=== PATIENT | female | born 1935 | race Caucasian/White ===

== ENCOUNTER 2024-05-14 12:23 | Outpatient (REF) | payer MEDICARE, SELFPAY ==
[2024-05-14 13:28] LABS: PCR FLU A Negative PCR FLU A (Negative); PCR FLU B Negative PCR FLU B (Negative); PCR RSV Negative PCR RSV (Negative); SARS PCR* Negative SARS-CoV-2 (Negative)
[2024-05-17 17:25] LABS: B. pertussis/parapertus Source Not Provided; Bordetella parapertussis PCR Not Detected; Bordetella pertussis by PCR Not Detected
== END 2024-05-14 12:24 | disposition home or self-care (01) ==
LOC: NPINS 12:23
PROVIDERS: PCP Family Medicine; Visit Provider Family Medicine
DX: R05.9 Cough, unspecified (principal)
CPT/HCPCS: 87631

== ENCOUNTER 2024-05-15 15:08 | Outpatient (CLI) | payer MEDICARE, OTHER, SELFPAY | END 2024-05-15 15:09 | disposition home or self-care (01) | LOC: AMB 05-17 07:30 | PROVIDERS: PCP Family Medicine; Visit Provider Emergency Medicine Emergency Medical Services | DX: R06.09 Other forms of dyspnea (principal) | CPT/HCPCS: A0425; A0427 ==

== ENCOUNTER 2024-05-15 15:34 | Inpatient (IN) | payer MEDICARE, OTHER, SELFPAY ==
[2024-05-15] VITALS (30 sets, daily range): BP systolic 93–141; BP diastolic 61–97; PULSE 96–139; RESP 32–42; TEMP 36.5–37.9; O2SAT 91–98; BMI 22.9
--- NOTE | 2024-05-15 15:46 | CRLHL7_ITS ---
For Patients: As a result of the Century Cures Act, medical imaging exams and procedure reports are released immediately into your electronic medical record. You may view this report before your referring provider. If you have questions, please contact your health care provider. Indication: Pneumonia, possible mass Technique: CT chest without IV contrast Comparison: None Findings: Motion degraded exam. No thyroid nodules. There are few mediastinal and likely bilateral hilar lymph nodes without appreciable pathologic enlargement, likely reactive. Cardiomegaly. No pericardial effusion. Multivessel coronary artery calcifications. Aortic valve calcifications. Bilateral airspace opacities with dense consolidative airspace opacities involving the right lower lobe and to a lesser extent the left lower lobe, favored to represent multifocal pneumonia. There is no pleural effusion or pneumothorax. The airways are clear. The visualized upper abdomen is without acute abnormality. No acute fracture or malalignment. There are some degenerative changes of the spine. Impression: 1. CT findings consistent with multifocal pneumonia. Recommend follow-up chest CT approximately 10-12 weeks after completion of any treatment to assess for resolution and exclude any underlying pulmonary nodules/masses. 2. There are few mediastinal and likely bilateral hilar lymph nodes without appreciable pathologic enlargement, likely reactive. Please note that all CT scans at this facility use dose modulation, iterative reconstruction, and/or weight-based dosing when appropriate to reduce radiation dose to as low as reasonably achievable. Dictated by Rashaun Crespo MD @ 05/15/2024 4:57:02 PM (Electronically Signed)
--- NOTE | 2024-05-15 16:04 | ED.GENADULT ---
HPI - General Adult General Chief complaint: Shortness of Breath/Dyspnea Stated complaint: possible sepsis Time Seen by Provider: 05/15/24 15:35 Source: RN notes reviewed Mode of arrival: EMS History of Present Illness HPI narrative: Patient is an 88-year-old woman brought in from [facility]. She has had trouble recently with pneumonia hospitalized [address] [place] [address] in mid April and then again at [place], discharged back to [facility] I believe on May 01. Both times, she received fluids, IV antibiotics and oxygen support. At this point, she had no longer been on oxygen. She was noted to be having some respiratory difficulty earlier today, O2 sats were 84% on room air. She had indicated that she would like to stay at the care facility of possible, but they did a chest x-ray which showed a density in the right mid and lower lung consistent with pneumonia. A portion of this was rounded and appeared masslike. She was noted to have a fever in the ambulance as well. It seems as if she is off her baseline a little bit mentally, it looking through the custodial notes she typically responds to questions at least with a single word answer. She is not really answering any questions for me here. Per paramedics she was 81% on room air on their arrival. Review of Systems Status of ROS: Reports: 10 or more systems reviewed and unremarkable except as noted in History and below [facility] Social History Smoking Status: Unknown if ever smoked Exam Narrative: Exam Narrative: Vital signs reviewed In general, an alert elderly woman, breathing is mildly labored, tachypneic. Head: Normocephalic, atraumatic. Eyes: Sclera clear. Pupils equal and reactive. ENT: Mucous membranes moist. Neck: Supple without adenopathy. Heart: Tachycardic, irregular. No obvious murmur. Lungs: Clear. No increased work of breathing, crackles or wheezes. Abdomen: Protuberant, soft. No rebound guarding or rigidity. She does seem to wince a little bit with palpation of her lower abdomen. Extremities: Well perfused, pulses intact. No significant edema. Neurologic: She is awake, she makes eye contact but really does not answer questions. Not following commands at this time. Skin: Warm, dry well perfused. Affect: Normal. Const: Vital Signs, click to edit/add: Vital Signs - 24 hr 05/15/24 15:54 05/15/24 15:55 05/15/24 16:00 Temperature 100.3 F H Pulse Rate [Pulse Oximeter] 138 H Respiratory Rate 42 H Blood Pressure [Ri ght Upper Arm] 130/97 H Pulse Oximetry 93 92 92 Oxygen Delivery Me thod OxyMask Nasal Cannula Oxygen Flow Rate 6 6 Documenting provider has reviewed patient's vital signs: yes Course Course ED Course: Concern at this time would be for sepsis, possible pulmonary source given hypoxia and chest x-ray findings, though I do not know what her x-ray looked like in April. It is not clear to me that she has had a CT scan and I think with her current findings it is reasonable to do a scan of her chest to rule out an abscess, empyema, or mass. This is ordered without IV contrast. In the meantime, we have given her 500 mL of normal saline. An EKG shows atrial fibrillation with a ventricular rate of 132. Looking through her records she does have a history of atrial fibrillation with rapid ventricular response back at [facility] during her hospitalization really last April. Resolved somewhat with her morning medications including metoprolol. She is not anticoagulated, it was discussed previously in July of 2023. She is tachycardic at this time, will give some medication to help with fever control and some fluids and see where we stand at that point. Blood pressures have been stable. Is oxygenating reasonably well on O2, 6 L by nasal cannula, will switch to maybe 4 L by OxyMask and see how she does. She is DNR DNI, selective treatment. Labs including blood culture, lactate, procalcitonin ordered. Labs thus [place] [address], lactate of 2.3. Hemoglobin is a little low at 11. Left shift with 90% neutrophils. Venous gas looks good with a pH of 7.37, pCO2 of 40. Metabolic panel is unremarkable. LFTs are normal, BNP is markedly elevated at 17,200 thousand two hundred, baseline unknown. UA is pending. Chest CT reviewed by me shows evidence of bilateral infiltrates, I do not see an abscess, I do not see pleural effusion or evidence of significant congestive heart failure. Final radiology read is notable for multifocal pneumonia, follow-up chest CT in 10-12 weeks recommended to exclude any underlying pulmonary nodules or masses. A few likely reactive nodes. Case discussed with Dr. Frank from the hospitalist service. Plan will be IV antibiotics and admission for respiratory support. I have not seen any family yet here, my understanding is that her son is on his way. POLST sent by [facility], code status confirmed. Vital Signs Vital signs: Initial Vital Signs Respiratory Effort Tachypnea 05/15/24 15:54 Respiratory Depth Deep 05/15/24 15:54 Pulse Oximetry 93 05/15/24 15:54 Oxygen Delivery Method OxyMask 05/15/24 15:54 Oxygen Flow Rate 6 05/15/24 15:54 Vital Signs Pulse Oximetry 93 05/15/24 15:54 Oxygen Delivery Method OxyMask 05/15/24 15:54 Oxygen Flow Rate 6 05/15/24 15:54 Temperature 100.3 F H 05/15/24 15:55 Pulse Rate 138 H 05/15/24 15:55 Respiratory Rate 42 H 05/15/24 15:55 Blood Pressure 130/97 H 05/15/24 15:55 Pulse Oximetry 92 05/15/24 16:00 Oxygen Delivery Method Nasal Cannula 05/15/24 15:55 Oxygen Flow Rate 6 05/15/24 15:55 Medications Administered Medications: Discontinued Medications Generic Name Dose Route Start Last Admin Trade Name Freq PRN Reason Stop Dose Admin Acetaminophen 1,000 mg 05/15/24 15:46 05/15/24 16:59 Acetaminophen 500 Mg Tablet PO 05/15/24 15:47 Not Given ONCE ONE Piperacillin Sod/Tazobactam 100 mls @ 100 mls/hr 05/15/24 15:46 05/15/24 16:54 Sod 3.375 gm/ Sodium Chloride IVPB 05/15/24 15:47 100 mls/hr ONCE ONE Administration Medical Decision Making Lab Data Labs: Lab Results 05/15/24 05/15/24 05/15/24 Range/Units 15:52 15:52 15:52 WBC 26.05 H* (4.50-11.00) K/uL RBC 3.64 L (4.00-5.20) m/uL Hgb 11.0 L (12.0-16.0) gm/dL Hct 34.9 (33.0-51.0) % MCV 96 (80-100) fL MCH 30 (26-34) pg MCHC 32 (32-36) gm/dL RDW Coeff of Noah 17.2 H (11.5-15.5) % Plt Count 240 (140-440) K/uL Neut % (Auto) 89.9 H (42.0-72.0) % Lymph % (Auto) 3.4 L (20-44) % Roberts % (Auto) 5.8 (0.0-11.0) % Eos % (Auto) 0.0 (0.0-7.0) % Baso % (Auto) 0.1 (0.0-3.0) % Neut # (Auto) 23.40 H (1.7-7.0) K/uL Lymph # (Auto) 0.90 (0.90-2.90) K/uL Roberts # (Auto) 1.50 H (0.00-0.90) K/UL Eos # (Auto) 0.00 (0.00-0.50) K/uL Baso # (Auto) 0.00 (0.00-0.30) K/uL Abs Immat Gran (auto) 0.20 (0.00-0.30) K/uL Imm/Tot Granulo (auto) 0.8 % VBG pH 7.371 (7.32-7.43) VBG pCO2 40 (40-50) mmHG VBG pO2 31.8 (25-47) mmHG VBG HCO3 23 (21-28) mmol/L Sodium 134 L (135-149) mmol/L Potassium 4.4 (3.6-5.1) mmol/L Chloride 103 (96-114) mmol/L Carbon Dioxide 23 (20-32) mmol/L Anion Gap 8 (7-15) mEq/L BUN 26 (7-30) mg/dL Creatinine 1.1 (0.5-1.5) mg/dL Estimated Creat Clear 28.50 Estimated GFR 49 ml/min Glucose 129 H (60-115) mg/dL Lactate 2.3 H (0.5-1.9) mmol/L Calcium 8.7 (8.4-10.6) mg/dL Total Bilirubin 0.8 Cancelled (0.1-1.5) mg/dL Direct Bilirubin 0.4 Cancelled (0.0-0.5) mg/dL AST 30 (12-35) U/L ALT (4-35) U/L Alkaline Phosphatase (40-150) U/L NT-Pro-B Natriuret Pep pg/mL Total Protein (6.0-8.3) g/dL Albumin (3.3-5.0) g/dL SARS-CoV-2 (PCR) (Negative) Influenza Type A (PCR) (Negative) Influenza Type B (PCR) (Negative) RSV (PCR) (Negative) POC Troponin I (0.01-0.04) ng/ml 05/15/24 05/15/24 05/15/24 Range/Units 15:52 15:52 15:52 WBC (4.50-11.00) K/uL RBC (4.00-5.20) m/uL Hgb (12.0-16.0) gm/dL Hct (33.0-51.0) % MCV (80-100) fL MCH (26-34) pg MCHC (32-36) gm/dL RDW Coeff of Noah (11.5-15.5) % Plt Count (140-440) K/uL Neut % (Auto) (42.0-72.0) % Lymph % (Auto) (20-44) % Roberts % (Auto) (0.0-11.0) % Eos % (Auto) (0.0-7.0) % Baso % (Auto) (0.0-3.0) % Neut # (Auto) (1.7-7.0) K/uL Lymph # (Auto) (0.90-2.90) K/uL Roberts # (Auto) (0.00-0.90) K/UL Eos # (Auto) (0.00-0.50) K/uL Baso # (Auto) (0.00-0.30) K/uL Abs Immat Gran (auto) (0.00-0.30) K/uL Imm/Tot Granulo (auto) % VBG pH (7.32-7.43) VBG pCO2 (40-50) mmHG VBG pO2 (25-47) mmHG VBG HCO3 (21-28) mmol/L Sodium (135-149) mmol/L Potassium (3.6-5.1) mmol/L Chloride (96-114) mmol/L Carbon Dioxide (20-32) mmol/L Anion Gap (7-15) mEq/L BUN (7-30) mg/dL Creatinine (0.5-1.5) mg/dL Estimated Creat Clear Estimated GFR ml/min Glucose (60-115) mg/dL Lactate (0.5-1.9) mmol/L Calcium (8.4-10.6) mg/dL Total Bilirubin (0.1-1.5) mg/dL Direct Bilirubin (0.0-0.5) mg/dL AST Cancelled (12-35) U/L ALT 16 Cancelled (4-35) U/L Alkaline Phosphatase 104 Cancelled (40-150) U/L NT-Pro-B Natriuret Pep 95973 pg/mL Total Protein (6.0-8.3) g/dL Albumin (3.3-5.0) g/dL SARS-CoV-2 (PCR) (Negative) Influenza Type A (PCR) (Negative) Influenza Type B (PCR) (Negative) RSV (PCR) (Negative) POC Troponin I (0.01-0.04) ng/ml 05/15/24 05/15/24 05/15/24 Range/Units 15:52 15:52 15:52 WBC (4.50-11.00) K/uL RBC (4.00-5.20) m/uL Hgb (12.0-16.0) gm/dL Hct (33.0-51.0) % MCV (80-100) fL MCH (26-34) pg MCHC (32-36) gm/dL RDW Coeff of Noah (11.5-15.5) % Plt Count (140-440) K/uL Neut % (Auto) (42.0-72.0) % Lymph % (Auto) (20-44) % Roberts % (Auto) (0.0-11.0) % Eos % (Auto) (0.0-7.0) % Baso % (Auto) (0.0-3.0) % Neut # (Auto) (1.7-7.0) K/uL Lymph # (Auto) (0.90-2.90) K/uL Roberts # (Auto) (0.00-0.90) K/UL Eos # (Auto) (0.00-0.50) K/uL Baso # (Auto) (0.00-0.30) K/uL Abs Immat Gran (auto) (0.00-0.30) K/uL Imm/Tot Granulo (auto) % VBG pH (7.32-7.43) VBG pCO2 (40-50) mmHG VBG pO2 (25-47) mmHG VBG HCO3 (21-28) mmol/L Sodium (135-149) mmol/L Potassium (3.6-5.1) mmol/L Chloride (96-114) mmol/L Carbon Dioxide (20-32) mmol/L Anion Gap (7-15) mEq/L BUN (7-30) mg/dL Creatinine (0.5-1.5) mg/dL Estimated Creat Clear Estimated GFR ml/min Glucose (60-115) mg/dL Lactate (0.5-1.9) mmol/L Calcium (8.4-10.6) mg/dL Total Bilirubin (0.1-1.5) mg/dL Direct Bilirubin (0.0-0.5) mg/dL AST (12-35) U/L ALT (4-35) U/L Alkaline Phosphatase (40-150) U/L NT-Pro-B Natriuret Pep Cancelled pg/mL Total Protein 6.1 Cancelled (6.0-8.3) g/dL Albumin 3.5 Cancelled (3.3-5.0) g/dL SARS-CoV-2 (PCR) Negative SARS-CoV-2 (Negative) Influenza Type A (PCR) Negative PCR FLU A (Negative) Influenza Type B (PCR) Negative PCR FLU B (Negative) RSV (PCR) Negative PCR RSV (Negative) POC Troponin I (0.01-0.04) ng/ml 05/15/24 Range/Units 15:55 WBC (4.50-11.00) K/uL RBC (4.00-5.20) m/uL Hgb (12.0-16.0) gm/dL Hct (33.0-51.0) % MCV (80-100) fL MCH (26-34) pg MCHC (32-36) gm/dL RDW Coeff of Noah (11.5-15.5) % Plt Count (140-440) K/uL Neut % (Auto) (42.0-72.0) % Lymph % (Auto) (20-44) % Roberts % (Auto) (0.0-11.0) % Eos % (Auto) (0.0-7.0) % Baso % (Auto) (0.0-3.0) % Neut # (Auto) (1.7-7.0) K/uL Lymph # (Auto) (0.90-2.90) K/uL Roberts # (Auto) (0.00-0.90) K/UL Eos # (Auto) (0.00-0.50) K/uL Baso # (Auto) (0.00-0.30) K/uL Abs Immat Gran (auto) (0.00-0.30) K/uL Imm/Tot Granulo (auto) % VBG pH (7.32-7.43) VBG pCO2 (40-50) mmHG VBG pO2 (25-47) mmHG VBG HCO3 (21-28) mmol/L Sodium (135-149) mmol/L Potassium (3.6-5.1) mmol/L Chloride (96-114) mmol/L Carbon Dioxide (20-32) mmol/L Anion Gap (7-15) mEq/L BUN (7-30) mg/dL Creatinine (0.5-1.5) mg/dL Estimated Creat Clear Estimated GFR ml/min Glucose (60-115) mg/dL Lactate (0.5-1.9) mmol/L Calcium (8.4-10.6) mg/dL Total Bilirubin (0.1-1.5) mg/dL Direct Bilirubin (0.0-0.5) mg/dL AST (12-35) U/L ALT (4-35) U/L Alkaline Phosphatase (40-150) U/L NT-Pro-B Natriuret Pep pg/mL Total Protein (6.0-8.3) g/dL Albumin (3.3-5.0) g/dL SARS-CoV-2 (PCR) (Negative) Influenza Type A (PCR) (Negative) Influenza Type B (PCR) (Negative) RSV (PCR) (Negative) POC Troponin I 0.02 (0.01-0.04) ng/ml Imaging Data CT scan - chest: Attestation: I have reviewed the pertinent imaging results. Radiologist's impression: Patient: Rox Ramirez MR#: [id number] : 1935 Acct:[id number] Loc: ED Service Date: 05/15/[address]: Ordering Physician: Alexandra Murray M.D. Date of Service: 05/15/24 Procedure(s): CT chest wo con Accession Number(s): [id number] cc: Alexandra Murray M.D.; Kyle Mckeon M.D.~ For Patients: As a result of the Cures Act, medical imaging exams and procedure reports are released immediately into your electronic medical record. You may view this report before your referring provider. If you have questions, please contact your health care provider. Indication: Pneumonia, possible mass Technique: CT chest without IV contrast Comparison: None Findings: Motion degraded exam. No thyroid nodules. There are few mediastinal and likely bilateral hilar lymph nodes without appreciable pathologic enlargement, likely reactive. Cardiomegaly. No pericardial effusion. Multivessel coronary artery calcifications. Aortic valve calcifications. Bilateral airspace opacities with dense consolidative airspace opacities involving the right lower lobe and to a lesser extent the left lower lobe, favored to represent multifocal pneumonia. There is no pleural effusion or pneumothorax. The airways are clear. The visualized upper abdomen is without acute abnormality. No acute fracture or malalignment. There are some degenerative changes of the spine. Impression: 1. CT findings consistent with multifocal pneumonia. Recommend follow-up chest CT approximately 10-12 weeks after completion of any treatment to assess for resolution and exclude any underlying pulmonary nodules/masses. 2. There are few mediastinal and likely bilateral hilar lymph nodes without appreciable pathologic enlargement, likely reactive. Please note that all CT scans at this facility use dose modulation, iterative reconstruction, and/or weight-based dosing when appropriate to reduce radiation dose to as low as reasonably achievable. Dictated by Rashaun Crespo MD @ 05/15/2024 4:57:02 PM Discharge Plan Discharge Clinical Impression: Pneumonia, Respiratory failure, Atrial fibrillation with rapid ventricular response Patient Disposition: Admitted As Observation
[2024-05-15 16:11] LABS: Troponin, Point-of-Care* 0.02 ng/ml (0.01-0.04)
[2024-05-15 16:12] LABS: HCO3 VBG 23 mmol/L (21-28); PCO2 VBG 40 mmHG (40-50); PO2 VBG 31.8 mmHG (25-47); pH VBG 7.371 (7.32-7.43)
[2024-05-15 16:13] LABS: Basophils Percent Auto 0.1 % (0.0-3.0); Hematocrit 34.9 % (33.0-51.0); Immature Granulocytes Pct Auto 0.8 %; Lactate Sepsis w/Reflex* 2.3 mmol/L (0.5-1.9); Lymphocytes Percent Auto 3.4 % (20-44); Mean Corpuscular HGB Conc 32 gm/dL (32-36); Mean Corpuscular Hemoglobin 30 pg (26-34); Mean Corpuscular Volume 96 fL (80-100); Monocytes Percent Auto 5.8 % (0.0-11.0); Neutrophils Percent Auto 89.9 % (42.0-72.0); Platelet Count* 240 K/uL (140-440); RDW Coefficient of Variation % 17.2 % (11.5-15.5); Red Blood Count 3.64 m/uL (4.00-5.20)
[2024-05-15 16:23] LABS: White Blood Count* 26.05 K/uL (4.50-11.00)
[2024-05-15 16:24] LABS: Slide Review Reflex Yes
[2024-05-15 16:38] LABS: Albumin* 3.5 g/dL (3.3-5.0)
[2024-05-15 16:39] LABS: Chloride* 103 mmol/L (96-114); Potassium* 4.4 mmol/L (3.6-5.1); Sodium* 134 mmol/L (135-149)
[2024-05-15 16:41] LABS: Creatinine* 1.1 mg/dL (0.5-1.5); Estimated Glomerular Filt Rate 49 ml/min
[2024-05-15 16:42] LABS: Alanine Aminotransferase* 16 U/L (4-35); Alkaline Phosphatase* 104 U/L (40-150); Anion Gap 8 mEq/L (7-15); Aspartate Amino Transferase* 30 U/L (12-35); Bilirubin Direct* 0.4 mg/dL (0.0-0.5); Bilirubin Total* 0.8 mg/dL (0.1-1.5); Blood Urea Nitrogen* 26 mg/dL (7-30); Calcium* 8.7 mg/dL (8.4-10.6); Carbon Dioxide* 23 mmol/L (20-32); Glucose* 129 mg/dL (60-115); Total Protein* 6.1 g/dL (6.0-8.3)
--- OUTSIDE RECORDS SUMMARY | 2024-05-15 16:50 | XMS_ITS ---
Author Organization [facility] Address [address] [place] [address] Care Team Providers Care Telecommunications Consultant Name Role Phone Bridgett Mi APRN, C.N.P., D.N.P. Primary Ca re Provider Unavailable Active Problems * This document contains information received from the source organization and may not represent a complete record from that organization. Problem Noted Date Diagnosed Date Hypokalemia 04/22/2024 Pneumonia Bacterial 04/18/2024 Assessment & Plan (04/18/2024 10:11 PM CONSTRUCTION PLANT OPERATOR): She has leukocytosis with a left shift. Chest x-ray revealed multiple consolidative and ground-glass opacities throughout the right lung. She is being treated with IV ceftriaxone and oral azithromycin. She has acute hypoxic respiratory failure. In spite of her multiple recurrent pneumonias and COPD, she is not oxygen dependent according to the medical record and she currently requiring 2 L per nasal cannula. Continue with respiratory therapy treatments and nebulizers. Steroids not started at this time. Hypothyroidism 04/18/2024 Assessment & Plan (04/18/2024 10:14 PM CONSTRUCTION PLANT OPERATOR): Continue thyroid replacement therapy. Hypertension Essential Primary 08/10/2023 Assessment & Plan (04/18/2024 10:17 PM CONSTRUCTION PLANT OPERATOR): Continue her hypertensive treatment with losartan, amlodipine, and her metoprolol. Following the IV fluid resuscitation her blood pressure improved. Will need to continue to monitor carefully. I am leaving her on her antihypertensives at this point. If she becomes hypotensive again, then will need to discontinue accordingly. Hyperlipidemia 08/10/2023 Influenza 08/03/2023 Atrial Fibrillation Unspecified 07/16/2023 Overview (07/16/2023): Patient not interested in anticoagulation. Managed on metoprolol 50mg daily, asymptomatic. Assessment & Plan (04/18/2024 10:13 PM CONSTRUCTION PLANT OPERATOR): She had AFib with rapid ventricular response upon presentation to the emergency department. This was somewhat resolved with her receiving her morning medications. Will continue her daily aspirin and metoprolol. Continue to monitor closely with telemetry and titrate medications accordingly. Nodules Pulmonary Multiple 02/06/2023 Chronic Cough 02/02/2023 Dementia 07/03/2022 Overview (07/16/2023): Diagnosed in 2018, on aricept. Lives in assisted living. Assessment & Plan (04/18/2024 10:15 PM CONSTRUCTION PLANT OPERATOR): Continue Aricept and Remeron at night for sleep. Anxiety Generalized Disorder 07/03/2022 Pain Neck 12/06/2021 Gallstone 09/07/2020 Obstructive Sleep Apnea Adult 10/09/2019 Chronic Obstructive Pulmonary Disease Without Ex acerbation 10/21/2018 Overview (08/30/2023): Diagnosed with DIPNECH by pulmonary in 01/2023. Managed on: Advair discuss Albuterol as needed Treat for flares like COPD exacerbation Obesity Body Mass Index 30-39.9 Adult 07/19/2017 Urgency Urinary 05/20/2017 Spinal Stenosis Lumbar Regio n Without Neurogenic Claudication 09/25/2015 Hyperlipidemia Mixed 09/24/2015 Assessment & Plan (04/18/2024 10:14 PM CONSTRUCTION PL[employer] OPERATOR): Continue simvastatin Transient Ischemic Attack Pe rsonal History Or Stroke Personal History 09/18/2013 Overview (05/20/2017): Stroke (CVA) NOS right hemisphere TIA- High-grade right internal carotid artery stenosis, status post endarterectomy Depression Major Recurrent Moderate 08/09/2013 Overview (07/16/2023): Zoloft and Wellbutrin since 2019. Assessment & Plan (04/18/2024 10:17 PM CONSTRUCTION PLANT OPERATOR): Continue sertraline and buPROPion. 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 Recent CBCs normal. 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 This could be the etiology of her possible recurrent aspiration pneumonitis. Speech therapy consulted. Loss Hearing Bilateral 07/19/2007 Overview (05/20/2017): Overview: bilateral hearing AIDS Cancer Breast Personal History Current Oncology Plans No current plan information found. Past Plans Radiation Treatments * No radiation treatments are documented for this patient in [facility]. Treatments may have been administered in another system. Lifetime Dose Tracking * Chemical Lifetime Dose Automatic Entry Manual Entr y Radiation 1.98 mGy 1.98 mGy 0 mGy Fluoro Time 1.7 minutes 1.7 minutes 0 minutes Resolved Problems Problem Noted Date Diagnosed Date Resolved Date Sepsis 04/18/2024 04/25/2024 Assessment & Plan (04/18/2024 10:07 PM CONSTRUCTION PLANT OPERATOR): For a pleasant 88-year-old female with history of atrial fibrillation, COPD, oxygen-dependent, recurrent pneumonia, possible aspiration, esophageal reflux disease, dementia, hypertension presented to the [facility] after being found seated on the floor in her room at the assisted living facility. Patient has been feeling ill for the last couple of weeks and has had a progressive cough. A during the evaluation in the emergency department she was found to be tachycardic and tachypneic. Her blood pressures were on the soft side. She had not had her morning medications. The tachycardia improved after she received her dose of metoprolol; however it has remained greater than 100-110. Her blood pressures on presentation to the hospital were around 110 systolic with a pulse in the same region. Her respiratory rate was in the 30s. She was treated with fluid resuscitation and initiated on IV antibiotics. She became hemodynamically more stable with the fluids. 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
--- OUTSIDE RECORDS SUMMARY | 2024-05-15 16:50 | XMS_ITS | Encounter Summary ---
Author Organization [facility] Address [address] [place] [address] Care Team Providers Care Major Account Manager Name Role Phone Bridgett Mi APRN, C.N.P., D.N.P. Primary Ca re Provider Unavailable Reason for Visit * Reason Comments Weakness - Generalized By ambulance from [facility] Encounter Details Date Type Department Care Team (Late st Contact Info) Description 04/28/2024 10:48 AM COURTROOM CLERK - 04/28/2024 2:56 PM COURTROOM CLERK Emergency [facility] [id number] [id number] Sneha Harper P.A.-C., P.A., M.S. [address] [place] [address] Weakness General (Primary Dx); Pneumonia Discharge Disposition: Acute Care Hospital Social History Tobacco Use Types Packs/Day Years Used Date Smoking Tobacco: Former Cigarettes 0.5 43 1 955 - 1998 Smokeless Tobacco: Never Alcohol Use Standard Drinks/Week Comments Not Currently 0 (1 standard drink = 0.6 oz pur e alcohol) [facility] Utilities Answer Date Recorded In the past 12 months has [employer] electric, gas, oil, or water company threatened to shut off services in your home? No 04/18/2024 Humiliation, Afraid, Rape, and Kick questionnair e Answer Date Recorded Within the last year, have y ou been afraid of your partner or ex-partner? No 04/18/2024 Within the last year, have y ou been humiliated or emotionally abused in other ways by your partner or ex-partner? No Within the last year, have y ou been kicked, hit, slapped, or otherwise physically hurt by your partner or ex-partner? No 04/18/2024 Within the last year, have y ou been raped or forced to have any kind of sexual activity by your partner or ex-partner? No 04/18/2024 Social Connection and Isolat ion Panel [NHANES] Answer Date Recorded In a typical week, how many times do you talk on the phone with family, friends, or neighbors? Twice a week 11/17/2021 How often do you get togethe r with friends or relatives? Once a week 11/17/2021 How often do you attend [facility] or church services? More than 4 times per year 11/17/2021 Do you belong to any clubs o r organizations such as judaism groups, unions, fraternal or athletic groups, or school groups? No 11/17/2021 Attends Club or Organization Meetings Not on ash e 11/17/2021 Are you , , di vorced, , never , or living with a partner? 11/17/2021 AUDIT-C Answer Date Recorded Q1: How often do you have a drink containing alc ohol? Monthly or less 11/17/2021 Q2: How many drinks containi ng alcohol do you have on a typical day when you are drinking? 1 or 2 11/17/2021 Q3: How often do you have si x or more drinks on one occasion? Never 11/17/2021 Overall Financial Resource Strain (CARDIA) Answe r Date Recorded How hard is it for you to pa y for the very basics like food, housing, medical care, and heating? Not hard at all 11/17/2021 PHQ-2 Answer Date Recorded PHQ-2 Score 2 10/16/2023 [facility] - Occupational Stress Questionnaire Answer Date Recorded Do you feel stress - tense, restless, nervous, or anxious, or unable to sleep at night because your mind is troubled all the time - these days? Only a little 11/17/2021 Exercise Vital Sign Answer Date Recorde d On average, how many days pe r week do you engage in moderate to strenuous exercise (like a brisk walk)? 5 days 10/16/2023 On average, how many minutes do you engage in exercise at this level? 30 min 10/16/2023 Hunger Vital Sign Answer Date Recorded Within the past 12 months, y ou worried that your food would run out before you got the money to buy more. Never true 04/18/20 24 Within the past 12 months, t he food you bought just didn't last and you didn't have money to get more. Never true 04/18/2024 PRAPARE - Transportation Answer Date Re corded In the past 12 months, has l ack of transportation kept you from medical appointments or from getting medications? Yes 10/2023 In the past 12 months, has l ack of transportation kept you from meetings, work, or from getting things needed for daily living? Yes 04/18/2024 Depression Answer Date Recor ded PHQ-9 Total Score (max 27) 4 10/15 Nutrition Answer Date Recorded On average, how many serving s of fruits and vegetables do you eat per day (serving size is equal to 1 cup or approximately the size of a tennis ball)? 3-5 10/16/2023 Dental Answer Date Recorded Dental: Regular Dentist Yes 11/18/19 Employment Answer Date Recorded Employment status Retired 10/16/2023 Housing Stability Answer Date Recorded What is your living situation today? I have a [facility] place to live 04/18/2024 Education Answer Date Recorded What is the highest level of school you have completed or the highest degree you have received? Bachelor's degree (e.g., BA, AB, BS) 11/17/2021 Comments No Sex and Gender Information Value Date Recorded Sex Assigned at Female 09/11/2018 1:57 PM CDT Legal Sex Female 8:29 AM COURTROOM CLERK Gender Identity Female 09/11/2018 1:57 PM CDT Sexual Orientation Straight 09/11/2018 1: 57 PM CDT documented as of this encounter Last Filed Vital Signs Vital Sign Reading Time Taken Comments Blood Pressure 116/83 04/28/2024 2:45 PM COURTROOM CLERK Pulse 85 04/28/2024 2:45 PM COURTROOM CLERK Temperature 36.6 C (97.9 F) 04/28/2024 10:57 AM COURTROOM CLERK Respiratory Rate 18 04/28/2024 10:57 AM COURTROOM CLERK Oxygen Saturation 93% 04/28/2024 2:45 PM COURTROOM CLERK Inhaled Oxygen Concentration - - Weight 72.6 kg (160 lb 0.9 oz) 04/28/2024 10:58 AM COURTROOM CLERK Height - - Body Mass Index 29.27 04/18/2024 2:46 PM COURTROOM CLERK documented in this encounter Medications at Time of Discharge acetaminophen (TYLENOL) 500 mg tablet Take 1,000 mg by mouth every 6 (six) hours as needed for pain, headaches or fever. albuterol 90 mcg/actuation inhaler Inhale 2 puffs every 6 (six) hours as needed for wheezing. 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 90 tablet 3 09/18/[address] tablet TAKE ONE TABLET BY MOUTH EVERY DAY FOR STROKE PREVENTION-TAKE WITH 6 - 8 OUNCES OF PLAIN WATER 100 tablet 1 05/16/2019 benzonatate (Tessalon Perles) 100 mg capsule Take 1 capsule (100 mg total) by mouth 3 (three) times a day as needed for cough. 20 capsule 04/25/2024 buPROPion XL (WELLBUTRIN XL) 150 mg 24 hr tabletIndications: Depression Major Recurrent Moderate (HCC) Take 3 tablets (450 mg total) by mouth daily. 270 tablet 3 09/18/2023 donepeziL (ARICEPT) 10 mg tabletIndications: Chronic Obstructive Pulmonary Disease Without Exacerbation (HCC) Take 1 tablet (10 mg total) by mouth at bedtime. 90 tablet 3 09/18/2023 fluticasone propion-salmeteroL (Advair Diskus) 100-50 mcg/actuation diskus inhaler Inhale 1 puff 2 (two) times a day. Rinse mouth with water after use to reduce aftertaste and incidence of candidiasis. Do not swallow. 60 each 11 01/15/2024 5 guaiFENesin (Mucinex) 600 mg 12 hr tablet Take 1 tablet (600 mg total) by mouth 2 (two) times a day. 60 tablet 04/25/2024 5 levothyroxine (SYNTHROID, LEVOTHROID) 50 mcg tablet Take 1 tablet (50 mcg total) by mouth daily. 90 tablet 3 04/23/2023 losartan (COZAAR) 50 mg tablet Take 1 tablet (50 mg total) by mouth daily. 90 tablet 3 09/18/2023 mirtazapine (REMERON) 7.5 mg tabletIndications: Depression Major Recurrent Moderate (HCC) Take 1 tablet (7.5 mg total) by mouth at bedtime. 90 tablet 3 09/18/2023 omeprazole (PriLOSEC) [address] capsuleIndications :Reflux Esophageal Take 1 capsule (20 mg total) by mouth 2 (two) times a day before breakfast and dinner. 180 capsule 11 09/18/2023 oxyBUTYnin (DITROPAN) 5 mg tabletIndications: Urgency Urinary take one tablet by mouth twice a day 180 tablet 3 08/23/2023 sertraline (ZOLOFT) 100 mg tabletIndications: Depression Major Recurrent Moderate (HCC) Take 2 tablets (200 mg total) by mouth daily. 180 tablet 3 09/18/2023 simvastatin (ZOCOR) 40 mg tabletIndications: Hyperlipidemia Mixed Take 1 tablet (40 mg total) by mouth at bedtime. 90 tablet 3 09/18/2023 levoFLOXacin (Levaquin) 750 mg tablet Take 1 tablet (750 mg total) by mouth every other day for 2 doses. 2 tablet 04/25/2024 4 documented as of this encounter ED Notes * Sneha Harper P.A.-Boris., P.A., M.S. - 04/28/2024 11:01 AM CST CHIEF COMPLAINT/REASON FOR VISIT Weakness - Generalized (By ambulance from [facility]) PHYSICAL EXAMINATION Nursing notes reviewed. Initial Vitals Temperature 04/28/24 1057 36.6 ??C Pulse Rate 04/28/24 1045 63 Heart Rate -- Resp Rate 04/28/24 1057 18 Blood Pressure 04/28/24 1045 100/66 SpO2 04/28/24 1057 95 % Pain Score 04/28/24 1058 0 - No pain Vitals: 04/28/24 1400 04/28/24 1415 04/28/24 1430 04/28/24 1445 BP: (!) 112/94 (!) 124/92 116/83 Pulse: 95 96 95 85 Resp: Temp: SpO2: 92% 91% 93% 93% Weight: General: Awake, alert. Nontoxic. No apparent distress. Head: Normocephalic, atraumatic. Eyes: Normal sclerae and conjunctivae, PERRLA, extraocular movements intact ENT: Oropharynx is clear. Tongue is midline and normal in appearance without lesions. No buccal lesions noted. No posterior pharyngeal erythema or exudate. No tonsillar enlargement. Nose is symmetric. Nares patent. Dry mucus membranes. EACs clear. TMs are normal in appearance with normal landmarks and cone of light. Hard of hearing. Neck: Supple, full range of motion, no masses, trachea midline, no lymphadenopathy, no meningeal signs, no Cspine tenderness. No obvious JVD Heart: Regular rate and rhythm. S1 and S2 normal. No murmurs, gallops, or rubs. Chest/Lungs: Normal respiratory effort. No labored breathing. No stridor, retractions, or respiratory distress. Diminished breath sounds bilaterally. Abd: Soft, symmetric, nontender, nondistended, normal bowel sounds. No masses or organomegaly. No rebound or guarding. Back: Normal to inspection. No deformity or external signs of trauma. Ext: Warm, well-perfused. No cyanosis, clubbing, or edema. No bruising, swelling or deformity. Motor function is normal with full strength bilaterally to upper and lower extremities. Normal range of motion without bony tenderness. Gait is smooth and steady. Skin: Warm, dry, normal color for ethnicity. No rashes or diaphoresis. Nailbeds pink with no cyanosis or clubbing. Neuro: Awake, alert, GCS 15, speech clear, cranial nerves II-XII grossly intact, normal bulk, tone and strength in all extremities, normal sensation x4 without focal deficits. Memory is normal and though process is intact. Vascular: Peripheral pulses symmetric, normal cap refill. Psych: Pleasant and appropriate. ED Course as of 04/29/24 0939 SunApr 28, 2024 1102 Met with patient to perform history and physical exam, outline emergency department work up and initial treatment, as well as explain expected time frame. 1144 EKG shows AFib, heart rate 89. No ST elevation noted. No significant change when compared to previous. 1159 CBC reveals leukocytosis (WBC 17.5, increased from 11.7 three days ago) and anemia (Hgb 10.6, baseline per EMR review). CMP reveals elevated Cr (1.15, previous 1.10). Lactate is normal. Mag and Phos are normal. VBG: pH 7.48, pCO2 35. 1207 CXR shows slightly improved multifocal airspace opacities throughout both lungs compatible with pneumonia. Recommend continued follow-up to radiographic resolution. Unchanged trace right pleuraleffusions. No pneumothorax. Heart size normal. Per EMR review, the patient was most recently treated with Levaquin, which will be ordered to be given in the ER IV. Blood cultures were ordered and labwas notified of need for draw before administration of antibiotics. 1211 Admit likely requested via EMR. 1215 Called Karmen Justice RN, to inquire about bed availability and there are no beds available. 1217 Per Luz Maria Castillo RN with [facility], via secure chat: [facility]- at this time we are recommending looking outside of [facility] for placement of pts. 1223 The patient was reassessed and updated on results and plan. They were informed that there areno beds available [facility] and [facility] I called the [facility] to initiate transfer. Modesta will look into [place] and call me back. Arti has an 8 hour bed delay.. 1243 Modesta with [facility] called back to obtain additional information. She will look into bed availability in [place] and [place] and call me back. 1245 The patient was reassessed and updated on results and plan. Lab is drawing blood cultures now. [address] Lea with [facility], who agreed to admit the patient. They advised to wait to transport until nurse to nurse report has been made. 1415 The patient was reassessed and updated on results and plan. Son and [id number] are at bedside and in agreement. 1430 JACINDA Sheehan, called EMS dispatch to arrange transport. Final Diagnoses: as of 04/29/24 0939 Weakness General Pneumonia MEDICAL DECISION MAKING: Rox Ramirez is a 88 y.o. female with the following comorbidities affecting her care: dementia, hypertension, hyperlipidemia, CKD, AFib (not anticoagulated per patient choice), TIA, recurrentpneumonias, COPD (not oxygen dependent), GERD, breast cancer, among others. She was brought by EMS from [facility] for evaluation of generalized weakness, persistent cough, and shortness of breath despite recent hospitalization and treatment for pneumonia. The patient's [id number] states that they had coordinate increased services at the [facility] at the time of patient's discharge from the hospital three days ago, however the assisted living is unable to provide the level of care the patient is requiring, prompting their return to the ER. The patient states she wants to be admitted to [facility]. She reports having a decreased appetite due to nausea. She has had no fevers, chest pain, abdominal pain, vomiting, dysuria, rash or skin changes, or other concerning symptoms. No known/suspected COVID-19, RSV, or influenza exposure. Per EMR review, the patient was recently admitted to [facility] 04/18- for sepsis due topneumonia. Upon ER arrival, she was found to be in Afib with RVR, heart rates 110-120, she was tachypneic and hypoxic requiring 4L/min nasal cannula and soft blood pressures. WBC was 13.5 with 11.5 neutrophils. Lactate was normal. CXR showed multiple consolidative and ground-glass opacities throughout right lung. Repeat CXR 04/19/24 showed no significant change. She was treated with VFs, Rocephin and Azithromycin. Metroprolol succinate was switched to tartrate on 04/20 and increased to 50 mg t.i.d. On 04/21, she was in RVR again but VR improved after diuretics and change in antibiotics on 04/21 and RVR resolved. During her hospitalization, her WBC trended up to 16.2 with 13.9 neutrophils on 04/21/24. Respiratory culture was ordered but was not performed. CT chest 04/21 showed no PE and presenceof multifocal opacities, enlarged mediastinal and right hilar lymph nodes, likely reactive, reflux of contrast into the IVC/intrahepatic veins and small bilateral pleural effusions. Rocephin and Azithromycin were discontinued and she was started on Zosyn on 04/21. Echo 04/22 showed normal EF 65%. She was treated with diuretics (one dose of Lasix on 04/24). Her respiratory status improved. Blood and urine cultures were negative. Legionella and strep pneumo urinary antigens were negative. Nasal PCR was negative for MRSA. She completed 4 days of Zosyn and was discharged on Levaquin every other day for a total of 4 days. TCU was offered, however the patient preferred discharge back to assisted living and increased services were coordinated by family, per [id number] at bedside. On ER arrival, the patient is well appearing, nontoxic with soft blood pressure (100/66) and otherwise normal vitals. Oxygen saturations were 93% on room air. She is afebrile and not tachycardic. Exam reveals diminished breath sounds bilaterally. Differential diagnoses: UTI, pneumonia, sepsis, bacteremia, viral infection, electrolyte imbalance,dehydration, anemia, ACS, AL, PE, hypoxia, COPD, CHF, ICH, stroke, neuropathy, hepatic/drug inducedencephalopathy, drug reaction, CA, depression, psychosomatic illness, renal insufficiency/failure, hepatic failure, leukemia, among others. ED course/interventions: Met with patient upon ER arrival. IV was started by RN. IVF bolus was ordered. EKG was ordered and showed Afib, heart rate 89. No ST elevation. No significant change comparedto previous. Labs were ordered, including CBC, CMP, Mag, Phos, Lactate, VBG and UA. Abnormal labs revealed leukocytosis (WBC 17.5 with 15.02 neutrophils), anemia (Hgb 10.6, baseline per EMR review), and creatinine 1.15 (previous 1.10). VBG: pH 7.48, pCO2 35, HCO3 26. Lactate is normal. CXR was ordered and showed slightly improved multifocal airspace opacities throughout both lungs compatible withpneumonia. Recommend continued follow-up to radiographic resolution. Unchanged trace right pleural e ffusions. No pneumothorax. Heart size normal. Blood cultures x 2 were added and the patient was given IV Levaquin. Considered steroids and nebs, however the patient has no tachypnea or respiratory distress, is not hypoxic, and there is no wheezing auscultated on exam. Considered chest CT, however repeat chest CT is not felt likely to change treatment, so was not felt warranted at this time. A UA was ordered, but sample was not obtained prior to transfer. Unfortunately, there were no beds within the [facility]. I contacted [facility] and the patient was ultimately accepted for admission to [facility] in [place]. She remained comfortable and hemodynamically stable throughout the remainder of her ED course and was transferred by [facility] crew. -- History was obtained from: the patient, EMS, [id number], and EMR review -- Nursing documentation and prior inpatient and outpatient records were reviewed in the electronicmedical record to facilitate decision making regarding patient care. -- I personally reviewed by visualization, independent interpretation, and discussed with the patient the results of labs, imaging studies, and EKG as noted above. -- Consultation: Dr. Lea ([facility]) -- Prescription management: No new prescriptions or changes to existing home medications. Social Drivers of Health Transportation Needs: No Transportation Needs (04/28/2024) Received from [facility] [employer] [facility] Transportation Needs Does lack of transportation keep you from medical appointments?: 1 Does lack of transportation keep you from work, meetings or getting things that you need?: 1 Recent Concern: Transportation Needs - Unmet Transportation Needs (04/18/2024) PRAPARE - Transportation Lack of Transportation (Medical): Yes Lack of Transportation (Non-Medical): Yes Housing Stability: Low Risk (04/28/2024) Received from [facility] [employer] [facility] Housing Stability What is your housing situation today?: 1 Food Insecurity: No Food Insecurity (04/28/2024) Received from [facility] [employer] [facility] Food Insecurity Do you worry your food will run out before you are able to buy more?: 1 Utilities: At Risk (04/28/2024) Received from [facility] [employer] [facility] Utilities Do you have trouble paying for utilities (for example, heat, electricity, water, phone)?: Yes Intimate Partner Violence: Not At Risk (04/18/2024) Humiliation, Afraid, Rape, and Kick questionnaire Fear of Current or Ex-Partner: No Emotionally Abused: No Physically Abused: No Sexually Abused: No Physical Activity: Sufficiently Active (10/16/2023) Exercise Vital Sign Days of Exercise per Week: 5 days Minutes of Exercise per Session: 30 min Dental: Low Risk (11/17/2021) Dental Dental: Regular Dentist: Yes Nutrition: Medium Risk (10/16/2023) Nutrition Nutrition: Servings of Fruits/Vegetables per Day: 3-5 Employment: Low Risk (10/16/2023) Employment Employment Status: Retired PROBLEMS ADDRESSED THIS VISIT: 1. Weakness General 2. Pneumonia Sneha Harper P.A.-C., P.Duke, M.S. 04/29/24 0940 TROOM CLERK documented in this encounter Plan of Treatment Upcoming Encounters Date Type Department Care Team (Latest Contact Info) Description 06/30/2024 2:45 PM COURTROOM CLERK Comprehensive Visit Department of Ophthalmology in [address] [phone] Matty Kumari Jr., M.D. [address] [address] Discharge Disposition: Home or Self Care documented as of this encounter Goals Goal Patient Goal Type Associated Problems Recent Progress Patient-Stated? Author Increase physical activity Exercise No Bharati Mena, R.N. Note: Patient plans to sign up for the wellness center so that she can increase her physical activity level. Patient/caregiver will direct end of life planning General No Bharati Mena, R.N. Note: Patient to bring in copy of advance directives to scan into chart. Patient/caregiver will be independent in managing appointments General No Bharati Mena, R.N. Note: Patient is to schedule appointment to follow up with Dr. Quintana. documented as of this encounter Procedures Procedure Name Priority Date/Time Associated Diagnosis Comments BACTERIA / AKILAH CULTURE, BLOOD STAT 04/28/2024 12:51 PM COURTROOM CLERK BACTERIA / AKILAH CULTURE, BLOOD STAT 04/28/2024 12:36 PM COURTROOM CLERK ECG Routine 04/28/2024 11:27 AM COURTROOM CLERK VBG (VENOUS BLOOD GAS), POCT, B STAT 04/28/2024 11:20 AM COURTROOM CLERK CBC WITH DIFFERENTIAL, B STAT 04/28/2024 11:20 AM COURTROOM CLERK PHOSPHORUS (INORGANIC), S STAT 04/28/2024 11:20 AM COURTROOM CLERK MAGNESIUM, S STAT 04/28/2024 11:20 AM COURTROOM CLERK LACTATE, B/P STAT 04/28/2024 11:20 AM COURTROOM CLERK COMPREHENSIVE METABOLIC PANEL, S/P STAT 04/28/2024 11:20 AM COURTROOM CLERK DX CHEST PORTABLE 1 VIEW RAD - Semiurgent (Fast; most ED patients; some inpatients) 04/28/2024 11:18 AM COURTROOM CLERK documented in this encounter Results * Bacteria / Akilah Culture, Blood #2 (04/28/2024 12:51 PM COURTROOM CLERK) Bacteria/More da Culture, Blood No growth after 5 day/s of incubation. 05/03/2024 1:02 PM COURTROOM CLERK CNFL Blood (Blood, Peripheral Draw) 04/28/2024 12:51 PM COURTROOM CLERK 04/28/2024 12:58 PM COURTROOM CLERK Comment:Specimen Source Site : Blood us Sneha Harper P.A.-C., P.A., M.S. LAB MICROBIOLOG Y - GENERAL ORDERABLES Final Result Performing Organization Address City/State/[facility] Co de Phone Number [address] [address], [address] [address] * Bacteria / Akilah Culture, Blood #1 (04/28/2024 12:36 PM COURTROOM CLERK) Bacteria/More da Culture, Blood No growth after 5 day/s of incubation. 05/03/2024 1:02 PM COURTROOM CLERK [facility] Blood (Blood, Peripheral Draw) 04/28/2024 12:36 PM COURTROOM CLERK 04/28/2024 12:58 PM COURTROOM CLERK Comment:Specimen Source Site : Blood Sneha Harper P.A.-C., P.A., M.S. LAB MICROBIOLOG Y - GENERAL ORDERABLES Final Result Performing Organization Address [facility] Co de Phone Number [address] [address], [address] [address] * ECG 12 Lead (04/28/2024 11:27 AM COURTROOM CLERK) Pathologist [facility] Ventricular Rate ECG/Min 89 BPM MUSE QRSD Interval 90 ms MUSE QT Interval 404 ms MUSE QTC Interval 491 ms MUSE R [place] 76 degrees MUSE T Wave [place] -40 degrees MUSE 04/28/2024 11:2 7 AM COURTROOM CLERK 04/28/2024 1:39 PM COURTROOM CLERK Impressions MUSE - 04/28/2024 1:39 PM COURTROOM CLERK Atrial fibrillation Nonspecific ST and T wave abnormality When compared with ECG of 18-Apr-2024 10:04, Vent. rate has decreased by 43 bpm Reviewed by LYUBOV Avendaño Narrative Procedure Note Tito Cifuentes M.D. - 04/28/2024 IMPRESSION: Atrial fibrillation Nonspecific ST and T wave abnormality When compared with ECG of 18-Apr-2024 10:04, Vent. rate has decreased by 43 bpm Reviewed by LYUBOV Avendaño Sneha Harper P.A.-C., P.A., M.S. ECG ORDERABLES Final Result MUSE NA * (ABNORMAL) Blood Gas, Venous, POCT, Blood (04/28/2024 11:20 AM COURTROOM CLERK) pH, Venous, POCT, B 7.48(H) 7.32 - 7.43 04/28/2024 11:29 AM COURTROOM CLERK CNFL pCO2, Venous, POCT, B 35(L) 41 - 51 mm Hg 04/28/2024 11:29 AM COURTROOM CLERK CNFL pO2, Venous, POCT, B 49 Not applicable mm Hg 04/28/2024 11:29 AM COURTROOM CLERK CNFL HCO3, Venous, POCT, B 26 Not applicable mmol/L 04/28/2024 11:29 AM COURTROOM CLERK CNFL Base Excess, Venous, POCT, B 2 Not applicable mmol/L 04/28/2024 11:29 AM COURTROOM CLERK CNFL O2 Saturation, Venous, POCT, B 87 Not applicable % 04/28/2024 11:29 AM COURTROOM CLERK CNFL Sample Type, Blood Gas, POCT FRANCISCO 04/28/2024 11:29 AM COURTROOM CLERK CNFL Blood (Blood, Venous) 04/28/2024 11:20 AM COURTROOM CLERK 04/28/2024 11:24 AM COURTROOM CLERK Sneha Harper P.A.-C., P.A., M.S. LAB POCT ORDERA BLES - DEVICE Final Result [facility] [address] [place] [id number], [facility] CNFL [facility] in [address] [address] * Phosphorus Inorganic (04/28/2024 11:20 AM COURTROOM CLERK) Phosphorus (Inorganic), P 2.6 2.5 - 4.5 mg/dL 04/28/2024 11:46 AM COURTROOM CLERK CNFL Blood (Blood, Venous) 04/28/2024 11:20 AM COURTROOM CLERK 04/28/2024 11:24 AM COURTROOM CLERK us Sneha ParisC., P.A., M.S. LAB BLOOD ADD-O N Final Result Performing Organization Address [facility]/[place] [address], [place] [address] * Magnesium (04/28/2024 11:20 AM COURTROOM CLERK) Magnesium, P 1.8 1.7 - 2.3 mg/dL 04/28/2024 11:46 AM COURTROOM CLERK FL Blood (Blood, Venous) 04/28/2024 11:20 AM COURTROOM CLERK 04/28/2024 11:24 AM COURTROOM CLERK Sneha ParisC., P.A., M.S. LAB BLOOD ADD-O N Final Result Performing Organization Address [facility] [place] [address], [place] [address] * Lactate (04/28/2024 11:20 AM COURTROOM CLERK) Lactate, P 1.9 0.5 - 2.2 mmol/L 04/28/2024 11:41 AM COURTROOM CLERK CNFL Blood (Blood, Venous) 04/28/2024 11:20 AM COURTROOM CLERK 04/28/2024 11:24 AM COURTROOM CLERK us Sneha Harper P.A.-C., P.A., M.S. LAB BLOOD NON A DD-ON Final Result Performing Organization Address City/[facility]/ZIP Co de Phone Number [facility] [address] [place] [id number], [facility] CN[facility] in [address] [address] * (ABNORMAL) Comprehensive Metabolic Panel (04/28/2024 11:20 AM COURTROOM CLERK) Potassium, P 4.3 3.6 - 5.2 mmol/L 04/28/2024 11:46 AM COURTROOM CLERK CNFL Sodium, P 136 135 - 145 mmol/L 04/28/2024 11:46 AM COURTROOM CLERK CNFL Chloride, P 102 98 - 107 mmol/L 04/28/2024 11:46 AM COURTROOM CLERK CNFL Bicarbonate, P 25 22 - 29 mmol/L 04/28/2024 11:46 AM COURTROOM CLERK CNFL Anion Gap, P 9 7 - 15 04/28/2024 11:46 AM COURTROOM CLERK CNFL BUN (Blood Urea Nitrogen), P 20 6 - 21 mg/dL 04/28/2024 11:46 AM COURTROOM CLERK CNFL Creatinine 1.15(H) 0.59 - 1.04 mg/dL 04/28/2024 11:46 AM COURTROOM CLERK CNFL Estimated GFR (eGFR) 46(L) >=60 mL/min/BS A 04/28/2024 11:46 AM COURTROOM CLERK CNFL Comment: Estimated GFR calculated using the 2020 CKD_EPI creatinine equation. Calcium, Total, P 8.9 8.8 - 10.2 mg/dL 04/28/2024 11:46 AM COURTROOM CLERK CNFL Glucose, P 108 70 - 140 mg/dL 04/28/2024 11:46 AM COURTROOM CLERK CNFL Protein, Total, P 5.9(L) 6.3 - 7.9 g/dL 04/28/2024 11:46 AM COURTROOM CLERK CNFL Albumin, P 3.1(L) 3.5 - 5.0 g/dL 04/28/2024 11:46 AM COURTROOM CLERK CNFL Aspartate Aminotransferase (AST), P 26 8 - 43 U/L 04/28/2024 11:46 AM COURTROOM CLERK CNFL Alkaline Phosphatase, P 111(H) 35 - 104 U/L 04/28/2024 11:46 AM COURTROOM CLERK CNFL Alanine Aminotransferase (ALT), P 19 7 - 45 U/L 04/28/2024 11:46 AM COURTROOM CLERK CNFL Bilirubin, Total, P 0.6 0.0 - 1.2 mg/dL 04/28/2024 11:46 AM COURTROOM CLERK CNFL Blood (Blood, Venous) 04/28/2024 11:20 AM COURTROOM CLERK 04/28/2024 11:24 AM COURTROOM CLERK us Sneha Harper P.A.-C., P.A., M.S. LAB BLOOD ADD-O N Final Result [facility] [address] [place] [id number], [facility] CN[facility] [place] [address] * (ABNORMAL) CBC with Differential, Blood (04/28/2024 11:20 AM COURTROOM CLERK) Hemoglobin 10.6(L) 11.6 - 15.0 g/dL 04/28/2024 11:31 AM COURTROOM CLERK CNFL Hematocrit 34.4(L) 35.5 - 44.9 % 04/28/2024 11:31 AM COURTROOM CLERK CNFL Erythrocytes 3.74(L) 3.92 - 5.13 x10(12)/L 04/28/2024 11:31 AM COURTROOM CLERK CNFL MCV 92.0 78.2 - 97.9 fL 04/28/2024 11:31 AM COURTROOM CLERK CNFL RBC Distrib Width 16.3(H) 12.2 - 16.1 % 04/28/2024 11:31 AM COURTROOM CLERK CNFL Platelet Count 407(H) 157 - 371 x10(9)/L 04/28/2024 11:31 AM COURTROOM CLERK CNFL Leukocytes 17.5(H) 3.4 - 9.6 x10(9)/L 04/28/2024 11:31 AM COURTROOM CLERK CNFL Neutrophils 15.02(H) 1.56 - 6.45 x10(9)/L 04/28/2024 11:31 AM COURTROOM CLERK CNFL Lymphocytes 1.40 0.95 - 3.07 x10(9)/L 04/28/2024 11:31 AM COURTROOM CLERK CNFL Monocytes 0.87(H) 0.26 - 0.81 x10(9)/L 04/28/2024 11:31 AM COURTROOM CLERK CNFL Eosinophils 0.17 0.03 - 0.48 x10(9)/L 04/28/2024 11:31 AM COURTROOM CLERK CNFL Basophils 0.04 0.01 - 0.08 x10(9)/L 04/28/2024 11:31 AM COURTROOM CLERK CNFL Blood (Blood, Venous) 04/28/2024 11:20 AM COURTROOM CLERK 04/28/2024 11:23 AM COURTROOM CLERK us Sneha Hraper P.A.-C., P.A., M.S. LAB BLOOD ADD-O N Final Result Performing Organization Address City/State/[facility] Co de Phone Number [facility] [address] [place] [address], [facility] [place] [address] * DX Chest Portable 1 View (04/28/2024 11:18 AM COURTROOM CLERK) Anatomical Region Laterality Modality Chest, Thoracic RST LOS, Tho racic ARZ LOS, Thoracic FLA LOS N/A Digital Radiography Impressions 04/28/2024 11:21 AM COURTROOM CLERK Comparison 04/19/2024. Slightly improved multifocal airspace opacities throughout both lungs compatible with pneumonia. Recommend continued follow-up to radiographic resolution. Unchanged trace right pleural effusions. No pneumothorax. Heart size normal. Narrative 04/28/2024 11:21 AM COURTROOM CLERK EXAM: DX CHEST PORTABLE 1 VIEW Procedure Note Patrick Neff M.D. - 04/28/2024 EXAM: DX CHEST PORTABLE 1 VIEW IMPRESSION: Comparison 04/19/2024. Slightly improved multifocal airspace opacities throughout both lungscompatible with pneumonia. Recommend continued follow-up to radiographicresolution. Unchanged trace right pleural effusions. No pneumothorax.Heart size normal. us Sneha Harper P.A.-C., P.A., M.S. IMG DIAGNOSTIC IMAGING PROCEDURES Final Result documented in this encounter Visit Diagnoses Diagnosis Weakness General- Primary Pneumonia documented in this encounter Administered Medications Inactive Administered Medications - up to 3 most recent administrations Medication Order MAR Action Action Date Dose Rate Site levoFLOXacin in D5W IVPB 750 mg (Levaquin) 750 mg, intravenous, at 100 mL/hr, Administer over 90 Minutes, Once, On Sun04/28/24 at 1215, For 1 dose, Drug Monitoring Program: Pharmacist to adjust medication dosing based on indication and drug clearance factors., Indications: Respiratory tract infection, community acquiredIndications:Respira tory tract infection, community acquired New Bag 04/28/2024 1:15 PM COURTROOM CLERK 750 mg 100 mL/hr NaCl 0.9 % bolus 1,000 mL 1,000 mL, intravenous, at 2,000 mL/hr, Administer over 30 Minutes, Once, On Sun04/28/24 at 1110, For 1 dose New Bag 04/28/2024 11:25 AM COURTROOM CLERK 1,000 mL 2000 mL/hr sodium chloride 0.9 % injection 10 mL 10 mL, intravenous, As needed, line care, Starting on Sun04/28/24 at 1108, Peripheral Intravenous Catheter and Rapid Infusion Catheter, prior to blood sampling, post blood transfusion or post blood sampling sodium chloride 0.9 % injection 3 mL 3 mL, intravenous, As needed, line care, Starting on Sun04/28/24 at 1108, Prior to and following infusion and between multiple consecutive infusions: sodium chloride 0.9 % injection sodium chloride 0.9 % injection 3 mL 3 mL, intravenous, Every 12 hours scheduled, First dose on Sun04/28/24 at 2100, Peripheral Intravenous Catheter and Rapid Infusion Catheter, when no infusion to maintain patency documented in this encounter Active and Recently Administered Medications Times are shown in COURTROOM CLERK. Scheduled Medication Order 04/26/2024 04/27/2024 04/28/2024 levoFLOXacin in D5W IVPB 750 mg (Levaquin) (COMPLETED) 750 mg, intravenous, at 100 mL/hr, Administer over 90 Minutes, Once, On Sun04/28/24 at 1215, For 1 dose, Drug Monitoring Program: Pharmacist to adjust medication dosing based on indication and drug clearance factors., Indications: Respiratory tract infection, community acquired 1315 (New Bag - Prov ider: Alexandra Gabriel, RDillan.)1445 (Stopped - Provider: Alexandra Gabriel R.N.) NaCl 0.9 % bolus 1,000 mL (COMPLETED) 1,000 mL, intravenous, at 2,000 mL/hr, Administer over 30 Minutes, Once, On Sun04/28/24 at 1110, For 1 dose 1125 (New Bag - Prov ider: Alexandra Gabriel R.N.)1155 (Stopped - Provider: Alexandra Gabriel R.N.) sodium chloride 0.9 % injection 3 mL 3 mL, intravenous, Every 12 hours scheduled, First dose on Sun04/28/24 at 2100, Peripheral Intravenous Catheter and Rapid Infusion Catheter, when no infusion to maintain patency PRN Medication Order 04/26/2024 04/27/2024 04/28/2024 sodium chloride 0.9 % injection 10 mL 10 mL, intravenous, As needed, line care, Starting on Sun04/28/24 at 1108, Peripheral Intravenous Catheter and Rapid Infusion Catheter, prior to blood sampling, post blood transfusion or post blood sampling sodium chloride 0.9 % injection 3 mL 3 mL, intravenous, As needed, line care, Starting on Sun04/28/24 at 1108, Prior to and following infusion and between multiple consecutive infusions: sodium chloride 0.9 % injection documented in this encounter Additional Health Concerns Assessment Noted Time PHQ-9 Depression Total Score: 4 10/16/19 24 4:28 PM CDT documented as of this encounter Care Teams Major Account Manager Relationship Specialty Start Date End Date Bridgett Mi APRN, C.N.P., D.N.P. PCP - General Family Medicine 07/16/23 documented as of this encounter
--- OUTSIDE RECORDS SUMMARY | 2024-05-15 16:50 | XMS_ITS | Referral Summary ---
Author Organization [facility] Address [address] [place] [address] Care Team Providers Care Lithographic Etcher Name Role Phone Bridgett Mi APRN C.N.P., D.N.P. Primary Ca re Provider Unavailable Source Comments Patient records contain information from all sites at [facility]. For routine questions regarding patient records, call [phone] during business hours, M-F 8:00 AM - 5:00 PM Central Time. Record requests for emergency care only can be directed to [phone] at any time.[facility] Encounters Date Type Department Care Team Description 05/13/2024 Orders Only Department of Orthopedic Surgery in [place], [place] [address] [place] [address] Margie Butts R.N. Pain Knee Left (Primary Dx) 04/28/2024 10:48 AM MOLD CLOSER - 04/28/2024 2:56 PM MOLD CLOSER Emergency [facility] [id number] [place] [phone] Sneha Harper P.A.-C., P.A., M.S. Weakness General (Primary Dx); Pneumonia Discharge Disposition: Acute Care Hospital 04/18/2024 2:37 PM MOLD CLOSER - 04/25/2024 12:03 PM MOLD CLOSER Hospital Encounter [facility], Third Floor [address] [place] [address] Marlene Marinelli M.D., M.S. Brandie Penny M.D. Yanet Paulino M.D. Sepsis ([facility]) [A41.9] (Primary Dx); Hypokalemia; Hypertension Essential Primary; Pneumonia Bacterial; Deconditioned; Chronic Obstructive Pulmonary Disease Without Exacerbation (HCC); Spinal Stenosis Lumbar Region Without Neurogenic Claudication Discharge Disposition: Transitional Care Unit 04/18/2024 Intake [facility] 04/18/2024 8:59 AM MOLD CLOSER - 04/18/2024 1:57 PM MOLD CLOSER Emergency [facility] [address] [place] [phone] Abraham Liriano PSamuel.-C., P.A. Pneumonia (Primary Dx); Weakness General Discharge Disposition: Acute Care Hospital 03/24/2024 4:00 PM MOLD CLOSER Diagnostic Department of Otorhinolaryngology in [address] [phone] Abraham Devries M.D. Slime Diaz Au.D. Loss Hearing Sensorineural Bilateral (Primary Dx) Discharge Disposition: Home or Self Care 02/14/2024 8:00 AM CDT - 02/14/2024 11:59 PM CDT Hospital Encounter Department of Radiology, [facility], in [place], [place] [address] [place] [phone] Kosta Sher M.D. Pulmonary Nodule Computed Tomography Indeterminate; Shortness Of Breath Discharge Disposition: Home or Self Care 02/14/2024 10:00 AM CDT Office Visit Division of Pulmonary Medicine in [place], [place] [address] [place] [phone] Kosta Sher M.D. Nodules Pulmonary Multiple (Primary Dx) from Last 3 Months Allergies Active Allergy Reactions Criticality Noted Date Comments Amoxicillin-Pot Clavulanate GI intolerance Medium 06/2018 Sulfamethoxazole-Trimethoprim GI intolerance Medium Medications * This document contains information received from the source organization and may not represent a complete record from that organization. 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 Do not crush or chew. 90 tablet 3 04/20/20 Active levothyroxine (SYNTHROID, LEVOTHROID) 50 mcg tablet Take 1 tablet (50 mcg total) by mouth daily. 90 tablet 3 04/23/20 Active Additional Information Patient taking differently:50 mcg oralDaily before morning meal, Informant: Self, Reported on 04/18/2024 acetaminophen (TYLENOL) 500 mg tablet Take 1,000 mg by mouth every 6 (six) hours as needed for pain, headaches or fever. Active albuterol 90 mcg/actuation inhaler Inhale 2 puffs every 6 (six) hours as needed for wheezing. 8 g 11 08/20/19 24 Active oxyBUTYnin (DITROPAN) 5 mg tabletIndicatio ns:Urgency Urinary take one tablet by mouth twice a day 180 tablet 3 08/23/19 24 Active losartan (COZAAR) 50 mg tablet Take 1 tablet (50 mg total) by mouth daily. 90 tablet 3 09/18/19 24 2024 Active simvastatin (ZOCOR) 40 mg tabletIndicatio ns:Hyperlipidem ia Mixed Take 1 tablet (40 mg total) by mouth at bedtime. 90 tablet 3 09/18/19 24 Active sertraline (ZOLOFT) 100 mg tabletIndicatio ns:Depression Major Recurrent Moderate (HCC) Take 2 tablets (200 mg total) by mouth daily. 180 tablet 3 09/18/19 24 Active omeprazole (PriLOSEC) [address] capsuleIndicati ons:Reflux Esophageal Take 1 capsule (20 mg total) by mouth 2 (two) times a day before breakfast and dinner. 180 capsule 11 09/18/19 24 Active mirtazapine (REMERON) 7.5 mg tabletIndicatio ns:Depression Major Recurrent Moderate (HCC) Take 1 tablet (7.5 mg total) by mouth at bedtime. 90 tablet 3 09/18/19 24 Active buPROPion XL (WELLBUTRIN XL) 150 mg 24 hr tabletIndicatio ns:Depression Major Recurrent Moderate (HCC) Take 3 tablets (450 mg total) by mouth daily. 270 tablet 3 09/18/19 24 Active donepeziL (ARICEPT) 10 mg tabletIndicatio ns:Chronic Obstructive Pulmonary Disease Without Exacerbation (HCC) Take 1 tablet (10 mg total) by mouth at bedtime. 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 90 tablet 3 09/18/19 24 Active fluticasone propion-salmete roL (Advair Diskus) 100-50 mcg/actuation diskus inhaler Inhale 1 puff 2 (two) times a day. Rinse mouth with water after use to reduce aftertaste and incidence of candidiasis. Do not swallow. 60 each 01/15/20 24 2024 Active benzonatate (Tessalon Perles) 100 mg capsule Take 1 capsule (100 mg total) by mouth 3 (three) times a day as needed for cough. 20 capsule 04/25/20 24 Active guaiFENesin (Mucinex) 600 mg 12 hr tablet Take 1 tablet (600 mg total) by mouth 2 (two) times a day. 60 tablet 04/25/20 24 2024 Active polyethylene glycol (MIRALAX) 17 gram powder packet Take 1 packet by mouth daily as needed for constipation. Dissolve each 17 g dose in 240 mLs (8 ounces) of beverage. 08/20/19 24 2023 Discontinued(T herapy completed) nystatin-triamc inolone (MYCOLOG II) 100,000 Unit/g-0.1 % cream Apply to affect area twice a day for 7-14 days then as needed for rash. 15 g 1 06/04/20 24 2023 Discontinued(T herapy completed) nystatin (NYSTOP) 100,000 unit/gram powder Apply 1 Application topically 3 (three) times a day. Apply to breast rash. 15 g 10/16/19 24 2023 Discontinued(T herapy completed) levoFLOXacin (Levaquin) 500 mg tablet Take 1 tablet (500 mg total) by mouth daily before morning meal for 4 days. 4 tablet 04/25/20 24 2023 Discontinued levoFLOXacin (Levaquin) 750 mg tablet Take 1 tablet (750 mg total) by mouth every other day for 2 doses. 2 tablet 04/25/20 24 2023 Active Problems Problem Noted Date Diagnosed Date Hypokalemia 04/22/2024 Pneumonia Bacterial 04/18/2024 Assessment & Plan (04/18/2024 10:11 PM MOLD CLOSER): She has leukocytosis with a left shift. [...] 04/18/2024 Assessment & Plan (04/18/2024 10:14 PM MOLD CLOSER): Continue thyroid replacement therapy. Hypertension Essential Primary 08/10/2023 Assessment & Plan (04/18/2024 10:17 PM MOLD CLOSER): Continue her hypertensive treatment with losartan, amlodipine, [...] asymptomatic. Assessment & Plan (04/18/2024 10:13 PM MOLD CLOSER): She had AFib with rapid ventricular response upon presentation to the emergency department. This was somewhat resolved with her receiving her morning medications. Will continue her daily aspirin and metoprolol. Continue to monitor closely with telemetry and titrate medications accordingly. Nodules Pulmonary Multiple 02/06/2023 Chronic Cough 02/02/2023 Dementia 07/03/2022 Overview (07/16/2023): Diagnosed in 2019, on aricept. Lives in assisted living. 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 Assessment & Plan (04/18/2024 10:17 PM MOLD CLOSER): Continue sertraline and buPROPion. Osteoporosis 08/09/2013 Overview [...] 10/30/2012 Assessment & Plan (04/18/2024 10:14 PM MOLD CLOSER): Continue omeprazole. This could be the etiology of her possible recurrent aspiration pneumonitis. Speech therapy consulted. Loss Hearing Bilateral 07/19/2007 Overview (05/20/2017): Overview: bilateral hearing AIDS Cancer Breast Personal History Resolved Problems Problem Noted Date Diagnosed Date Resolved Date Sepsis 04/18/2024 04/25/2024 Assessment & Plan (04/18/2024 10:07 PM MOLD CLOSER): For a pleasant 88-year-old female with history of atrial fibrillation, COPD, oxygen-dependent, recurrent pneumonia, possible aspiration, esophageal reflux disease, dementia, hypertension presented to the [facility] after being found seated on [...] 020 Pain Low Back Unspecified Dysphagia 05/05/2018 Immunizations Name Administration Dates Next Due Influenza Split 02/12/2014,02/10/2013,02/11/2011 Influenza TIV (IM) 02/20/2009,03/02/2008 Influenza high dose QV(65 ye ars or older) (PF) 02/20/2023,02/10/2020 Influenza, Quadrivalent, Adj uvanted, Preservative Free 02/22/2022,01/21/2021 Influenza, Unspecified 02/11/2018,2016,02/17/2015,2014,02/12/2014,02/11/2013,02/11/2013,1 ,02/28/2012 PCV13 03/14/2017 PPSV23 10/12/2002,10/12/2002,02/11/2002 Pneumococcal, Unspecified 05/14/2002 RSV: respiratory syncytial v irus (AREXVY) recombinant vaccine 03/08/2023 RZV (SHINGRIX) 03/08/2023 SARS-COV-2 (COVID-19) - PFIZ ER (Discontinued)(12 years or older) 07/26/2020,06/30/2020 SARS-COV-2 (COVID-19) - PFIZ ER TS(Discontinued)(12 years or older) 11/29/2021 Td Preservative Free (TENIVA C, DECAVAC) 01/07/2010 Tdap 01/07/2010, 0,01/07/2010,2009,05/14/2002 influenza trivalent high dos e (HD)(PF) 02/11/2019,02/02/2016 influenza trivalent vaccine (6 months and older)(PF) 02/12/2009 Social History Tobacco Use Types Packs/Day Years Used Date Smoking Tobacco: Former Cigarettes 0.5 43 1 495 - 1998 Smokeless Tobacco: Never Tobacco Cessation:Counseling Given: Not Answered Alcohol Use Standard Drinks/Week Comments Not Currently 0 (1 standard drink = 0.6 oz pur e alcohol) [facility] [employer] Answer Date Recorded In the past 12 months has e [place], gas, oil, or water [email or web address] threatened to shut off services in your [...] week 11/17/2021 How often do you attend chur or protestant services? More than 4 times per year 11/17/2021 Do you belong to any clubs o r organizations such as quaker groups, unions, fraternal or athletic groups, or [...] [facility] - Occupational Stress Questionnaire Answer Date Recorded [...] your living situation today? I have a [facility] place to live 04/18/2024 Education Answer Date Recorded What is the highest level of school you have completed or the highest degree you have received? Bachelor's degree (e.g., BA, AB, BS) 11/17/2021 Comments No Sex and Gender Information Value Date Recorded Sex Assigned at Female 09/11/2018 1:57 PM CDT Legal Sex Female 8:29 AM MOLD CLOSER Gender Identity Female 09/11/2018 1:57 PM CDT Sexual Orientation Straight 09/11/2018 1: 57 PM CDT Last Filed Vital Signs Vital Sign Reading Time Taken Comments Blood Pressure 116/83 04/28/2024 2:45 PM MOLD CLOSER Pulse 85 04/28/2024 2:45 PM MOLD CLOSER Temperature 36.6 C (97.9 F) 04/28/2024 10:57 AM MOLD CLOSER Respiratory Rate 18 04/28/2024 10:57 AM MOLD CLOSER Oxygen Saturation 93% 04/28/2024 2:45 PM MOLD CLOSER Inhaled Oxygen Concentration - - Weight 72.6 kg (160 lb 0.9 oz) 04/28/2024 10:58 AM MOLD CLOSER Height 157.5 cm (5' 2) 04/18/2024 2:46 PM MOLD CLOSER Body Mass Index 29.27 04/18/2024 2:46 PM MOLD CLOSER Plan of Treatment Upcoming Encounters Date Type Department Care Team (Latest Contact Info) Description 06/30/2024 2:45 PM MOLD CLOSER Comprehensive Visit Department of Ophthalmology in [address] [phone] Matty Kumari Jr., M.D. [address] [place] [phone] Discharge Disposition: Home or Self Care Goals Goal Patient Goal Type Associated Problems [...] appointment to follow up with Dr. Quintana. Medical Devices Implanted Type Area Under Cutter Device Identifier Shelf Expiration Date Model / Serial / Lot Hardware E.G. Pins/Screws/See s Hardware e.g. pins/screws /rods Back Patch Hemagard 8mm X 75mm Knit - Marcial [id number] Implanted:Qty: 1 on 07/25/2013 Mesh or Patch Other/Legacy - See Implant Description [employer] Description:Device Manufactu rer - [employer]. Body Location - Other. Vascular. Device Status Text - [id number]. Procedures Procedure Name Priority Date/Time Associated Diagnosis Comments BACTERIA / AKILAH CULTURE, BLOOD STAT 04/28/2024 12:51 PM MOLD CLOSER BACTERIA / AKILAH CULTURE, BLOOD STAT 04/28/2024 12:36 PM MOLD CLOSER ECG Routine 04/28/2024 11:27 AM MOLD CLOSER VBG (VENOUS BLOOD GAS), POCT, B STAT 04/28/2024 11:20 AM MOLD CLOSER PHOSPHORUS (INORGANIC), S STAT 04/28/2024 11:20 AM MOLD CLOSER MAGNESIUM, S STAT 04/28/2024 11:20 AM MOLD CLOSER LACTATE, B/P STAT 04/28/2024 11:20 AM MOLD CLOSER COMPREHENSIVE METABOLIC PANEL, S/P STAT 04/28/2024 11:20 AM MOLD CLOSER CBC WITH DIFFERENTIAL, B STAT 04/28/2024 11:20 AM MOLD CLOSER DX CHEST PORTABLE 1 VIEW RAD - Semiurgent (Fast; most ED patients; some inpatients) 04/28/2024 11:18 AM MOLD CLOSER MANUAL DIFFERENTIAL, B Routine 04/25/2024 5:28 AM MOLD CLOSER MORPHOLOGY EVALUATION Routine 04/25/2024 5:28 AM MOLD CLOSER CBC WITH DIFFERENTIAL, B Routine 04/25/2024 5:28 AM MOLD CLOSER BASIC METABOLIC PANEL, S/P Routine 04/25/2024 5:28 AM MOLD CLOSER ADULT OXYGEN THERAPY Routine 04/24/2024 8:01 AM MOLD CLOSER MORPHOLOGY EVALUATION Routine 04/24/2024 5:24 AM MOLD CLOSER BASIC METABOLIC PANEL, S/P Routine 04/24/2024 5:24 AM MOLD CLOSER CBC WITH DIFFERENTIAL, B Routine 04/24/2024 5:24 AM MOLD CLOSER ADULT OXYGEN THERAPY Routine 04/23/2024 8:01 PM MOLD CLOSER PEP THERAPY Routine 04/23/2024 3:00 PM MOLD CLOSER RESPIRATORY ASSESS AND TREAT Routine 04/23/2024 2:00 PM MOLD CLOSER PEP THERAPY Routine 04/23/2024 11:00 AM MOLD CLOSER POTASSIUM, S/P Timed 04/23/2024 10:38 AM MOLD CLOSER ADULT OXYGEN THERAPY Routine 04/23/2024 8:01 AM MOLD CLOSER PEP THERAPY Routine 04/23/2024 7:01 AM MOLD CLOSER MORPHOLOGY EVALUATION Routine 04/23/2024 5:07 AM MOLD CLOSER MANUAL DIFFERENTIAL, B Routine 04/23/2024 5:07 AM MOLD CLOSER BASIC METABOLIC PANEL, S/P Timed 04/23/2024 5:07 AM MOLD CLOSER CBC WITH DIFFERENTIAL, B Routine 04/23/2024 5:07 AM MOLD CLOSER ADULT OXYGEN THERAPY Routine 04/22/2024 8:01 PM MOLD CLOSER PEP THERAPY Routine 04/22/2024 7:00 PM MOLD CLOSER PEP THERAPY Routine 04/22/2024 3:00 PM MOLD CLOSER RESPIRATORY ASSESS AND TREAT Routine 04/22/2024 2:00 PM MOLD CLOSER (TTE) 2D ECHO DOPPLER COLOR Routine 04/22/2024 12:16 PM MOLD CLOSER PEP THERAPY Routine 04/22/2024 11:50 AM MOLD CLOSER PEP THERAPY Routine 04/22/2024 11:50 AM MOLD CLOSER PEP THERAPY Routine 04/22/2024 11:50 AM MOLD CLOSER ADULT OXYGEN THERAPY Routine 04/22/2024 8:01 AM MOLD CLOSER MORPHOLOGY EVALUATION Routine 04/22/2024 5:23 AM MOLD CLOSER MAGNESIUM, S Routine 04/22/2024 5:23 AM MOLD CLOSER BASIC METABOLIC PANEL, S/P Routine 04/22/2024 5:23 AM MOLD CLOSER CBC WITH DIFFERENTIAL, B Routine 04/22/2024 5:23 AM MOLD CLOSER ADULT OXYGEN THERAPY Routine 04/21/2024 8:[address] CHEST ANGIOGRAM AND PULMONARY ARTERIES WITH IV CONTRAST RAD - Routine (most inpatients and all outpatients) 04/21/2024 3:15 PM MOLD CLOSER RESPIRATORY ASSESS AND TREAT Routine 04/21/2024 2:00 PM MOLD CLOSER ADULT OXYGEN THERAPY Routine 04/21/2024 8:01 AM MOLD CLOSER NT-PRO B-TYPE NATRIURETIC PEPTIDE (BNP), S Routine 04/21/2024 5:26 AM MOLD CLOSER BASIC METABOLIC PANEL, S/P Routine 04/21/2024 5:26 AM MOLD CLOSER CBC WITH DIFFERENTIAL, B Routine 04/21/2024 5:26 AM MOLD CLOSER ADULT OXYGEN THERAPY Routine 04/20/2024 8:00 PM MOLD CLOSER RESPIRATORY ASSESS AND TREAT Routine 04/20/2024 2:00 PM MOLD CLOSER ADULT OXYGEN THERAPY Routine 04/20/2024 8:00 AM MOLD CLOSER BASIC METABOLIC PANEL, S/P Routine 04/20/2024 5:56 AM MOLD CLOSER CBC WITH DIFFERENTIAL, B Routine 04/20/2024 5:56 AM MOLD CLOSER ADULT OXYGEN THERAPY Routine 04/19/2024 8:00 PM MOLD CLOSER LEGIONELLA AG, U Routine 04/19/2024 5:12 PM MOLD CLOSER STREPTOCOCCUS PNEUMONIAE AG, U Routine 04/19/2024 5:12 PM MOLD CLOSER RESPIRATORY ASSESS AND TREAT Routine 04/19/2024 2:00 PM MOLD CLOSER DX CHEST PORTABLE 1 VIEW RAD - Semiurgent (Fast; most ED patients; some inpatients) 04/19/2024 12:57 PM MOLD CLOSER VENOUS BLOOD GAS W/COOX, B STAT 04/19/2024 12:53 PM MOLD CLOSER MRSA/STAPHYLOCOCCUS AUREUS, NASAL, BY PCR Routine 04/19/2024 12:32 PM MOLD CLOSER LACTATE FOR SEPSIS WITH REFLEX STAT 04/19/2024 10:05 AM MOLD CLOSER ADULT OXYGEN THERAPY Routine 04/19/2024 8:01 AM MOLD CLOSER CBC WITH DIFFERENTIAL, B Routine 04/19/2024 6:01 AM MOLD CLOSER BASIC METABOLIC PANEL, S/P Routine 04/19/2024 6:01 AM MOLD CLOSER ADULT OXYGEN THERAPY Routine 04/18/2024 8:01 PM MOLD CLOSER RESPIRATORY ASSESS AND TREAT Routine 04/18/2024 4:03 PM MOLD CLOSER ADULT OXYGEN THERAPY Routine 04/18/2024 4:03 PM MOLD CLOSER ADULT OXYGEN THERAPY Routine 04/18/2024 4:03 PM MOLD CLOSER ADULT OXYGEN THERAPY Routine 04/18/2024 4:03 PM MOLD CLOSER BACTERIA / AKILAH CULTURE, BLOOD STAT 04/18/2024 10:31 AM MOLD CLOSER BACTERIA / AKILAH CULTURE, BLOOD STAT 04/18/2024 10:[address] HEAD WITHOUT IV CONTRAST RAD - Semiurgent (Fast; most ED patients; some inpatients) 04/18/2024 10:04 AM MOLD CLOSER ECG STAT 04/18/2024 10:04 AM MOLD CLOSER HC URINALYSIS AUTO W MICRO STAT 04/18/2024 9:56 AM MOLD CLOSER URINALYSIS WITH MICROSCOPIC IF INDICATED, U STAT 04/18/2024 9:56 AM MOLD CLOSER BACTERIAL CULTURE, AEROBIC + SUSC, URINE STAT 04/18/2024 9:56 AM MOLD CLOSER INFLUENZA A, B, RSV, PCR, POCT STAT 04/18/2024 9:47 AM MOLD CLOSER VBG WITH LACTATE, POCT, B STAT 04/18/2024 9:47 AM MOLD CLOSER SARS CORONAVIRUS 2, PCR RAPID, V STAT 04/18/2024 9:47 AM MOLD CLOSER DX CHEST PORTABLE 1 VIEW RAD - Semiurgent (Fast; most ED patients; some inpatients) 04/18/2024 9:41 AM MOLD CLOSER C-REACTIVE PROTEIN (CRP), S/P STAT 04/18/2024 9:36 AM MOLD CLOSER LACTATE FOR SEPSIS WITH REFLEX STAT 04/18/2024 9:36 AM MOLD CLOSER PROTHROMBIN TIME (PT), P STAT 04/18/2024 9:36 AM MOLD CLOSER COMPREHENSIVE METABOLIC PANEL, S/P STAT 04/18/2024 9:36 AM MOLD CLOSER CBC WITH DIFFERENTIAL, B STAT 04/18/2024 9:[address] CHEST WITHOUT IV CONTRAST RAD - Routine (most inpatients and all outpatients) 02/14/2024 8:23 AM CDT Pulmonary Nodule Computed Tomography Indeterminate Shortness Of Breath from Last 3 Months Results * Bacteria / Akilah Culture, Blood #2 (04/28/2024 12:51 PM MOLD CLOSER) Only the most recent of4 resultswithin the time period is included. Bacteria/More da Culture, Blood No growth after 5 day/s of incubation. 05/03/2024 1:02 PM MOLD CLOSER CNFL Blood (Blood, Peripheral Draw) 04/28/2024 12:51 PM MOLD CLOSER 04/28/2024 12:58 PM MOLD CLOSER Comment:Specimen Source Site : Blood us Sneha Harper P.A.-C., P.A., M.S. LAB MICROBIOLOG Y - GENERAL ORDERABLES Final Result Performing Organization Address City/State/[facility] Co de Phone Number [facility] [address] [place] [address], [facility] CNFL [facility] [place] [place] [address] * ECG 12 Lead (04/28/2024 11:27 AM MOLD CLOSER) Only the most recent of2 resultswithin the time period is included. Ventricular Rate ECG/Min 89 BPM MUSE QRSD Interval 90 ms MUSE QT Interval 404 ms MUSE QTC Interval 491 ms MUSE R [place] 76 degrees MUSE T Wave [place] -40 degrees MUSE 04/28/2024 11:2 7 AM MOLD CLOSER 04/28/2024 1:39 PM MOLD CLOSER Impressions MUSE - 04/28/2024 1:39 PM MOLD CLOSER Atrial fibrillation Nonspecific ST and T wave abnormality When compared with ECG of 18-Apr-2024 10:04, Vent. rate has decreased by 43 bpm Reviewed by LYUBOV Avendaño Narrative Procedure Note Tito Cifuentes M.D. - 04/28/2024 IMPRESSION: Atrial fibrillation Nonspecific ST and T wave abnormality When compared with ECG of 18-Apr-2024 10:04, Vent. rate has decreased by 43 bpm Reviewed by LYUBOV Avendaño us Sneha Harper P.A.-C., P.A., M.S. ECG ORDERABLES Final Result Performing Organization Address [facility]/ZIP Co de Phone Number MUSE NA * (ABNORMAL) Blood Gas, Venous, POCT, Blood (04/28/2024 11:20 AM MOLD CLOSER) [facility] pH, Venous, POCT, B 7.48(H) 7.32 - 7.43 04/28/2024 11:29 AM MOLD CLOSER CNFL pCO2, Venous, POCT, B 35(L) 41 - 51 mm Hg 04/28/2024 11:29 AM MOLD CLOSER CNFL pO2, Venous, POCT, B 49 Not applicable mm Hg 04/28/2024 11:29 AM MOLD CLOSER CNFL HCO3, Venous, POCT, B 26 Not applicable mmol/L 04/28/2024 11:29 AM MOLD CLOSER CNFL Base Excess, Venous, POCT, B 2 Not applicable mmol/L 04/28/2024 11:29 AM MOLD CLOSER CNFL O2 Saturation, Venous, POCT, B 87 Not applicable % 04/28/2024 11:29 AM MOLD CLOSER CNFL Sample Type, Blood Gas, POCT FRANCISCO 04/28/2024 11:29 AM MOLD CLOSER CNFL Blood (Blood, Venous) 04/28/2024 11:20 AM MOLD CLOSER 04/28/2024 11:24 AM MOLD CLOSER us Sneha Harper P.A.-C., P.A., M.S. LAB POCT ORDERA BLES - DEVICE Final Result Performing Organization Address City/[facility]/ZIP Co de Phone Number [facility] [address] [place] [id number], [facility] CNFL [facility] in [address] [address] * (ABNORMAL) CBC with Differential, Blood (04/28/2024 11:20 AM MOLD CLOSER) Only the most recent of9 resultswithin the time period is included. Hemoglobin 10.6(L) 11.6 - 15.0 g/dL 04/28/2024 11:31 AM MOLD CLOSER CNFL Hematocrit 34.4(L) 35.5 - 44.9 % 04/28/2024 11:31 AM MOLD CLOSER CNFL Erythrocytes 3.74(L) 3.92 - 5.13 x10(12)/L 04/28/2024 11:31 AM MOLD CLOSER CNFL MCV 92.0 78.2 - 97.9 fL 04/28/2024 11:31 AM MOLD CLOSER CNFL RBC Distrib Width 16.3(H) 12.2 - 16.1 % 04/28/2024 11:31 AM MOLD CLOSER CNFL Platelet Count 407(H) 157 - 371 x10(9)/L 04/28/2024 11:31 AM MOLD CLOSER CNFL Leukocytes 17.5(H) 3.4 - 9.6 x10(9)/L 04/28/2024 11:31 AM MOLD CLOSER CNFL Neutrophils 15.02(H) 1.56 - 6.45 x10(9)/L 04/28/2024 11:31 AM MOLD CLOSER CNFL Lymphocytes 1.40 0.95 - 3.07 x10(9)/L 04/28/2024 11:31 AM MOLD CLOSER CNFL Monocytes 0.87(H) 0.26 - 0.81 x10(9)/L 04/28/2024 11:31 AM MOLD CLOSER CNFL Eosinophils 0.17 0.03 - 0.48 x10(9)/L 04/28/2024 11:31 AM MOLD CLOSER CNFL Basophils 0.04 0.01 - 0.08 x10(9)/L 04/28/2024 11:31 AM MOLD CLOSER CNFL Blood (Blood, Venous) 04/28/2024 11:20 AM MOLD CLOSER 04/28/2024 11:23 AM MOLD CLOSER us Sneha Harper P.A.-C., P.A., M.S. LAB BLOOD ADD-O N Final Result [facility] [address] [place] [address], [address] [address] * Phosphorus Inorganic (04/28/2024 11:20 AM MOLD CLOSER) Phosphorus (Inorganic), P 2.6 2.5 - 4.5 mg/dL 04/28/2024 11:46 AM MOLD CLOSER CNFL Blood (Blood, Venous) 04/28/2024 11:20 AM MOLD CLOSER 04/28/2024 11:24 AM MOLD CLOSER Sneha Harper P.A.-C., P.A., M.S. LAB BLOOD ADD-O N Final Result [address] [address], [address] [address] * Magnesium (04/28/2024 11:20 AM MOLD CLOSER) Only the most recent of2 resultswithin the time period is included. Magnesium, P 1.8 1.7 - 2.3 mg/dL 04/28/2024 11:46 AM MOLD CLOSER [facility] Blood (Blood, Venous) 04/28/2024 11:20 AM MOLD CLOSER 04/28/2024 11:24 AM MOLD CLOSER Sneha Harper P.A.-C., P.A., M.S. LAB BLOOD ADD-O N Final Result [address] [address], [address] [address] * Lactate (04/28/2024 11:20 AM MOLD CLOSER) Lactate, P 1.9 0.5 - 2.2 mmol/L 04/28/2024 11:41 AM MOLD CLOSER CNFL Blood (Blood, Venous) 04/28/2024 11:20 AM MOLD CLOSER 04/28/2024 11:24 AM MOLD CLOSER us Sneha Harper P.A.-C., P.A., M.S. LAB BLOOD NON A DD-ON Final Result [facility] [address] [place] [address], [facility] CNFL [facility] [place] [place] [address] * (ABNORMAL) Comprehensive Metabolic Panel (04/28/2024 11:20 AM MOLD CLOSER) Only the most recent of2 resultswithin the time period is included. Potassium, P 4.3 3.6 - 5.2 mmol/L 04/28/2024 11:46 AM MOLD CLOSER CNFL Sodium, P 136 135 - 145 mmol/L 04/28/2024 11:46 AM MOLD CLOSER CNFL Chloride, P 102 98 - 107 mmol/L 04/28/2024 11:46 AM MOLD CLOSER CNFL Bicarbonate, P 25 22 - 29 mmol/L 04/28/2024 11:46 AM MOLD CLOSER CNFL Anion Gap, P 9 7 - 15 04/28/2024 11:46 AM MOLD CLOSER CNFL BUN (Blood Urea Nitrogen), P 20 6 - 21 mg/dL 04/28/2024 11:46 AM MOLD CLOSER CNFL Creatinine 1.15(H) 0.59 - 1.04 mg/dL 04/28/2024 11:46 AM MOLD CLOSER CNFL Estimated GFR (eGFR) 46(L) >=60 mL/min/BS A 04/28/2024 11:46 AM MOLD CLOSER CNFL Comment: Estimated GFR calculated using the 2020 CKD_EPI creatinine equation. Calcium, Total, P 8.9 8.8 - 10.2 mg/dL 04/28/2024 11:46 AM MOLD CLOSER CNFL Glucose, P 108 70 - 140 mg/dL 04/28/2024 11:46 AM MOLD CLOSER CNFL Protein, Total, P 5.9(L) 6.3 - 7.9 g/dL 04/28/2024 11:46 AM MOLD CLOSER CNFL Albumin, P 3.1(L) 3.5 - 5.0 g/dL 04/28/2024 11:46 AM MOLD CLOSER CNFL Aspartate Aminotransferase (AST), P 26 8 - 43 U/L 04/28/2024 11:46 AM MOLD CLOSER CNFL Alkaline Phosphatase, P 111(H) 35 - 104 U/L 04/28/2024 11:46 AM MOLD CLOSER CNFL Alanine Aminotransferase (ALT), P 19 7 - 45 U/L 04/28/2024 11:46 AM MOLD CLOSER CNFL Bilirubin, Total, P 0.6 0.0 - 1.2 mg/dL 04/28/2024 11:46 AM MOLD CLOSER CNFL Blood (Blood, Venous) 04/28/2024 11:20 AM MOLD CLOSER 04/28/2024 11:24 AM MOLD CLOSER us Sneha Harper P.A.-C., P.A., M.S. LAB BLOOD ADD-O N Final Result Performing Organization Address City/State/[facility] Co de Phone Number [facility] [address] [place] [address], [facility] CNFL [facility] [place] [address] * DX Chest Portable 1 View (04/28/2024 11:18 AM MOLD CLOSER) Only the most recent of3 resultswithin the time period is included. Anatomical Region Laterality Modality Chest, Thoracic RST LOS, Tho racic ARZ LOS, Thoracic FLA LOS N/A Digital Radiography Impressions 04/28/2024 11:21 AM MOLD CLOSER Comparison 04/19/2024. Slightly improved multifocal airspace opacities throughout both lungs compatible with pneumonia. Recommend continued follow-up to radiographic resolution. Unchanged trace right pleural effusions. No pneumothorax. Heart size normal. Narrative 04/28/2024 11:21 AM MOLD CLOSER EXAM: DX CHEST PORTABLE 1 VIEW Procedure Note Patrick Neff M.D. - 04/28/2024 EXAM: DX CHEST PORTABLE 1 VIEW IMPRESSION: Comparison 04/19/2024. Slightly improved multifocal airspace opacities throughout both lungscompatible with pneumonia. Recommend continued follow-up to radiographicresolution. Unchanged trace right pleural effusions. No pneumothorax.Heart size normal. us Sneha Harper P.A.-C., PVishal, M.S. IMG DIAGNOSTIC IMAGING PROCEDURES Final Result * (ABNORMAL) Morphology Evaluation (04/25/2024 5:28 AM MOLD CLOSER) Only the most recent of4 resultswithin the time period is included. RBC Morphology See Specific Findings 04/25/2024 6:35 AM MOLD CLOSER RDWG PLT Morphology Normal 04/25/2024 6:35 AM MOLD CLOSER RDWG PLT Estimate Adequate Adequate 04/25/2024 6:35 AM MOLD CLOSER RDWG Anisocytosis Slight(A) 04/25/2024 6:35 AM MOLD CLOSER RDWG Elliptocytes Slight(A) Not Seen 04/25/2024 6:35 AM MOLD CLOSER RDWG Blood 04/25/2024 5:28 AM MOLD CLOSER 04/25/2024 5:50 AM MOLD CLOSER us Yanet Morse M.D. LAB BLOOD ADD-ON Fin al Result [facility] [address] [place] [address], [facility] RDWG [facility] [place] [address] [place] [id number] * (ABNORMAL) Manual Differential, Blood (04/25/2024 5:28 AM MOLD CLOSER) Only the most recent of2 resultswithin the time period is included. Segmented Neutrophils 79(H) 50 - 75 % 04/25/2024 6:35 AM MOLD CLOSER RDWG Lymphocytes % 10(L) 18 - 42 % 04/25/2024 6:35 AM MOLD CLOSER [facility]DW[facility] Monocytes 4 2 - 11 % 04/25/2024 6:35 AM MOLD CLOSER RDWG Eosinophils 3 1 - 3 % 04/25/2024 6:35 AM MOLD CLOSER RDWG Metamyelocytes 2(H) <1 % 04/25/2024 6:35 AM MOLD CLOSER [facility]DW[facility] Myelocytes 2(H) <0.5 % 04/25/2024 6:35 AM MOLD CLOSER [facility]DW[facility] Nucleated RBC 2 /100 WBC 04/25/2024 6:35 AM MOLD CLOSER [facility]DW[facility] Manual Absolute Neutrophil Count 9.24(H) 1.56 - 6.45 x10(9)/L 04/25/2024 6:35 AM MOLD CLOSER RDWG Comment: ----ADDITIONAL INFORMATION---- The manual absolute neutrophil count is derived from a manual differential count and therefore is not exactly comparable to the automated absolute neutrophil count. Blood 04/25/2024 5:28 AM MOLD CLOSER 04/25/2024 5:50 AM MOLD CLOSER us Yanet Morse M.D. LAB BLOOD ADD-ON Fin al Result [facility] [address] [place] [address], [facility] RDWG [facility] [place] [address] [place] [address] * (ABNORMAL) Basic Metabolic Panel (04/25/2024 5:28 AM MOLD CLOSER) Only the most recent of7 resultswithin the time period is included. Potassium, P 3.2(L) 3.6 - 5.2 mmol/L 04/25/2024 6:22 AM MOLD CLOSER RDWG Sodium, P 140 135 - 145 mmol/L 04/25/2024 6:22 AM MOLD CLOSER RDWG Chloride, P 99 98 - 107 mmol/L 04/25/2024 6:22 AM MOLD CLOSER RDWG Bicarbonate, P 31(H) 22 - 29 mmol/L 04/25/2024 6:22 AM MOLD CLOSER RDW[facility] Anion Gap, P 10 7 - 15 04/25/2024 6:22 AM MOLD CLOSER [facility] BUN (Blood Urea Nitrogen), P 26(H) 6 - 21 mg/dL 04/25/2024 6:22 AM MOLD CLOSER [facility]DWG Creatinine 1.10(H) 0.59 - 1.04 mg/dL 04/25/2024 6:22 AM MOLD CLOSER RDWG Estimated GFR (eGFR) 49(L) >=60 mL/min/BSA 04/25/2024 6:22 AM MOLD CLOSER RDWG Comment: Estimated GFR calculated using the 2020 CKD_EPI creatinine equation. Calcium, Total, P 9.2 8.8 - 10.2 mg/dL 04/25/2024 6:22 AM MOLD CLOSER RDWG Glucose, P 98 70 - 140 mg/dL 04/25/2024 6:22 AM MOLD CLOSER RDW[facility] Blood (Blood, Venous) 04/25/2024 5:28 AM MOLD CLOSER 04/25/2024 5:50 AM MOLD CLOSER Yanet Morse M.D. LAB BLOOD ADD-ON Fin al Result Performing Organization Address City/[facility]/ZIP Co de Phone Number [facility] [address] [employer] [place] [address], [facility] [place] [address] [place] [address], [place] [address] * (ABNORMAL) Potassium (04/23/2024 10:38 AM MOLD CLOSER) Potassium, P 3.3(L) 3.6 - 5.2 mmol/L 04/23/2024 10:57 AM MOLD CLOSER RDWG Blood (Blood, Venous) 04/23/2024 10:38 AM MOLD CLOSER 04/23/2024 10:42 AM MOLD CLOSER Yanet Morse M.D. LAB BLOOD ADD-ON Fin al Result [facility] [address] [facility] [facility] [place] [address], [facility] [place] [address] [place] [address], [place] [address] * (TTE) 2D ECHO DOPPLER COLOR (04/22/2024 12:16 PM MOLD CLOSER) Ejection Fraction 65 MC CV EIMS Mid-Ascending Aorta 33 MC CV EIMS LV Mass Index 68 MC CV EIMS LV End-Diastolic Diameter 37 MC CV EIMS LV End-Systolic Diameter 23 MC CV EIMS MV E Velocity 1.1 MC CV EIMS MV e' Velocity Medial 0.04 MC CV EIMS MV e' Velocity Lateral 0.07 MC CV EIMS MV E/e' Medial 27.5 MC CV EIMS MV E/e' Lateral 15.7 MC CV EIMS Left ventricular stroke volume index 23 MC CV EIMS Cardiac Output 4.42 MC CV EIMS Cardiac Index 2.51 MC CV EIMS LV Interventricular Septal Wall Thickness 11 MC CV EIMS LV Posterior Wall Thickness 10 MC CV EIMS LV Relative Wall Thickness 54 MC CV EIMS RV 4-Chamber Basal Diameter 33 MC CV EIMS RV 4-Chamber Mid Diameter 29 MC CV EIMS RV 4-Chamber Length 59 MC CV EIMS Tricuspid Annular S 0.09 MC CV EIMS TR Vmax 3.78 MC CV EIMS RA Pressure 5 MC CV EIMS RV Systolic Pressure 62 MC CV EIMS AV mean gradient 3 MC CV EIMS Aortic valve area 2.31 MC CV EIMS Aortic Valve Dimensionless Index 0.67 MC CV EIMS TV Regurgitant Volume 40 MC CV EIMS Aortic Valve Systolic Peak Velocity 1.1 MC CV EIMS Anatomical Region Laterality Modality Echocardiography 04/22/2024 9:55 AM MOLD CLOSER Impressions 04/22/2024 1:30 PM MOLD CLOSER Transthoracic outreach echo interpretation. LEFT VENTRICLE:Normal left ventricular chamber size. Concentric remodeling (increased wall thickness to cavity ratio). Anomalous left ventricular chord. Calculated 2- D linear left ventricular ejection fraction 65%. Elevated left ventricular filling pressure. No regional wall motion abnormalities. RIGHT VENTRICLE:Normal right ventricular chamber size. Mildly reduced right ventricular systolic function. Estimated right ventricular systolic pressure 62 mmHg (systolic blood pressure 130 mmHg). Faint tricuspid regurgitant signal may underestimate right ventricular systolic pressure. ATRIA:Enlarged left atrial size by visual estimate (volumetric assessment performed but not reported based upon welding machine operator helper gas judgment). Global averaged left atrial biplane longitudinal peak systolic strain is abnormal at 11.0% (normal is greater than 35%). Enlarged right atrial size by visual estimate. CARDIAC VALVES:Trileaflet aortic valve. Mildly thickened aortic valve. No aortic valve regurgitation. Mildly thickened mitral valve. Mildly calcified mitral annulus. Mild-moderate mitral valve regurgitation. Pulmonary valve not well visualized. Trivial pulmonary valve regurgitation. Normal tricuspid valve leaflets where visualized Moderate tricuspid valve regurgitation. Tricuspid regurgitant volume (PISA) 40 ml. Tricuspid regurgitation ERO (PISA) 0.37 cm2. OTHER ECHO FINDINGS:Normal inferior vena cava size with normal inspiratory collapse (>50%). Normal mid ascending aorta diameter of 33 mm. Abdominal aorta incompletely visualized. Normal abdominal aorta Doppler flow pattern. Imaging inadequate for detection of atrial level shunt by color flow imaging. No intracardiac mass or thrombus, but the left atrial appendage cannot be visualized adequately with transthoracic echo to exclude thrombus in this location. No pericardial effusion. For the complete report, see the Order-Level Documents. Narrative 04/22/2024 1:30 PM MOLD CLOSER For the complete report, see the Order-Level Documents. Hemodynamics Heart Rate: 105 BPM Blood Pressure: 130 / 67 mmHg ECG: Atrial fibrillation, Tachycardia Final Impressions 1. Transthoracic outreach echo interpretation. 2. Normal left ventricular chamber size, no regional wall motion abnormalities, calculated 2-D linear ejection fraction 65%. 3. Elevated left ventricular filling pressure at rest 4. Normal right ventricular chamber size, mildly reduced systolic function, estimated right ventricular systolic pressure 62 mmHg (systolic blood pressure 130 mmHg). 5. Moderate tricuspid valve regurgitation (with beat to beat variability in the setting of atrial fibrillation.), ERO (PISA) 0.37 cm2, regurgitant volume (PISA) 40 ml. 6. Mild-moderate mitral valve regurgitation. 7. No pericardial effusion. 8. In the absence of a change in clinical status, consensus guidelines recommend a repeat transthoracic echocardiogram in 1-2 years to reevaluate the tricuspid regurgitation. 9. Compared to the report of 10/14/2018 the following changes have occurred: Most notably, the rhythm has changed, the degree of mitral and tricuspid regurgitation has increased, and the estimated right ventricular systolic pressure is higher today despite a lower systemic arterial blood pressure (and similar estimated central venous pressure). Side by side comparison of images performed. 10. See SERIAL STUDIES for comparison of measurements and hemodynamics. Procedure Note Justin Myers M.D. - 04/22/2024 For the complete report, see the Order-Level Documents. Hemodynamics Heart Rate: 105 BPM Blood Pressure: 130 / 67 mmHg ECG: Atrial fibrillation, Tachycardia Final Impressions 1. Transthoracic outreach echo interpretation. 2. Normal left ventricular chamber size, no regional wall motionabnormalities, calculated 2-D linear ejection fraction 65%. 3. Elevated left ventricular filling pressure at rest 4. Normal right ventricular chamber size, mildly reduced systolicfunction, estimated right ventricular systolic pressure 62 mmHg (systolicblood pressure 130 mmHg). 5. Moderate tricuspid valve regurgitation (with beat to beat variabilityin the setting of atrial fibrillation.), ERO (PISA) 0.37 cm2, regurgitantvolume (PISA) 40 ml. 6. Mild-moderate mitral valve regurgitation. 7. No pericardial effusion. 8. In the absence of a change in clinical status, consensus guidelinesrecommend a repeat transthoracic echocardiogram in 1-2 years to reevaluatethe tricuspid regurgitation. 9. Compared to the report of 10/14/2018 the following changes haveoccurred: Most notably, the rhythm has changed, the degree of mitral andtricuspid regurgitation has increased, and the estimated right ventricularsystolic pressure is higher today despite a lower systemic arterial bloodpressure (and similar estimated central venous pressure). Side by sidecomparison of images performed. 10. See SERIAL STUDIES for comparison of measurements and hemodynamics. Findings Transthoracic outreach echo interpretation. LEFT VENTRICLE:Normal left ventricular chamber size. Concentric remodeling(increased wall thickness to cavity ratio). Anomalous left ventricularchord. Calculated 2-D linear left ventricular ejection fraction 65%.Elevated left ventricular filling pressure. No regional wall motionabnormalities. RIGHT VENTRICLE:Normal right ventricular chamber size. Mildly reducedright ventricular systolic function. Estimated right ventricular systolicpressure 62 mmHg (systolic blood pressure 130 mmHg). Faint tricuspidregurgitant signal may underestimate right ventricular systolicpressure. ATRIA:Enlarged left atrial size by visual estimate (volumetric assessmentperformed but not reported based upon welding machine operator helper gas judgment). Globalaveraged left atrial biplane longitudinal peak systolic strain is abnormalat 11.0% (normal is greater than 35%). Enlarged right atrial size byvisual estimate. CARDIAC VALVES:Trileaflet aortic valve. Mildly thickened aortic valve. Noaortic valve regurgitation. Mildly thickened mitral valve. Mildlycalcified mitral annulus. Mild-moderate mitral valve regurgitation.Pulmonary valve not well visualized. Trivial pulmonary valveregurgitation. Normal tricuspid valve leaflets where visualized Moderatetricuspid valve regurgitation. Tricuspid regurgitant volume (PISA) 40 ml.Tricuspid regurgitation ERO (PISA) 0.37 cm2. OTHER ECHO FINDINGS:Normal inferior vena cava size with normal inspiratorycollapse (>50%). Normal mid ascending aorta diameter of 33 mm. Abdominalaorta incompletely visualized. Normal abdominal aorta Doppler flowpattern. Imaging inadequate for detection of atrial level shunt by colorflow imaging. No intracardiac mass or thrombus, but the left atrialappendage cannot be visualized adequately with transthoracic echo toexclude thrombus in this location. No pericardial effusion. For the complete report, see the Order-Level Documents. Yanet Morse M.D. CV ECHO PROCEDURES F inal Result * CT Chest Angiogram and Pulmonary Arteries with IV Contrast (04/21/2024 3:15 PM MOLD CLOSER) Anatomical Region Laterality Modality Chest, Cardiovascular RST LO S, Thoracic ARZ LOS, Thoracic FLA LOS N/A Computed Tomography 04/21/2024 3:13 PM MOLD CLOSER Impressions 04/21/2024 3:35 PM MOLD CLOSER 1. No acute or chronic pulmonary embolism. 2. Multifocal pneumonia. 3. Enlarged mediastinal and right hilar lymph nodes which are likely reactive. 4. Constellation of findings suggestive of mild heart failure including biatrial enlargement, reflux of contrast into the IVC/intrahepatic veins, and small bilateral pleural effusions. Narrative 04/21/2024 3:35 PM MOLD CLOSER EXAM: CT CHEST ANGIOGRAM AND PULMONARY ARTERIES WITH IV CONTRAST Including 3D image postprocessing with or without AI assistance. COMPARISON: CT chest 02/14/2024 FINDINGS: Negative for acute pulmonary embolism. Normal caliber aorta and main pulmonary artery. Marked biatrial enlargement. Reflux of contrast into the IVC and intrahepatic veins suggestive of right heart dysfunction and/or volume overload. Coronary artery calcifications. New multifocal consolidative and groundglass opacities throughout both lungs suggestive of pneumonia. Small right greater than left pleural effusions with associated atelectasis. Multiple enlarged mediastinal and right hilar lymph nodes are likely reactive. For example, a 13 mm upper right paratracheal lymph node (series 7, image 45). Mild degenerative changes of the spine. The visualized upper abdomen is unremarkable. Procedure Note Micky Das M.D. - 04/21/2024 EXAM: CT CHEST ANGIOGRAM AND PULMONARY ARTERIES WITH IV CONTRAST Including 3D image postprocessing with or without AI assistance. COMPARISON: CT chest 02/14/2024 FINDINGS: Negative for acute pulmonary embolism. Normal caliber aorta and mainpulmonary artery. Marked biatrial enlargement. Reflux of contrast into theIVC and intrahepatic veins suggestive of right heart dysfunction and/orvolume overload. Coronary artery calcifications. New multifocal consolidative and groundglass opacities throughout bothlungs suggestive of pneumonia. Small right greater than left pleuraleffusions with associated atelectasis. Multiple enlarged mediastinal and right hilar lymph nodes are likelyreactive. For example, a 13 mm upper right paratracheal lymph node (series7, image 45). Mild degenerative changes of the spine. The visualized upper abdomen isunremarkable. IMPRESSION: 1. No acute or chronic pulmonary embolism. 2. Multifocal pneumonia. 3. Enlarged mediastinal and right hilar lymph nodes which are likelyreactive. 4. Constellation of findings suggestive of mild heart failure includingbiatrial enlargement, reflux of contrast into the IVC/intrahepatic veins,and small bilateral pleural effusions. us Yanet Morse M.D. IMG CT PROCEDURES Fi nal Result * (ABNORMAL) NT-Pro B-Type Natriuretic Peptide (BNP) (04/21/2024 5:26 AM MOLD CLOSER) NT-Pro BNP 5444(H) <=540 pg/mL 04/21/2024 4:19 PM MOLD CLOSER [facility]DW[facility] Comment: NT-proBNP values less than 300 pg/mL have a 99% negative predictive value for excluding acute congestive heart failure. A cutoff of 1200 pg/mL for patients with an eGFR<60 yields a diagnostic sensitivity and specificity of 89% and 72% for acute congestive heart failure. A diagnostic NT-proBNP cutoff of 1800 pg/mL has been suggested in adults over 75 years of age in the absence of renal failure. Blood (Blood, Venous) 04/21/2024 5:26 AM MOLD CLOSER 04/21/2024 3:47 PM MOLD CLOSER us Yanet Morse M.D. LAB BLOOD ADD-ON Fin al Result [facility] [address] [place] [address], [facility] RDW[facility] [place] [address] [place] [address] * Streptococcus pneumoniae Antigen, Urine (04/19/2024 5:12 PM MOLD CLOSER) Streptococcus pneumoniae Ag, U Negative Negative 04/22/2024 1:50 PM MOLD CLOSER SDS Comment: Negative for pneumococcal pneumonia, suggesting no current or recent infection. Infection due to S. pneumoniae cannot be ruled out since the antigen present in the sample may be below detection limit of the test. ----ADDITIONAL INFORMATION---- This assay was performed using the FDA-cleared BinaxNOW Streptococcus pneumoniae Antigen test, a rapid immunochromatographic assay. Urine (Urine, Midstream) 04/19/2024 5:12 PM MOLD CLOSER 04/22/2024 6:13 AM MOLD CLOSER Suzy Tavera M.D. LAB MICROBIOLOGY - G ENERAL ORDERABLES Final Result [facility] [address] [place] [address] [facility] [address] [place] [address] [place] [address] * Legionella Antigen, Urine (04/19/2024 5:12 PM MOLD CLOSER) Legionella Ag, U Negative Negative 04/22/20 3:06 PM MOLD CLOSER [facility] Comment: Negative for L. pneumophila serogroup 1 antigen, suggesting no recent or current infection. Infection due to Legionella cannot be ruled out since other serogroups and species may cause disease, antigen may not be present in urine in early infection, and the level of antigen present in the urine may be below the detection limit of the test. ----ADDITIONAL INFORMATION---- This assay was performed using the FDA-cleared BinaxNOW Legionella Urinary Antigen Test, a rapid immunochromatographic assay. Urine (Urine, Midstream) 04/19/2024 5:12 PM MOLD CLOSER 04/22/2024 6:13 AM MOLD CLOSER us Suzy Tavera M.D. LAB MICROBIOLOGY - G ENERAL ORDERABLES Final Result Performing Organization Address City/State/[facility] Co de Phone Number [facility] [address] [place] [address] [facility] [address] [place] [address] [place] [address] * (ABNORMAL) Blood Gas with Coox, Venous (04/19/2024 12:53 PM MOLD CLOSER) Sample Site, Venous Venipunct 04/19/2024 1:00 PM MOLD CLOSER RDWG pO2, Venous 32 Not applicable mm Hg 04/19/2024 1:00 PM MOLD CLOSER RDWG pCO2, Venous 41 41 - 51 mm Hg 1:00 PM MOLD CLOSER RDWG pH, Venous 7.42 7.32 - 7.43 pH 04/19/2024 1:00 PM MOLD CLOSER RDW[facility] Base Excess, Venous 2 Not applicable mmol/L 04/19/2024 1:00 PM MOLD CLOSER RDWG HCO3, Venous 27 Not applicable mmol/L 04/19/2024 1:00 PM MOLD CLOSER RDWG Hemoglobin, Venous 10.8(L) 11.6 - 15.0 g/dL 04/19/2024 1:00 PM MOLD CLOSER RDWG O2Hb, Venous 61.7 Not applicable % 04/19/2024 1:00 PM MOLD CLOSER RDWG COHb, Venous 1.7 <3.0 % 04/19/2024 1:00 PM MOLD CLOSER RDW[facility] MetHb, Venous 0.0 <1.5 % 04/19/2024 1:00 PM MOLD CLOSER [facility] CtO2, Venous 9.4 Not Applicable vol % 04/19/2024 1:00 PM MOLD CLOSER RDWG Blood (Blood, Venous) 04/19/2024 12:53 PM MOLD CLOSER 04/19/2024 12:57 PM MOLD CLOSER us Suzy Tavera M.D. LAB BLOOD NON ADD-ON Final Result [facility] [address] [place] [address], [facility] RDWG [facility] [place] [address] * (ABNORMAL) Staph aureus / MRSA, Nasal, PCR (04/19/2024 12:32 PM MOLD CLOSER) Staphylococcus aureus, PCR Positive(A) Negative 04/19/2024 10:03 PM MOLD CLOSER ECLR MRSA, PCR Negative Negative 04/19/2024 10:03 PM MOLD CLOSER ECLR Comment: Methicillin (oxacillin)-susceptible Staphylococcus aureus complex detected. Swab (Nares) 04/19/2024 12:3 2 PM MOLD CLOSER 04/19/2024 8:31 PM MOLD CLOSER us Suzy Tavera M.D. LAB MICROBIOLOGY - G ENERAL ORDERABLES Final Result Performing Organization Address City/[facility]/ZIP Co de Phone Number [facility] [address] [place] [address], [facility] [place] [address] * Lactate for Sepsis with Reflex (04/19/2024 10:05 AM MOLD CLOSER) Only the most recent of2 resultswithin the time period is included. Lactate, P 1.7 0.5 - 2.2 mmol/L 04/19/2024 10:37 AM MOLD CLOSER RDWG Blood (Blood, Venous) 04/19/2024 10:05 AM MOLD CLOSER 04/19/2024 10:15 AM MOLD CLOSER us Suzy Tavera M.D. LAB BLOOD NON ADD-ON Final Result Performing Organization Address City/[facility]/ZIP Co de Phone Number [facility] [address] [place] [address], [facility] R[facility] [place] [address] [address] * CT Head without IV Contrast (04/18/2024 10:04 AM MOLD CLOSER) Anatomical Region Laterality Modality Head, Neuroradiology RST LOS , Neuroradiology ARZ LOS, Neuroradiology FLA LOS N/A Computed Tomography 04/18/2024 10:0 1 AM MOLD CLOSER Impressions 04/18/2024 10:12 AM MOLD CLOSER 1. No acute intracranial findings. No significant interval change from 10/17/2018. Narrative 04/18/2024 10:12 AM MOLD CLOSER EXAM: CT HEAD WITHOUT IV CONTRAST COMPARISON: 10/17/[address] 06/30/2021 brain MR. FINDINGS: No acute intracranial hemorrhage or extra-axial fluid collection. No mass effect, midline shift, or herniation. There is moderate diffuse parenchymal volume loss with ex vacuo dilation of the ventricles. There is probable sequelae of chronic small vessel ischemia. Intracranial atherosclerosis. No suspicious calvarial abnormality. Bilateral lens replacement. 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 The mastoid air cells and visualized paranasal sinuses are essentially clear. Procedure Note Sukhdeep Freeman M.D. - 04/18/2024 EXAM: CT HEAD WITHOUT IV CONTRAST COMPARISON: 10/17/[address] 06/30/2021 brain MR. FINDINGS: No acute intracranial hemorrhage or extra-axial fluid collection. No masseffect, midline shift, or herniation. There is moderate diffuseparenchymal volume loss with ex vacuo dilation of the ventricles. There isprobable sequelae of chronic small vessel ischemia. Intracranial atherosclerosis. No suspicious calvarial abnormality. Bilateral lens replacement. 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 The mastoidair cells and visualized paranasal sinuses are essentially clear. IMPRESSION: 1. No acute intracranial findings. No significant interval change from10/17/2018. Abraham Liriano P.A.-C., P.A. IMG CT PROCEDURES Final Result * (ABNORMAL) Urinalysis with Microscopic if Indicated (04/18/2024 9:56 AM MOLD CLOSER) Source Urine, Urine, Straight Catheter 04/18/2024 9:56 AM MOLD CLOSER CNFL Clarity Clear Clear 04/18/2024 9:58 AM MOLD CLOSER CNFL Color Yellow 04/18/2024 9:58 AM MOLD CLOSER CNFL Comment: ----REFERENCE VALUE---- Colorless Yellow [place] Blood Moderate(A) Negative 04/18/2024 9:58 AM MOLD CLOSER CNFL Nitrite Negative Negative 04/18/2024 9:58 AM MOLD CLOSER CNFL Leukocyte Esterase Negative Negative 04/18/2024 9:58 AM MOLD CLOSER CNFL Protein >=300(A) mg/dL 04/18/2024 9:58 AM MOLD CLOSER CNFL Comment: ----REFERENCE VALUE---- Negative Trace Glucose Negative Negative mg/dL 04/18/2024 9:58 AM MOLD CLOSER CNFL Ketones, QI(U) 40(A) Negative mg/dL 04/18/2024 9:58 AM MOLD CLOSER CNFL Bilirubin Small(A) Negative 04/18/2024 9:58 AM MOLD CLOSER CNFL pH 5.5 5.0 - 8.0 04/18/2024 9:58 AM MOLD CLOSER CNFL Specific [place] >=1.030 1.001 - 1.035 04/18/2024 9:58 AM MOLD CLOSER CNFL Urobilinogen 0.2 0.2 - 1.0 mg/dL 04/18/2024 9:58 AM MOLD CLOSER CNFL Urine (Urine, Straight Catheter) 04/18/2024 9:56 AM MOLD CLOSER 04/18/2024 9:56 AM MOLD CLOSER us Abraham Liriano P.A.-C., P.A. LAB URINE ORDERABL ES Final Result [facility] [address] [place] [id number], [facility] CNFL [facility] in [address] [address] * (ABNORMAL) Microscopic Manual (04/18/2024 9:56 AM MOLD CLOSER) White Blood Cells Occ-3 /hpf 04/18/2024 10:11 AM MOLD CLOSER CNFL Comment: ----REFERENCE VALUE---- Males: 0-3 Females: 0-10 Unknown: 0-10 Red Blood Cells Occ-2 0 - 2 /hpf 04/18/2024 10:11 AM MOLD CLOSER CNFL Granular Casts Occasional (A) None Seen /lpf 04/18/2024 10:11 AM MOLD CLOSER CNFL Crystals Amorphous( A) None Seen /lpf 04/18/2024 10:11 AM MOLD CLOSER CNFL Urine 04/18/2024 9:56 AM MOLD CLOSER 04/18/2024 9:56 AM MOLD CLOSER us Abraham Liriano P.A.-C., P.A. LAB URINE ORDERABL ES Final Result Performing Organization Address [facility] Co de Phone Number [facility] [address] [place] [address], [facility] CNFL [facility] [place] [place] [address] * Bacterial Culture, Aerobic + Susceptibility, Urine (04/18/2024 9:56 AM MOLD CLOSER) Urine Culture No growth after 1 day of incubation. 04/19/2024 10:39 AM MOLD CLOSER ECLR Urine (Urine, Straight Catheter) 04/18/2024 9:56 AM MOLD CLOSER 04/18/2024 2:43 PM MOLD CLOSER Comment:Specimen Source Site : Urine us Abraham Liriano P.A.-C., P.A. LAB MICROBIOLOGY - GENERAL ORDERABLES Final Result [facility] [address] [place] [address], [facility] ECLR [facility] in [address] [address] * (ABNORMAL) Venous Blood Gas with Lactate, POCT, B (04/18/2024 9:47 AM MOLD CLOSER) pH, Venous, POCT, B 7.42 7.32 - 7.43 04/18/2024 9:47 AM MOLD CLOSER CNFL pCO2, Venous, POCT, B 38(L) 41 - 51 mm Hg 04/18/2024 9:47 AM MOLD CLOSER CNFL pO2, Venous, POCT, B 32 Not applicable mm Hg 04/18/2024 9:47 AM MOLD CLOSER CNFL HCO3, Venous, POCT, B 24 Not applicable mmol/L 04/18/2024 9:47 AM MOLD CLOSER CNFL Base Excess, Venous, POCT, B 0 Not applicable mmol/L 04/18/2024 9:47 AM MOLD CLOSER CNFL O2 Saturation, Venous, POCT, B 63 Not applicable % 04/18/2024 9:47 AM MOLD CLOSER CNFL Sample Type, Blood Gas, POCT FRANCISCO 04/18/2024 9:47 AM MOLD CLOSER CNFL Lactate, POCT 1.62 0.50 - 2.20 mmol/L 04/18/2024 9:47 AM MOLD CLOSER CNFL Blood (Blood, Venous) 04/18/2024 9:47 AM MOLD CLOSER 04/18/2024 9:47 AM MOLD CLOSER Abraham Liriano P.A.-C., P.A. LAB POCT ORDERABLE S - DEVICE Final Result [facility] [address] [place] [address], [facility] [place] [address] * SARS Coronavirus 2, PCR Rapid Symptomatic (04/18/2024 9:47 AM MOLD CLOSER) SARS CoV-2, PCR, Rapid, V Undetected Undetected 04/18/2024 9:53 AM MOLD CLOSER CNFL SARS Coronavirus 2, Source, Rapid Swab, Nasopharynx 04/18/2024 9:47 AM MOLD CLOSER CNFL Swab (Nasopharynx) 04/18/2024 9:47 AM MOLD CLOSER 04/18/2024 9:47 AM MOLD CLOSER Abraham Liriano P.A.-C., P.A. LAB MICROBIOLOGY - GENERAL [place] [address], [place] [address] * Influenza A/B and RSV, PCR, Point of Care (04/18/2024 9:47 AM MOLD CLOSER) Influenza A, POCT Negative Negative 04/18/2024 9:52 AM MOLD CLOSER CNFL Influenza B, POCT Negative Negative 04/18/2024 9:52 AM MOLD CLOSER CNFL Resp Syncytial Virus, POCT Negative Negative 04/18/2024 9:52 AM MOLD CLOSER CNFL Swab (Nasopharynx) 04/18/2024 9:47 AM MOLD CLOSER 04/18/2024 9:47 AM MOLD CLOSER Abraham Liriano P.A.-C., P.A. LAB POCT ORDERABLE S - DEVICE Final Result Performing Organization Address [facility] de Phone Number [address] [address], [facility] [place] [address] * (ABNORMAL) Prothrombin Time (PT) (04/18/2024 9:36 AM MOLD CLOSER) Prothrombin Time, P 14.7(H) 9.4 - 12.5 sec 04/18/2024 9:50 AM MOLD CLOSER CNFL INR 1.3 0.9 - 1.1 04/18/2024 9:50 AM MOLD CLOSER FL Comment: ----ADDITIONAL INFORMATION---- Standard intensity warfarin therapeutic range: 2.0 to 3.0 High intensity warfarin therapeutic range: 2.5 to 3.5 Blood (Blood, Venous) 04/18/2024 9:36 AM MOLD CLOSER 04/18/2024 9:39 AM MOLD CLOSER Abraham Liriano P.A.-C., P.A. LAB BLOOD ADD-ON F inal Result Performing Organization Address [facility] Co de Phone Number [address] [address], [address] [address] * (ABNORMAL) CRP (C-Reactive Protein) (04/18/2024 9:36 AM MOLD CLOSER) C-Reactive Protein (CRP), P 388.5(H) <5.0 mg/L 04/18/2024 10:34 AM MOLD CLOSER FL Blood (Blood, Venous) 04/18/2024 9:36 AM MOLD CLOSER 04/18/2024 9:39 AM MOLD CLOSER us Abraham Liriano P.A.-C., P.A. LAB BLOOD ADD-ON F inal Result [address] [address], [address] [address] * CT Chest without IV Contrast (02/14/2024 8:23 AM CDT) Anatomical Region Laterality Modality Chest, Thoracic RST LOS, Tho racic ARZ LOS, Thoracic FLA LOS N/A Computed Tomography, Compute d Tomography Impressions 02/14/2024 9:58 AM CDT 1. Essential resolution of upper lung predominant diffuse micronodularity and groundglass opacities seen on 01/25/2023, which were likely infectious/inflammatory in etiology. 2. Additional innumerable discrete tiny solid and subsolid pulmonary nodules measuring less than 5 mm are likely unchanged. In the setting of expiratory air trapping, findings could be due to DIPNECH. 3. No change in scattered borderline enlarged mediastinal nodes, nonspecific. 4. Remainder unchanged. Narrative 02/14/2024 9:58 AM CDT EXAM: CT CHEST WITHOUT IV CONTRAST COMPARISON: Chest CT 01/25/2023 FINDINGS: There are innumerable discrete tiny solid and subsolid pulmonary nodules measuring less than 5 mm that are most marked peripherally and in the lower lungs, many of which are in a tree-in-bud pattern. These are likely not significantly changed, but there has been essential resolution of the previously seen additional upper lung predominant diffuse micronodularity and upper lung predominant groundglass opacities. Mosaic attenuation of the lungs with air trapping on expiratory imaging, suggesting obstructive small airways changes. No significant change in scattered borderline enlarged mediastinal nodes, for example 9 mm short axis right tracheoesophageal node (3/97), 8 mm short axis right paratracheal node (3/187), 8 mm short axis left mediastinal node (3/213). No effusions. Stable borderline cardiomegaly with biatrial predominance. Vascular calcifications including coronary calcifications. Stable patulous thoracic esophagus which may indicate motility disorder. Scattered skeletal degenerative change. Negative adrenal glands. Procedure Note Megan Dela Cruz M.D. - 02/14/2024 EXAM: CT CHEST WITHOUT IV CONTRAST COMPARISON: Chest CT 01/25/2023 FINDINGS: There are innumerable discrete tiny solid and subsolid pulmonary nodulesmeasuring less than 5 mm that are most marked peripherally and in thelower lungs, many of which are in a tree-in-bud pattern. These are likelynot significantly changed, but there has been essential resolution of the previously seen additional upperlung predominant diffuse micronodularity and upper lung predominantgroundglass opacities. Mosaic attenuation of the lungs with air trappingon expiratory imaging, suggesting obstructive small airways changes. No significant change in scattered borderline enlarged mediastinal nodes,for example 9 mm short axis right tracheoesophageal node (3/97), 8 mmshort axis right paratracheal node (3/187), 8 mm short axis leftmediastinal node (3/213). No effusions. Stable borderline cardiomegaly with biatrial predominance. Vascularcalcifications including coronary calcifications. Stable patulous thoracic esophagus which may indicate motility disorder. Scattered skeletal degenerative change. Negative adrenal glands. IMPRESSION: 1. Essential resolution of upper lung predominant diffuse micronodularityand groundglass opacities seen on 01/25/2023, which were likelyinfectious/inflammatory in etiology. 2. Additional innumerable discrete tiny solid and subsolid pulmonarynodules measuring less than 5 mm are likely unchanged. In the setting ofexpiratory air trapping, findings could be due to DIPNECH. 3. No change in scattered borderline enlarged mediastinal nodes,nonspecific. 4. Remainder unchanged. Kosta Sher M.D. IMG CT PROCEDURES Final Result from Last 3 Months Insurance [employer] MEDICARE Advance Directives For more information, please contact: [phone] Documents on File Type Date Recorded Patient Follow Up Rep Expl anation Advance Directives 08/06/2022 4:06 PM POLS T/MOLST Advance Directives 02/19/2020 1:59 PM POA for health care * DNR/DNI (Latest Code Status on File) Date Activated Date Inactivated Comments 04/18/2024 4:03 PM 04/25/2024 2:03 PM Question Answer Comments DNR/DNI (Do Not Resuscitate/ Do Not Intubate): Not discussed- patient's documented wishes verified * DNR/DNI Date Activated Date Inactivated Comments 08/10/2023 11:38 AM 08/21/2023 4:46 PM * DNR/DNI Date Activated Date Inactivated Comments 08/08/2023 10:50 PM 08/10/2023 10:52 AM * DNR/DNI Date Activated Date Inactivated Comments 08/04/2023 8:31 AM 08/06/2023 1:54 PM * DNR/DNI Date Activated Date Inactivated Comments 08/03/2023 11:35 PM 08/04/2023 8:31 AM Healthcare Agents on File Name Relationship Healthcare Agent Relationshi p Communication Dmitri James Counts Include [facility] Health Care Agent [id number] (Mobile) Elvin James Counts Include [facility] Health Care Agent Care 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 PCP - General Family Medicine 07/16/23
--- OUTSIDE RECORDS SUMMARY | 2024-05-15 16:50 | XMS_ITS | Clinical Summary ---
Author Organization [employer] [facility] Address [place], [place] [address] Care Team Providers Care Statistical Machine Mechanic Name Role Phone [facility] Primary Care Provider Unavailable Allergies No known active allergies Medications omeprazole (PRILOSEC) 20 mg Delayed-Release capsule Take 20 mg by mouth two times daily before meals. 08/16/19 16 Active simvastatin (ZOCOR) 40 mg tablet Take 40 mg by mouth at bedtime. 08/03/19 16 Active aspirin 325 mg tabletIndication s:Cold agglutinin disease (HC) Take 1 tablet by mouth once daily with a meal. Resume on post op day #5. 0 09/27/19 16 Active albuterol HFA 90 mcg/actuation inhalerIndicatio ns:SOB (shortness of breath) Inhale 2 Puffs by mouth every 6 hours if needed for Wheezing. 0 10/31/19 19 Active losartan (COZAAR) 50 mg tabletIndication s:Benign essential HTN Take 1 tablet by mouth once daily. 30 tablet 11/02/19 19 Active acetaminophen (TYLENOL EXTRA STRGTH) 500 mg tablet Take 1,000 mg by mouth every 6 hours if needed. Active amLODIPine (NORVASC) 10 mg tablet Take 10 mg by mouth at bedtime. 09/18/19 24 Active benzonatate (TESSALON) 100 mg capsule Take 100 mg by mouth 3 times daily if needed. 04/25/20 24 Active buPROPion (WELLBUTRIN XL) 150 mg Extended-Release tablet Take 450 mg by mouth once daily. 05/26/19 23 Active donepeziL (ARICEPT) 10 mg tablet Take 10 mg by mouth at bedtime. 06/15/19 Active fluticasone propion-salmeter oL (ADVAIR) 100-50 mcg/dose diskus inhaler Inhale 1 puff 2 (two) times a day. Rinse mouth with water after use to reduce aftertaste and incidence of candidiasis. Do not swallow. 01/15/20 24 025 Active guaiFENesin (MUCINEX) 600 mg Extended-Release tablet Take 600 mg by mouth two times daily. 04/25/20 24 025 Active levothyroxine (SYNTHROID) 50 mcg tablet Take 50 mcg by mouth before breakfast. 04/23/20 Active metoprolol succinate (TOPROL XL) 50 mg sustained-releas e tablet Take 1 tablet (50 mg total) by mouth daily. Do not crush or chew. 06/12/19 Active mirtazapine (REMERON) 7.5 mg tablet Take 7.5 mg by mouth at bedtime. 09/18/19 24 Active oxybutynin (DITROPAN) 5 mg tablet Take 1 Tablet by mouth two times daily. 08/23/19 24 Active sertraline (ZOLOFT) 100 mg tablet Take 200 mg by mouth once daily. 06/12/19 23 Active buPROPion 75 mg tabletIndication s:Depression, unspecified depression type Take 1 tablet by mouth 2 times daily. 0 10/31/19 19 024 Discontinu ed(Reorder (E-cancel not sent)) benzocaine-menth ol (CEPACOL SORE THROAT, ESTEBAN-MEN,) 15-2.6 mg lozengIndication s:Acute pharyngitis, unspecified etiology Place 1 Lozenge on the tongue every 3 hours if needed for Sore Throat. 0 10/31/19 19 024 Discontinu ed(*Patien t states no longer taking) gabapentin (NEURONTIN) 300 mg capsuleIndicatio ns:Pain Take 1 capsule by mouth 2 times daily. 0 10/31/19 19 024 Discontinu ed(*Patien t states no longer taking) furosemide (LASIX) 40 mg tabletIndication s:Congestive heart failure, unspecified HF chronicity, unspecified heart failure type (HC) Take 1 tablet by mouth every morning. 0 10/31/19 19 024 Discontinu ed(*Patien t states no longer taking) lidocaine 5% (LIDODERM) 5 % patchIndications :Pain Apply 1 Patch on dry, clean, hairless skin 2 times daily. 20 Patch 10/31/19 19 024 Discontinu ed(*Patien t states no longer taking) loperamide (IMODIUM) 2 mg capsuleIndicatio ns:Constipation, unspecified constipation type Take 1 capsule by mouth 4 times daily if needed for Diarrhea. Take 4mg by mouth with 1st loose stool, then 2mg with each subsequent loose stool. Max 16 mg in 24 hrs 0 10/31/19 19 024 Discontinu ed(*Patien t states no longer taking) metoprolol tartrate (LOPRESSOR) 50 mg tabletIndication s:Benign essential HTN Take 1 tablet by mouth 2 times daily. 10/31/19 024 Discontinu ed(*Patien t states no longer taking) Multivits,Ca,Min mrbsp-Srmw-FK 9 mg iron-400 mcg tabletIndication s:Vitamin deficiency Take 1 tablet by mouth once daily. 0 10/31/19 19 024 Discontinu ed(*Patien t states no longer taking) acetaminophen (TYLENOL) 325 mg tabletIndication s:Pain Take 2 tablets by mouth every 4 hours if needed. Max acetaminophen dose: 4000mg in 24 hrs. 0 10/31/19 19 024 Discontinu ed(Reorder (E-cancel not sent)) umeclidinium-john anterol (ANORO ELLIPTA) 62.5-25 mcg/actuation inhalerIndicatio ns:COPD without exacerbation (HC) Inhale 1 Puff by mouth once daily. 0 10/31/19 19 024 Discontinu ed(*Patien t states no longer taking) saliva stimulant comb. no.3 (BIOTENE MOISTURIZING MOUTH) spryIndications: Acute pharyngitis, unspecified etiology 1 application prn 0 10/31/19 19 024 Discontinu ed(*Patien t states no longer taking) polyethylene glycoL (MIRALAX) 17 gram/dose powderIndication s:Constipation, unspecified constipation type Take 17 g by mouth once daily if needed for Constipation. 0 10/31/19 19 024 Discontinu ed(*Patien t states no longer taking) traZODone (DESYREL) 50 mg tabletIndication s:Insomnia, unspecified type Take 0.5 tablets by mouth at bedtime. 0 10/31/19 19 024 Discontinu ed(*Patien t states no longer taking) levoFLOXacin (LEVAQUIN) 750 mg tablet Take 1 tablet (750 mg total) by mouth every other day for 2 doses. 04/25/20 24 024 Discontinu ed(*IP Discontinu ed) levoFLOXacin (LEVAQUIN) 750 mg tabletIndication s:lower respiratory infection Take 1 Tablet (750 mg) by mouth every 48 hours for 2 doses. 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 abscess that required surgery Encounters Date Type Department Care Team Description 04/28/2024 3:48 PM INFERTILITY MEDICAL ASSISTANT - 05/01/2024 3:19 PM INFERTILITY MEDICAL ASSISTANT Hospital Encounter [id number] [place] [address] Tash Lea MD Multifocal pneumonia (Primary Dx) Discharge Disposition: [facility] 04/28/2024 Travel from Last 3 Months Immunizations Name Administration Dates Next Due Influenza, IIV3 (Age >=3 years) 02/20/2009,03/02 Pneumococcal Poly,23-Valent (Pneumovax) 02/12/20 02 Td (Age >=7 Years) 01/07/2010 Family History Medical History Relation Name Comments Cancer Brother 3 throat cancer Cancer-prostate Brother 4 doing well Heart Disease Father first SD in 40 's Osteoporosis Mother severe Hypertension Sister 2 Relation Name Status Comments Brother 1 throat cancer Brother 2 Alive Brother 3 Brother 4 Father (Age 77) Mother (Age 84) Sister 1 Alive Sister 2 Social History Tobacco Use Types Packs/Day Years Used Date Smoking Tobacco: Former Smokeless Tobacco: Never Alcohol Use Standard Drinks/Week Comments Yes 0 (1 standard drink = 0.6 oz pur e alcohol) [facility] Utilities Answer Date Recorded Do you have trouble paying f or utilities (for example, heat, electricity, water, phone)? Yes 04/28/2024 Social Connections Answer Date Recorded Do you often feel lonely or isolated from those around you? 0 04/28/2024 Financial Resource Strain Answer Date R ecorded Difficulty of Paying Living Expenses 3 04/28/2024 Difficulty of Paying Living Expenses Not on file 04/28/2024 Food Insecurity Answer Date Recorded Do you worry your food will run out before you are able to buy more? 1 04/28/2024 Transportation Needs Answer Date Record ed Does lack of transportation keep you from medica l appointments? 1 04/28/2024 Does lack of transportation keep you from work, meetings or getting things that you need? 1 04/28/2024 Housing Stability Answer Date Recorded What is your housing situation today? 1 04/28/2024 Interpersonal Safety Answer Date Record ed Are you being hit, kicked, p ushed or yelled at (see row info)? No 04/28/2024 Interpersonal Safety Abuse 12 - 18 Not on file 04/28/2024 Interpersonal Safety Ambulatory Vulnerability No t on file 04/28/2024 Comments No Sex and Gender Information Value Date Recorded Sex Assigned at Not on file Legal Sex Female 5:50 AM INFERTILITY MEDICAL ASSISTANT Gender Identity Not on file Sexual Orientation Not on file Obstetrics History Para Term AB IAB SAB Ectopic Multiple Livin g Live Births 4 2 2 1 1 2 Date Outcome GA Total Labor Labor/2nd/3rd Weight Sex Type Anes PTL Ann A1 A5 Name Clin Ectopic SAB Para Para Last Filed Vital Signs Vital Sign Reading Time Taken Comments Blood Pressure 124/70 05/01/2024 9:08 AM INFERTILITY MEDICAL ASSISTANT Pulse 97 05/01/2024 9:08 AM INFERTILITY MEDICAL ASSISTANT Temperature 36.8 C (98.2 F) 05/01/2024 7:00 AM INFERTILITY MEDICAL ASSISTANT Respiratory Rate 18 05/01/2024 7:00 AM INFERTILITY MEDICAL ASSISTANT Oxygen Saturation 90% 05/01/2024 7:00 AM INFERTILITY MEDICAL ASSISTANT Inhaled Oxygen Concentration - - Weight 71.9 kg (158 lb 7 oz) 05/01/2024 4:13 AM INFERTILITY MEDICAL ASSISTANT Height 157.5 cm (5' 2) 04/28/2024 10:28 PM INFERTILITY MEDICAL ASSISTANT Body Mass Index 28.98 04/28/2024 10:28 PM INFERTILITY MEDICAL ASSISTANT Plan of Treatment Health Maintenance Due Date Last Done Comments Tdap 12/16/1946 Depression screening for age 12+ 1948 BMI (ht and wt on same day) for age 18+ 1954 Zoster (shingles) series for age 50+ (1 of 2) 12/16/1955 Medicare Wellness for age 65+ 2001 Pneumococcal series for age 50+ (2 of 2 - PCV) 02/11/2003 02/11/2002 RSV vaccine for adults or (1 - 1-dose 75+ series) 12/16/2011 Tetanus booster 01/08/2020 01/07/2010 Influenza for age 65+ 01/13/2024 02/20/2009, 008 COVID-19 vaccine series ( season) 2024 01/31/2024, 02/20/2023, 02/24/2021, Additional history exists DEXA/DXA scan for age 65+ Completed 04/13/2009 Medical Devices Implanted Type Area Director Supply Chain Device Identifier Shelf Expiration Date Model / Serial / Lot Screw Lmbr Post 7x40mm Matrix Degen Va Modular Titnm - [id number] Implanted:Qty: 2 on 09/24/2015 by Konrad Marques at [facility] Bilateral: Lumbar Vertebrae Depuy [employer] 74 0# / / Screw Lmbr Post 7x45mm Matrix Degen Va Modular Titnm - [id number] Implanted:Qty: 2 on 09/24/2015 by Konrad Marques at [facility] Bilateral: Lumbar Vertebrae Depuy [employer] 5# / / Set Screw Lmbr Matrix Degen W/O Saddle - [id number] Implanted:Qty: 4 on 09/24/2015 by Konrad Marques at [facility] Bilateral: Lumbar Vertebrae J And J Depuy Spine 2.09 9# / / Screw Head Lmbr Matrix Degen Va Modular Titnm - [id number] Implanted:Qty: 4 on 09/24/2015 by Konrad Marques at [facility] Bilateral: Lumbar Vertebrae Depuy [employer] .00 1# / / Bone Matrix Sm Infuse Bmp - [id number] Implanted:Qty: 1 on 09/24/2015 by Konrad Marques at [facility] Bilateral: Lumbar Vertebrae [employer] Spine/Ortho 08/11/2017 [id number]# / / [id number] L Bone Matrix 10cc Mastergraft Mix Dbm - [id number] Implanted:Qty: 1 on 09/24/2015 by Konrad Marques at [facility] Lumbar Vertebrae Med[employer]onic Spine/Ortho 11/11/2017 [id number]# / / [id number] Description:VERIFIED PER DR WEBER PRIOR TO OPENING TO THE STERILE FIELD. See Lmbr 35mmx5.5 Matrix Degen Cvd - [id number] Implanted:Qty: 2 on 09/24/2015 by Konrad Marques at [facility] Lumbar Vertebrae Depuy [employer] 636.03 5# / / Procedures Procedure Name Priority Date/Time Associated Diagnosis Comments WHITE BLOOD COUNT Early AM 05/01/2024 5:3 4 AM INFERTILITY MEDICAL ASSISTANT CLOSTRIDIOIDES DIFFICILE TOXIN PCR Today 04/30/2024 7:54 PM INFERTILITY MEDICAL ASSISTANT COVID-19 MOLECULAR Today 04/30/2024 4: 43 PM INFERTILITY MEDICAL ASSISTANT WHITE BLOOD COUNT Early AM 04/30/2024 5:3 5 AM INFERTILITY MEDICAL ASSISTANT STOOL PATHOGEN MULTIPLEX PCR PANEL Today 04/29/2024 11:33 AM INFERTILITY MEDICAL ASSISTANT BASIC METABOLIC PANEL Early AM 04/29/2024 5:37 AM INFERTILITY MEDICAL ASSISTANT CBC W PLT NO DIFF Early AM 04/29/2024 5:3 7 AM INFERTILITY MEDICAL ASSISTANT WHITE BLOOD COUNT Timed 04/28/2024 5:1 7 PM INFERTILITY MEDICAL ASSISTANT PROCALCITONIN Preop 04/28/2024 5:17 PM INFERTILITY MEDICAL ASSISTANT from Last 3 Months Results * (ABNORMAL) WHITE BLOOD COUNT (05/01/2024 5:34 AM INFERTILITY MEDICAL ASSISTANT) Only the most recent of3 resultswithin the time period is included. WHITE BLOOD COUNT 11.3(H) 4.5 - 11.0 thou/cu mm 05/01/2024 6:23 AM INFERTILITY MEDICAL ASSISTANT [facility] NRBC 0.0 % 05/01/2024 6:23 AM INFERTILITY MEDICAL ASSISTANT [facility] ABS NRBC 0.0 thou /cu mm 05/01/2024 6:23 AM INFERTILITY MEDICAL ASSISTANT [facility] Blood BLOOD SPECIMEN / Unknown Butterfly / Unknown 05/01/2024 5:34 AM INFERTILITY MEDICAL ASSISTANT 05/01/2024 6:14 AM INFERTILITY MEDICAL ASSISTANT us Goodness Светлана Lea MD HEMATOLOGY Fin al Result [facility] [address] [place] [address], [place] [phone] * CLOSTRIDIOIDES DIFFICILE TOXIN PCR (04/30/2024 7:54 PM INFERTILITY MEDICAL ASSISTANT) Pathologist [facility] CLOSTRIDIUM DIFFICILE PCR Negative 05/01/2024 5:27 PM INFERTILITY MEDICAL ASSISTANT [facility] PRESUMPTIVE NAP1 STRAIN Negative 05/01/2024 5:27 PM INFERTILITY MEDICAL ASSISTANT [facility] Stool STOOL SPECIMEN / Unknown Non-Blood / Unknown 04/30/2024 7:54 PM INFERTILITY MEDICAL ASSISTANT 04/30/2024 7:54 PM INFERTILITY MEDICAL ASSISTANT [facility] LABORATORY - 05/01/2024 5:27 PM INFERTILITY MEDICAL ASSISTANT The NAP1 (027 or BI) strain is a hypervirulent strain. Detection may be useful for epidemiological purposes. Tash Lea MD MICROBIOLOGY Fin al Result [facility] [address] [place] [address], * COVID-19 MOLECULAR (04/30/2024 4:43 PM INFERTILITY MEDICAL ASSISTANT) [facility] COVID 19 [facility] MOLECULAR Not detected Not detected 04/30/2024 5:14 PM INFERTILITY MEDICAL ASSISTANT [facility] TESTING LABORATORY [facility] 04/30/2024 5:14 PM INFERTILITY MEDICAL ASSISTANT [facility] Comment:Specimen submitted t o [facility] for testing. Other SPECIMEN FROM NASOPHARYNGEAL STRUCTURE / Unknown Non-Blood / Unknown 04/30/2024 4:43 PM INFERTILITY MEDICAL ASSISTANT 04/30/2024 4:52 PM INFERTILITY MEDICAL ASSISTANT Tash Lea MD MICROBIOLOGY Fin al Result [facility] [address] [place] [address], * STOOL PATHOGEN MULTIPLEX PCR PANEL (04/29/2024 11:33 AM INFERTILITY MEDICAL ASSISTANT) [facility] Campylobacter NOT Detected NOT Detected 04/30/2024 10:52 AM [facility] Salmonella NOT Detected NOT Detected 04/30/2024 10:52 AM INFERTILITY MEDICAL ASSISTANT [facility] Shigella NOT Detected NOT Detected 04/30/2024 10:52 AM INFERTILITY MEDICAL ASSISTANT [facility] Vibrio NOT Detected NOT Detected 04/30/2024 10:52 AM INFERTILITY MEDICAL ASSISTANT [facility] Yersinia Enterocolitica NOT Detected NOT Detected 04/30/2024 10:52 AM [facility] Shiga Toxin 1 NOT Detected NOT Detected 04/30/2024 10:52 AM INFERTILITY MEDICAL ASSISTANT [facility] Shiga Toxin 2 NOT Detected NOT Detected 04/30/2024 10:52 AM INFERTILITY MEDICAL ASSISTANT [facility] Norovirus NOT Detected NOT Detected 04/30/2024 10:52 AM [facility] Rotavirus NOT Detected NOT Detected 04/30/2024 10:52 AM [facility] Stool STOOL SPECIMEN / Unknown Non-Blood / Unknown 04/29/2024 11:33 AM INFERTILITY MEDICAL ASSISTANT 04/29/2024 11:34 AM INFERTILITY MEDICAL ASSISTANT [facility] LABORATORY - 04/30/2024 10:52 AM INFERTILITY MEDICAL ASSISTANT This test is a Culture Independent Diagnostic Test (CIDT) therefore isolates are not available for susceptibility testing. Antibiotic treatment is often contraindicated and may be detrimental in cases of enteric infections, thus routine susceptibility testing is not recommended. us Goodness Светлана Lea MD MICROBIOLOGY Fin al Result [facility] [address] [place] [address], * (ABNORMAL) CBC W PLT NO DIFF (04/29/2024 5:37 AM INFERTILITY MEDICAL ASSISTANT) WHITE BLOOD COUNT 13.6(H) 4.5 - 11.0 thou/cu mm 04/29/2024 7:13 AM INFERTILITY MEDICAL ASSISTANT [facility] RED BLOOD COUNT 3.29(L) 4.00 - 5.20 mil/cu mm 04/29/2024 7:13 AM INFERTILITY MEDICAL ASSISTANT [facility] HEMOGLOBIN 10.1(L) 12.0 - 16.0 g/dL 04/29/2024 7:13 AM INFERTILITY MEDICAL ASSISTANT [facility] HEMATOCRIT 31.1(L) 33.0 - 51.0 % 04/29/2024 7:13 AM INFERTILITY MEDICAL ASSISTANT [facility] MCV 95 80 - 100 fL 04/29/2024 7:13 AM INFERTILITY MEDICAL ASSISTANT [facility] MCH 30.7 26.0 - 34.0 pg 04/29/2024 7:13 AM INFERTILITY MEDICAL ASSISTANT [facility] MCHC 32.5 32.0 - 36.0 g/dL 04/29/2024 7:13 AM INFERTILITY MEDICAL ASSISTANT [facility] RDW 16.4(H) 11.5 - 15.5 % 04/29/2024 7:13 AM INFERTILITY MEDICAL ASSISTANT [facility] PLATELET COUNT 374 140 - 440 thou/cu mm 04/29/2024 7:13 AM INFERTILITY MEDICAL ASSISTANT [facility] MPV 10.1 6.5 - 11.0 fL 04/29/2024 7:13 AM INFERTILITY MEDICAL ASSISTANT [facility] NRBC 0.0 % 04/29/2024 7:13 AM INFERTILITY MEDICAL ASSISTANT [facility] ABS NRBC 0.0 thou /cu mm 04/29/2024 7:13 AM INFERTILITY MEDICAL ASSISTANT [facility] Blood BLOOD SPECIMEN / Unknown Butterfly / Unknown 04/29/2024 5:37 AM INFERTILITY MEDICAL ASSISTANT 04/29/2024 5:58 AM INFERTILITY MEDICAL ASSISTANT us Goodness Светлана Lea MD HEMATOLOGY Fin al Result [facility] [address] [place] [address], * (ABNORMAL) BASIC METABOLIC PANEL (04/29/2024 5:37 AM INFERTILITY MEDICAL ASSISTANT) SODIUM 138 136 - 145 mmol/L 04/29/2024 6:23 AM [facility] POTASSIUM 4.0 3.5 - 5.1 mmol/L 04/29/2024 6:23 AM INFERTILITY MEDICAL ASSISTANT [facility] CHLORIDE 107 98 - 107 mmol/L 04/29/2024 6:23 AM INFERTILITY MEDICAL ASSISTANT [facility] CO2,TOTAL 23 22 - 29 mmol/L 04/29/2024 6:23 AM INFERTILITY MEDICAL ASSISTANT [facility] ANION GAP 8 5 - 18 04/29/2024 6:23 AM INFERTILITY MEDICAL ASSISTANT [facility] GLUCOSE 106(H) 70 - 99 mg/dL 04/29/2024 6:23 AM [facility] CALCIUM 9.0 8.8 - 10.4 mg/dL 04/29/2024 6:23 AM [facility] Comment: Reference ranges for this test were updated on 03/18/2024 to reflect our healthy population more accurately. Reference range changes are not retroactively applied to results, but previous results using the same methodology can be interpreted in the context of the new reference range. BUN 13 8 - 23 mg/dL 04/29/2024 6:23 AM [facility] CREATININE 0.90 0.50 - 0.90 mg/dL 04/29/2024 6:23 AM [facility] BUN/CREAT RATIO 14 10 - 20 6:23 AM [facility] eGFR 62(L) >90 mL/min/1.7 3m2 04/29/2024 6:23 AM [facility] Comment:As of 2021, eG FR is calculated by the CKD-EPI creatinine equation without race adjustment. eGFR can be influenced by muscle mass, exercise, and diet. The reported eGFR is an estimation only and is only applicable if the renal function is stable. Blood BLOOD SPECIMEN / Unknown Butterfly / Unknown 04/29/2024 5:37 AM INFERTILITY MEDICAL ASSISTANT 04/29/2024 5:57 AM INFERTILITY MEDICAL ASSISTANT us Goodness Светлана Lea MD CHEMISTRY Fin al Result [facility] [address] [id number], * PROCALCITONIN (04/28/2024 5:17 PM INFERTILITY MEDICAL ASSISTANT) PROCALCITONIN 0.08 ng/ml 04/28/2024 6:08 PM INFERTILITY MEDICAL ASSISTANT [facility] Blood BLOOD SPECIMEN / Unknown Butterfly / Unknown 04/28/2024 5:17 PM INFERTILITY MEDICAL ASSISTANT 04/28/2024 5:35 PM INFERTILITY MEDICAL ASSISTANT Narrative [facility] - 04/28/2024 6:08 PM INFERTILITY MEDICAL ASSISTANT Procalcitonin for initial assessment of Lower Respiratory Tract Infection: Results Interpretation <0.10 ng/mL Antibiotic therapy strongly discoraged. Indicates absent of bacterial infection. * 0.10 - 0.25 ng/mL Antibiotic therapy discouraged. Bacterial infection unlikely. * 0.26 - 0.50 ng/mL Antibiotic therapy encouraged. Bacterial infection possible. >0.50 ng/mL Antibiotic therapy strongly encouraged. Suggestive of presence of bacterial infection. *Antibiotic therapy should be considered regardless of PCT result if the patient is clinically unstable, is at high risk for adverse outcome, has strong evidence of bacterial pathogen, or the clinical context indicates antibiotic therapy is warranted. If antibiotics are withheld, reassess if symptoms persist/worsen and/or repeat PCT measurement within 6-24 hours. In order to assess treatment success and to support a decision to discontinue antibiotic therapy, follow up samples should be tested once every 1-2 days, based upon physician discretion taking into account patient's evolution and progress. Procalcitonin for initial assessment of severe sepsis risk: Results Interpretation <0.5 ng/ml A PCT level below 0.5 ng/ml on the first day of ICU admission is associated with a low risk for progression to severe sepsis and/or septic shock. > 2.0 ng/mL A PCT level above 2.0 ng/mL on the first day of ICU admission is associated with a high risk for progression to severe sepsis and/or septic shock. Note: Concentrations < 0.5 ng/mL do not exclude an infection, on account of localized infections (without systemic signs) which can be associated with such low concentrations, or a systemic infection in its initial stages(< 6 hours). Furthermore, increased procalcitonin can occur without infection. PCT concentrations between 0.5 and 2.0 ng/mL should be interpreted taking into account the patient's history. It is recommended to retest PCT within 6-24 hours if any concentrations < 2 ng/mL are obtained. us Goodness Светлана Lea MD SEND OUTS Fin al Result Performing Organization Address City/State/[facility] Co de Phone Number [facility] [address] [place] [address], [place] [phone] from Last 3 Months Insurance [employer] MR PB ONLY Med[employer] HB MEDICARE PART A HB ONLY MEDICARE PART A HB ONLY MEDICARE PART B HB ONLY MEDICA PRIME SOLUTION HB Advance Directives Documents on File Type Date Recorded Patient X Ray Inspector Expl anation Healthcare Directive 09/24/2015 7:59 AM * DNR (Latest Code Status on File) Date Activated Date Inactivated Comments 04/28/2024 5:16 PM 05/01/2024 5:24 PM Question Answer Comments Code Status Discussion: Reviewed Preferences * Full Code Date Activated Date Inactivated Comments 04/28/2024 4:07 PM 04/28/2024 5:16 PM Question Answer Comments Code Status Discussion: Unable to Assess Preferences, Provider to review later * Full Code Date Activated Date Inactivated Comments 09/24/2015 11:50 AM 09/27/2015 4:54 PM * Full Code Date Activated Date Inactivated Comments 09/24/2015 12:17 AM 09/24/2015 11:50 AM Care Teams Statistical Machine Mechanic Relationship Specialty Start Date End Date [facility] PCP - General Obstetrics and Gynecology 09/22/15
--- OUTSIDE RECORDS SUMMARY | 2024-05-15 16:50 | XMS_ITS ---
Author Organization [facility] Address [address] [place] [address] Care Team Providers Care Air Conditioner Installer Helper Name Role Phone Unavailable Unavailable Unavailable Surgery Details Not on file Complications Check Surgery Details section. Procedure Estimated Blood Loss Check Surgery Details section. Procedure Findings Check Surgery Details section. Procedure Specimens Taken Check Surgery Details section.
--- OUTSIDE RECORDS SUMMARY | 2024-05-15 16:50 | XMS_ITS | Encounter Summary ---
Author Organization [facility] Address [address] [place] [id number] Care Team Providers Care Allergy Specialist Name Role Phone Bridgett Mi APRN, C.N.P., D.N.P. Primary Ca re Provider Unavailable Reason for Referral * Outpatient (Routine) - Authorized Specialty Diagnoses / Procedures Referred By Tosha t Referred To Contact Orthopedic Surgery Isabel Farris M.D. [address] [place] [phone] Phone: tel: fax: Isabel Farris M.D. [address] [place] [phone] Phone: tel: fax: Referral ID Status Reason Start Date Expiration Date V isits Requested Visits Authorized [id number] Authorized 05/13/2024 11/12/2025 1 1 ROLLER * MRI/CAT/PET Scan (Routine) - Authorized Specialty Diagnoses / Procedures Referred By Contac t Referred To Contact Radiology Diagnoses Pain Knee Left Procedures MR Knee Left without IV Contrast Isabel Farris M.D. [address] [place] [phone] Phone: tel: fax: [facility] Referral ID Status Reason Start Date Expiration Date V isits Requested Visits Authorized [id number] Authorized 05/13/2024 05/13/2025 1 1 ROLLER Encounter Details Date Type Department Care Team (Late st Contact Info) Description 05/13/2024 Orders Only Department of Orthopedic Surgery in [place], [place] [address] [place] [phone] Margie Butts R.N. [address] [place] [phone] Pain Knee Left (Primary Dx) Social History Tobacco Use Types Packs/Day Years Used Date Smoking Tobacco: Former Cigarettes 0.5 43 1 955 - 1997 Smokeless Tobacco: Never Alcohol Use Standard Drinks/Week Comments Not Currently 0 (1 standard drink = 0.6 oz pur e alcohol) [facility] Utilities Answer Date Recorded In the past 12 months has [employer], gas, oil, or water [employer] threatened to shut off services in your [...] week 11/17/2021 How often do you attend [facility] or synagogue services? More than 4 times per year 11/17/2021 Do you belong to any clubs o r organizations such as moravian groups, unions, fraternal or athletic groups, or [...] Answer Date Recorded PHQ-2 Score 2 10/16/2023 [facility] - Occupational Stress [...] your living situation today? I have a [facility] place to live 04/18/2024 Education Answer Date Recorded What is the highest level of school you have completed or the highest degree you have received? Bachelor's degree (e.g., BA, AB, BS) 11/17/2021 Comments No Sex and Gender Information Value Date Recorded Sex Assigned at Female 09/11/2018 1:57 PM CDT Legal Sex Female 8:29 AM WET ROLLER Gender Identity Female 09/11/2018 1:57 PM CDT Sexual Orientation Straight 09/11/2018 1: 57 PM CDT documented as of this encounter Plan of Treatment Upcoming Encounters Date Type Department Care Team (Latest Contact Info) Description 06/30/2024 2:45 PM WET ROLLER Comprehensive Visit Department of Ophthalmology in [address] [phone] Matty Kumari Jr., M.D. [address] [phone] Discharge Disposition: Home or Self Care Scheduled Orders Name Type Priority Associated Diagnoses Order Schedule MR Knee Left without IV Contrast Imaging RAD - Routine (most inpatients and all outpatients) Pain Knee Left 1 Occurrences starting 05/13/2024 until 08/11/2025 Scheduled Referrals Name Type Priority Associated Diagnoses Order Schedule Orthopedic Surgery office visit (clinic) Outpatient Referral Routine 1 Occurrence s starting 05/13/2024 until 08/11/2025 documented as of this encounter Goals Goal Patient Goal Type Associated Problems Recent Progress Patient-Stated? Author Increase physical activity Exercise No Bharati Mena, RIleneN. Note: Patient plans to sign up for [...] Dr. Quintana. documented as of this encounter Visit Diagnoses Diagnosis Pain Knee Left- Primary documented in this encounter Additional Health Concerns Assessment Noted Time PHQ-9 Depression Total Score: 4 10/16/19 24 4:28 PM CDT documented as of this encounter Care Teams Allergy Specialist Relationship Specialty Start Date End Date Bridgett Mi APRN, C.N.P., D.N.P. PCP - General Family Medicine 07/16/23 documented as of this encounter
--- OUTSIDE RECORDS SUMMARY | 2024-05-15 16:50 | XMS_ITS | Clinical Summary ---
Author Organization [facility] Address [address] [place] [address] Care Team Providers Care Water Taxi Driver Name Role Phone Bridgett Mi APRN, C.N.P., D.N.P. Primary Ca re Provider Unavailable Source Comments Patient records contain information from all sites at [facility]. For routine questions regarding patient records, call [phone] during business hours, M-F 8:00 AM - 5:00 PM Central Time. Record requests for emergency care only can be directed to [phone] at any time.[facility] Allergies Active Allergy Reactions Criticality Noted Date [...] OF PLAIN WATER 100 tablet 1 05/16/19 20 Active Additional Information Patient taking differently: 325 [...] hours as needed for wheezing. 8 g 08/20/19 24 Active oxyBUTYnin (DITROPAN) 5 mg tabletIndicatio ns:Urgency Urinary take one tablet by mouth twice a day 180 tablet 08/23/19 24 Active losartan (COZAAR) 50 mg tablet Take 1 tablet (50 mg total) by mouth daily. 90 tablet 09/18/19 24 2024 Active simvastatin (ZOCOR) 40 mg tabletIndicatio ns:Hyperlipidem ia Mixed Take 1 tablet (40 mg total) by mouth at bedtime. 90 tablet 09/18/19 24 Active sertraline (ZOLOFT) 100 mg tabletIndicatio ns:Depression Major Recurrent Moderate (HCC) Take 2 tablets (200 mg total) by mouth daily. 180 tablet 09/18/19 24 Active omeprazole (PriLOSEC) [address] capsuleIndicati ons:Reflux Esophageal Take 1 capsule (20 mg total) by mouth 2 (two) times a day before breakfast and dinner. 180 capsule 09/18/19 24 Active mirtazapine (REMERON) 7.5 mg tabletIndicatio ns:Depression Major Recurrent Moderate (HCC) Take 1 tablet (7.5 mg total) by mouth at bedtime. 90 tablet 09/18/19 24 Active buPROPion XL (WELLBUTRIN XL) 150 mg 24 hr tabletIndicatio ns:Depression Major Recurrent Moderate (HCC) Take 3 tablets (450 mg total) by mouth daily. 270 tablet 09/18/19 24 Active donepeziL (ARICEPT) 10 mg [...] candidiasis. Do not swallow. 60 each 11 01/15/20 24 2024 Active benzonatate (Tessalon Perles) [...] as needed for rash. 15 g 1 10/16/19 24 2023 Discontinued(T herapy completed) nystatin (NYSTOP) [...] 04/18/2024 Assessment & Plan (04/18/2024 10:11 PM SHOE LACER): She has leukocytosis with a left shift. [...] 04/18/2024 Assessment & Plan (04/18/2024 10:14 PM SHOE LACER): Continue thyroid replacement therapy. Hypertension Essential Primary 08/10/2023 Assessment & Plan (04/18/2024 10:17 PM SHOE LACER): Continue her hypertensive treatment with losartan, amlodipine, [...] asymptomatic. Assessment & Plan (04/18/2024 10:13 PM SHOE LACER): She had AFib with rapid ventricular response [...] living. 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 Assessment & Plan (04/18/2024 10:17 PM SHOE LACER): Continue sertraline and buPROPion. Osteoporosis 08/09/2013 Overview [...] 10/30/2012 Assessment & Plan (04/18/2024 10:14 PM SHOE LACER): Continue omeprazole. This could be the etiology of her possible recurrent aspiration pneumonitis. Speech therapy consulted. Loss Hearing Bilateral 07/19/2007 Overview (05/20/2017): Overview: bilateral hearing AIDS Cancer Breast Personal History Resolved Problems Problem Noted Date Diagnosed Date Resolved Date Sepsis 04/18/2024 04/25/2024 Assessment & Plan (04/18/2024 10:07 PM SHOE LACER): For a pleasant 88-year-old female with history of atrial fibrillation, COPD, oxygen-dependent, recurrent pneumonia, possible aspiration, esophageal reflux disease, dementia, hypertension presented to the [facility] after being found seated on [...] 020 Pain Low Back Unspecified Dysphagia 05/05/2018 Encounters Date Type Department Care Team Description 05/13/2024 Orders Only Department of Orthopedic Surgery in [place], [place] [address] [place] [address] Margie Butts R.N. Pain Knee Left (Primary Dx) 04/28/2024 10:48 AM SHOE LACER - 04/28/2024 2:56 PM SHOE LACER Emergency [facility] [address] [place] [phone] Sneha Harper P.A.-C., P.A., M.S. Weakness General (Primary Dx); Pneumonia Discharge Disposition: [facility] 04/18/2024 2:37 PM SHOE LACER - 04/25/2024 12:03 PM SHOE LACER Hospital Encounter [facility], [facility], Third Floor [address] [place] [phone] Marlene Marinelli M.D., M.S. Brandie Penny M.D. Abramovith Feijo, Paula, M.D. Sepsis (FORMERLY [facility]) [A41.9] (Primary Dx); Hypokalemia; Hypertension Essential Primary; Pneumonia Bacterial; Deconditioned; Chronic Obstructive Pulmonary Disease Without Exacerbation (HCC); Spinal Stenosis Lumbar Region Without Neurogenic Claudication Discharge Disposition: Transitional Care Unit 04/18/2024 8:59 AM SHOE LACER - 04/18/2024 1:57 PM SHOE LACER Emergency [facility] [address] [place] [phone] Abraham Liriano P.A.-C., P.A. Pneumonia (Primary Dx); Weakness General Discharge Disposition: Acute [facility] 04/18/2024 Intake [facility] 03/24/2024 4:00 PM SHOE LACER Diagnostic Department of Otorhinolaryngology in [place], [place] [address] [place] [phone] Abraham Devries M.D. Gibbs, Airika, Au.D. Loss Hearing Sensorineural Bilateral (Primary Dx) Discharge Disposition: Home or Self Care 02/14/2024 10:00 AM CDT Office Visit Division of Pulmonary Medicine in [place], [place] [address] [place] [phone] Kosta Sher M.D. Nodules Pulmonary Multiple (Primary Dx) 02/14/2024 8:00 AM CDT - 02/14/2024 11:59 PM CDT Hospital Encounter Department of Radiology, [facility], in [place], [place] [address] [place] [phone] Kosta Sher M.D. Pulmonary Nodule Computed Tomography Indeterminate; Shortness Of Breath Discharge Disposition: Home or Self Care from Last 3 Months Immunizations Name Administration Dates Next Due Influenza [...] trivalent vaccine (6 months and older)(PF) 02/12/2009 Family History Medical History Relation Name Comments Alcohol abuse Brother 1 Gregor Lung cancer Brother 1 Bandy Smoker Brother 1 Gregor Pancreatic cancer Brother 2 Angel Alcohol abuse Brother 3 Hypertension Brother 3 Pancreatic cancer Brother 3 Heart attack Father Heart disease Father Heart disease Mother Stroke Mother Dementia Sister Relation Name Status Comments Brother 1 Gregor (Age 60) Brother 2 Angel (Age 82) Brother 3 Father (Age 77) Mother (Age 82) Sister Alive Social History Tobacco Use Types Packs/Day Years Used Date Smoking Tobacco: Former Cigarettes 0.5 43 1 955 - 1998 Smokeless Tobacco: Never Tobacco Cessation:Counseling Given: Not Answered Alcohol Use Standard Drinks/Week Comments Not Currently 0 (1 standard drink = 0.6 oz pur e alcohol) [facility] Utilities Answer Date Recorded In the past 12 months has e [employer], gas, oil, or water [employer] threatened to shut off services in your [...] How often do you attend chur or baptism services? More than 4 times per year 11/17/2021 Do you belong to any clubs o r organizations such as mosque groups, unions, fraternal or athletic groups, or [...] Answer Date Recorded PHQ-2 Score 2 10/16/2023 [facility] Occupational Stress Questionnaire Answer [...] your living situation today? I have a [facility] place to live 04/18/2024 Education Answer Date Recorded What is the highest level of school you have completed or the highest degree you have received? Bachelor's degree (e.g., BA, AB, BS) 11/17/2021 Comments No Sex and Gender Information Value Date Recorded Sex Assigned at Female 09/11/2018 1:57 PM CDT Legal Sex Female 8:29 AM SHOE LACER Gender Identity Female 09/11/2018 1:57 PM CDT Sexual Orientation Straight 09/11/2018 1: 57 PM CDT Last Filed Vital Signs Vital Sign Reading Time Taken Comments Blood Pressure 116/83 04/28/2024 2:45 PM SHOE LACER Pulse 85 04/28/2024 2:45 PM SHOE LACER Temperature 36.6 C (97.9 F) 04/28/2024 10:57 AM SHOE LACER Respiratory Rate 18 04/28/2024 10:57 AM SHOE LACER Oxygen Saturation 93% 04/28/2024 2:45 PM SHOE LACER Inhaled Oxygen Concentration - - Weight 72.6 kg (160 lb 0.9 oz) 04/28/2024 10:58 AM SHOE LACER Height 157.5 cm (5' 2) 04/18/2024 2:46 PM SHOE LACER Body Mass Index 29.27 04/18/2024 2:46 PM SHOE LACER Plan of Treatment Upcoming Encounters Date Type Department Care Team (Latest Contact Info) Description 06/30/2024 2:45 PM SHOE LACER Comprehensive Visit Department of Ophthalmology in [place], [place] [address] [place] [phone] Matty Kumari Jr., M.D. [address] [place] [phone] Discharge Disposition: Home or Self Care Health Maintenance Due Date Last Done Comments DTaP,Tdap,and Td Vaccines (7 - Td or Tdap) 01/08/2020 01/07/2010, 01/07/2010, 01/07/2010, Additional history exists Zoster Vaccines (2 of 2) 05/03/2023 03/08/2023 Fall Risk Screen (Annual) 05/14/2024 Creatinine Level (Kidney Function Test) 04/29/2025 04/29/2024, 04/28/2024, 04/25/2024, Additional history exists Potassium Level 04/29/2025 04/29/2024, 04/13, 04/25/2024, Additional history exists Sodium Level 04/29/2025 04/29/2024, 04/13, 04/25/2024, Additional history exists Pneumococcal vaccine (50+ years) Completed 03/14/2017, 03/14/2007, 10/12/2002, Additional history exists RSV vaccine - (32-36 weeks) or 60+ years Completed 03/08/2023 Visit: Medicare Annual Wellness Discontinued 10/16/2023, 08/22/2022 COVID-19 Vaccine Completed 01/31/2024, 02/2023, 11/29/2021, Additional history exists Influenza Vaccine Completed 01/31/2024, , 02/22/2022, Additional history exists IPV Vaccines Aged Out No longer eligi ble based on patient's age to complete this topic Goals Goal Patient Goal Type Associated Problems Recent Progress Patient-Stated? Author Increase physical activity Exercise No Bharati Mena, RIleneN. Note: Patient plans to sign up for the wellness center so that she can increase her physical activity level. Patient/caregiver will direct end of life planning General No Chong Menaa R, R.N. Note: Patient to bring in copy of advance directives to scan into chart. Patient/caregiver will be independent in managing appointments General No RajeshBharati, R.N. Note: Patient is to schedule appointment to follow up with Dr. Quintana. Medical Devices Implanted Type Area Fruit Or Nut Farm Worker Device Identifier Shelf Expiration Date Model / Serial / Lot Hardware E.G. Pins/Screws/See s Hardware e.g. pins/screws /rods Back Patch Hemagard 8mm X 75mm Knit - Marcial [id number] Implanted:Qty: 1 on 07/25/2013 Mesh or Patch Other/Legacy - See Implant Description Atrium Description:Device Manufactu rer - [employer]. Body Location - Other. Vascular. Device Status Text - [id number]. Procedures Procedure Name Priority Date/Time Associated Diagnosis Comments BACTERIA / AKILAH CULTURE, BLOOD STAT 04/28/2024 12:51 PM SHOE LACER BACTERIA / AKILAH CULTURE, BLOOD STAT 04/28/2024 12:36 PM SHOE LACER ECG Routine 04/28/2024 11:27 AM SHOE LACER VBG (VENOUS BLOOD GAS), POCT, B STAT 04/28/2024 11:20 AM SHOE LACER PHOSPHORUS (INORGANIC), S STAT 04/28/2024 11:20 AM SHOE LACER MAGNESIUM, S STAT 04/28/2024 11:20 AM SHOE LACER LACTATE, B/P STAT 04/28/2024 11:20 AM SHOE LACER COMPREHENSIVE METABOLIC PANEL, S/P STAT 04/28/2024 11:20 AM SHOE LACER CBC WITH DIFFERENTIAL, B STAT 04/28/2024 11:20 AM SHOE LACER DX CHEST PORTABLE 1 VIEW RAD - Semiurgent (Fast; most ED patients; some inpatients) 04/28/2024 11:18 AM SHOE LACER MANUAL DIFFERENTIAL, B Routine 04/25/2024 5:28 AM SHOE LACER MORPHOLOGY EVALUATION Routine 04/25/2024 5:28 AM SHOE LACER CBC WITH DIFFERENTIAL, B Routine 04/25/2024 5:28 AM SHOE LACER BASIC METABOLIC PANEL, S/P Routine 04/25/2024 5:28 AM SHOE LACER ADULT OXYGEN THERAPY Routine 04/24/2024 8:01 AM SHOE LACER MORPHOLOGY EVALUATION Routine 04/24/2024 5:24 AM SHOE LACER BASIC METABOLIC PANEL, S/P Routine 04/24/2024 5:24 AM SHOE LACER CBC WITH DIFFERENTIAL, B Routine 04/24/2024 5:24 AM SHOE LACER ADULT OXYGEN THERAPY Routine 04/23/2024 8:01 PM SHOE LACER PEP THERAPY Routine 04/23/2024 3:00 PM SHOE LACER RESPIRATORY ASSESS AND TREAT Routine 04/23/2024 2:00 PM SHOE LACER PEP THERAPY Routine 04/23/2024 11:00 AM SHOE LACER POTASSIUM, S/P Timed 04/23/2024 10:38 AM SHOE LACER ADULT OXYGEN THERAPY Routine 04/23/2024 8:01 AM SHOE LACER PEP THERAPY Routine 04/23/2024 7:01 AM SHOE LACER MORPHOLOGY EVALUATION Routine 04/23/2024 5:07 AM SHOE LACER MANUAL DIFFERENTIAL, B Routine 04/23/2024 5:07 AM SHOE LACER BASIC METABOLIC PANEL, S/P Timed 04/23/2024 5:07 AM SHOE LACER CBC WITH DIFFERENTIAL, B Routine 04/23/2024 5:07 AM SHOE LACER ADULT OXYGEN THERAPY Routine 04/22/2024 8:01 PM SHOE LACER PEP THERAPY Routine 04/22/2024 7:00 PM SHOE LACER PEP THERAPY Routine 04/22/2024 3:00 PM SHOE LACER RESPIRATORY ASSESS AND TREAT Routine 04/22/2024 2:00 PM SHOE LACER (TTE) 2D ECHO DOPPLER COLOR Routine 04/22/2024 12:16 PM SHOE LACER PEP THERAPY Routine 04/22/2024 11:50 AM SHOE LACER PEP THERAPY Routine 04/22/2024 11:50 AM SHOE LACER PEP THERAPY Routine 04/22/2024 11:50 AM SHOE LACER ADULT OXYGEN THERAPY Routine 04/22/2024 8:01 AM SHOE LACER MORPHOLOGY EVALUATION Routine 04/22/2024 5:23 AM SHOE LACER MAGNESIUM, S Routine 04/22/2024 5:23 AM SHOE LACER BASIC METABOLIC PANEL, S/P Routine 04/22/2024 5:23 AM SHOE LACER CBC WITH DIFFERENTIAL, B Routine 04/22/2024 5:23 AM SHOE LACER ADULT OXYGEN THERAPY Routine 04/21/2024 8:[address] CHEST ANGIOGRAM AND PULMONARY ARTERIES WITH IV CONTRAST RAD - Routine (most inpatients and all outpatients) 04/21/2024 3:15 PM SHOE LACER RESPIRATORY ASSESS AND TREAT Routine 04/21/2024 2:00 PM SHOE LACER ADULT OXYGEN THERAPY Routine 04/21/2024 8:01 AM SHOE LACER NT-PRO B-TYPE NATRIURETIC PEPTIDE (BNP), S Routine 04/21/2024 5:26 AM SHOE LACER BASIC METABOLIC PANEL, S/P Routine 04/21/2024 5:26 AM SHOE LACER CBC WITH DIFFERENTIAL, B Routine 04/21/2024 5:26 AM SHOE LACER ADULT OXYGEN THERAPY Routine 04/20/2024 8:00 PM SHOE LACER RESPIRATORY ASSESS AND TREAT Routine 04/20/2024 2:00 PM SHOE LACER ADULT OXYGEN THERAPY Routine 04/20/2024 8:00 AM SHOE LACER BASIC METABOLIC PANEL, S/P Routine 04/20/2024 5:56 AM SHOE LACER CBC WITH DIFFERENTIAL, B Routine 04/20/2024 5:56 AM SHOE LACER ADULT OXYGEN THERAPY Routine 04/19/2024 8:00 PM SHOE LACER LEGIONELLA AG, U Routine 04/19/2024 5:12 PM SHOE LACER STREPTOCOCCUS PNEUMONIAE AG, U Routine 04/19/2024 5:12 PM SHOE LACER RESPIRATORY ASSESS AND TREAT Routine 04/19/2024 2:00 PM SHOE LACER DX CHEST PORTABLE 1 VIEW RAD - Semiurgent (Fast; most ED patients; some inpatients) 04/19/2024 12:57 PM SHOE LACER VENOUS BLOOD GAS W/COOX, B STAT 04/19/2024 12:53 PM SHOE LACER MRSA/STAPHYLOCOCCUS AUREUS, NASAL, BY PCR Routine 04/19/2024 12:32 PM SHOE LACER LACTATE FOR SEPSIS WITH REFLEX STAT 04/19/2024 10:05 AM SHOE LACER ADULT OXYGEN THERAPY Routine 04/19/2024 8:01 AM SHOE LACER CBC WITH DIFFERENTIAL, B Routine 04/19/2024 6:01 AM SHOE LACER BASIC METABOLIC PANEL, S/P Routine 04/19/2024 6:01 AM SHOE LACER ADULT OXYGEN THERAPY Routine 04/18/2024 8:01 PM SHOE LACER RESPIRATORY ASSESS AND TREAT Routine 04/18/2024 4:03 PM SHOE LACER ADULT OXYGEN THERAPY Routine 04/18/2024 4:03 PM SHOE LACER ADULT OXYGEN THERAPY Routine 04/18/2024 4:03 PM SHOE LACER ADULT OXYGEN THERAPY Routine 04/18/2024 4:03 PM SHOE LACER BACTERIA / AKILAH CULTURE, BLOOD STAT 04/18/2024 10:31 AM SHOE LACER BACTERIA / AKILAH CULTURE, BLOOD STAT 04/18/2024 10:[address] HEAD WITHOUT IV CONTRAST RAD - Semiurgent (Fast; most ED patients; some inpatients) 04/18/2024 10:04 AM SHOE LACER ECG STAT 04/18/2024 10:04 AM SHOE LACER HC URINALYSIS AUTO W MICRO STAT 04/18/2024 9:56 AM SHOE LACER URINALYSIS WITH MICROSCOPIC IF INDICATED, U STAT 04/18/2024 9:56 AM SHOE LACER BACTERIAL CULTURE, AEROBIC + SUSC, URINE STAT 04/18/2024 9:56 AM SHOE LACER INFLUENZA A, B, RSV, PCR, POCT STAT 04/18/2024 9:47 AM SHOE LACER VBG WITH LACTATE, POCT, B STAT 04/18/2024 9:47 AM SHOE LACER SARS CORONAVIRUS 2, PCR RAPID, V STAT 04/18/2024 9:47 AM SHOE LACER DX CHEST PORTABLE 1 VIEW RAD - Semiurgent (Fast; most ED patients; some inpatients) 04/18/2024 9:41 AM SHOE LACER C-REACTIVE PROTEIN (CRP), S/P STAT 04/18/2024 9:36 AM SHOE LACER LACTATE FOR SEPSIS WITH REFLEX STAT 04/18/2024 9:36 AM SHOE LACER PROTHROMBIN TIME (PT), P STAT 04/18/2024 9:36 AM SHOE LACER COMPREHENSIVE METABOLIC PANEL, S/P STAT 04/18/2024 9:36 AM SHOE LACER CBC WITH DIFFERENTIAL, B STAT 04/18/2024 9:[address] CHEST WITHOUT IV CONTRAST RAD - Routine (most inpatients and all outpatients) 02/14/2024 8:23 AM CDT Pulmonary Nodule Computed Tomography Indeterminate Shortness Of Breath from Last 3 Months Results * Bacteria / Akilah Culture, Blood #2 (04/28/2024 12:51 PM SHOE LACER) Only the most recent of4 resultswithin the time period is included. Bacteria/More da Culture, Blood No growth after 5 day/s of incubation. 05/03/2024 1:02 PM SHOE LACER CNFL Blood (Blood, Peripheral Draw) 04/28/2024 12:51 PM SHOE LACER 04/28/2024 12:58 PM SHOE LACER Comment:Specimen Source Site : Blood Sneha Harper P.A.-C., P.A., M.S. LAB MICROBIOLOG Y - GENERAL ORDERABLES Final Result [facility] [address] [place] [address], [facility] [place] [address] * ECG 12 Lead (04/28/2024 11:27 AM SHOE LACER) Only the most recent of2 resultswithin the time period is included. Ventricular Rate ECG/Min 89 BPM MUSE QRSD Interval 90 ms MUSE QT Interval 404 ms MUSE QTC Interval 491 ms MUSE R [place] 76 degrees MUSE T Wave [place] -40 degrees MUSE 04/28/2024 11:2 7 AM SHOE LACER 04/28/2024 1:39 PM SHOE LACER Impressions MUSE - 04/28/2024 1:39 PM SHOE LACER Atrial fibrillation Nonspecific ST and T wave [...] ECG ORDERABLES Final Result Performing Organization Address [facility]/ZIP Co de Phone Number MUSE NA * (ABNORMAL) Blood Gas, Venous, POCT, Blood (04/28/2024 11:20 AM SHOE LACER) pH, Venous, POCT, B 7.48(H) 7.32 - 7.43 04/28/2024 11:29 AM SHOE LACER CNFL pCO2, Venous, POCT, B 35(L) 41 - 51 mm Hg 04/28/2024 11:29 AM SHOE LACER CNFL pO2, Venous, POCT, B 49 Not applicable mm Hg 04/28/2024 11:29 AM SHOE LACER CNFL HCO3, Venous, POCT, B 26 Not applicable mmol/L 04/28/2024 11:29 AM SHOE LACER CNFL Base Excess, Venous, POCT, B 2 Not applicable mmol/L 04/28/2024 11:29 AM SHOE LACER CNFL O2 Saturation, Venous, POCT, B 87 Not applicable % 04/28/2024 11:29 AM SHOE LACER CNFL Sample Type, Blood Gas, POCT FRANCISCO 04/28/2024 11:29 AM SHOE LACER CNFL Blood (Blood, Venous) 04/28/2024 11:20 AM SHOE LACER 04/28/2024 11:24 AM SHOE LACER us Sneha Harper P.A.-C. P.Jo-Ann., M.S. LAB POCT ORDERA BLES - DEVICE Final Result Performing Organization Address [facility] de Phone Number [facility] [address] [place] [phone], [facility] CNFL [facility] [place] in [address] [address] * (ABNORMAL) CBC with Differential, Blood (04/28/2024 11:20 AM SHOE LACER) Only the most recent of9 resultswithin the time period is included. Hemoglobin 10.6(L) 11.6 - 15.0 g/dL 04/28/2024 11:31 AM SHOE LACER CNFL Hematocrit 34.4(L) 35.5 - 44.9 % 04/28/2024 11:31 AM SHOE LACER CNFL Erythrocytes 3.74(L) 3.92 - 5.13 x10(12)/L 04/28/2024 11:31 AM SHOE LACER CNFL MCV 92.0 78.2 - 97.9 fL 04/28/2024 11:31 AM SHOE LACER CNFL RBC Distrib Width 16.3(H) 12.2 - 16.1 % 04/28/2024 11:31 AM SHOE LACER CNFL Platelet Count 407(H) 157 - 371 x10(9)/L 04/28/2024 11:31 AM SHOE LACER CNFL Leukocytes 17.5(H) 3.4 - 9.6 x10(9)/L 04/28/2024 11:31 AM SHOE LACER CNFL Neutrophils 15.02(H) 1.56 - 6.45 x10(9)/L 04/28/2024 11:31 AM SHOE LACER CNFL Lymphocytes 1.40 0.95 - 3.07 x10(9)/L 04/28/2024 11:31 AM SHOE LACER CNFL Monocytes 0.87(H) 0.26 - 0.81 x10(9)/L 04/28/2024 11:31 AM SHOE LACER CNFL Eosinophils 0.17 0.03 - 0.48 x10(9)/L 04/28/2024 11:31 AM SHOE LACER CNFL Basophils 0.04 0.01 - 0.08 x10(9)/L 04/28/2024 11:31 AM SHOE LACER CNFL Blood (Blood, Venous) 04/28/2024 11:20 AM SHOE LACER 04/28/2024 11:23 AM SHOE LACER us Sneha Harper P.A.-C., P.A., M.S. LAB BLOOD ADD-O N Final Result [facility] [address] [place] [phone], [facility] in [address] [address] * Phosphorus Inorganic (04/28/2024 11:20 AM SHOE LACER) Phosphorus (Inorganic), P 2.6 2.5 - 4.5 mg/dL 04/28/2024 11:46 AM SHOE LACER CNFL Blood (Blood, Venous) 04/28/2024 11:20 AM SHOE LACER 04/28/2024 11:24 AM SHOE LACER Sneha Harper P.A.-C., P.A., M.S. LAB BLOOD ADD-O N Final Result Performing Organization Address [facility] [place] [address], [place] [address] * Magnesium (04/28/2024 11:20 AM SHOE LACER) Only the most recent of2 resultswithin the time period is included. Magnesium, P 1.8 1.7 - 2.3 mg/dL 04/28/2024 11:46 AM SHOE LACER CNMO Blood (Blood, Venous) 04/28/2024 11:20 AM SHOE LACER 04/28/2024 11:24 AM SHOE LACER Sneha Harper P.A.-C., P.A., M.S. LAB BLOOD ADD-O N Final Result Performing Organization Address City/[facility] [place] [address], [place] [address] * Lactate (04/28/2024 11:20 AM SHOE LACER) Lactate, P 1.9 0.5 - 2.2 mmol/L 04/28/2024 11:41 AM SHOE LACER CNFL Blood (Blood, Venous) 04/28/2024 11:20 AM SHOE LACER 04/28/2024 11:24 AM SHOE LACER Sneha Harper P.A.-C., P.A., M.S. LAB BLOOD NON A DD-ON Final Result [facility] [address] [place] [phone], [facility] CNFL [facility] in [address] [place] [address] * (ABNORMAL) Comprehensive Metabolic Panel (04/28/2024 11:20 AM SHOE LACER) Only the most recent of2 resultswithin the time period is included. Pathologist [facility] Potassium, P 4.3 3.6 - 5.2 mmol/L 04/28/2024 11:46 AM SHOE LACER CNFL Sodium, P 136 135 - 145 mmol/L 04/28/2024 11:46 AM SHOE LACER CNFL Chloride, P 102 98 - 107 mmol/L 04/28/2024 11:46 AM SHOE LACER CNFL Bicarbonate, P 25 22 - 29 mmol/L 04/28/2024 11:46 AM SHOE LACER CNFL Anion Gap, P 9 7 - 15 04/28/2024 11:46 AM SHOE LACER CNFL BUN (Blood Urea Nitrogen), P 20 6 - 21 mg/dL 04/28/2024 11:46 AM SHOE LACER CNFL Creatinine 1.15(H) 0.59 - 1.04 mg/dL 04/28/2024 11:46 AM SHOE LACER CNFL Estimated GFR (eGFR) 46(L) >=60 mL/min/BS A 04/28/2024 11:46 AM SHOE LACER CNFL Comment: Estimated GFR calculated using the 2020 CKD_EPI creatinine equation. Calcium, Total, P 8.9 8.8 - 10.2 mg/dL 04/28/2024 11:46 AM SHOE LACER CNFL Glucose, P 108 70 - 140 mg/dL 04/28/2024 11:46 AM SHOE LACER CNFL Protein, Total, P 5.9(L) 6.3 - 7.9 g/dL 04/28/2024 11:46 AM SHOE LACER CNFL Albumin, P 3.1(L) 3.5 - 5.0 g/dL 04/28/2024 11:46 AM SHOE LACER CNFL Aspartate Aminotransferase (AST), P 26 8 - 43 U/L 04/28/2024 11:46 AM SHOE LACER CNFL Alkaline Phosphatase, P 111(H) 35 - 104 U/L 04/28/2024 11:46 AM SHOE LACER CNFL Alanine Aminotransferase (ALT), P 19 7 - 45 U/L 04/28/2024 11:46 AM [facility] CNFL Bilirubin, Total, P 0.6 0.0 - 1.2 mg/dL 04/28/2024 11:46 AM [facility] CNFL Blood (Blood, Venous) 04/28/2024 11:20 AM [facility] 04/28/2024 11:24 AM [facility] us Sneha Harper P.A.-C., P.A., M.S. LAB BLOOD ADD-O N Final Result Performing Organization Address City/State/[facility] Co de Phone Number [facility] [address] [place] [address], [facility] CNFL [facility] [place] [address] * DX Chest Portable 1 View (04/28/2024 11:18 AM SHOE LACER) Only the most recent of3 resultswithin the time period is included. Anatomical Region Laterality Modality Chest, Thoracic RST LOS, Tho racic ARZ LOS, Thoracic FLA LOS N/A Digital Radiography Impressions 04/28/2024 11:21 AM SHOE LACER Comparison 04/19/2024. Slightly improved multifocal airspace opacities throughout both lungs compatible with pneumonia. Recommend continued follow-up to radiographic resolution. Unchanged trace right pleural effusions. No pneumothorax. Heart size normal. Narrative 04/28/2024 11:21 AM SHOE LACER EXAM: DX CHEST PORTABLE 1 VIEW Procedure [...] * (ABNORMAL) Morphology Evaluation (04/25/2024 5:28 AM SHOE LACER) Only the most recent of4 resultswithin the time period is included. RBC Morphology See Specific Findings 04/25/2024 6:35 AM SHOE LACER RDWG PLT Morphology Normal 04/25/2024 6:35 AM SHOE LACER RDW[facility] PLT Estimate Adequate Adequate 04/25/2024 6:35 AM SHOE LACER RDWG Anisocytosis Slight(A) 04/25/2024 6:35 AM SHOE LACER RDWG Elliptocytes Slight(A) Not Seen 04/25/2024 6:35 AM SHOE LACER RDW[facility] Blood 04/25/2024 5:28 AM SHOE LACER 04/25/2024 5:50 AM SHOE LACER Yanet Morse M.D. LAB BLOOD ADD-ON Fin al Result [facility] [address] [place] [address], [facility] RDWG [facility] [place] [address] [place] [address] * (ABNORMAL) Manual Differential, Blood (04/25/2024 5:28 AM SHOE LACER) Only the most recent of2 resultswithin the time period is included. Segmented Neutrophils 79(H) 50 - 75 % 04/25/2024 6:35 AM SHOE LACER RDWG Lymphocytes % 10(L) 18 - 42 % 04/25/2024 6:35 AM SHOE LACER RDW[facility] Monocytes 4 2 - 11 % 04/25/2024 6:35 AM SHOE LACER RDWG Eosinophils 3 1 - 3 % 04/25/2024 6:35 AM SHOE LACER RDWG Metamyelocytes 2(H) <1 % 04/25/2024 6:35 AM SHOE LACER RDW[facility] Myelocytes 2(H) <0.5 % 04/25/2024 6:35 AM SHOE LACER RDWG Nucleated RBC 2 /100 WBC 04/25/2024 6:35 AM SHOE LACER RDW[facility] Manual Absolute Neutrophil Count 9.24(H) 1.56 - 6.45 x10(9)/L 04/25/2024 6:35 AM SHOE LACER RDWG Comment: ----ADDITIONAL INFORMATION---- The manual absolute neutrophil count is derived from a manual differential count and therefore is not exactly comparable to the automated absolute neutrophil count. Blood 04/25/2024 5:28 AM SHOE LACER 04/25/2024 5:50 AM SHOE LACER us Yanet Morse M.D. LAB BLOOD ADD-ON Fin al Result [facility] [address] [place] [address], [facility] RDWG [facility] [place] [address] [place] [address] * (ABNORMAL) Basic Metabolic Panel (04/25/2024 5:28 AM SHOE LACER) Only the most recent of7 resultswithin the time period is included. Potassium, P 3.2(L) 3.6 - 5.2 mmol/L 04/25/2024 6:22 AM SHOE LACER RDWG Sodium, P 140 135 - 145 mmol/L 04/25/2024 6:22 AM SHOE LACER RDWG Chloride, P 99 98 - 107 mmol/L 04/25/2024 6:22 AM SHOE LACER RDWG Bicarbonate, P 31(H) 22 - 29 mmol/L 04/25/2024 6:22 AM SHOE LACER RDW[facility] Anion Gap, P 10 7 - 15 04/25/2024 6:22 AM SHOE LACER RDW[facility] BUN (Blood Urea Nitrogen), P 26(H) 6 - 21 mg/dL 04/25/2024 6:22 AM SHOE LACER RDWG Creatinine 1.10(H) 0.59 - 1.04 mg/dL 04/25/2024 6:22 AM SHOE LACER RDWG Estimated GFR (eGFR) 49(L) >=60 mL/min/BSA 04/25/2024 6:22 AM SHOE LACER RDWG Comment: Estimated GFR calculated using the 2020 CKD_EPI creatinine equation. Calcium, Total, P 9.2 8.8 - 10.2 mg/dL 04/25/2024 6:22 AM SHOE LACER RDWG Glucose, P 98 70 - 140 mg/dL 04/25/2024 6:22 AM SHOE LACER RDWG Blood (Blood, Venous) 04/25/2024 5:28 AM SHOE LACER 04/25/2024 5:50 AM SHOE LACER Yanet Morse M.D. LAB BLOOD ADD-ON Fin al Result [facility] [address] [place] [address], [facility] RDWG [facility] [place] [address] [place] [address] * (ABNORMAL) Potassium (04/23/2024 10:38 AM SHOE LACER) Potassium, P 3.3(L) 3.6 - 5.2 mmol/L 04/23/2024 10:57 AM SHOE LACER RDW[facility] Blood (Blood, Venous) 04/23/2024 10:38 AM SHOE LACER 04/23/2024 10:42 AM SHOE LACER Yanet Morse M.D. LAB BLOOD ADD-ON Fin al Result Performing Organization Address City/[facility] Co de Phone Number [facility] [address] [facility] [place] [address], [facility] RDWG [facility] [place] [address] [place] [address], [place] [address] * (TTE) 2D ECHO DOPPLER COLOR (04/22/2024 12:16 PM SHOE LACER) Ejection Fraction 65 MC CV EIMS Mid-Ascending [...] Region Laterality Modality Echocardiography 04/22/2024 9:55 AM SHOE LACER Impressions 04/22/2024 1:30 PM SHOE LACER Transthoracic outreach echo interpretation. LEFT VENTRICLE:Normal left [...] assessment performed but not reported based upon full time staff interpreter judgment). Global averaged left atrial biplane longitudinal [...] the Order-Level Documents. Narrative 04/22/2024 1:30 PM SHOE LACER For the complete report, see the Order-Level [...] (volumetric assessmentperformed but not reported based upon full time staff interpreter judgment). Globalaveraged left atrial biplane longitudinal peak [...] the complete report, see the Order-Level Documents. us Yanet Morse M.D. CV ECHO PROCEDURES F inal Result * CT Chest Angiogram and Pulmonary Arteries with IV Contrast (04/21/2024 3:15 PM SHOE LACER) Anatomical Region Laterality Modality Chest, Cardiovascular RST LO S, Thoracic ARZ LOS, Thoracic FLA LOS N/A Computed Tomography 04/21/2024 3:13 PM SHOE LACER Impressions 04/21/2024 3:35 PM SHOE LACER 1. No acute or chronic pulmonary embolism. 2. Multifocal pneumonia. 3. Enlarged mediastinal and right hilar lymph nodes which are likely reactive. 4. Constellation of findings suggestive of mild heart failure including biatrial enlargement, reflux of contrast into the IVC/intrahepatic veins, and small bilateral pleural effusions. Narrative 04/21/2024 3:35 PM SHOE LACER EXAM: CT CHEST ANGIOGRAM AND PULMONARY ARTERIES [...] the IVC/intrahepatic veins,and small bilateral pleural effusions. Yanet Morse M.D. IMG CT PROCEDURES Fi nal Result * (ABNORMAL) NT-Pro B-Type Natriuretic Peptide (BNP) (04/21/2024 5:26 AM SHOE LACER) NT-Pro BNP 5444(H) <=540 pg/mL 04/21/2024 4:19 PM SHOE LACER RDWG Comment: NT-proBNP values less than 300 [...] failure. Blood (Blood, Venous) 04/21/2024 5:26 AM SHOE LACER 04/21/2024 3:47 PM SHOE LACER Yanet Morse M.D. LAB BLOOD ADD-ON Fin al Result [facility] [address] [place] [address], [facility] RDWG [facility] [place] [address] [place] [address] * Streptococcus pneumoniae Antigen, Urine (04/19/2024 5:12 PM SHOE LACER) Streptococcus pneumoniae Ag, U Negative Negative 04/22/2024 1:50 PM SHOE LACER [facility] Comment: Negative for pneumococcal pneumonia, suggesting no current or recent infection. Infection due to S. pneumoniae cannot be ruled out since the antigen present in the sample may be below detection limit of the test. ----ADDITIONAL INFORMATION---- This assay was performed using the FDA-cleared BinaxNOW Streptococcus pneumoniae Antigen test, a rapid immunochromatographic assay. Urine (Urine, Midstream) 04/19/2024 5:12 PM SHOE LACER 04/22/2024 6:13 AM SHOE LACER Suzy Tavera M.D. LAB MICROBIOLOGY - G ENERAL ORDERABLES Final Result Performing Organization Address City/[facility] de Phone Number [facility] [address] [place] [address] [facility] [address] [place] [address] [place] [address] * Legionella Antigen, Urine (04/19/2024 5:12 PM SHOE LACER) Legionella Ag, U Negative Negative 04/22/20 3:06 PM SHOE LACER [facility] Comment: Negative for L. pneumophila serogroup 1 [...] assay. Urine (Urine, Midstream) 04/19/2024 5:12 PM SHOE LACER 04/22/2024 6:13 AM SHOE LACER Suzy Tavera M.D. LAB MICROBIOLOGY - G ENERAL ORDERABLES Final Result Performing Organization Address [facility] de Phone Number [facility] [address] [place] [address] [facility] [address] [place] [address] [place] [address] * (ABNORMAL) Blood Gas with Coox, Venous (04/19/2024 12:53 PM SHOE LACER) Sample Site, Venous Venipunct 04/19/2024 1:00 PM SHOE LACER RDWG pO2, Venous 32 Not applicable mm Hg 04/19/2024 1:00 PM SHOE LACER RDW[facility] pCO2, Venous 41 41 - 51 mm Hg 1:00 PM SHOE LACER RDWG pH, Venous 7.42 7.32 - 7.43 pH 04/19/2024 1:00 PM SHOE LACER RDWG Base Excess, Venous 2 Not applicable mmol/L 04/19/2024 1:00 PM SHOE LACER RDWG HCO3, Venous 27 Not applicable mmol/L 04/19/2024 1:00 PM SHOE LACER RDWG Hemoglobin, Venous 10.8(L) 11.6 - 15.0 g/dL 04/19/2024 1:00 PM SHOE LACER RDWG O2Hb, Venous 61.7 Not applicable % 04/19/2024 1:00 PM SHOE LACER RDWG COHb, Venous 1.7 <3.0 % 04/19/2024 1:00 PM SHOE LACER RDWG MetHb, Venous 0.0 <1.5 % 04/19/2024 1:00 PM SHOE LACER RDWG CtO2, Venous 9.4 Not Applicable vol % 04/19/2024 1:00 PM SHOE LACER RDWG Blood (Blood, Venous) 04/19/2024 12:53 PM SHOE LACER 04/19/2024 12:57 PM SHOE LACER us Suzy Tavera M.D. LAB BLOOD NON ADD-ON Final Result [facility] [address] [place] [address], [facility] RDWG [facility] [place] [address] [address] [address] * (ABNORMAL) Staph aureus / MRSA, Nasal, PCR (04/19/2024 12:32 PM SHOE LACER) Staphylococcus aureus, PCR Positive(A) Negative 04/19/2024 10:03 PM SHOE LACER ECLR MRSA, PCR Negative Negative 04/19/2024 10:03 PM SHOE LACER ECLR Comment: Methicillin (oxacillin)-susceptible Staphylococcus aureus complex detected. Swab (Nares) 04/19/2024 12:3 2 PM SHOE LACER 04/19/2024 8:31 PM SHOE LACER us Suzy Tavera M.D. LAB MICROBIOLOGY - G ENERAL ORDERABLES Final Result [facility] [address] [place] [address], [facility] ECLR [facility] [address] * Lactate for Sepsis with Reflex (04/19/2024 10:05 AM SHOE LACER) Only the most recent of2 resultswithin the time period is included. Lactate, P 1.7 0.5 - 2.2 mmol/L 04/19/2024 10:37 AM SHOE LACER RDWG Blood (Blood, Venous) 04/19/2024 10:05 AM SHOE LACER 04/19/2024 10:15 AM SHOE LACER us Suzy Tavera M.D. LAB BLOOD NON ADD-ON Final Result [facility] [address] [place] [address], [place] RDWG [facility] [place] [address] [place] [address] * CT Head without IV Contrast (04/18/2024 10:04 AM SHOE LACER) Anatomical Region Laterality Modality Head, Neuroradiology RST LOS , Neuroradiology ARZ LOS, Neuroradiology FLA LOS N/A Computed Tomography 04/18/2024 10:0 1 AM SHOE LACER Impressions 04/18/2024 10:12 AM SHOE LACER 1. No acute intracranial findings. No significant interval change from 10/17/2018. Narrative 04/18/2024 10:12 AM SHOE LACER EXAM: CT HEAD WITHOUT IV CONTRAST COMPARISON: [...] with Microscopic if Indicated (04/18/2024 9:56 AM SHOE LACER) Source Urine, Urine, Straight Catheter 04/18/2024 9:56 AM SHOE LACER CNFL Clarity Clear Clear 04/18/2024 9:58 AM SHOE LACER CNFL Color Yellow 04/18/2024 9:58 AM SHOE LACER CNFL Comment: ----REFERENCE VALUE---- Colorless Yellow [place] Blood Moderate(A) Negative 04/18/2024 9:58 AM SHOE LACER CNFL Nitrite Negative Negative 04/18/2024 9:58 AM SHOE LACER CNFL Leukocyte Esterase Negative Negative 04/18/2024 9:58 AM SHOE LACER CNFL Protein >=300(A) mg/dL 04/18/2024 9:58 AM SHOE LACER CNFL Comment: ----REFERENCE VALUE---- Negative Trace Glucose Negative Negative mg/dL 04/18/2024 9:58 AM SHOE LACER CNFL Ketones, QI(U) 40(A) Negative mg/dL 04/18/2024 9:58 AM SHOE LACER CNFL Bilirubin Small(A) Negative 04/18/2024 9:58 AM SHOE LACER CNFL pH 5.5 5.0 - 8.0 04/18/2024 9:58 AM SHOE LACER CNFL Specific Sarles >=1.030 1.001 - 1.035 04/18/2024 9:58 AM SHOE LACER CNFL Urobilinogen 0.2 0.2 - 1.0 mg/dL 04/18/2024 9:58 AM SHOE LACER CNFL Urine (Urine, Straight Catheter) 04/18/2024 9:56 AM SHOE LACER 04/18/2024 9:56 AM SHOE LACER us Abraham Liriano P.A.-C., P.A. LAB URINE ORDERABL ES Final Result Performing Organization Address [facility]/State/ZIP Co de Phone Number [facility] [address] [place] [address], [facility] CNFL [facility] [address] * (ABNORMAL) Microscopic Manual (04/18/2024 9:56 AM SHOE LACER) White Blood Cells Occ-3 /hpf 04/18/2024 10:11 AM SHOE LACER CNFL Comment: ----REFERENCE VALUE---- Males: 0-3 Females: 0-10 Unknown: 0-10 Red Blood Cells Occ-2 0 - 2 /hpf 04/18/2024 10:11 AM SHOE LACER CNFL Granular Casts Occasional (A) None Seen /lpf 04/18/2024 10:11 AM SHOE LACER CNFL Crystals Amorphous( A) None Seen /lpf 04/18/2024 10:11 AM SHOE LACER CNFL Urine 04/18/2024 9:56 AM SHOE LACER 04/18/2024 9:56 AM SHOE LACER us Abraham Liriano P.A.-C., P.A. LAB URINE ORDERABL ES Final Result Performing Organization Address [facility] Co de Phone Number [facility] [address] [place] [address], [facility] CNFL [facility] [address] * Bacterial Culture, Aerobic + Susceptibility, Urine (04/18/2024 9:56 AM SHOE LACER) Urine Culture No growth after 1 day of incubation. 04/19/2024 10:39 AM SHOE LACER ECLR Urine (Urine, Straight Catheter) 04/18/2024 9:56 AM SHOE LACER 04/18/2024 2:43 PM SHOE LACER Comment:Specimen Source Site : Urine us Abraham Liriano P.A.-C., P.A. LAB MICROBIOLOGY - GENERAL ORDERABLES Final Result Performing Organization Address [facility] Co de Phone Number [facility] [address] [place] [address], [facility] ECLR [facility] [address] * (ABNORMAL) Venous Blood Gas with Lactate, POCT, B (04/18/2024 9:47 AM SHOE LACER) pH, Venous, POCT, B 7.42 7.32 - 7.43 04/18/2024 9:47 AM SHOE LACER CNFL pCO2, Venous, POCT, B 38(L) 41 - 51 mm Hg 04/18/2024 9:47 AM SHOE LACER CNFL pO2, Venous, POCT, B 32 Not applicable mm Hg 04/18/2024 9:47 AM SHOE LACER CNFL HCO3, Venous, POCT, B 24 Not applicable mmol/L 04/18/2024 9:47 AM SHOE LACER CNFL Base Excess, Venous, POCT, B 0 Not applicable mmol/L 04/18/2024 9:47 AM SHOE LACER CNFL O2 Saturation, Venous, POCT, B 63 Not applicable % 04/18/2024 9:47 AM SHOE LACER CNFL Sample Type, Blood Gas, POCT FRANCISCO 04/18/2024 9:47 AM SHOE LACER CNFL Lactate, POCT 1.62 0.50 - 2.20 mmol/L 04/18/2024 9:47 AM SHOE LACER CNFL Blood (Blood, Venous) 04/18/2024 9:47 AM SHOE LACER 04/18/2024 9:47 AM SHOE LACER us Abraham Liriano P.A.-C., P.A. LAB POCT ORDERABLE S - DEVICE Final Result Performing Organization Address [facility] [place] [address], [place] [address] * SARS Coronavirus 2, PCR Rapid Symptomatic (04/18/2024 9:47 AM SHOE LACER) SARS CoV-2, PCR, Rapid, V Undetected Undetected 04/18/2024 9:53 AM SHOE LACER CNFL SARS Coronavirus 2, Source, Rapid Swab, Nasopharynx 04/18/2024 9:47 AM SHOE LACER CNFL Swab (Nasopharynx) 04/18/2024 9:47 AM SHOE LACER 04/18/2024 9:47 AM SHOE LACER Abraham Liriano P.A.-C., P.A. LAB MICROBIOLOGY - GENERAL ORDERABLES Final Result Performing Organization Address City/[facility] Hospital/[place] [address], [place] [address] * Influenza A/B and RSV, PCR, Point of Care (04/18/2024 9:47 AM SHOE LACER) Influenza A, POCT Negative Negative 04/18/2024 9:52 AM SHOE LACER CNFL Influenza B, POCT Negative Negative 04/18/2024 9:52 AM SHOE LACER CNFL Resp Syncytial Virus, POCT Negative Negative 04/18/2024 9:52 AM SHOE LACER [facility] Swab (Nasopharynx) 04/18/2024 9:47 AM SHOE LACER 04/18/2024 9:47 AM SHOE LACER Abraham Liriano P.A.-C., P.A. LAB POCT ORDERABLE S - DEVICE Final Result Performing Organization Address [facility] Co de Phone Number [address] [address], [address] [address] * (ABNORMAL) Prothrombin Time (PT) (04/18/2024 9:36 AM SHOE LACER) Prothrombin Time, P 14.7(H) 9.4 - 12.5 sec 04/18/2024 9:50 AM SHOE LACER FL INR 1.3 0.9 - 1.1 04/18/2024 9:50 AM SHOE LACER [facility] Comment: ----ADDITIONAL INFORMATION---- Standard intensity warfarin therapeutic range: 2.0 to 3.0 High intensity warfarin therapeutic range: 2.5 to 3.5 Blood (Blood, Venous) 04/18/2024 9:36 AM SHOE LACER 04/18/2024 9:39 AM SHOE LACER Abraham Liriano P.A.-C., P.A. LAB BLOOD ADD-ON F inal Result Performing Organization Address City/[facility] Hospital/ZIP Co de Phone Number [address] [address], [facility] in [address] [address] * (ABNORMAL) CRP (C-Reactive Protein) (04/18/2024 9:36 AM SHOE LACER) C-Reactive Protein (CRP), P 388.5(H) <5.0 mg/L 04/18/2024 10:34 AM SHOE LACER CNFL Blood (Blood, Venous) 04/18/2024 9:36 AM SHOE LACER 04/18/2024 9:39 AM SHOE LACER us Abraham Liriano P.A.-C., P.A. LAB BLOOD ADD-ON F inal Result [facility] [address] [place] [address], [facility] CNFL [facility] in [address] [address] * CT Chest without IV Contrast (02/14/2024 [...] nodes,nonspecific. 4. Remainder unchanged. Kosta Sher M.D. [facility] CT PROCEDURES Final Result from Last 3 Months Insurance MEDICA MEDICARE Advance Directives For more information, please contact: [phone] Documents on File Type Date Recorded Patient Collection Team Lead Expl anation Advance Directives 08/06/2022 4:06 PM [...] Relationship Healthcare Agent Relationshi p Communication Dmitri Jmaes Gambino Health Care Agent Elvin Gambino Health Care Agent Care Teams Water Taxi Driver Relationship Specialty Start Date End Date Bridgett Mi APRN, C.N.P., D.N.P. PCP - General Family Medicine 07/16/23
--- OUTSIDE RECORDS SUMMARY | 2024-05-15 16:51 | XMS_ITS | Encounter Summary ---
Author Organization [facility] Address [address] [place] [address] Care Team Providers Care Marketing Teacher Name Role Phone Bridgett Mi APRN, C.N.P., D.N.P. Primary Ca re Provider Unavailable Reason for Visit * Reason Comments Weakness - Generalized 88 year old femal e admits with concerns of weakness Encounter Details Date Type Department Care Team (Late st Contact Info) Description 04/18/2024 8:59 AM ORAL AND MAXILLOFACIAL SURGERY RESIDENT - 04/18/2024 1:57 PM ORAL AND MAXILLOFACIAL SURGERY RESIDENT Emergency [facility] [address] [place] [phone] Abraham Liriano, P.A.-C., P.A. [address] [place] [phone] Pneumonia (Primary Dx); Weakness General Discharge Disposition: Acute Care Hospital Social History Tobacco Use Types Packs/Day Years Used Date Smoking Tobacco: Former Cigarettes 0.5 43 1 955 - 1998 Smokeless Tobacco: Never Alcohol Use Standard Drinks/Week Comments Not Currently 0 (1 standard drink = 0.6 oz pur e alcohol) [facility] Utilities Answer Date Recorded In the past 12 months has e electric, gas, oil, or water company threatened [...] week 11/17/2021 How often do you attend [facility] or orthodox services? More than 4 times per year 11/17/2021 Do you belong to any clubs o r organizations such as worship groups, unions, fraternal or athletic groups, or [...] Answer Date Recorded PHQ-2 Score 2 10/16/2023 [facility] [place] of Occupat ional Health - Occupational Stress [...] your living situation today? I have a [facility] place to live 04/18/2024 Education Answer Date Recorded What is the highest level of school you have completed or the highest degree you have received? Bachelor's degree (e.g., BA, AB, BS) 11/17/2021 Comments No Sex and Gender Information Value Date Recorded Sex Assigned at Female 09/11/2018 1:57 PM CDT Legal Sex Female 8:29 AM ORAL AND MAXILLOFACIAL SURGERY RESIDENT Gender Identity Female 09/11/2018 1:57 PM CDT Sexual Orientation Straight 09/11/2018 1: 57 PM CDT documented as of this encounter Last Filed Vital Signs Vital Sign Reading Time Taken Comments Blood Pressure 128/67 04/18/2024 1:43 PM ORAL AND MAXILLOFACIAL SURGERY RESIDENT Pulse 113 04/18/2024 1:43 PM ORAL AND MAXILLOFACIAL SURGERY RESIDENT Temperature 36.7 C (98.1 F) 04/18/2024 9:00 AM ORAL AND MAXILLOFACIAL SURGERY RESIDENT Respiratory Rate 31 04/18/2024 1:43 PM ORAL AND MAXILLOFACIAL SURGERY RESIDENT Oxygen Saturation 93% 04/18/2024 1:43 PM ORAL AND MAXILLOFACIAL SURGERY RESIDENT Inhaled Oxygen Concentration - - Weight - - Height - - Body Mass Index - - documented in this encounter Medications at Time [...] by mouth daily. 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 Do not crush or chew. 90 tablet 3 04/20/2023 mirtazapine (REMERON) 7.5 mg tabletIndications: Depression Major [...] for 2 doses. 2 tablet 04/25/2024 4 levoFLOXacin (Levaquin) 500 mg tablet Take 1 tablet (500 mg total) by mouth daily before morning meal for 4 days. 4 tablet 04/25/2024 4 documented as of this encounter ED Notes * Isabel Fagan, R.N. - 04/18/2024 1:56 PM CST Hearing aids x 2 in patients ears. Cellphone and mcat instructor and hearing aid case sent with patient Isabel Fagan R.N. 04/18/24 [id number] AND MAXILLOFACIAL SURGERY RESIDENT * Abraham Liriano P.A.-C., P.A. - 04/18/2024 9:28 AM CST SUBJECTIVE CHIEF COMPLAINT/REASON FOR VISIT Weakness - Generalized (88 year old female admits with concerns of weakness ) HISTORY OF PRESENT ILLNESS Rox Ramirez is an 88-year-old female that presents with weakness. She has a history of CKD, COPD, atrial fibrillation and dementia. She lives at a memory care unit. She states that she has been feeling sick recently. She has had a cough and feeling short of breath. She has been increasingly weak. Today the staff found her sitting on the floor. It is unclear if she fell. She is oxygen dependent. EMS was called and they noted that she was incontinent of urine. She has a history of recurrent pneumonia. No other complaints noted. 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 HENT: Negative for congestion and sore throat. Respiratory: Positive for cough and shortness of breath. Cardiovascular: Negative for chest pain. Gastrointestinal: Negative for abdominal pain, diarrhea and vomiting. Genitourinary: Positive for bladder incontinence. Musculoskeletal: Negative for back pain and neck pain. Skin: Negative for rash. Neurological: Positive for weakness. Negative for headaches. Psychiatric/Behavioral: Positive for confusion. OBJECTIVE Initial Vitals Temperature 04/18/24 0900 36.7 ??C Pulse Rate 04/18/24 0900 (!) 129 Heart Rate 04/18/24 1006 (!) 118 Resp Rate 04/18/24 1006 (!) 30 Blood Pressure 04/18/24 0900 147/69 SpO2 04/18/24 0900 (!) 88 % Pain Score 04/18/24 0900 0 - No pain PHYSICAL EXAMINATION Constitutional: Nursing note and vitals reviewed. She appears lethargic. She is active. No distress. Nasal cannula in place. HENT: Head: Normocephalic. Head is without raccoon's eyes and without Miller's sign. No tenderness. Mouth/Throat: Mucous membranes are dry. Eyes: Conjunctivae and lids are normal. Pupils are equal, round, and reactive to light. Neck: Phonation normal. Cardiovascular: An irregularly irregular rhythm present. Tachycardia present. Pulmonary/Chest: Tachypnea noted. She is in respiratory distress. She has rhonchi. Mild respiratory distress at rest. Abdominal: Soft. Normal appearance. exhibits no distension. There is no abdominal tenderness. Thereis no rigidity, no rebound and no guarding. Musculoskeletal: Cervical back: No pain with movement, spinous process tenderness or muscular tenderness. Neurological: GCS eye subscore is 4. GCS verbal subscore is 4. GCS motor subscore is 6. Normal speech. Skin: Skin is warm, dry and normal color. No rash noted. Psychiatric: She has a normal mood and affect. Relaxed. ASSESSMENT/PLAN Assessment and Plan Rox Ramirez is an 88-year-old female that presents with weakness. She has a history of dementia and COPD. She lives at a memory care unit and they found her sitting on the floor this morning. She states that she has been feeling sick recently. She has had a cough. She was incontinent of urine. EMS transported her to the hospital. She is requiring oxygen. On my exam she is tachycardic it appears to have some mild respiratory distress. She seems congested. There is some concern for possible pneumonia as she has had this problem in the past. Apparently there was some concern about aspiration pneumonia in the past. Sepsis order set was initiated as she is tachycardic and weak and I do suspect pneumonia and/or urinary tract infection. Lactated Ringer's fluids were initiated. Blood cultures were ordered. Ceftriaxone and azithromycin ordered for suspected pneumonia and possible sepsis. She has a leukocytosis and CRP elevation. Chest XR showed evidence for pneumonia. Lactate was not elevated. There was some difficulty getting an IV so fluids were delayed. Blood cultures were also difficult to obtain. UA did not show signs of an infection. Head CT was negative. She has not had hermedications today. She continues to have a fast heart rate in the 110's and 120's. She was given her oral metoprolol. We do not have any beds immediately available in [place]. Her heart rate didnormalize after the metoprolol. I discussed the case with Dr. Marinelli, hospitalist at [place], and she accepted the patient for admission. She was transported by BLS in stable condition.. DIFFERENTIAL DIAGNOSES Pneumonia, urinary tract infection, sepsis, viral illness, dehydration, electrolyte abnormality, head injury, stroke, other injury, cardiac arrhythmia, ACS, pulmonary embolism, CHF. PROBLEMS ADDRESSED THIS VISIT Pneumonia, AF with RVR . I reviewed the following external records: primary care records. ED Course as of 04/18/24 1353 SunApr 18, 2024 0949 DX Chest Portable 1 View IMPRESSION: Comparison 08/14/23. Multiple consolidative and groundglass opacities throughout right lung are likely infectious pneumonia. Suggest six-week followup chest radiographs to assure resolution. Heart sizenormal. 0952 INR: 1.3 0957 Lactate: 1.5 0957 Hemoglobin: 12.6 0957 Leukocytes(!): 13.5 1004 Urinalysis with Microscopic if Indicated(!): Source Urine, Urine, Straight Catheter Clarity Clear Color, U Yellow Blood Moderate(!) Nitrite, U Negative Leukocyte Esterase Negative Protein Urine Random >=300(!) Glucose Negative Ketones, QL(U) 40(!) Bilirubin Small(!) pH 5.5 Specific Marshall >=1.030 Urobilinogen 0.2 No obvious signs of UTI 1004 ECG 12 Lead Heri - AF with rvr with no ST segment or T wave changes. Normal QTC. 1012 Microscopic Manual(!): White Blood Cells Occ-3 Red Blood Cells Occ-2 Granular Casts Occasional(!) Crystals Amorphous(!) 1014 SARS CoV-2, PCR, Rapid, V: Undetected 1014 Influenza A, POCT: Negative 1014 Resp Syncytial Virus, POCT: Negative 1014 Comprehensive Metabolic Panel(!): Potassium, P 4.2 Sodium, P 134(!) Chloride, P 98 Bicarbonate, P 22 Anion Gap, P 14 BUN (Blood Urea Nitrogen), P 23(!) Creatinine 0.99 Estimated GFR (eGFR) 55(!) Calcium, Total, P 9.3 Glucose, P 128 Protein, Total, P 7.5 Albumin, P 3.7 Aspartate Aminotransferase (AST), P 19 Alkaline Phosphatase, P 108(!) Alanine Aminotransferase (ALT), P 10 Bilirubin, Total, P 1.[address] Head without IV Contrast IMPRESSION: 1. No acute intracranial findings. No significant interval change from 10/17/2018. 1037 C-Reactive Protein (CRP), P(!): 388.5 elevated Final Diagnoses: as of 04/18/24 1353 Pneumonia Weakness General The following tests were considered but ultimately not performed: None. Escalation of care, including admission/observation, considered: Transferred to [facility] for admission for pneumonia. My ECG interpretation is documented in ED Course. I discussed the management of the patient with: Hospitalist. Abraham Liriano P.A.-C., P.A. 04/18/24 1353 AND MAXILLOFACIAL SURGERY RESIDENT documented in this encounter Plan of Treatment Upcoming Encounters Date Type Department Care Team (Latest Contact Info) Description 06/30/2024 2:45 PM ORAL AND MAXILLOFACIAL SURGERY RESIDENT Comprehensive Visit Department of Ophthalmology in [address] [phone] Matty Kumari Jr., M.D. [address] [phone] Discharge Disposition: Home or Self [...] Comments BACTERIA / AKILAH CULTURE, BLOOD STAT 04/18/2024 10:31 AM ORAL AND MAXILLOFACIAL SURGERY RESIDENT BACTERIA / AKILAH CULTURE, BLOOD STAT 04/18/2024 10:19 AM ORAL AND MAXILLOFACIAL SURGERY RESIDENT CT HEAD WITHOUT IV CONTRAST RAD - Semiurgent (Fast; most ED patients; some inpatients) 04/18/2024 10:04 AM ORAL AND MAXILLOFACIAL SURGERY RESIDENT ECG STAT 04/18/2024 10:04 AM ORAL AND MAXILLOFACIAL SURGERY RESIDENT URINALYSIS WITH MICROSCOPIC IF INDICATED, U STAT 04/18/2024 9:56 AM ORAL AND MAXILLOFACIAL SURGERY RESIDENT HC URINALYSIS AUTO W MICRO STAT 04/18/2024 9:56 AM ORAL AND MAXILLOFACIAL SURGERY RESIDENT BACTERIAL CULTURE, AEROBIC + SUSC, URINE STAT 04/18/2024 9:56 AM ORAL AND MAXILLOFACIAL SURGERY RESIDENT VBG WITH LACTATE, POCT, B STAT 04/18/2024 9:47 AM ORAL AND MAXILLOFACIAL SURGERY RESIDENT SARS CORONAVIRUS 2, PCR RAPID, V STAT 04/18/2024 9:47 AM ORAL AND MAXILLOFACIAL SURGERY RESIDENT INFLUENZA A, B, RSV, PCR, POCT STAT 04/18/2024 9:47 AM ORAL AND MAXILLOFACIAL SURGERY RESIDENT DX CHEST PORTABLE 1 VIEW RAD - Semiurgent (Fast; most ED patients; some inpatients) 04/18/2024 9:41 AM ORAL AND MAXILLOFACIAL SURGERY RESIDENT LACTATE FOR SEPSIS WITH REFLEX STAT 04/18/2024 9:36 AM ORAL AND MAXILLOFACIAL SURGERY RESIDENT PROTHROMBIN TIME (PT), P STAT 04/18/2024 9:36 AM ORAL AND MAXILLOFACIAL SURGERY RESIDENT CBC WITH DIFFERENTIAL, B STAT 04/18/2024 9:36 AM ORAL AND MAXILLOFACIAL SURGERY RESIDENT C-REACTIVE PROTEIN (CRP), S/P STAT 04/18/2024 9:36 AM ORAL AND MAXILLOFACIAL SURGERY RESIDENT COMPREHENSIVE METABOLIC PANEL, S/P STAT 04/18/2024 9:36 AM ORAL AND MAXILLOFACIAL SURGERY RESIDENT documented in this encounter Results * Bacteria / Akilah Culture, Blood #2 (04/18/2024 10:31 AM ORAL AND MAXILLOFACIAL SURGERY RESIDENT) Bacteria/More da Culture, Blood No growth after 5 day/s of incubation. 04/23/2024 1:08 PM ORAL AND MAXILLOFACIAL SURGERY RESIDENT RDWG Blood (Blood, Peripheral Draw) 04/18/2024 10:31 AM ORAL AND MAXILLOFACIAL SURGERY RESIDENT 04/18/2024 10:36 AM ORAL AND MAXILLOFACIAL SURGERY RESIDENT Comment:Specimen Source Site : Blood Abraham Liriano P.A.-C., P.A. LAB MICROBIOLOGY - GENERAL ORDERABLES Final Result [facility] [address] [facility] [place] [address], [facility] [place] [address] [place] [address], [place] [phone] * Bacteria / Akilah Culture, Blood #1 (04/18/2024 10:19 AM ORAL AND MAXILLOFACIAL SURGERY RESIDENT) Bacteria/More da Culture, Blood No growth after 5 day/s of incubation. 04/23/2024 1:08 PM ORAL AND MAXILLOFACIAL SURGERY RESIDENT RDWG Blood (Blood, Peripheral Draw) 04/18/2024 10:19 AM ORAL AND MAXILLOFACIAL SURGERY RESIDENT 04/18/2024 10:36 AM ORAL AND MAXILLOFACIAL SURGERY RESIDENT Comment:Specimen Source Site : Blood Abraham Liriano P.A.-C., P.A. LAB MICROBIOLOGY - GENERAL ORDERABLES Final Result [facility] [address] [facility] [place] [address], [facility] in [place] [address] [place] [address], [place] [phone] * CT Head without IV Contrast (04/18/2024 10:04 AM ORAL AND MAXILLOFACIAL SURGERY RESIDENT) Anatomical Region Laterality Modality Head, Neuroradiology RST LOS , Neuroradiology ARZ LOS, Neuroradiology FLA LOS N/A Computed Tomography 04/18/2024 10:0 1 AM ORAL AND MAXILLOFACIAL SURGERY RESIDENT Impressions 04/18/2024 10:12 AM ORAL AND MAXILLOFACIAL SURGERY RESIDENT 1. No acute intracranial findings. No significant interval change from 10/17/2018. Narrative 04/18/2024 10:12 AM ORAL AND MAXILLOFACIAL SURGERY RESIDENT EXAM: CT HEAD WITHOUT IV CONTRAST COMPARISON: [...] P.A. IMG CT PROCEDURES Final Result * ECG 12 Lead (04/18/2024 10:04 AM ORAL AND MAXILLOFACIAL SURGERY RESIDENT) Ventricular Rate ECG/Min 132 BPM MUSE QRSD Interval 88 ms MUSE QT Interval 282 ms MUSE QTC Interval 417 ms MUSE R Norman 92 degrees MUSE T Wave Norman -73 degrees MUSE 04/18/2024 10:0 4 AM ORAL AND MAXILLOFACIAL SURGERY RESIDENT 04/18/2024 11:14 AM ORAL AND MAXILLOFACIAL SURGERY RESIDENT Impressions MUSE - 04/18/2024 11:14 AM ORAL AND MAXILLOFACIAL SURGERY RESIDENT Atrial fibrillation with rapid ventricular response Rightward axis ST and T wave abnormality, consider inferior ischemia When compared with ECG of 03-Aug-2023 19:44, Vent. rate has increased by 52 bpm T wave inversion now evident in Inferior leads Reviewed by LYUBOV Avendaño Narrative Procedure Note Valente Dawkins M.D., Ph.D. - 04/18/2024 IMPRESSION: Atrial fibrillation with rapid ventricular response Rightward axis ST and T wave abnormality, consider inferior ischemia When compared with ECG of 03-Aug-2023 19:44, Vent. rate has increased by 52 bpm T wave inversion now evident in Inferior leads Reviewed by LYUBOV Avendaño us Abraham Liriano P.A.-C., P.A. ECG ORDERABLES Fi nal Result Performing Organization Address City/[facility] Co de Phone Number MUSE NA * (ABNORMAL) Microscopic Manual (04/18/2024 9:56 AM ORAL AND MAXILLOFACIAL SURGERY RESIDENT) White Blood Cells Occ-3 /hpf 04/18/2024 10:11 AM ORAL AND MAXILLOFACIAL SURGERY RESIDENT CNFL Comment: ----REFERENCE VALUE---- Males: 0-3 Females: 0-10 Unknown: 0-10 Red Blood Cells Occ-2 0 - 2 /hpf 04/18/2024 10:11 AM ORAL AND MAXILLOFACIAL SURGERY RESIDENT CNFL Granular Casts Occasional (A) None Seen /lpf 04/18/2024 10:11 AM ORAL AND MAXILLOFACIAL SURGERY RESIDENT CNFL Crystals Amorphous( A) None Seen /lpf 04/18/2024 10:11 AM ORAL AND MAXILLOFACIAL SURGERY RESIDENT CNFL Urine 04/18/2024 9:56 AM ORAL AND MAXILLOFACIAL SURGERY RESIDENT 04/18/2024 9:56 AM ORAL AND MAXILLOFACIAL SURGERY RESIDENT us Abraham Liriano P.A.-C., P.A. LAB URINE ORDERABL ES Final Result Performing Organization Address City/[facility] Co de Phone Number [facility] [address] [place] [phone], [facility] CNFL [facility] [place] [address] * Bacterial Culture, Aerobic + Susceptibility, Urine (04/18/2024 9:56 AM ORAL AND MAXILLOFACIAL SURGERY RESIDENT) Urine Culture No growth after 1 day of incubation. 04/19/2024 10:39 AM ORAL AND MAXILLOFACIAL SURGERY RESIDENT ECLR Urine (Urine, Straight Catheter) 04/18/2024 9:56 AM ORAL AND MAXILLOFACIAL SURGERY RESIDENT 04/18/2024 2:43 PM ORAL AND MAXILLOFACIAL SURGERY RESIDENT Comment:Specimen Source Site : Urine us Abraham Liriano P.A.-C., P.A. LAB MICROBIOLOGY - GENERAL ORDERABLES Final Result Performing Organization Address City/State/[facility] Co de Phone Number [facility] [address] [place] [address], [facility] ECLR [facility] [place] [address] * (ABNORMAL) Urinalysis with Microscopic if Indicated (04/18/2024 9:56 AM ORAL AND MAXILLOFACIAL SURGERY RESIDENT) Source Urine, Urine, Straight Catheter 04/18/2024 9:56 AM ORAL AND MAXILLOFACIAL SURGERY RESIDENT CNFL Clarity Clear Clear 04/18/2024 9:58 AM ORAL AND MAXILLOFACIAL SURGERY RESIDENT CNFL Color Yellow 04/18/2024 9:58 AM ORAL AND MAXILLOFACIAL SURGERY RESIDENT CNFL Comment: ----REFERENCE VALUE---- Colorless Yellow Lakesha Blood Moderate(A) Negative 04/18/2024 9:58 AM ORAL AND MAXILLOFACIAL SURGERY RESIDENT CNFL Nitrite Negative Negative 04/18/2024 9:58 AM ORAL AND MAXILLOFACIAL SURGERY RESIDENT CNFL Leukocyte Esterase Negative Negative 04/18/2024 9:58 AM ORAL AND MAXILLOFACIAL SURGERY RESIDENT CNFL Protein >=300(A) mg/dL 04/18/2024 9:58 AM ORAL AND MAXILLOFACIAL SURGERY RESIDENT CNFL Comment: ----REFERENCE VALUE---- Negative Trace Glucose Negative Negative mg/dL 04/18/2024 9:58 AM ORAL AND MAXILLOFACIAL SURGERY RESIDENT CNFL Ketones, QI(U) 40(A) Negative mg/dL 04/18/2024 9:58 AM ORAL AND MAXILLOFACIAL SURGERY RESIDENT CNFL Bilirubin Small(A) Negative 04/18/2024 9:58 AM ORAL AND MAXILLOFACIAL SURGERY RESIDENT CNFL pH 5.5 5.0 - 8.0 04/18/2024 9:58 AM ORAL AND MAXILLOFACIAL SURGERY RESIDENT CNFL Specific Marshall >=1.030 1.001 - 1.035 04/18/2024 9:58 AM ORAL AND MAXILLOFACIAL SURGERY RESIDENT CNFL Urobilinogen 0.2 0.2 - 1.0 mg/dL 04/18/2024 9:58 AM ORAL AND MAXILLOFACIAL SURGERY RESIDENT CNFL Urine (Urine, Straight Catheter) 04/18/2024 9:56 AM ORAL AND MAXILLOFACIAL SURGERY RESIDENT 04/18/2024 9:56 AM ORAL AND MAXILLOFACIAL SURGERY RESIDENT Abraham Liriano P.A.-C., P.A. LAB URINE ORDERABL ES Final Result Performing Organization Address [facility] [place] [address], [place] [address] * Influenza A/B and RSV, PCR, Point of Care (04/18/2024 9:47 AM ORAL AND MAXILLOFACIAL SURGERY RESIDENT) Influenza A, POCT Negative Negative 04/18/2024 9:52 AM ORAL AND MAXILLOFACIAL SURGERY RESIDENT CNFL Influenza B, POCT Negative Negative 04/18/2024 9:52 AM ORAL AND MAXILLOFACIAL SURGERY RESIDENT CNFL Resp Syncytial Virus, POCT Negative Negative 04/18/2024 9:52 AM ORAL AND MAXILLOFACIAL SURGERY RESIDENT CNFL Swab (Nasopharynx) 04/18/2024 9:47 AM ORAL AND MAXILLOFACIAL SURGERY RESIDENT 04/18/2024 9:47 AM ORAL AND MAXILLOFACIAL SURGERY RESIDENT Abraham Liriano P.A.-C., P.A. LAB POCT ORDERABLE S - DEVICE [place] [address], [place] [address] * SARS Coronavirus 2, PCR Rapid Symptomatic (04/18/2024 9:47 AM ORAL AND MAXILLOFACIAL SURGERY RESIDENT) SARS CoV-2, PCR, Rapid, V Undetected Undetected 04/18/2024 9:53 AM ORAL AND MAXILLOFACIAL SURGERY RESIDENT CNFL SARS Coronavirus 2, Source, Rapid Swab, Nasopharynx 04/18/2024 9:47 AM ORAL AND MAXILLOFACIAL SURGERY RESIDENT CNFL Swab (Nasopharynx) 04/18/2024 9:47 AM ORAL AND MAXILLOFACIAL SURGERY RESIDENT 04/18/2024 9:47 AM ORAL AND MAXILLOFACIAL SURGERY RESIDENT Abraham Liriano P.A.-C., P.A. LAB MICROBIOLOGY - GENERAL ORDERABLES Final Result [facility] [address] [place] [id number], [facility] CNFL [facility] [address] * (ABNORMAL) Venous Blood Gas with Lactate, POCT, B (04/18/2024 9:47 AM ORAL AND MAXILLOFACIAL SURGERY RESIDENT) pH, Venous, POCT, B 7.42 7.32 - 7.43 04/18/2024 9:47 AM ORAL AND MAXILLOFACIAL SURGERY RESIDENT CNFL pCO2, Venous, POCT, B 38(L) 41 - 51 mm Hg 04/18/2024 9:47 AM ORAL AND MAXILLOFACIAL SURGERY RESIDENT CNFL pO2, Venous, POCT, B 32 Not applicable mm Hg 04/18/2024 9:47 AM ORAL AND MAXILLOFACIAL SURGERY RESIDENT CNFL HCO3, Venous, POCT, B 24 Not applicable mmol/L 04/18/2024 9:47 AM ORAL AND MAXILLOFACIAL SURGERY RESIDENT CNFL Base Excess, Venous, POCT, B 0 Not applicable mmol/L 04/18/2024 9:47 AM ORAL AND MAXILLOFACIAL SURGERY RESIDENT CNFL O2 Saturation, Venous, POCT, B 63 Not applicable % 04/18/2024 9:47 AM ORAL AND MAXILLOFACIAL SURGERY RESIDENT CNFL Sample Type, Blood Gas, POCT FRANCISCO 04/18/2024 9:47 AM ORAL AND MAXILLOFACIAL SURGERY RESIDENT CNFL Lactate, POCT 1.62 0.50 - 2.20 mmol/L 04/18/2024 9:47 AM ORAL AND MAXILLOFACIAL SURGERY RESIDENT CNFL Blood (Blood, Venous) 04/18/2024 9:47 AM ORAL AND MAXILLOFACIAL SURGERY RESIDENT 04/18/2024 9:47 AM ORAL AND MAXILLOFACIAL SURGERY RESIDENT Abraham Liriano P.A.-C., P.A. LAB POCT ORDERABLE S - DEVICE Final Result Performing Organization Address City/[facility]/ZIP Co de Phone Number [facility] [address] [place] [id number], [facility] CNFL [facility] in [address] [address] * DX Chest Portable 1 View (04/18/2024 9:41 AM ORAL AND MAXILLOFACIAL SURGERY RESIDENT) Anatomical Region Laterality Modality Chest, Thoracic RST LOS, Tho racic ARZ LOS, Thoracic FLA LOS N/A Digital Radiography Impressions 04/18/2024 9:45 AM ORAL AND MAXILLOFACIAL SURGERY RESIDENT Comparison 08/14/23. Multiple consolidative and groundglass opacities throughout right lung are likely infectious pneumonia. Suggest six-week followup chest radiographs to assure resolution. Heart size normal. Narrative 04/18/2024 9:45 AM ORAL AND MAXILLOFACIAL SURGERY RESIDENT EXAM: DX CHEST PORTABLE 1 VIEW Procedure Note Joel Rosales M.D. - 04/18/2024 EXAM: DX CHEST PORTABLE 1 VIEW IMPRESSION: Comparison 08/14/23. Multiple consolidative and groundglass opacitiesthroughout right lung are likely infectious pneumonia. Suggest six-weekfollowup chest radiographs to assure resolution. Heart size normal. Abraham Liriano P.A.-C., P.A. IMG DIAGNOSTIC DOM GING PROCEDURES Final Result * (ABNORMAL) CRP (C-Reactive Protein) (04/18/2024 9:36 AM ORAL AND MAXILLOFACIAL SURGERY RESIDENT) C-Reactive Protein (CRP), P 388.5(H) <5.0 mg/L 04/18/2024 10:34 AM ORAL AND MAXILLOFACIAL SURGERY RESIDENT CNFL Blood (Blood, Venous) 04/18/2024 9:36 AM ORAL AND MAXILLOFACIAL SURGERY RESIDENT 04/18/2024 9:39 AM ORAL AND MAXILLOFACIAL SURGERY RESIDENT Abraham Liriano P.A.-C., P.A. LAB BLOOD ADD-ON F inal Result [address] [address], [address] [address] * Lactate for Sepsis with Reflex (04/18/2024 9:36 AM ORAL AND MAXILLOFACIAL SURGERY RESIDENT) Lactate, P 1.5 0.5 - 2.2 mmol/L 04/18/2024 9:56 AM ORAL AND MAXILLOFACIAL SURGERY RESIDENT FL Blood (Blood, Venous) 04/18/2024 9:36 AM ORAL AND MAXILLOFACIAL SURGERY RESIDENT 04/18/2024 9:39 AM ORAL AND MAXILLOFACIAL SURGERY RESIDENT Abraham Liriano P.A.-C., P.A. LAB BLOOD NON ADD- ON Final Result Performing Organization Address City/[facility]/ZIP Co de Phone Number [address] [address], [address] [address] * (ABNORMAL) Prothrombin Time (PT) (04/18/2024 9:36 AM [facility]AL AND MAXILLOFACIAL SURGERY RESIDENT) Prothrombin Time, P 14.7(H) 9.4 - 12.5 sec 04/18/2024 9:50 AM ORAL AND MAXILLOFACIAL SURGERY RESIDENT [facility] INR 1.3 0.9 - 1.1 04/18/2024 9:50 AM ORAL AND MAXILLOFACIAL SURGERY RESIDENT [facility] Comment: ----ADDITIONAL INFORMATION---- Standard intensity warfarin therapeutic range: 2.0 to 3.0 High intensity warfarin therapeutic range: 2.5 to 3.5 Blood (Blood, Venous) 04/18/2024 9:36 AM [facility]AL AND MAXILLOFACIAL SURGERY RESIDENT 04/18/2024 9:39 AM ORAL AND MAXILLOFACIAL SURGERY RESIDENT Abraham Liriano P.A.-C., P.A. LAB BLOOD ADD-ON F inal Result [address] [address], [place] [address] * (ABNORMAL) Comprehensive Metabolic Panel (04/18/2024 9:36 AM ORAL AND MAXILLOFACIAL SURGERY RESIDENT) Potassium, P 4.2 3.6 - 5.2 mmol/L 04/18/2024 10:12 AM ORAL AND MAXILLOFACIAL SURGERY RESIDENT [facility] Sodium, P 134(L) 135 - 145 mmol/L 04/18/2024 10:12 AM ORAL AND MAXILLOFACIAL SURGERY RESIDENT [facility] Chloride, P 98 98 - 107 mmol/L 04/18/2024 10:12 AM ORAL AND MAXILLOFACIAL SURGERY RESIDENT [facility] Bicarbonate, P 22 22 - 29 mmol/L 04/18/2024 10:12 AM ORAL AND MAXILLOFACIAL SURGERY RESIDENT [facility] Anion Gap, P 14 7 - 15 04/18/2024 10:12 AM ORAL AND MAXILLOFACIAL SURGERY RESIDENT [facility] BUN (Blood Urea Nitrogen), P 23(H) 6 - 21 mg/dL 04/18/2024 10:12 AM ORAL AND MAXILLOFACIAL SURGERY RESIDENT [facility] Creatinine 0.99 0.59 - 1.04 mg/dL 04/18/2024 10:12 AM ORAL AND MAXILLOFACIAL SURGERY RESIDENT [facility] Estimated GFR (eGFR) 55(L) >=60 mL/min/BS A 04/18/2024 10:12 AM ORAL AND MAXILLOFACIAL SURGERY RESIDENT [facility] Comment: Estimated GFR calculated using the 2020 CKD_EPI creatinine equation. Calcium, Total, P 9.3 8.8 - 10.2 mg/dL 04/18/2024 10:12 AM ORAL AND MAXILLOFACIAL SURGERY RESIDENT [facility] Glucose, P 128 70 - 140 mg/dL 04/18/2024 10:12 AM ORAL AND MAXILLOFACIAL SURGERY RESIDENT [facility] Protein, Total, P 7.5 6.3 - 7.9 g/dL 04/18/2024 10:12 AM ORAL AND MAXILLOFACIAL SURGERY RESIDENT [facility] Albumin, P 3.7 3.5 - 5.0 g/dL 04/18/2024 10:12 AM [facility]AL AND MAXILLOFACIAL SURGERY RESIDENT [facility] Aspartate Aminotransferase (AST), P 19 8 - 43 U/L 04/18/2024 10:12 AM ORAL AND MAXILLOFACIAL SURGERY RESIDENT [facility] Alkaline Phosphatase, P 108(H) 35 - 104 U/L 04/18/2024 10:12 AM ORAL AND MAXILLOFACIAL SURGERY RESIDENT [facility] Alanine Aminotransferase (ALT), P 10 7 - 45 U/L 04/18/2024 10:12 AM ORAL AND MAXILLOFACIAL SURGERY RESIDENT [facility] Bilirubin, Total, P 1.2 0.0 - 1.2 mg/dL 04/18/2024 10:12 AM ORAL AND MAXILLOFACIAL SURGERY RESIDENT [facility] Blood (Blood, Venous) 04/18/2024 9:36 AM ORAL AND MAXILLOFACIAL SURGERY RESIDENT 04/18/2024 9:39 AM ORAL AND MAXILLOFACIAL SURGERY RESIDENT Abraham Liriano P.A.-C., P.A. LAB BLOOD ADD-ON F inal Result [facility] [address] [place] [id number], [facility] CNFL [facility] in [address] [address] * (ABNORMAL) CBC with Differential, Blood (04/18/2024 9:36 AM ORAL AND MAXILLOFACIAL SURGERY RESIDENT) Pathologist [facility] Hemoglobin 12.6 11.6 - 15.0 g/dL 04/18/2024 9:57 AM ORAL AND MAXILLOFACIAL SURGERY RESIDENT [facility] Hematocrit 35.7 35.5 - 44.9 % 04/18/2024 9:57 AM ORAL AND MAXILLOFACIAL SURGERY RESIDENT [facility] Erythrocytes 3.83(L) 3.92 - 5.13 x10(12)/L 04/18/2024 9:57 AM ORAL AND MAXILLOFACIAL SURGERY RESIDENT [facility] MCV 93.2 78.2 - 97.9 fL 04/18/2024 9:57 AM ORAL AND MAXILLOFACIAL SURGERY RESIDENT [facility] RBC Distrib Width 17.6(H) 12.2 - 16.1 % 04/18/2024 9:57 AM ORAL AND MAXILLOFACIAL SURGERY RESIDENT [facility] Platelet Count 190 157 - 371 x10(9)/L 04/18/2024 9:57 AM ORAL AND MAXILLOFACIAL SURGERY RESIDENT [facility] Leukocytes 13.5(H) 3.4 - 9.6 x10(9)/L 04/18/2024 9:57 AM ORAL AND MAXILLOFACIAL SURGERY RESIDENT [facility] Neutrophils 11.51(H) 1.56 - 6.45 x10(9)/L 04/18/2024 9:57 AM ORAL AND MAXILLOFACIAL SURGERY RESIDENT [facility] Lymphocytes 1.01 0.95 - 3.07 x10(9)/L 04/18/2024 9:57 AM ORAL AND MAXILLOFACIAL SURGERY RESIDENT [facility] Monocytes 0.99(H) 0.26 - 0.81 x10(9)/L 04/18/2024 9:57 AM ORAL AND MAXILLOFACIAL SURGERY RESIDENT [facility] Eosinophils <0.04 0.03 - 0.48 x10(9)/L 04/18/2024 9:57 AM ORAL AND MAXILLOFACIAL SURGERY RESIDENT [facility] Basophils <0.04 0.01 - 0.08 x10(9)/L 04/18/2024 9:57 AM ORAL AND MAXILLOFACIAL SURGERY RESIDENT [facility] Blood (Blood, Venous) 04/18/2024 9:36 AM ORAL AND MAXILLOFACIAL SURGERY RESIDENT 04/18/2024 9:39 AM ORAL AND MAXILLOFACIAL SURGERY RESIDENT Abraham Liriano P.A.-C., P.A. LAB BLOOD ADD-ON F inal Result [facility] [address] [place] [id number], [facility] CNFL [facility] in [address] [address] documented in this encounter Visit Diagnoses Diagnosis Pneumonia- Primary Weakness General documented in this encounter Administered Medications Inactive Administered Medications - up to 3 most recent administrations Medication Order MAR Action Action Date Dose Rate Site acetaminophen tablet 1,000 mg (TylenoL) 1,000 mg, oral, Once, On Sun04/18/24 at 1243, For 1 dose Given 04/18/2024 1:00 PM ORAL AND MAXILLOFACIAL SURGERY RESIDENT 1,000 mg azithromycin 500 mg in NaCl 0.9% IVPB (Zithromax) 500 mg, intravenous, at 250 mL/hr, Administer over 60 Minutes, Once, On Sun04/18/24 at 0936, For 1 dose, Use adapter to dilute and transfer medication into diluent bag, Drug Monitoring Program: Pharmacist to adjust medication dosing based on indication and drug clearance factors., Indications: Respiratory tract infection, community acquiredIndications:Respirato ry tract infection, community acquired New Bag 04/18/2024 10:20 AM ORAL AND MAXILLOFACIAL SURGERY RESIDENT 500 mg 250 mL/hr cefTRIAXone injection 2 g (Rocephin) 2 g, intravenous, Once, On Sun04/18/24 at 0936, For 1 dose, If needed, reconstitute vial per package insert instructions. See IVAG for administration guidelines., Drug Monitoring Program: Pharmacist to adjust medication dosing based on indication and drug clearance factors., Indications: Respiratory tract infection, community acquiredIndications:Respirato ry tract infection, community acquired Given 04/18/2024 10:19 AM ORAL AND MAXILLOFACIAL SURGERY RESIDENT 2 g Lactated Ringer's bolus 1,000 mL 1,000 mL, intravenous, at 3,000 mL/hr, Administer over 20 Minutes, Once, On Sun04/18/24 at 0928, For 1 dose New Bag 04/18/2024 10:18 AM ORAL AND MAXILLOFACIAL SURGERY RESIDENT 1,000 mL 3000 mL/hr Lactated Ringer's bolus 1,000 mL 1,000 mL, intravenous, at 3,000 mL/hr, Administer over 20 Minutes, Once, On Sun04/18/24 at 0933, For 1 dose New Bag 04/18/2024 11:04 AM ORAL AND MAXILLOFACIAL SURGERY RESIDENT 1,000 mL 3000 mL/hr metoprolol tartrate tablet 50 mg (Lopressor) 50 mg, oral, Once, On Sun04/18/24 at 1018, For 1 dose Given 04/18/2024 11:02 AM ORAL AND MAXILLOFACIAL SURGERY RESIDENT 50 mg sodium chloride 0.9 % injection 10 mL 10 mL, intravenous, As needed, line care, Starting on Sun04/18/24 at 0923, Peripheral Intravenous Catheter and Rapid Infusion Catheter, prior to blood sampling, post blood transfusion or post blood sampling sodium chloride 0.9 % injection 3 mL 3 mL, intravenous, As needed, line care, Starting on Sun04/18/24 at 0923, Prior to and following infusion and between multiple consecutive infusions: sodium chloride 0.9 % injection sodium chloride 0.9 % injection 3 mL 3 mL, intravenous, Every 12 hours scheduled, First dose on Sun04/18/24 at 2100, Peripheral Intravenous Catheter and Rapid Infusion Catheter, when no infusion to maintain patency documented in this encounter Active and Recently Administered Medications Times are shown in [facility]AL AND [facility]ILLOFACIAL SURGERY RESIDENT. Scheduled Medication Order 04/16/2024 04/17/2024 04/18/2024 acetaminophen tablet 1,000 mg (TylenoL) (COMPLETED) 1,000 mg, oral, Once, On Sun04/18/24 at 1243, For 1 dose 1300 (Given - Provid er: Isabel Fagan R.N.) azithromycin 500 mg in NaCl 0.9% IVPB (Zithromax) (COMPLETED) 500 mg, intravenous, at 250 mL/hr, Administer over 60 Minutes, Once, On Sun04/18/24 at 0936, For 1 dose, Use adapter to dilute and transfer medication into diluent bag, Drug Monitoring Program: Pharmacist to adjust medication dosing based on indication and drug clearance factors., Indications: Respiratory tract infection, community acquired 1020 (New Bag - Prov ider: Isabel J Rylan, R.N.)1140 (Stopped - Provider: Isabel Fagan R.N.) cefTRIAXone injection 2 g (Rocephin) (COMPLETED) 2 g, intravenous, Once, On Sun04/18/24 at 0936, For 1 dose, If needed, reconstitute vial per package insert instructions. See IVAG for administration guidelines., Drug Monitoring Program: Pharmacist to adjust medication dosing based on indication and drug clearance factors., Indications: Respiratory tract infection, community acquired 1019 (Given - Provid er: Isabel Fagan R.N.) Lactated Ringer's bolus 1,000 mL (COMPLETED)(Linked Group 1) 1,000 mL, intravenous, at 3,000 mL/hr, Administer over 20 Minutes, Once, On Sun04/18/24 at 0928, For 1 dose 1018 (New Bag - Prov ider: Isabel Fagan R.N.)1038 (Stopped - Provider: Isabel Fagan R.N.) Lactated Ringer's bolus 1,000 mL (COMPLETED)(Linked Group 1) 1,000 mL, intravenous, at 3,000 mL/hr, Administer over 20 Minutes, Once, On Sun04/18/24 at 0933, For 1 dose 1104 (New Bag - Prov ider: Iasbel Fagan R.N.)1259 (Stopped - Provider: Isabel Fagan R.N.) metoprolol tartrate tablet 50 mg (Lopressor) (COMPLETED) 50 mg, oral, Once, On Sun04/18/24 at 1018, For 1 dose 1102 (Given - Provid er: Isabel Fagan R.N.) sodium chloride 0.9 % injection 3 mL 3 mL, intravenous, Every 12 hours scheduled, First dose on Sun04/18/24 at 2100, Peripheral Intravenous Catheter and Rapid Infusion Catheter, when no infusion to maintain patency PRN Medication Order 04/16/2024 04/17/2024 04/18/2024 sodium chloride 0.9 % injection 10 mL 10 mL, intravenous, As needed, line care, Starting on Sun04/18/24 at 0923, Peripheral Intravenous Catheter and Rapid Infusion Catheter, prior to blood sampling, post blood transfusion or post blood sampling sodium chloride 0.9 % injection 3 mL 3 mL, intravenous, As needed, line care, Starting on Sun04/18/24 at 0923, Prior to and following infusion and between multiple consecutive infusions: sodium chloride 0.9 % injection Linked Groups Order Group 1: Lactated Ringer's bolus 1,000 mL (COMPLETED)Jump to med 1,000 mL, intravenous, at 3,000 mL/hr, Administer over 20 Minutes, Once, On Sun04/18/24 at 0928, For 1 dose Followed by Lactated Ringer's bolus 1,000 mL (COMPLETED)Jump to med 1,000 mL, intravenous, at 3,000 mL/hr, Administer over 20 Minutes, Once, On Sun04/18/24 at 0933, For 1 dose Followed by Lactated Ringer's bolus 500 mL (CANCELED) 500 mL, intravenous, at 1,500 mL/hr, Administer over 20 Minutes, Once, On Sun04/18/24 at 0933, For 1 dose documented in this encounter Additional Health Concerns Infection Onset Date Last Indicated Resolved Time COVID19 Pending 04/18/2024 04/18/2024 04/18/2024 1 0:13 AM ORAL AND MAXILLOFACIAL SURGERY RESIDENT Assessment Noted Time PHQ-9 Depression Total Score: 4 10/16/19 24 4:28 PM CDT documented as of this encounter Care Teams Marketing Teacher Relationship Specialty Start Date End Date Bridgett Mi APRN, C.N.P., D.N.P. PCP - General Family Medicine 07/16/23 documented as of this encounter
--- OUTSIDE RECORDS SUMMARY | 2024-05-15 16:51 | XMS_ITS | Encounter Summary ---
Author Organization [facility] Address [address] [place] [address] Care Team Providers Care Dynamometer Tuner Name Role Phone Bridgett Mi APRN, C.N.P., D.N.P. Primary Ca re Provider Unavailable Reason for Referral * Outpatient (Routine) - Authorized Specialty Diagnoses / Procedures Referred By Contac t Referred To Contact Diagnoses Hypertension Essential Primary Pneumonia Bacterial Deconditioned Chronic Obstructive Pulmonary Disease Without Exacerbation (HCC) Spinal Stenosis Lumbar Region Without Neurogenic Claudication Yanet Paulino M.D. [address] [place] [address] Phone: tel: fax: Referral ID Status Reason Start Date Expiration Date Visits Requested Visits Authorized [id number] Authorized Patient Preference 10/25/2025 1 1 HER WARP * Speech Pathology (Routine) - Authorized Specialty Diagnoses / Procedures Referred By Contac t Referred To Contact Diagnoses Pneumonia Bacterial Procedures TEXTILE SCREEN MAKER Speech language evaluate and treat Yanet Paulino M.D. [address] [place] [address] Phone: tel: fax: [facility] Region Referral ID Status Reason Start Date Expiration Date V isits Requested Visits Authorized [id number] Authorized 04/25/2024 04/25/2025 99 99 HER WARP * Outpatient (Routine) - Authorized Specialty Diagnoses / Procedures Referred By Contac t Referred To Contact Yanet Paulino M.D. [address] [place] [phone] Phone: tel: fax: [facility] Referral ID Status Reason Start Date Expiration Date V isits Requested Visits Authorized [id number] Authorized 04/25/2024 10/25/2025 1 1 Scheduling Instructions We will be contacting you with more information on this referral. An appointment will be scheduled for you. More information is listed below. HER WARP Encounter Details Date Type Department Care Team (Latest Contact Info) Description 04/18/2024 2:37 PM BRUSHER WARP - 04/25/2024 12:03 PM BRUSHER WARP Hospital Encounter [facility], Third Floor [address] [place] [id number] Marlene Marinelli M.D., M.S. [address] [place] [address] Brandie Penny M.D. [address] [place] [address] Yanet Paulino M.D. [address] [place] [phone] Sepsis (HCC) [A41.9] (Primary Dx); Hypokalemia; Hypertension Essential Primary; Pneumonia Bacterial; Deconditioned; Chronic Obstructive Pulmonary Disease Without Exacerbation (HCC); Spinal Stenosis Lumbar Region Without Neurogenic Claudication Discharge Disposition: Transitional Care Unit Social History Tobacco Use Types Packs/Day Years Used Date Smoking Tobacco: Former Cigarettes 0.5 43 1 955 - 1997 Smokeless Tobacco: Never Alcohol Use Standard Drinks/Week Comments Not Currently 0 (1 standard drink = 0.6 oz pur e alcohol) [facility] Utilities Answer Date Recorded In the past 12 months has e [facility], gas, oil, or water company threatened to [...] week 11/17/2021 How often do you attend [facility] or shinto services? More than 4 times per year 11/17/2021 Do you belong to any clubs o r organizations such as restorationist groups, unions, fraternal or athletic groups, or [...] Answer Date Recorded PHQ-2 Score 2 10/16/2023 [facility] - Occupational Stress Questionnaire Answer Date [...] your living situation today? I [facility] a [facility] to live 04/18/2024 Education Answer Date Recorded What is the highest level of school you have completed or the highest degree you have received? Bachelor's degree (e.g., BA, AB, BS) 11/17/2021 Comments No Sex and Gender Information Value Date Recorded Sex Assigned at Female 09/11/2018 1:57 PM CDT Legal Sex Female 8:29 AM BRUSHER WARP Gender Identity Female 09/11/2018 1:57 PM CDT Sexual Orientation Straight 09/11/2018 1: 57 PM CDT documented as of this encounter Last Filed Vital Signs Vital Sign Reading Time Taken Comments Blood Pressure 116/75 04/25/2024 10:41 AM BRUSHER WARP Pulse 92 04/25/2024 10:41 AM BRUSHER WARP Temperature 36.5 C (97.7 F) 04/25/2024 10:41 AM BRUSHER WARP Respiratory Rate 18 04/25/2024 10:41 AM BRUSHER WARP Oxygen Saturation 89% 04/25/2024 10:41 AM BRUSHER WARP Inhaled Oxygen Concentration - - Weight 72.6 kg (160 lb 0.9 oz) 04/25/2024 5:48 A M BRUSHER WARP Height 157.5 cm (5' 2) 04/18/2024 2:46 PM BRUSHER WARP Body Mass Index 29.27 04/18/2024 2:46 PM BRUSHER WARP documented in this encounter Discharge Summaries * Yanet Paulino M.D. - 04/25/2024 12:03 PM CST DISCHARGE SUMMARY BRIEF OVERVIEW Discharge Provider: Yanet Paulino M.D. 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 Chronic Kidney Disease Or Unspecified Chronic Kidney Disease (HCC) Gastroesophageal Reflux Disease NOS Hyperlipidemia Mixed Osteoporosis Loss Hearing Bilateral Chronic Obstructive Pulmonary Disease Without Exacerbation (HCC) Obstructive Sleep Apnea Adult Dementia (HCC) Anxiety Generalized Disorder Hypertension Essential Primary Hypothyroidism Hypokalemia DISCHARGE DISPOSITION Care Home Facility [3] ACTIVE ISSUES REQUIRING FOLLOW UP Patient will complete levofloxacin course, last dose April 28 She will need physical therapy and occupational therapy for strengthening and endurance She was referred to speech therapy in the outpatient setting, needs evaluation for aspiration. Patient was offered transferred to swing bed but she preferred to go back to assisted living with increased services. OUTPATIENT FOLLOW UP Scheduled Appointments 04/28/2024 10:30 AM Beulah Morales, AUDELIA-TEXTILE SCREEN MAKER Physical Medicine and Rehabilitation 05/02/2024 10:10 AM LAB 01 [facility] Laboratory Medicine 05/02/2024 10:20 AM LAB 01 [facility] Laboratory Medicine 05/20/2024 8:30 AM ABILIO ESCOBAR) Family Medicine For appointment details refer to your Patient Appointment Guide. TEST RESULTS PENDING AT DISCHARGE Pending Labs Order Current Status Manual Differential, Blood In process DETAILS OF HOSPITAL STAY REASON FOR ADMISSION Pneumonia Bacterial 88-year-old female memory care unit resident with a history of dementia, hypertension, hyperlipidemia, CKD, atrial fibrillation not on anticoagulation, history of TIA, recurrent pneumonias, COPD on oxygen 2 L NC, GERD, history of breast cancer presented to the ED with cough, shortness of breath, weakness. She was found on the floor by staff on 04/18 and brought to the emergency department. She wasdiagnosed with sepsis, CAP and atrial fibrillation with RVR [facility] Sepsis Bacterial community-acquired pneumonia Patient was found on the floor in her room at the assisted living facility. She had been feeling ill for the last couple of weeks with cough, shortness of breath and weakness. In the ED she was tachycardic with VR 110-120 and tachypneic. Her blood pressures were soft initially but later hypertensive. WBC 13.5 with 11.5 neutrophils, lactate 1.5 Chest x-ray on 04/18 revealed multiple consolidative and ground-glass opacities throughout the right lung. Repeat chest x-ray on 04/19 did not show significant change She was treated with fluid resuscitation, 1 L of saline and initiated on IV antibiotics (cefTRIAXone and azithromycin) and became hemodynamically more stable. She has been afebrile since admission, but still tachypneic with increased work of breathing. Her WBC however trended up consistently, 16.2 with neutrophils 13.9 on 04/21 Respiratory culture ordered on CT angiogram of chest on 04/21 negative for PE, presence of multifocal opacities, enlarged mediastinal and right hilar lymph nodes which are likely reactive, reflux of contrast into the IVC/intrahepatic veins and small bilateral pleural effusions. Ceftriaxone and azithromycin discontinued and started Zosyn on 04/21. Respiratory status improved. WBC: -on 04/22 12.2. with neutrophils 9.88 -on 04/23 11.8 with neutrophils 8.38 -on 04/24 12.9 with neutrophils 10.3.(It could be due to hemoconcentration) -on 04/25 11.7 with neutrophils 9.24 Blood and urine cultures from admission negative Legionella and Streptococcus pneumoniae urinary antigens negative Nasal PCR negative for MRSA She did not provide a respiratory culture sample She completed 4 days of Zosyn and at discharge will be on levofloxacin 750 mg every other day for atotal of 4 days. Acute resp failure with hypoxia, resolved She has acute hypoxic respiratory failure with tachypnea and oxygen requirement then went up to 4 liters/minute on 04/21. In spite of her multiple recurrent pneumonias and COPD, she is not oxygen dependent according to the medical record and was requiring 2 L per nasal cannula in the ED but after admission her oxygen requirement trended up in spite of nebulizers and antibiotics, on 04/21 she was on 4 liters/minute andhad increased work of breathing, crackles to bases but no wheezing. Respiratory status improved after antibiotic escalated to Zosyn and also diuretic started on 04/21. Oxygen requirement on 04/22 down to 2 liters/minute and to 1L//min on 04/23. On room air at discharge During admission respiratory therapy follow the patient with nebulizer treatments, Mucinex, aerobika, encouraged pulmonary hygiene, respiratory therapy following along. She is not wheezy, still has crackles bilaterally but scattered now . Possible heart failure with preserved ejection fraction with a acute exacerbation Echocardiogram from October 2018 showed ejection fraction 64%, no regional wall motion abnormalities, grade 2/4 left ventricular diastolic dysfunction consistent with moderately elevated left ventricular filling pressure, no significant valvular heart disease, normal IVC with normal inspiratory collapse. NT proBNP on 04/21 was elevated at 5444 (1488 in December 2022) Report on CT angiogram on 04/21 shows signs of fluid overload, started furosemide 40 mg IV bid Strict intake and output Daily weight Echocardiogram on 04/22 showed normal left ventricular chamber size, concentric remodeling, left ventricular ejection fraction 65%, elevated left ventricular filling pressure, no regional wall motionabnormalities; estimated right ventricular systolic pressure 62 mmHg, mild-moderate mitral valve regurgitation, normal IVC size with normal inspiratory collapse. One dose of furosemide 40 mg IV on 04/24 and then discontinued Daily BMP Electrolyte replacement orders Atrial Fibrillation Unspecified with RVR Patient has a history of atrial fibrillation, not on full anticoagulation per her own choice according to chart review, rate control at home with metoprolol extended release 50 mg daily She had AFib with rapid ventricular response upon presentation to the emergency department. This was somewhat resolved with her receiving her morning medications. Her daily aspirin and metoprolol were continued. Metoprolol succinate was switched to metoprolol tartrate and on 04/20 it was increased to 50 mg t.i.d. On 04/21 she was in RVR again but VR improved after diuretics and change in antibiotics on 04/21; RVRresolved Continue to monitor closely with telemetry and titrate medications accordingly. Monitor potassium and magnesium, keep potassium 4.0 or higher and magnesium 2.0 or higher within normal range Electrolyte replacement protocol instituted Hypokalemia: Potassium 3.3 in am on 04/22, replaced per protocol Rechecked magnesium as well on 04/22 was 2.1 Chronic medical problems: Gastroesophageal Reflux Disease Patient on omeprazole at home, switched to pantoprazole after admission GERD could be the etiology of her possible recurrent aspiration pneumonitis. Speech therapy consulted, will not have speech therapy available until April 22. Hypothyroidism Continue thyroid replacement therapy. Hyperlipidemia Mixed Continue simvastatin Dementia Continue Aricept and Remeron at night for sleep. Hypertension Essential Primary Continue her hypertensive treatment with losartan, amlodipine, and her metoprolol. Following the IVfluid resuscitation her blood pressure improved. Continue to monitor carefully. 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 If she becomes hypotensive again, then will need to discontinue accordingly. BP has been stable, continue monitor per unit protocol Chronic kidney disease: For the last year patient's creatinine has been around 1.2. This admission it has been within normal range. We will continue to monitor closely, avoid nephrotoxins. Creatinine daily in a.m. Creatinine: at admission 0.99, on 04/22 is 0.91, on 04/23 is 0.96, on 1.09 with bicarb 31. Discontinue diuretics, last dose 04/24 Vitals and nursing note reviewed. Constitutional General: She is not in acute distress. HENT Head: Normocephalic and atraumatic. Right Ear: External ear normal. Left Ear: External ear normal. Nose: Nose normal. Mouth/Throat: Mouth: Mucous membranes are moist. Eyes General: No scleral icterus. Extraocular Movements: Extraocular movements intact. Pupils: Pupils are equal, round, and reactive to light. Cardiovascular Rate and Rhythm: Normal rate. Rhythm irregular. Pulses: Normal pulses. Heart sounds: Normal heart sounds. Comments: Atrial fibrillation per monitoring Pulmonary Effort: Pulmonary effort is normal. Breath sounds: Rales (Bases) present. Abdominal General: Abdomen is flat. Bowel sounds are normal. Palpations: Abdomen is soft. Musculoskeletal Cervical back: Normal range of motion. Right lower leg: No edema. Left lower leg: No edema. Skin General: Skin is warm and dry. Capillary Refill: Capillary refill takes less than 2 seconds. Neurological General: No focal deficit present. Mental Status: She is alert and oriented to person, place, and time. Psychiatric Mood and Affect: Mood normal. Behavior: Behavior normal. Thought Content: Thought content normal. Judgment: Judgment normal. Wt Readings from Last 3 Encounters: 04/25/24 72.6 kg 01/15/24 76 kg 10/16/23 77.8 kg Patient being discharge today to home with increased services in stable condition Diet: cardiac Activity: as tolerated Vitals: 04/24/24 2234 04/25/24 0548 04/25/24 0829 04/25/24 1041 BP: 102/67 140/82 113/77 116/75 BP Location: Left arm Left arm;Upper Right arm;Upper Left arm;Upper Patient Position: Semi-recumbent Semi-recumbent Sitting Lying Pulse: 104 90 98 92 Resp: Temp: 36.1 ??C 36 ??C 36.5 ??C 36.5 ??C TempSrc: Temporal Temporal Temporal Temporal SpO2: 98% 94% 94% (!) 89% Weight: 72.6 kg Height: CONSULTS ORDERED DURING THIS ADMISSION IP CONSULT TO CARE MANAGEMENT IP CONSULT TO CARE MANAGEMENT IP ECONSULT TO INFECTIOUS DISEASE GENERAL DISCHARGE MEDICATIONS Discharge Medications TAKE these medications acetaminophen 500 mg tablet Commonly known as: TylenoL Take 1,000 mg by mouth every 6 (six) hours as needed for pain, headaches or fever. albuterol 90 mcg/actuation inhaler Inhale 2 puffs every 6 (six) hours as needed for wheezing. amLODIPine 10 mg tablet Commonly known as: Norvasc Take 1 tablet (10 mg total) by mouth at bedtime. aspirin [address] tablet TAKE ONE TABLET BY MOUTH EVERY DAY FOR STROKE PREVENTION-TAKE WITH 6 - 8 OUNCES OF PLAIN WATER benzonatate 100 mg capsule Commonly known as: Tessalon Perles Take 1 capsule (100 mg total) by mouth 3 (three) times a day as needed for cough. buPROPion XL 150 mg 24 hr tablet Commonly known as: Wellbutrin XL Take 3 tablets (450 mg total) by mouth daily. donepeziL 10 mg tablet Commonly known as: Aricept Take 1 tablet (10 mg total) by mouth at bedtime. fluticasone propion-salmeteroL 100-50 mcg/actuation diskus inhaler Commonly known as: Advair Diskus Inhale 1 puff 2 (two) times a day. Rinse mouth with water after use to reduce aftertaste and incidence of candidiasis. Do not swallow. guaiFENesin 600 mg 12 hr tablet Commonly known as: Mucinex Take 1 tablet (600 mg total) by mouth 2 (two) times a day. levoFLOXacin 750 mg tablet Commonly known as: Levaquin Take 1 tablet (750 mg total) by mouth every other day for 2 doses. levothyroxine 50 mcg tablet Take 1 tablet (50 mcg total) by mouth daily. losartan 50 mg tablet Commonly known as: Cozaar Take 1 tablet (50 mg total) by mouth daily. metoprolol succinate 50 mg 24 hr tablet Commonly known as: Toprol XL Take 1 tablet (50 mg total) by mouth daily. Do not crush or chew. mirtazapine 7.5 mg tablet Commonly known as: Remeron Take 1 tablet (7.5 mg total) by mouth at bedtime. omeprazole [address] capsule Commonly known as: PriLOSEC Take 1 capsule (20 mg total) by mouth 2 (two) times a day before breakfast and dinner. oxyBUTYnin 5 mg tablet Commonly known as: Ditropan take one tablet by mouth twice a day sertraline 100 mg tablet Commonly known as: Zoloft Take 2 tablets (200 mg total) by mouth daily. simvastatin 40 mg tablet Commonly known as: Zocor Take 1 tablet (40 mg total) by mouth at bedtime. Medications Discontinued During This Encounter Medication Reason nystatin (NYSTOP) 100,000 unit/gram powder Therapy completed nystatin-triamcinolone (MYCOLOG II) 100,000 Unit/g-0.1 % cream Therapy completed polyethylene glycol (MIRALAX) 17 gram powder packet Therapy completed albuterol nebulizer solution 2.5 mg albuterol nebulizer solution 2.5 mg albuterol nebulizer solution 2.5 mg metoprolol succinate 24 hr tablet 50 mg (Toprol XL) cefTRIAXone injection 2 g (Rocephin) furosemide injection 40 mg (Lasix) furosemide injection 40 mg (Lasix) furosemide injection 40 mg (Lasix) levoFLOXacin (Levaquin) 500 mg tablet bisacodyL suppository 10 mg (Dulcolax) Patient Discharge bisacodyL DR tablet 10 mg (Dulcolax) Patient Discharge polyethylene glycol powder packet 17 g (Miralax) Patient Discharge sennosides-docusate sodium 8.6-50 mg per tablet 2 tablet (Senokot-S) Patient Discharge guaiFENesin 12 hr tablet 600 mg (Mucinex) Patient Discharge piperacillin-tazobactam 3.375 g in NaCl 0.9% IVPB (Zosyn) Patient Discharge benzonatate capsule 100 mg (Tessalon Perles) Patient Discharge metoprolol tartrate tablet 50 mg (Lopressor) Patient Discharge ipratropium-albuteroL 0.5-2.5 mg/3 mL nebulizer solution 3 mL (DuoNeb) Patient Discharge atorvastatin tablet 20 mg (Lipitor) Patient Discharge sertraline tablet 200 mg (Zoloft) Patient Discharge oxyBUTYnin tablet 5 mg (Ditropan) Patient Discharge pantoprazole DR tablet 40 mg (Protonix) Patient Discharge mirtazapine tablet 7.5 mg (Remeron) Patient Discharge losartan tablet 50 mg (Cozaar) Patient Discharge levothyroxine tablet 50 mcg Patient Discharge fluticasone furoate-vilanteroL 100-25 mcg/actuation inhaler 1 puff (Breo Ellipta) Patient Discharge donepeziL tablet 10 mg (Aricept) Patient Discharge buPROPion XL 24 hr tablet 450 mg (Wellbutrin XL) Patient Discharge aspirin DR tablet 325 mg Patient Discharge amLODIPine tablet 10 mg (Norvasc) Patient Discharge acetaminophen tablet 1,000 mg (TylenoL) Patient Discharge heparin (porcine) injection 5,000 Units Patient Discharge PROCEDURES DONE DURING THIS ADMISSION none RADIOLOGY REPORTS Echo Transthoracic (TTE) Result Date: 04/22/2024 Impression: Transthoracic outreach echo interpretation. LEFT VENTRICLE:Normal left ventricular chamber size. Concentric remodeling (increased wall thickness to cavity ratio). Anomalous left ventricular chord. Calculated 2-D linear left ventricular ejection fraction 65%. Elevated [...] assessment performed but not reported based upon payroll professional judgment). Global averaged left atrial biplane longitudinal [...] (PISA) 40 ml. Tricuspid regurgitation ERO (PISA) 0.37cm2. OTHER ECHO FINDINGS:Normal inferior vena cava size with normal inspiratory collapse (>50%).Normal mid ascending aorta diameter of 33 mm. Abdominal aorta incompletely visualized. Normal abdominal aorta Doppler flow pattern. Imaging inadequate for detection of atrial level shunt by color flow imaging. No intracardiac mass or thrombus, but the left atrial appendage cannot be visualized adequately with transthoracic echo to exclude thrombus in this location. No pericardial effusion. For the complete report, see the Order-Level Documents. CT Chest Angiogram and Pulmonary Arteries with IV Contrast Result Date: 04/21/2024 Impression: 1. No acute or chronic pulmonary embolism. 2. Multifocal pneumonia. 3. Enlarged mediastinal and right hilar lymph nodes which are likely reactive. 4. Constellation of findings suggestive of mild heart failure including biatrial enlargement, reflux of contrast into the IVC/intrahepatic veins, and small bilateral pleural effusions. DX Chest Portable 1 View Result Date: 04/19/2024 Impression: Multifocal consolidative and groundglass opacities, remains concerning for infection. Six-week follow-up recommended to resolution. CT Head without IV Contrast Result Date: 04/18/2024 Impression: 1. No acute intracranial findings. No significant interval change from 10/17/2018. DX Chest Portable 1 View Result Date: 04/18/2024 Impression: Comparison 08/14/23. Multiple consolidative and groundglass opacities throughout right lung are likely infectious pneumonia. Suggest six-week followup chest radiographs to assure resolution. Heart size normal. Recent Results (from the past 72 hours) CBC with Differential, Blood Collection Time: 04/23/24 5:07 AM Result Value Ref Range Hemoglobin 10.2 (L) 11.6 - 15.0 g/dL Hematocrit 29.5 (L) 35.5 - 44.9 % Erythrocytes 3.15 (L) 3.92 - 5.13 x10(12)/L MCV 93.7 78.2 - 97.9 fL RBC Distrib Width 17.3 (H) 12.2 - 16.1 % Platelet Count 289 157 - 371 x10(9)/L Leukocytes 11.8 (H) 3.4 - 9.6 x10(9)/L Neutrophils See manual differential 1.56 - 6.45 x10(9)/L Basic Metabolic Panel Collection Time: 04/23/24 5:07 AM Result Value Ref Range Potassium, P 3.2 (L) 3.6 - 5.2 mmol/L Sodium, P 141 135 - 145 mmol/L Chloride, P 100 98 - 107 mmol/L Bicarbonate, P 29 22 - 29 mmol/L Anion Gap, P 12 7 - 15 BUN (Blood Urea Nitrogen), P 24 (H) 6 - 21 mg/dL Creatinine 0.96 0.59 - 1.04 mg/dL Estimated GFR (eGFR) 57 (L) >=60 mL/min/BSA Calcium, Total, P 8.9 8.8 - 10.2 mg/dL Glucose, P 102 70 - 140 mg/dL Manual Differential, Blood Collection Time: 04/23/24 5:07 AM Result Value Ref Range Segmented Neutrophils 71 50 - 75 % Lymphocytes % 20 18 - 42 % Monocytes 5 2 - 11 % Eosinophils 4 (H) 1 - 3 % Nucleated RBC 1 /100 WBC Manual Absolute Neutrophil Count 8.38 (H) 1.56 - 6.45 x10(9)/L Morphology Evaluation Collection Time: 04/23/24 5:07 AM Result Value Ref Range RBC Morphology See Specific Findings PLT Morphology Normal PLT Estimate Adequate Adequate Anisocytosis Slight (A) Reactive/Atypical Lymphocytes Present (A) Not Seen Elliptocytes Slight (A) Not Seen Potassium Collection Time: 04/23/24 10:38 AM Result Value Ref Range Potassium, P 3.3 (L) 3.6 - 5.2 mmol/L CBC with Differential, Blood Collection Time: 04/24/24 5:24 AM Result Value Ref Range Hemoglobin 10.6 (L) 11.6 - 15.0 g/dL Hematocrit 33.4 (L) 35.5 - 44.9 % Erythrocytes 3.67 (L) 3.92 - 5.13 x10(12)/L MCV 91.0 78.2 - 97.9 fL RBC Distrib Width 16.0 12.2 - 16.1 % Platelet Count 345 157 - 371 x10(9)/L Leukocytes 12.9 (H) 3.4 - 9.6 x10(9)/L Neutrophils 10.36 (H) 1.56 - 6.45 x10(9)/L Lymphocytes 1.39 0.95 - 3.07 x10(9)/L Monocytes 0.74 0.26 - 0.81 x10(9)/L Eosinophils 0.35 0.03 - 0.48 x10(9)/L Basophils 0.03 0.01 - 0.08 x10(9)/L Basic Metabolic Panel Collection Time: 04/24/24 5:24 AM Result Value Ref Range Potassium, P 3.0 (L) 3.6 - 5.2 mmol/L Sodium, P 141 135 - 145 mmol/L Chloride, P 97 (L) 98 - 107 mmol/L Bicarbonate, P 31 (H) 22 - 29 mmol/L Anion Gap, P 13 7 - 15 BUN (Blood Urea Nitrogen), P 24 (H) 6 - 21 mg/dL Creatinine 1.09 (H) 0.59 - 1.04 mg/dL Estimated GFR (eGFR) 49 (L) >=60 mL/min/BSA Calcium, Total, P 9.1 8.8 - 10.2 mg/dL Glucose, P 105 70 - 140 mg/dL Morphology Evaluation Collection Time: 04/24/24 5:24 AM Result Value Ref Range RBC Morphology See Specific Findings PLT Morphology Normal PLT Estimate Adequate Adequate Anisocytosis Slight (A) Elliptocytes Slight (A) Not Seen Basic Metabolic Panel Collection Time: 04/25/24 5:28 AM Result Value Ref Range Potassium, P 3.2 (L) 3.6 - 5.2 mmol/L Sodium, P 140 135 - 145 mmol/L Chloride, P 99 98 - 107 mmol/L Bicarbonate, P 31 (H) 22 - 29 mmol/L Anion Gap, P 10 7 - 15 BUN (Blood Urea Nitrogen), P 26 (H) 6 - 21 mg/dL Creatinine 1.10 (H) 0.59 - 1.04 mg/dL Estimated GFR (eGFR) 49 (L) >=60 mL/min/BSA Calcium, Total, P 9.2 8.8 - 10.2 mg/dL Glucose, P 98 70 - 140 mg/dL CBC with Differential, Blood Collection Time: 04/25/24 5:28 AM Result Value Ref Range Hemoglobin 10.5 (L) 11.6 - 15.0 g/dL Hematocrit 28.4 (L) 35.5 - 44.9 % Erythrocytes 2.94 (L) 3.92 - 5.13 x10(12)/L MCV 96.6 78.2 - 97.9 fL RBC Distrib Width 19.7 (H) 12.2 - 16.1 % Platelet Count 352 157 - 371 x10(9)/L Leukocytes 11.7 (H) 3.4 - 9.6 x10(9)/L Neutrophils See manual differential 1.56 - 6.45 x10(9)/L Morphology Evaluation Collection Time: 04/25/24 5:28 AM Result Value Ref Range RBC Morphology See Specific Findings PLT Morphology Normal PLT Estimate Adequate Adequate Anisocytosis Slight (A) Elliptocytes Slight (A) Not Seen Manual Differential, Blood Collection Time: 04/25/24 5:28 AM Result Value Ref Range Segmented Neutrophils 79 (H) 50 - 75 % Lymphocytes % 10 (L) 18 - 42 % Monocytes 4 2 - 11 % Eosinophils 3 1 - 3 % Metamyelocytes 2 (H) <1 % Myelocytes 2 (H) <0.5 % Nucleated RBC 2 /100 WBC Manual Absolute Neutrophil Count 9.24 (H) 1.56 - 6.45 x10(9)/L Microbiology Results (last 30 days) Procedure Component Value - Date/Time Streptococcus pneumoniae Antigen, Urine [[id number]] Collected: 04/19/24 1712 Lab Status: Final result Specimen: Urine, Midstream Updated: 04/22/24 1350 Streptococcus pneumoniae Ag, U Negative Comment: Negative for pneumococcal pneumonia, suggesting no current or recent infection. Infection due to S. pneumoniae cannot be ruled out since the antigen present in the sample may be below detection limit of the test. ----ADDITIONAL INFORMATION---- This assay was performed using the FDA-cleared [employer] Streptococcus pneumoniae Antigen test, a rapid immunochromatographic assay. Legionella Antigen, Urine [[id number]] Collected: 04/19/24 1712 Lab Status: Final result Specimen: Urine, Midstream Updated: 04/22/24 1508 Legionella Ag, U Negative Comment: Negative for L. pneumophila serogroup 1 [...] Urinary Antigen Test, a rapid immunochromatographic assay. Staph aureus / MRSA, Nasal, PCR [[id number]] (Abnormal) Collected: 04/19/24 1232 Lab Status: Final result Specimen: Swab from Nares Updated: 04/19/24 2203 Staphylococcus aureus, PCR Positive MRSA, PCR Negative Comment: Methicillin (oxacillin)-susceptible Staphylococcus aureus complex detected. Bacteria / [place] Culture, Blood #2 [[id number]] Collected: 04/18/24 1031 Lab Status: Final result Specimen: Blood, Peripheral Draw Updated: 04/23/24 1308 Bacteria/[place] Culture, Blood No growth after 5 day/s of incubation. Bacteria / [place] Culture, Blood #1 [[id number]] Collected: 04/18/24 1019 Lab Status: Final result Specimen: Blood, Peripheral Draw Updated: 04/23/24 1308 Bacteria/[place] Culture, Blood No growth after 5 day/s of incubation. Bacterial Culture, Aerobic + Susceptibility, Urine [[id number]] Collected: 04/18/24 0956 Lab Status: Final result Specimen: Urine, Straight Catheter Updated: 04/19/24 1039 Urine Culture No growth after 1 day of incubation. SARS Coronavirus 2, PCR Rapid Symptomatic [[id number]] Collected: 04/18/24 0947 Lab Status: Final result Specimen: Swab from Nasopharynx Updated: 04/18/24 1013 SARS CoV-2, PCR, Rapid, V Undetected SARS Coronavirus 2, Source, Rapid Swab, Nasopharynx CONDITION AT DISCHARGE improved Discharge instructions were provided to the patient and caregiver(s). On day of discharge I saw and examined the patient and we discussed the follow up plan. The patientexpressed understanding and agreement of it. On the date of discharge I spent more than 30 minutes on a face to face encounter with the patient and answered all the questions to her satisfaction. HER WARP documented in this encounter Medications at Time [...] day before breakfast and dinner. 180 capsule 09/18/2023 oxyBUTYnin (DITROPAN) 5 mg tabletIndications: Urgency [...] 04/25/2024 4 documented as of this encounter Progress Notes * Ijeoma Wu O.T. - 04/25/2024 10:35 AM CST Occupational Therapy Dismissal Snapshot Patient seen in 4 visits in the setting of pneumonia and sepsis; weakness resulting in impaired functional mobility and ADLs. Inpatient goals: partially met Please see last progress note for status. Patient to dismiss to return to [facility] with increased services and assist, planned PT at [facility] - [facility] offered TCU bed but declined. At this time patient is functioning below baseline, in regards toactivity tolerance, functional mobility / transfers, and self care completion - OT is recommending short term rehab to address above deficits, or 04/12 assist, but patient is choosing to return to [facility] HER WARP * Susan Adan L.S.W. - 04/25/2024 9:00 AM CST Social Work Services (SWS) participated in Bedside Team Rounds along with Dr. Morse and Nilo. Provider, Dr. Morse discussed medical plan of care for the day. Including anticipated discharge today. Plan was to discharge to [facility], although they do not have any beds available today. Therefore, SWS and nursing were communicating with Milena at [facility]. SWS facilitated a Nurse to nurse and [facility] can accommodate Rox with increased services in her apartment there. Rox's plan is to return home with much increased services and their internal Physical Therapy and continued family support, at this time. Rox states th at she has had Assisted Living services in the past and she is fully aware of that private pay charges required. Family was called by Rox and will transport by 11:15 am, or as soon as paperwork is completed. ([facility] required that Rox be physically there before noon today.) No additional DME or services needed at this time. [facility] now has a bed available. SWS discussed this option with Rox, includingthe fact that her Medicare would cover the swing bed. Rox refused the [facility] Swing Bed for today. SWS contact information was provided and they were encouraged to reach out if any questions arise. HER WARP * Amber Barr, P.T. - 04/24/2024 3:37 PM CST Patient was resting at both times of PT approach. She was much more tired today, but has lessening oxygen requirement, per nurses and notes. Will resume POC 04/25/24 in no discharge as expected to TCF: Physical Therapy Dismissal Snapshot Patient was seen 4 visit(s) for debility in setting of pneumonia and sepsis. Inpatient goals: not met Please see last progress note for status. Patient to dismiss to transitional care facility to address remaining impairments of range of motion, strength, and pain, and mobility deficits of transfers and gait. Patient goal is to return to [facility]. HER WARP * Yanet Paulino M.D. - 04/24/2024 2:00 PM CST Images from the original note were not included. DATE OF ADMISSION: 04/18/2024 LOS: 6 days SUBJECTIVE The patient was seen and examined during morning rounds today with her nurse Interval History: No acute events reported overnight Feels weak, good response to laxatives, multiple bowel movements Dyspnea and cough improved, tachypnea resolved, now requiring 1 L of oxygen Remains afebrile, with stable vital signs, good oral intake She is working well with [employer] Medications Scheduled Medication Ordered Dose/Rate, Route, Frequency Last Action amLODIPine tablet 10 mg (Norvasc) 10 mg, oral, Daily at bedtime Given, 10 mg at 04/[address] tablet 325 mg 325 mg, oral, Daily Given, 325 mg at 04/24 1017 atorvastatin tablet 20 mg (Lipitor) 20 mg, oral, Daily at bedtime Given, 20 mg at 04/23 2127 buPROPion XL 24 hr tablet 450 mg (Wellbutrin XL) 450 mg, oral, Daily Given, 450 mg at 04/24 1017 donepeziL tablet 10 mg (Aricept) 10 mg, oral, Daily at bedtime Given, 10 mg at 04/23 2127 fluticasone furoate-vilanteroL 100-25 mcg/actuation inhaler 1 puff (Breo Ellipta) 1 puff, inhl, Daily Given, 1 puff at 04/24 0730 furosemide injection 40 mg (Lasix) 40 mg, IV, Daily Given, 40 mg at 04/24 1018 guaiFENesin 12 hr tablet 600 mg (Mucinex) 600 mg, oral, BID Given, 600 mg at 04/24 1017 heparin (porcine) injection 5,000 Units 5,000 Units, SC, Q8H SANAM Given, 5,000 Units at 04/24 1330 ipratropium-albuteroL 0.5-2.5 mg/3 mL nebulizer solution 3 mL (DuoNeb) 3 mL, nebu, 4x daily Given, 3 mL at 04/24 1145 levothyroxine tablet 50 mcg 50 mcg, oral, Daily before morning meal Given, 50 mcg at 04/24 0535 [Held by provider] losartan tablet 50 mg (Cozaar) On hold since today at 0911 for 2 doses; held by Yanet Paulino M.D.Hold Comments: Low blood pressure On hold since today at 0911 for 2 doses Hold comment: Low blood pressure 50 mg, oral, Daily Given, 50 mg at 04/23 1114 metoprolol tartrate tablet 50 mg (Lopressor) 50 mg, oral, Q8H Given, 50 mg at 04/24 1357 mirtazapine tablet 7.5 mg (Remeron) 7.5 mg, oral, Daily at bedtime Given, 7.5 mg at 04/23 2127 oxyBUTYnin tablet 5 mg (Ditropan) 5 mg, oral, BID Given, 5 mg at 04/[address] tablet 40 mg (Protonix) 40 mg, oral, Daily before morning meal Given, 40 mg at 04/24 0536 piperacillin-tazobactam 3.375 g in NaCl 0.9% IVPB (Zosyn) 3.375 g, IV, Q6H New Bag, 3.375 g at 04/24 1330 sennosides-docusate sodium 8.6-50 mg per tablet 2 tablet (Senokot-S) 2 tablet, oral, BID Given, 2 tablet at 04/23 2127 sertraline tablet 200 mg (Zoloft) 200 mg, oral, Daily Given, 200 mg at 04/24 1017 PRN Medication Ordered Dose/Rate, Route, Frequency Last Action acetaminophen tablet 1,000 mg (TylenoL) 1,000 mg, oral, Q6H PRN Given, 1,000 mg at 04/24 0534 benzonatate capsule 100 mg (Tessalon Perles) 100 mg, oral, TID PRN Given, 100 mg at 04/[address] tablet 10 mg (Dulcolax) 10 mg, oral, BID PRN Ordered bisacodyL suppository 10 mg (Dulcolax) 10 mg, rectal, Daily PRN Ordered polyethylene glycol powder packet 17 g (Miralax) 17 g, oral, Daily PRN Ordered potassium chloride ER tablet 20 mEq (Klor-Con M) 20 mEq, oral, Once PRN Ordered OBJECTIVE VITAL SIGNS Temperature: [36 ??C-36.5 ??C] 36.3 ??C Heart Rate: [94-110] 94 Resp Rate: [22-24] 24 Blood Pressure: (100-132)/(59-92) 131/90 SpO2: [91 %-99 %] 95 % Flow Rate (L/min): [1 L/min] 1 L/min Weight: [73.9 kg] 73.9 kg BMI (Calculated): [29.8 kg/m??] 29.8 kg/m?? Pulse Rate: [89-112] 101 Intake/Output Last 24 Hours: Intake/Output Summary (Last 24 hours) at 04/24/2024 1401 Last data filed at 04/24/2024 1330 Gross per 24 hour Intake 1180 ml Output 1775 ml Net -595 ml Admission weight Weight: 76.2 kg Current weight Weight: 73.9 kg PHYSICAL EXAM Vitals and nursing note reviewed. Constitutional Appearance: She is obese. Comments: On oxygen per nasal cannula 1 liters/minute HENT Head: Normocephalic and atraumatic. Right Ear: External ear normal. Left Ear: External ear normal. Nose: Nose normal. Mouth/Throat: Mouth: Mucous membranes are moist. Eyes General: No scleral icterus. Extraocular Movements: Extraocular movements intact. Pupils: Pupils are equal, round, and reactive to light. Cardiovascular Rate and Rhythm: Normal rate and regular rhythm. Pulses: Normal pulses. Heart sounds: Normal heart sounds. Pulmonary Breath sounds: No wheezing, rhonchi or rales. Comments: Increased work of breathing Abdominal General: Abdomen is flat. Bowel sounds are normal. Palpations: Abdomen is soft. Tenderness: There is no abdominal tenderness. There is no guarding. Musculoskeletal Cervical back: Normal range of motion. Right lower leg: No edema. Left lower leg: No edema. Skin General: Skin is warm and dry. Capillary Refill: Capillary refill takes less than 2 seconds. Neurological General: No focal deficit present. Mental Status: She is alert and oriented to person, place, and time. Comments: forgetfull Psychiatric Mood and Affect: Mood normal. Behavior: Behavior normal. DIAGNOSTICS Echo Transthoracic (TTE) Result Date: 04/22/2024 Impression: Transthoracic outreach echo interpretation. LEFT VENTRICLE:Normal left ventricular chamber size. Concentric remodeling (increased wall thickness to cavity ratio). Anomalous left ventricular chord. Calculated 2-D linear left ventricular ejection fraction 65%. Elevated [...] assessment performed but not reported based upon payroll professional judgment). Global averaged left atrial biplane longitudinal [...] (PISA) 40 ml. Tricuspid regurgitation ERO (PISA) 0.37cm2. OTHER ECHO FINDINGS:Normal inferior vena cava size with normal inspiratory collapse (>50%).Normal mid ascending aorta diameter of 33 mm. Abdominal aorta incompletely visualized. Normal abdominal aorta Doppler flow pattern. Imaging inadequate for detection of atrial level shunt by color flow imaging. No intracardiac mass or thrombus, but the left atrial appendage cannot be visualized adequately with transthoracic echo to exclude thrombus in this location. No pericardial effusion. For the complete report, see the Order-Level Documents. CT Chest Angiogram and Pulmonary Arteries with IV Contrast Result Date: 04/21/2024 Impression: 1. No acute or chronic pulmonary embolism. 2. Multifocal pneumonia. 3. Enlarged mediastinal and right hilar lymph nodes which are likely reactive. 4. Constellation of findings suggestive of mild heart failure including biatrial enlargement, reflux of contrast into the IVC/intrahepatic veins, and small bilateral pleural effusions. DX Chest Portable 1 View Result Date: 04/19/2024 Impression: Multifocal consolidative and ground glass opacities, remains concerning for infection. Six-week follow-up recommended to resolution. CT Head without IV Contrast Result Date: 04/18/2024 Impression: 1. No acute intracranial findings. No significant interval change from 10/17/2018. DX Chest Portable 1 View Result Date: 04/18/2024 Impression: Comparison 08/14/23. Multiple consolidative and ground glass opacities throughout right lung are likely infectious pneumonia. Suggest six-week followup chest radiographs to assure resolution. Heart size normal. Lab results last 24 hours: Recent Results (from the past 24 hours) CBC with Differential, Blood Collection Time: 04/24/24 5:24 AM Result Value Hemoglobin 10.6 (L) Hematocrit 33.4 (L) Erythrocytes 3.67 (L) MCV 91.0 RBC Distrib Width 16.0 Platelet Count 345 Leukocytes 12.9 (H) Neutrophils 10.36 (H) Lymphocytes 1.39 Monocytes 0.74 Eosinophils 0.35 Basophils 0.03 Basic Metabolic Panel Collection Time: 04/24/24 5:24 AM Result Value Potassium, P 3.0 (L) Sodium, P 141 Chloride, P 97 (L) Bicarbonate, P 31 (H) Anion Gap, P 13 BUN (Blood Urea Nitrogen), P 24 (H) Creatinine 1.09 (H) Estimated GFR (eGFR) 49 (L) Calcium, Total, P 9.1 Glucose, P 105 Morphology Evaluation Collection Time: 04/24/24 5:24 AM Result Value RBC Morphology See Specific Findings PLT Morphology Normal PLT Estimate Adequate Anisocytosis Slight (A) Elliptocytes Slight (A) ASSESSMENT / PLAN #1 Sepsis (HCC) #2 Pneumonia Bacterial #3 Atrial Fibrillation Unspecified (HCC) #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 Chronic KidneyDisease Or Unspecified Chronic Kidney Disease (HCC) #7 Gastroesophageal Reflux Disease NOS #8 Hyperlipidemia Mixed #9 Osteoporosis #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 She was found on the floor by staff on 04/18 and brought to the emergency department. She wasdiagnosed with sepsis, CAP and atrial fibrillation with RVR [facility] Acute medical problems: Sepsis Bacterial community-acquired pneumonia Patient was found on the floor in her room at the assisted living facility. She had been feeling ill for the last couple of weeks with cough, shortness of breath and weakness. In the ED she was tachycardic with VR 110-120 and tachypneic. Her blood pressures were soft initially but later hypertensive. WBC 13.5 with 11.5 neutrophils, lactate 1.5 Chest x-ray on 04/18 revealed multiple consolidative and ground-glass opacities throughout the right lung. Repeat chest x-ray on 04/19 did not show significant change She was treated with fluid resuscitation, 1 L of saline and initiated on IV antibiotics (cefTRIAXone and azithromycin) and became hemodynamically more stable. She has been afebrile since admission, but still tachypneic with increased work of breathing. Her WBC however trended up consistently, 16.2 with neutrophils 13.9 on 04/21 Respiratory culture ordered on CT angiogram of chest on 04/21 negative for PE, presence of multifocal opacities, enlarged mediastinal and right hilar lymph nodes which are likely reactive, reflux of contrast into the IVC/intrahepatic veins and small bilateral pleural effusions. Ceftriaxone and azithromycin discontinued and started Zosyn on 04/21. Respiratory status improved. WBC: -on 04/22 12.2. with neutrophils 9.88 -on 04/23 11.8 with neutrophils 8.38 -on 04/24 12.9 with neutrophils 10.3.(It could be due to hemoconcentration) Blood and urine cultures from admission negative Legionella and Streptococcus pneumoniae urinary antigens negative Nasal PCR negative for MRSA She did not provide a respiratory culture sample Plan to complete 48 hours of Zosyn and then change to cefepime or levoFLOXacin. Will consult ID to assist with de escalation. I anticipate she will need Complete 7 days of antibiotics Acute resp failure with hypoxia, resolving She has acute hypoxic respiratory failure with tachypnea and oxygen requirement then went up to 4 liters/minute on 04/21. In spite of her multiple recurrent pneumonias and COPD, she is not oxygen dependent according to the medical record and was requiring 2 L per nasal cannula in the ED but after admission her oxygen requirement trended up in spite of nebulizers and antibiotics, on 04/21 she was on 4 liters/minute andhad increased work of breathing, crackles to bases but no wheezing. Respiratory status improved after antibiotic escalated to Zosyn and also diuretic started on 04/21. Oxygen requirement on 04/22 down to 2 liters/minute and to 1L//min on 04/23. Continue with respiratory therapy treatments and scheduled nebulizers. Added Mucinex. Working with [employer] encourage pulmonary hygiene, respiratory therapy following along. It was noticed her oxygensaturation improves when she coughs, suspect mucous plugging She is not wheezy, still has crackles bilaterally but scattered now . Possible heart failure with preserved ejection fraction with a acute exacerbation Echocardiogram from October 2018 showed ejection fraction 64%, no regional wall motion abnormalities, grade 2/4 left ventricular diastolic dysfunction consistent with moderately elevated left ventricular filling pressure, no significant valvular heart disease, normal IVC with normal inspiratory collapse. NT proBNP on 04/21 was elevated at 5444 (1488 in December 2022) Report on CT angiogram on 04/21 shows signs of fluid overload, started furosemide 40 mg IV bid Strict intake and output Daily weight Echocardiogram on 04/22 showed normal left ventricular chamber size, concentric remodeling, left ventricular ejection fraction 65%, elevated left ventricular filling pressure, no regional wall motionabnormalities; estimated right ventricular systolic pressure 62 mmHg, mild-moderate mitral valve regurgitation, normal IVC size with normal inspiratory collapse. One dose of furosemide 40 mg IV on 04/24 and then discontinued Daily BMP Electrolyte replacement orders Atrial Fibrillation Unspecified with RVR Patient has a history of atrial fibrillation, not on full anticoagulation per her own choice according to chart review, rate control at home with metoprolol extended release 50 mg daily She had AFib with rapid ventricular response upon presentation to the emergency department. This was somewhat resolved with her receiving her morning medications. Her daily aspirin and metoprolol were continued. Metoprolol succinate was switched to metoprolol tartrate and on 04/20 it was increased to 50 mg t.i.d. On 04/21 she was in RVR again but VR improved after diuretics and change in antibiotics on 04/21; RVRresolved Continue to monitor closely with telemetry and titrate medications accordingly. Monitor potassium and magnesium, keep potassium 4.0 or higher and magnesium 2.0 or higher within normal range Electrolyte replacement protocol instituted Hypokalemia: Potassium 3.3 in am on 04/22, replaced per protocol Rechecked magnesium as well on 04/22 Chronic medical problems: Gastroesophageal Reflux Disease Patient on omeprazole at home, switched to pantoprazole after admission GERD could be the etiology of her possible recurrent aspiration pneumonitis. Speech therapy consulted, will not have speech therapy available until April 22. Hypothyroidism Continue thyroid replacement therapy. Hyperlipidemia Mixed Continue simvastatin Dementia Continue Aricept and Remeron at night for sleep. Hypertension Essential Primary Continue her hypertensive treatment with losartan, amlodipine, and her metoprolol. Following the IVfluid resuscitation her blood pressure improved. Continue to monitor carefully. 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 If she becomes hypotensive again, then will need to discontinue accordingly. BP has been stable, continue monitor per unit protocol Chronic kidney disease: For the last year patient's creatinine has been around 1.2. This admission it has been within normal range. We will continue to monitor closely, avoid nephrotoxins. Creatinine daily in a.m. Creatinine: at admission 0.99, on 04/22 is 0.91, on 04/23 is 0.96, on 1.09 with bicarb 31. Discontinue diuretics, last dose 04/24 She will be ready for discharge to swing bed on 04/25 HOSPITAL CARE ISSUES: Code status: DNR/DNI IV fluids: IV and Feeding Tubes Active Currently Name Placement date Placement time Site Days Peripheral IV 04/21/24 18 G Right Antecubital 04/21/24 1416 Antecubital 3 Diet:Current Diet Adult Diet Regular starting at 04/18 1604 VTE PPX: AntiCoag AntiPlatelet Meds IP/OP Heparins Refills Start End heparin (porcine) injection 5,000 Units -- 04/18/2024 -- 5,000 Units, subcutaneous, Every 8 hours scheduled Review: GI/VTE prophylaxis and Old records reviewed 20 minutes. Discharge Information: Expected Discharge Date: 04/25/2024. Projected disposition: transitional care unit . HER WARP * Ijeoma Wu O.T. - 04/24/2024 12:44 PM CST Occupational Therapy Inpatient Treatment SUBJECTIVE Patient's Name: Rox Ramirez Referring/Attending Provider: Yanet Paulino M.D. Medical Diagnosis: Pneumonia Bacterial [J15.9] Reason for Referral: OT eval and treat found on floor at facility Onset Date: 04/18/24 Payor: MEDICARE / Plan: MEDICARE A AND B / Product Type: Medicare / Prior Mobility/Functional Transfers Level of [place]: Modified independent Gait Devices/Wheelchair Used: Four wheeled walker Prior Function/Occupational Profile Lives With: Alone Receives Help From: Family, Facility staff ADL Assistance: Independent ADL Assistance Comments: States that although she has a shower chair, she stands to shower; no issue dressing - able to don compression stockings on her own IADL/Homemaking Assistance: Modified independent IADL/Homemaking Assistance Comments: meal plan at the [facility] - typically will go do dining room but recently having meals delivered to her apartment; mod I with laundry; assist with cleaning and medications from staff Occupational Role: Retired Home Living Type of Home: Assisted living facility ((independent living)) Home Layout: One level Home Access: Level entry Bathroom Shower/Tub: Walk-in shower Walk-in shower location: Main floor Bathroom Toilet: Comfort height Home Equipment Bathroom Equipment: Grab bars in shower, Shower chair with back Patient Comments: Patient is agreeable to OT, resting in bed but willing to get up to use toilet and then sit in chair. States that she feels better than yesterday but during attempted gait expressesnausea and significant fatigue, needing to sit and nap. Is on RA and denies SOB Additional Staff Present During Session: Deepa MONACO to assist with gait Activity Orders (From admission, onward) Start Ordered 04/18/24 1559 Aspiration precautions Continuous 04/18/24 1603 04/18/24 1559 Fall precautions Continuous 04/18/24 1603 04/18/24 1558 Activity/Position: Up Ad Delilah, Up to Chair; Other (comment); Ambulate as much as possible considering previous activity level and physical functioning. Resume activity level following recovery from procedure and/or tests unless otherwise directed.... Until discontinued Question Answer Comment Activity Level: Up Ad Delilah Activity Level: Up to Chair Ambulation Goals: Other (comment) Ambulation goals comment: Ambulate as much as possible considering previous activity level and physical functioning. Resume activity level following recovery from procedure and/or tests unless otherwise directed. Up to chair goals: With meals Restrictions/Precautions: None Brace/Device: None 04/18/24 1603 Precautions Other Precautions: falls, cognition, supplemental O2 Fall Risk (65 and older) Fall in the last 12 months: Yes Did you have an injury with the fall?: No Are you fearful of falling?: Yes Fall Risk Comments: Fall risk OBJECTIVE No pain behavior observed Activity Tolerance Activity Tolerance Comments: on 1LPM when sleeping at OT approach, SpO2 >79%. Removed during activity, which has been standard today per discussion with RN; SpO2 ranges 89-95% with activity while on RA Bed Mobility - Supine to Sit # of Assistants: 1 Level of Assistance: Supervision/Set-up Device: Head of bed elevated, Bed rail Cuing: Verbal, Tactile Comments: patient is able to advance LE's over EOB; able to use bed rail without cueing to assist in transitioning to upright position. Able to scoot hips toward EOB mod I. Does take additional time to complete task Sit to Stand Transfers # of Assistants: 1 (2nd present) Transfer Surface: Bed Transfer Equipment: Gait belt, Front wheeled walker Level of Assistance: Contact guard assistance, Minimal assistance Assessment/Delivery: Therapist assisted, Assessed, Instructed, Facilitated Comments: Patient continues to require repeat verbal and tactile cues for safer hand placement; minassist x1 to stand to FWW today. Stand to Sit Transfers # of Assistants: 1 Transfer Surface: Chair Transfer Equipment: Gait belt, Front wheeled walker Level of Assistance: Contact guard assistance, Supervision/set-up Assessment/Delivery: Assessed, Instructed, Therapist assisted, Facilitated, Educated Comments: Chair brought to patient due to fatigue and nausea; requires vcs to square self to chair before sitting and to reach back to armrests Other Transfers # of Assistants: 1 (2nd present) Transfer Approach: Ambulating Transfer Equipment: Front wheeled walker, Gait belt Level of Assistance: Contact guard assistance Assessment/Delivery: Assessed, Instructed, Educated, Therapist assisted, Facilitated Comments: 0.5-1m ambulation with FWW and CGA x1, 2nd person present for caution as goal was longer distance walk to toilet for toileting task - patient unable to ambulate longer distance due to fatigue [facility] Team Communication: Patient's nurse was contacted and patient's status was discussed, Discussed patient's care with PT Upon arrival in room patient was found semi-moss's position in bed, needs including call mcdonald/light in reach, alarm on. Following treatment patient was left long sitting in recliner chair, needs including call mcdonald/light in reach, alarm on. Assessment Discharge Considerations: Barriers to Discharge Home: Current functional status, Fall risk, Safety concerns Barriers to Discharge Comments: Weakness, limited activity tolerance Discharge Therapy Needs - OT: Ongoing skilled occupational therapy Level of Care Needed - OT: Assistance with toileting, Assistance with toilet/shower transfers, Assistance with showering/bathing, Assistance with dressing, Assistance with transportation, Physical assistance needed, Cognitive assistance needed, Assistance with housekeeping, Assistance with meal prep aration, Assistance with medication set up/administration, Assistance with entry level financial analyst, Assistance with shopping Today's Clinical Impression: Patient was admitted 04/18/2024 with a diagnosis of: Pneumonia Bacterial [J15.9]. Currently, patient presents with limitations including need for supplemental O2 when sleeping (now on RA during waking hours and with activity), nausea, impaired activity tolerance, decreased UE/LE strength bilaterally. Functional deficits: Decreased functional mobility and transfers - assist x1 and FWW for short distance (1m) functional mobility; decreased independence and safety in ADLs and IADLs - assist needed Recommend 04/12 assist vs SNF/TCU for ongoing skilled OT / PT services to address safety and activity tolerance needed for self cares and transfers Education was provided regarding evaluative findings, diagnosis, prognosis, potential risks and benefits of rehabilitation interventions. The treatment plan and discharge recommendations may be modified based upon pt response to treatment. Functional Goals and Timeframes: OT Goal: Rox Ramirez will participate in skilled OT evaluation for safe discharge disposition to least restrictive environment. OT Goal Date: 04/25/24 Goal Status: ongoing OT Goal: Rox Ramirez will participate in cognitive screen to determine cognitive baseline and assist in appropriate and safe discharge planning. OT Goal Date: 04/25/24 Goal Status: ongoing - will complete PRN OT Goal: Rox Ramirez will complete lower body dressing at a min assist level, using FWW asneeded OT Goal Date: 04/25/24 Goal Status: ongoing OT Goal: Rox Ramirez will demonstrate ability to safely complete toilet hygiene at a min assist level with FWW for standing balance OT Goal Date: 04/25/24 Goal Status: ongoing OT Goal: Rox Ramirez will demonstrate ability to complete commode transfer with FWW and min assist x1 OT Goal Date: 04/25/24 Goal Status: ongoing Plan Therapy attestation: Patient agrees with the plan of care and goals. OT Amount: 1 visit per day OT Frequency: 5 times per week OT Inpatient Duration : Until goals are met or hospital discharge Inpatient OT Received On Date: 04/24/24 Requires Inpatient OT Follow-Up: Yes OT - Next Inpatient Appointment: 04/25/24 Plan for next session: toileting (at toilet vs commode); lower body dressing (pants/brief); functional mobility Plan: Continue with current plan Treatment Interventions: Therapeutic functional activity, Therapeutic exercise, Self-care/home management Time Spent with Patient Therapeutic Interventions Therapeutic Activity (min): 25 min Time Tracking Total Timed Units (min): 25 min Total Treatment Time (min): 25 min HER WARP * Richard Martines, C.R.T., L.R.T. - 04/23/2024 6:14 PM CST Patient is a 88 y.o. female Height: 157.5 cm admitted on 04/18/2024 Principal Problem: Sepsis (HCC) RT Alert Info: svn Alert Information: RT Alert Info: svn Summary: Pt assessed and neb given. RT continue to assist and monitor as needed. Summary: Patient instructed in use of aerobika and demonstrated with good effort and technique. Patient encouraged to use on own in between coached sessions. NPC at this time. Recent ABG: No results for input(s): PO2 ART, PCO2 ART, PH ART, HCO3 ART, BASE EXC ART in the last 24hours. Richard Martines C.R.T., L.R.T. 04/23/24 6:14 PM HER WARP * Yanet Paulino M.D. - 04/23/2024 4:02 PM CST Images from the original note were not included. DATE OF ADMISSION: 04/18/2024 LOS: 5 days SUBJECTIVE The patient was seen and examined during morning rounds today Interval History: No acute events reported overnight She feels better overall today, weaning off oxygen but still has wheezes and rhonchi RT following along for proper pulmonary toileting Afebrile, WBC tending down Medications Scheduled Medication Ordered Dose/Rate, Route, Frequency Last Action amLODIPine tablet 10 mg (Norvasc) 10 mg, oral, Daily at bedtime Given, 10 mg at 04/[address] tablet 325 mg 325 mg, oral, Daily Given, 325 mg at 04/23 1113 atorvastatin tablet 20 mg (Lipitor) 20 mg, oral, Daily at bedtime Given, 20 mg at 04/22 2103 buPROPion XL 24 hr tablet 450 mg (Wellbutrin XL) 450 mg, oral, Daily Given, 450 mg at 04/23 1113 donepeziL tablet 10 mg (Aricept) 10 mg, oral, Daily at bedtime Given, 10 mg at 04/22 2103 fluticasone furoate-vilanteroL 100-25 mcg/actuation inhaler 1 puff (Breo Ellipta) 1 puff, inhl, Daily Given, 1 puff at 04/23 0716 furosemide injection 40 mg (Lasix) 40 mg, IV, BID Given, 40 mg at 04/23 111 guaiFENesin 12 hr tablet 600 mg (Mucinex) 600 mg, oral, BID Given, 600 mg at 04/23 1114 heparin (porcine) injection 5,000 Units 5,000 Units, SC, Q8H SANAM Given, 5,000 Units at 04/23 143 ipratropium-albuteroL 0.5-2.5 mg/3 mL nebulizer solution 3 mL (DuoNeb) 3 mL, nebu, 4x daily Given, 3 mL at 04/23 144 levothyroxine tablet 50 mcg 50 mcg, oral, Daily before morning meal Given, 50 mcg at 04/23 05 losartan tablet 50 mg (Cozaar) 50 mg, oral, Daily Given, 50 mg at 04/23 111 metoprolol tartrate tablet 50 mg (Lopressor) 50 mg, oral, Q8H Given, 50 mg at 04/23 143 mirtazapine tablet 7.5 mg (Remeron) 7.5 mg, oral, Daily at bedtime Given, 7.5 mg at 04/22 2103 oxyBUTYnin tablet 5 mg (Ditropan) 5 mg, oral, BID Given, 5 mg at 04/[address] tablet 40 mg (Protonix) 40 mg, oral, Daily before morning meal Given, 40 mg at 04/23 05 piperacillin-tazobactam 3.375 g in NaCl 0.9% IVPB (Zosyn) 3.375 g, IV, Q6H New Bag, 3.375 g at 04/23 143 sennosides-docusate sodium 8.6-50 mg per tablet 2 tablet (Senokot-S) 2 tablet, oral, BID Given, 2 tablet at 04/23 111 sertraline tablet 200 mg (Zoloft) 200 mg, oral, Daily Given, 200 mg at 04/23 1114 PRN Medication Ordered Dose/Rate, Route, Frequency Last Action acetaminophen tablet 1,000 mg (TylenoL) 1,000 mg, oral, Q6H PRN Given, 1,000 mg at 04/23 1421 benzonatate capsule 100 mg (Tessalon Perles) 100 mg, oral, TID PRN Given, 100 mg at 04/[address] tablet 10 mg (Dulcolax) 10 mg, oral, BID PRN Ordered bisacodyL suppository 10 mg (Dulcolax) 10 mg, rectal, Daily PRN Ordered polyethylene glycol powder packet 17 g (Miralax) 17 g, oral, Daily PRN Ordered OBJECTIVE VITAL SIGNS Temperature: [36 ??C-36.2 ??C] 36 ??C Heart Rate: [87-112] 98 Resp Rate: [18-30] 24 Blood Pressure: (104-132)/(62-97) 132/82 SpO2: [87 %-98 %] 95 % Flow Rate (L/min): [1 L/min-2 L/min] 1 L/min Weight: [74.3 kg] 74.3 kg BMI (Calculated): [30 kg/m??] 30 kg/m?? Pulse Rate: [84-115] 112 Intake/Output Last 24 Hours: Intake/Output Summary (Last 24 hours) at 04/23/2024 1602 Last data filed at 04/23/2024 1435 Gross per 24 hour Intake 1510 ml Output 1475 ml Net 35 ml Admission weight Weight: 76.2 kg Current weight Weight: 74.3 kg PHYSICAL EXAM Vitals and nursing note reviewed. Constitutional Appearance: She is obese. Comments: On oxygen per nasal cannula 2 liters/minute HENT Head: Normocephalic and atraumatic. Right Ear: External ear normal. Left Ear: External ear normal. Nose: Nose normal. Mouth/Throat: Mouth: Mucous membranes are moist. Eyes General: No scleral icterus. Extraocular Movements: Extraocular movements intact. Pupils: Pupils are equal, round, and reactive to light. Cardiovascular Rate and Rhythm: Normal rate and regular rhythm. Pulses: Normal pulses. Heart sounds: Normal heart sounds. Pulmonary Breath sounds: No wheezing, rhonchi or rales. Comments: Increased work of breathing Abdominal General: Abdomen is flat. Bowel sounds are normal. Palpations: Abdomen is soft. Tenderness: There is no abdominal tenderness. There is no guarding. Musculoskeletal Cervical back: Normal range of motion. Right lower leg: No edema. Left lower leg: No edema. Skin General: Skin is warm and dry. Capillary Refill: Capillary refill takes less than 2 seconds. Neurological General: No focal deficit present. Mental Status: She is alert and oriented to person, place, and time. Comments: forgetfull Psychiatric Mood and Affect: Mood normal. Behavior: Behavior normal. DIAGNOSTICS Echo Transthoracic (TTE) Result Date: 04/22/2024 Impression: Transthoracic outreach echo interpretation. LEFT VENTRICLE:Normal left ventricular chamber size. Concentric remodeling (increased wall thickness to cavity ratio). Anomalous left ventricular chord. Calculated 2-D linear left ventricular ejection fraction 65%. Elevated [...] assessment performed but not reported based upon payroll professional judgment). Global averaged left atrial biplane longitudinal [...] (PISA) 40 ml. Tricuspid regurgitation ERO (PISA) 0.37cm2. OTHER ECHO FINDINGS:Normal inferior vena cava size with normal inspiratory collapse (>50%).Normal mid ascending aorta diameter of 33 mm. Abdominal aorta incompletely visualized. Normal abdominal aorta Doppler flow pattern. Imaging inadequate for detection of atrial level shunt by color flow imaging. No intracardiac mass or thrombus, but the left atrial appendage cannot be visualized adequately with transthoracic echo to exclude thrombus in this location. No pericardial effusion. For the complete report, see the Order-Level Documents. CT Chest Angiogram and Pulmonary Arteries with IV Contrast Result Date: 04/21/2024 Impression: 1. No acute or chronic pulmonary embolism. 2. Multifocal pneumonia. 3. Enlarged mediastinal and right hilar lymph nodes which are likely reactive. 4. Constellation of findings suggestive of mild heart failure including biatrial enlargement, reflux of contrast into the IVC/intrahepatic veins, and small bilateral pleural effusions. DX Chest Portable 1 View Result Date: 04/19/2024 Impression: Multifocal consolidative and ground glass opacities, remains concerning for infection. Six-week follow-up recommended to resolution. CT Head without IV Contrast Result Date: 04/18/2024 Impression: 1. No acute intracranial findings. No significant interval change from 10/17/2018. DX Chest Portable 1 View Result Date: 04/18/2024 Impression: Comparison 08/14/23. Multiple consolidative and ground glass opacities throughout right lung are likely infectious pneumonia. Suggest six-week followup chest radiographs to assure resolution. Heart size normal. Lab results last 24 hours: Recent Results (from the past 24 hours) CBC with Differential, Blood Collection Time: 04/23/24 5:07 AM Result Value Hemoglobin 10.2 (L) Hematocrit 29.5 (L) Erythrocytes 3.15 (L) MCV 93.7 RBC Distrib Width 17.3 (H) Platelet Count 289 Leukocytes 11.8 (H) Neutrophils See manual differential Basic Metabolic Panel Collection Time: 04/23/24 5:07 AM Result Value Potassium, P 3.2 (L) Sodium, P 141 Chloride, P 100 Bicarbonate, P 29 Anion Gap, P 12 BUN (Blood Urea Nitrogen), P 24 (H) Creatinine 0.96 Estimated GFR (eGFR) 57 (L) Calcium, Total, P 8.9 Glucose, P 102 Manual Differential, Blood Collection Time: 04/23/24 5:07 AM Result Value Segmented Neutrophils 71 Lymphocytes % 20 Monocytes 5 Eosinophils 4 (H) Nucleated RBC 1 Manual Absolute Neutrophil Count 8.38 (H) Morphology Evaluation Collection Time: 04/23/24 5:07 AM Result Value RBC Morphology See Specific Findings PLT Morphology Normal PLT Estimate Adequate Anisocytosis Slight (A) Reactive/Atypical Lymphocytes Present (A) Elliptocytes Slight (A) Potassium Collection Time: 04/23/24 10:38 AM Result Value Potassium, P 3.3 (L) ASSESSMENT / PLAN #1 Sepsis (HCC) #2 Pneumonia Bacterial #3 Atrial Fibrillation Unspecified (HCC) #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 Chronic KidneyDisease Or Unspecified Chronic Kidney Disease (HCC) #7 Gastroesophageal Reflux Disease NOS #8 Hyperlipidemia Mixed #9 Osteoporosis #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 She was found on the floor by staff on 04/18 and brought to the emergency department. She wasdiagnosed with sepsis, CAP and atrial fibrillation with RVR [facility] Acute medical problems: Sepsis Bacterial community-acquired pneumonia Patient was found on the floor in her room at the assisted living facility. She had been feeling ill for the last couple of weeks with cough, shortness of breath and weakness. In the ED she was tachycardic with VR 110-120 and tachypneic. Her blood pressures were soft initially but later hypertensive. WBC 13.5 with 11.5 neutrophils, lactate 1.5 Chest x-ray on 04/18 revealed multiple consolidative and ground-glass opacities throughout the right lung. Repeat chest x-ray on 04/19 did not show significant change She was treated with fluid resuscitation, 1 L of saline and initiated on IV antibiotics (cefTRIAXone and azithromycin) and became hemodynamically more stable. She has been afebrile since admission, but still tachypneic with increased work of breathing. Her WBC however trended up consistently, 16.2 with neutrophils 13.9 on 04/21 Today, 04/21, respiratory culture ordered CT angiogram of chest on 04/21 negative for PE, presence of multifocal opacities, enlarged mediastinal and right hilar lymph nodes which are likely reactive, reflux of contrast into the IVC/intrahepatic veins and small bilateral pleural effusions. Ceftriaxone and azithromycin discontinued and started Zosyn on 04/21. Respiratory status improved. WBC: -on 04/22 12.2. with neutrophils 9.88 -on 04/23 11.8 with neutrophils 8.38 Blood and urine cultures from admission negative Legionella and Streptococcus pneumoniae urinary antigens negative Nasal PCR negative for MRSA Plan to complete 48 hours of Zosyn and then change to cefepime. Complete 7 days of antibiotics Acute resp failure with hypoxia She has acute hypoxic respiratory failure with tachypnea and oxygen requirement then went up to 4 liters/minute on 04/21. In spite of her multiple recurrent pneumonias and COPD, she is not oxygen dependent according to the medical record and was requiring 2 L per nasal cannula in the ED but after admission her oxygen requirement trended up in spite of nebulizers and antibiotics, on 04/21 she was on 4 liters/minute andhad increased work of breathing, crackles to bases but no wheezing. Respiratory status improved after antibiotic escalated to Zosyn and also diuretic started on 04/21. Oxygen requirement on 04/22 down to 2 liters/minute and to 1L//min on 04/23. Continue with respiratory therapy treatments and scheduled nebulizers. Added Mucinex and aerobic, encourage pulmonary hygiene, respiratory therapy following along. It was noticed her oxygen saturation improves when she coughs, suspect mucous plugging She is not wheezy, we may need to start on steroid. Possible heart failure with preserved ejection fraction with a acute exacerbation Echocardiogram from October 2018 showed ejection fraction 64%, no regional wall motion abnormalities, grade 2/4 left ventricular diastolic dysfunction consistent with moderately elevated left ventricular filling pressure, no significant valvular heart disease, normal IVC with normal inspiratory collapse. NT proBNP on 04/21 was elevated at 5444 (1488 in December 2022) and echocardiogram. Report on CT angiogram on 04/21 shows signs of fluid overload, started furosemide 40 mg IV bid Strict intake and output Daily weight Echocardiogram on 04/22 showed normal left ventricular chamber size, concentric remodeling, left ventricular ejection fraction 65%, elevated left ventricular filling pressure, no regional wall motionabnormalities; estimated right ventricular systolic pressure 62 mmHg, mild-moderate mitral valve regurgitation, normal IVC size with normal inspiratory collapse. Continue furosemide 40 mg IV bid, reassess in am Daily BMP Electrolyte replacement orders Atrial Fibrillation Unspecified with RVR Patient has a history of atrial fibrillation, not on full anticoagulation per her own choice according to chart review, rate control at home with metoprolol extended release 50 mg daily She had AFib with rapid ventricular response upon presentation to the emergency department. This was somewhat resolved with her receiving her morning medications. Her daily aspirin and metoprolol were continued. Metoprolol succinate was switched to metoprolol tartrate and on 04/20 it was increased to 50 mg t.i.d. On 04/21 she was in RVR again but VR improved after diuretics and change in antibiotics on 04/21 Continue to monitor closely with telemetry and titrate medications accordingly. Monitor potassium and magnesium, keep potassium 4.0 or higher and magnesium 2.0 or higher within normal range Electrolyte replacement protocol instituted Hypokalemia: Potassium 3.3 in am on 04/22, replaced per protocol Rechecked magnesium as well on 04/22 Chronic medical problems: Gastroesophageal Reflux Disease Patient on omeprazole at home, switched to pantoprazole after admission GERD could be the etiology of her possible recurrent aspiration pneumonitis. Speech therapy consulted, will not have speech therapy available until April 22. Hypothyroidism Continue thyroid replacement therapy. Hyperlipidemia Mixed Continue simvastatin Dementia Continue Aricept and Remeron at night for sleep. Hypertension Essential Primary Continue her hypertensive treatment with losartan, amlodipine, and her metoprolol. Following the IVfluid resuscitation her blood pressure improved. Continue to monitor carefully. 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 If she becomes hypotensive again, then will need to discontinue accordingly. BP has been stable, continue monitor per unit protocol Chronic kidney disease: For the last year patient's creatinine has been around 1.2. This admission it has been within normal range. We will continue to monitor closely, avoid nephrotoxins. Creatinine daily in a.m. Creatinine: at admission 0.99, on 04/22 is 0.91, on 04/23 is 0.96 HOSPITAL CARE ISSUES: Code status: DNR/DNI IV fluids: IV and Feeding Tubes Active Currently Name Placement date Placement time Site Days Peripheral IV 04/21/24 18 G Right Antecubital 04/21/24 1416 Antecubital 2 Diet:Current Diet Adult Diet Regular starting at 04/18 1604 VTE PPX: AntiCoag AntiPlatelet Meds IP/OP Heparins Refills Start End heparin (porcine) injection 5,000 Units -- 04/18/2024 -- 5,000 Units, subcutaneous, Every 8 hours scheduled Review: GI/VTE prophylaxis and Old records reviewed 20 minutes. Discharge Information: Expected Discharge Date: 04/25/2024. Projected disposition: Home - self care. HER WARP * Alexandra Zhong Pharm.D., R.Ph. - 04/23/2024 2:27 PM CST Pharmacist Progress Note Reason for admission: Pneumonia Bacterial [J15.9] OBJECTIVE VTE prophylaxis: Current Anti-Coagulation and Anti-Platelet Medications Medication Dose Route Last Rate Last Admin heparin (porcine) 5,000 Units subcutaneous 5,000 Units at 04/23/24 0554 Stress ulcer prophylaxis: PPI Lab Results Component Value Date WBC 11.8 (H) 04/23/2024 HGB 10.2 (L) 04/23/2024 HCT 29.5 (L) 04/23/2024 MCV 93.7 04/23/2024 PLT 289 04/23/2024 Lab Results Component Value Date NA 141 04/23/2024 KSERUM 5.2 (H) 06/20/2022 KPLASMA 3.3 (L) 04/23/2024 CL 100 04/23/2024 BICARB 29 04/23/2024 CREATININE 0.96 04/23/2024 CREATPOC 1.1 (H) 02/16/2020 EGFRNONBLKAA 48 (L) 12/21/2021 POCEGFRNONAA 47 (L) 02/16/2020 BUN 24 (H) 04/23/2024 ANIONGAP 12 04/23/2024 GLUCOSE 102 04/23/2024 GLUCOSEPOC 117 07/03/2022 CALCIUM 8.9 04/23/2024 Latest Reference Range & Units 04/20/24 05:56 04/21/24 05:26 04/22/24 05:23 04/23/24 05:07 Leukocytes 3.4 - 9.6 x10(9)/L 15.1 (H) 16.2 (H) 12.2 (H) 11.8 (H) (H): Data is abnormally high Antibiotics Dose/Rate Route Frequency Stop piperacillin-tazobactam 3.375 g in NaCl 0.9% IVPB (Zosyn) 3.375 g 100 mL/hr over 30 Minutes intravenous Every 6 hours Estimated Creatinine Clearance: 48.4 mL/min (by C-G formula based on SCr of 0.96 mg/dL). Intake/Output Summary (Last 24 hours) at 04/23/2024 1432 Last data filed at 04/23/2024 1010 Gross per 24 hour Intake 1510 ml Output 1075 ml Net 435 ml ASSESSMENT / PLAN # 1 Pneumonia Bacterial # 2 Acute Respiratory Failure Antibiotic: Zosyn (dosing appropriate for nosocomial indication and clinical monitoring) WBC continues to improve; continue to monitor daily (11.8 today, 16.2 on 04/21) Furosemide 40 mg IV BID - fluid overload per CT; goal of 1 L negative fluid balance Continuous oxygen 1 L/min via NS with SpO2 @ 95% Continue Advair as Aleksandr German QID # 3 Home Medications Patient is not on full anticoagulation for atrial fibrillation at home; prophylactic heparin while in hospital Home omeprazole changed to pantoprazole per hospital interchange policy Home medications ordered for hospital use: Tylenol, amLODIPine, aspirin (325 mg), buPROPion, donepezil, Synthroid, losartan, mirtazapine, oxyBUTYnin, sertraline, Lipitor Metoprolol increased to 50 mg Q8H for HR control, continue to monitor Changes to medications anticipated at discharge: TBD, possible antibiotics Alexandra Zhong, Pharm.D., R.Ph. The information and recommendations contained in this note are based on information available at the time of documentation. HER WARP * Amber Barr, P.T. - 04/23/2024 12:24 PM CST Physical Therapy Inpatient Treatment SUBJECTIVE Patient's Name: Rox Ramirez Referring/Attending Provider: Yanet Paulino M.D. Medical Diagnosis: Pneumonia Bacterial [J15.9] Reason for Referral: PT eval and treat Onset Date: 04/18/24 Payor: MEDICARE / Plan: MEDICARE A AND B / Product Type: Medicare / Patient Comments: Per nurse and HIM note and patient, likely ready to discharge by 04/25 or sooner,aiming for TCF to prepare her to return to her indep living [facility] with therapy services available for final transition to home. Patient is feeling better but would like a nap. Nurse encourages attempt to toilet and then to bed. Patient expresses fatigue as most limiting factorduring session. Nurse will be giving lasix and plans for use of PureWick to save patient energy, and may use commode rest of day as distance walked this session was very fatiguing and increased [place]. Additional Staff Present During Session: Lucie Moon RN Activity Orders (From admission, onward) Start Ordered 04/18/24 1559 Aspiration precautions Continuous 04/18/24 1603 04/18/24 1559 Fall precautions Continuous 04/18/24 1603 04/18/24 1558 Activity/Position: Up Ad Delilah, Up to Chair; Other (comment); Ambulate as much as possible considering previous activity level and physical functioning. Resume activity level following recovery from procedure and/or tests unless otherwise directed.... Until discontinued Question Answer Comment Activity Level: Up Ad Delilah Activity Level: Up to Chair Ambulation Goals: Other (comment) Ambulation goals comment: Ambulate as much as possible considering previous activity level and physical functioning. Resume activity level following recovery from procedure and/or tests unless otherwise directed. Up to chair goals: With meals Restrictions/Precautions: None Brace/Device: None 04/18/24 1603 Precautions Other Precautions: Fall risk Fall Risk (65 and older) Fall in the last 12 months: Yes Did you have an injury with the fall?: No Are you fearful of falling?: Yes Fall Risk Comments: Fall risk OBJECTIVE No pain behavior observed Bed Mobility - Sit to Supine # of Assistants: 2 Level of Assistance: Moderate assistance Comments: Needed assist to scoot back onto higher bed (at its lowest setting) and then lift LEs into bed for safety; also impaired due to STOCKTON and flat positioning Bed Mobility - Scooting # of Assistants: 2 Level of Assistance: Moderate assistance Comments: Patient able to follow commands, but was very fatigued after session and did not have stamina to scoot up in bed Sit to Stand Transfers Transfer Surface: Chair, Toilet/Commode Transfer Equipment: Gait belt, Front wheeled walker Level of Assistance: Contact guard assistance Assessment/Delivery: Therapist assisted, Assessed, Instructed, Facilitated Comments: Continues to needs VCs and visual cues for safer hand placement; too fatigued to be able to manage brief up/down. Fatigued by walk to toilet, required seated rest prior to pants down. Stand to Sit Transfers # of Assistants: 1 Transfer Surface: Toilet/Commode, Bed Transfer Equipment: Gait belt, Front wheeled walker Level of Assistance: Contact guard assistance, Supervision/set-up Assessment/Delivery: Assessed, Instructed, Therapist assisted, Facilitated, Educated Comments: Requires VCs to square to toilet and to bed, requires cues for safer use of grab bar Gait Assessment/Training Distance (m): 6 m (+ 5) Surface: Even Device: Gait belt, Front-wheeled walker # of Assistants: 1 Level of Assistance: Contact guard assistance Quality/Pattern: Shuffling Assessment of Gait: Continuous gait with kyphotic posture, extra effort to control FWW, small stepswith turns Cueing Provided: Verbal, Tactile Training/Intervention: Managed multiple lines. Cues for deep breathing. Turned O2 up from 0.5 LPM to 1.5 LPM. Response: O2 sats 88-89% at rest on 0.5 LPM; dips to 82% even with nurse increasing O2 to 2.0LPM. Recovers with seated rest and deep breathing in 2 min. Supine Exercises Supine Exercise: Ankle pumps, Heel slides Sets/Repetitions: x 10 Supine Exercise Comments: Patient asks if she should do exercises throughout the day. Encouraged toperform AM & PM. Seated Exercises Seated Exercise - Side Addressed: Bilateral Sets/Repetitions: x 30 seconds Seated Exercise Comments: Pillow punches for trunk and upper body stability and activity tolerance Team Communication: Patient's nurse was contacted and patient's status was discussed, craft worker/care management was contacted and patient's status was discussed, Primary service was contacted andpatient's status was discussed, Discussed patient's care with OT Upon arrival in room patient was found long sitting in recliner chair, needs including call mcdonald/light in reach, alarm on. Following treatment patient was left semi-moss's position in bed, needs including call mcdonald/light in reach, nurse present . 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 Currently, patient presents with limitations including improving, but still requiring 24/7 assist for difficulty with bed mobility, transfers, gait, and stair negotiation. Education was provided regarding evaluative findings, diagnosis, prognosis, potential risks and benefits of rehabilitation interventions. The treatment plan and discharge recommendations may be modified based upon pt response to treatment. Functional Goals and Timeframes: PT Goal #1: Patient will be able to ambulate 30 m with modified independence PT Goal #1 to be achieved by: 05/09/24 PT Goal #1 Status: Slowly progressing PT Goal #2: Patient will be able to perform all transfers with modified independence PT Goal #2 to be achieved by: 05/02/24 PT Goal #2 Status: Slowly progressing PT Goal #3: Patient will be able to perform bed mobility with modified independence PT Goal #3 to be achieved by: 05/02/24 PT Goal #3 Status: Slowly progressing Plan Therapy Attestation: Physical Therapy Attestation Statement: Patient agrees with the plan of care and goals. Plan: Continue with current plan Inpatient PT Received On Date: 04/23/24 Requires Inpatient Follow-Up: Yes PT - Next Inpatient Appointment: 04/24/24 Plan for next session: Check recall of seated HEP. Consider sit to stand repeats or advancing gait distance. Time Spent with Patient Therapeutic Interventions Gait Training (min): 10 min Therapeutic Activity (min): 10 min Therapeutic Exercise (min): 3 min Time Tracking Total Timed Units (min): 23 min Total Treatment Time (min): 23 min HER WARP * Susan Adan L.SArina. - 04/23/2024 10:50 AM CST Social Work Services (SWS) participated in Multidisciplinary Bedside Team Rounds along with Dr. Morse and RN-Lucie Parada. Provider, Dr. Morse discussed medical plan of care for the day. The change in antibiotic has very much improved her condition. Plan is to a short term swing bed at [facility]. Lito discussed who would Rox trust to make medical decisions when/if she can't make decisions. Rox stated that she trusts both her sons, Elvin & Dmitri. They are listed as her emergency contacts also. Anticipated discharge date is likely on April 25. Rox is now on oxygen and will likely need it for transport. HER WARP * Ijeoma Wu O.T. - 04/23/2024 9:18 AM CST Occupational Therapy Inpatient Treatment SUBJECTIVE Patient's Name: Rox Ramirez Referring/Attending Provider: Yanet Paulino M.D. Medical Diagnosis: Pneumonia Bacterial [J15.9] Reason for Referral: OT eval and treat found on floor at facility Onset Date: 04/18/24 Payor: MEDICARE / Plan: MEDICARE A AND B / Product Type: Medicare / Prior Mobility/Functional Transfers Level of [place]: Modified independent Gait Devices/Wheelchair Used: Four wheeled walker Prior Function/Occupational Profile Lives With: Alone Receives Help From: Family, Facility staff ADL Assistance: Independent ADL Assistance Comments: States that although she has a shower chair, she stands to shower; no issue dressing - able to don compression stockings on her own IADL/Homemaking Assistance: Modified independent IADL/Homemaking Assistance Comments: meal plan at the [facility] - typically will go do dining room but recently having meals delivered to her apartment; mod I with laundry; assist with cleaning and medications from staff Occupational Role: Retired Home Living Type of Home: Assisted living facility ((independent living)) Home Layout: One level Home Access: Level entry Bathroom Shower/Tub: Walk-in shower Walk-in shower location: Main floor Bathroom Toilet: Comfort height Home Equipment Bathroom Equipment: Grab bars in shower, Shower chair with back Patient Comments: patient resting in bed at [facility], states that she cant find her call light and would like to order breakfast. Agreeable to working with OT, getting up to chair and tolerate moreactivity. She shares that although it is early, it is a better day today than yesterday; states that yesterday morning / afternoon was not good and she was very weak. Agrees to importance of promoting activity and not using purewick during the daytime Activity Orders (From admission, onward) Start Ordered 04/18/24 1559 Aspiration precautions Continuous 04/18/24 1603 04/18/24 1559 Fall precautions Continuous 04/18/24 1603 04/18/24 1558 Activity/Position: Up Ad Delilah, Up to Chair; Other (comment); Ambulate as much as possible considering previous activity level and physical functioning. Resume activity level following recovery from procedure and/or tests unless otherwise directed.... Until discontinued Question Answer Comment Activity Level: Up Ad Delilah Activity Level: Up to Chair Ambulation Goals: Other (comment) Ambulation goals comment: Ambulate as much as possible considering previous activity level and physical functioning. Resume activity level following recovery from procedure and/or tests unless otherwise directed. Up to chair goals: With meals Restrictions/Precautions: None Brace/Device: None 04/18/24 1603 Precautions Other Precautions: falls, cognition, supplemental O2 Fall Risk (65 and older) Fall in the last 12 months: Yes Did you have an injury with the fall?: No Are you fearful of falling?: Yes Fall Risk Comments: Fall risk OBJECTIVE No pain behavior observed Cognition Cognitive assessment method: Therapist observations Arousal/Alertness: Appropriate responses to stimuli Attention: Addressed, no concerns noted Initiation: No difficulty with initiation Following Commands: Follows all commands/directions without difficulty Safety/Judgment: Addressed, no concerns noted Cognition Comments: continue to assess as needed, improved cognition today - more alert, also better with hearing aids in place Activity Tolerance Activity Tolerance Comments: on 1LPM, SpO2 ranges 80-93% with activity and rest - although observeda poor pleth reading, did increase O2 to 1.5LPM; discuss with RN to monitor and may benefit from new sensor being applied LE Dressing LE Dressing Location: Chair LE Dressing Delivery: Assessed, Facilitated LE Dressing Items Included: Socks LE Dressing Level of Assistance: Supervision/Set-up, Modified independent LE Dressing Comments: patient able to doff socks mod I in a figure 4 position; dons mod I with additional time / effort - does need 2-3 tries before successfully donning R sock but does without assist. States that typically she wears compression stockings and that they can take up to 30 min to get on Toileting Toileting Comments: Purewick in place at OT approach - removed for mobility and transfer; patient educated and advised on benefit of removing purewick during daytime hours to promote increased activity tolerance and transfers with staff assist - patient agreeable Bed Mobility - Supine to Sit # of Assistants: 1 Level of Assistance: Supervision/Set-up Device: Head of bed elevated, Bed rail Cuing: Verbal, Tactile Comments: patient is able to advance LE's over EOB with cueing to initiate task; able to use bed rail without cueing to assist in transitioning to upright position. Able to scoot hips toward EOB mod I. Improved ability compared to yesterday Sit to Stand Transfers # of Assistants: 1 Transfer Surface: Bed Transfer Equipment: Gait belt, Front wheeled walker Level of Assistance: Contact guard assistance Assessment/Delivery: Therapist assisted, Assessed, Instructed, Facilitated Comments: vcs for safe hand placement, appropriate power to rise to standing with CGA x1 and FWW Stand to Sit Transfers # of Assistants: 1 Transfer Surface: Chair Transfer Equipment: Gait belt, Front wheeled walker Level of Assistance: Contact guard assistance, Supervision/set-up Assessment/Delivery: Assessed, Instructed, Therapist assisted, Facilitated, Educated Comments: independnetly able to square up to chair before sitting and reach back to arm rest for controlled descent Other Transfers # of Assistants: 1 Transfer Approach: Ambulating Transfer Equipment: Front wheeled walker, Gait belt Level of Assistance: Contact guard assistance, Supervision/set-up Assessment/Delivery: Assessed, Instructed, Educated, Therapist assisted, Facilitated Comments: 1.5m ambulation with FWW and CGAx1, assist with lines Team Communication: Patient's nurse was contacted and patient's status was discussed, Discussed patient's care with PT Upon arrival in room patient was found semi-moss's position in bed, needs including call mcdonald/light in reach, alarm on. Following treatment patient was left long sitting in recliner chair, needs including call mcdonald/light in reach, alarm on. Assessment Discharge Considerations: Barriers to Discharge Home: Current functional status, Fall risk, Safety concerns Discharge Therapy Needs - OT: Ongoing skilled occupational therapy Level of Care Needed - OT: Assistance with toileting, Assistance with toilet/shower transfers, Assistance with showering/bathing, Assistance with dressing, Assistance with transportation, Physical assistance needed, Cognitive assistance needed, Assistance with housekeeping, Assistance with meal prep aration, Assistance with medication set up/administration, Assistance with entry level financial analyst, Assistance with shopping Today's Clinical Impression: Patient was admitted 04/18/2024 with a diagnosis of: Pneumonia Bacterial [J15.9]. Currently, patient presents with limitations including need for supplemental O2 (desaturates with activity), elevated HR, impaired activity tolerance, decreased UE/LE strength bilaterally. Functional deficits: Decreased functional mobility and transfers - assist x1 and FWW for short distance functional mobility; decreased independence and safety in ADLs and IADLs - assist needed Recommend 04/12 assist vs SNF/TCU for ongoing skilled OT / PT services to address safety and activity tolerance needed for self cares and transfers Education was provided regarding evaluative findings, diagnosis, prognosis, potential risks and benefits of rehabilitation interventions. The treatment plan and discharge recommendations may be modified based upon pt response to treatment. Functional Goals and Timeframes: OT Goal: Rox Ramirez will participate in skilled OT evaluation for safe discharge disposition to least restrictive environment. OT Goal Date: 04/25/24 Goal Status: ongoing OT Goal: Rox Ramirez will participate in cognitive screen to determine cognitive baseline and assist in appropriate and safe discharge planning. OT Goal Date: 04/25/24 Goal Status: ongoing - will complete PRN OT Goal: Rox Ramirez will complete lower body dressing at a min assist level, using FWW asneeded OT Goal Date: 04/25/24 Goal Status: ongoing OT Goal: Rox Ramirez will demonstrate ability to safely complete toilet hygiene at a min assist level with FWW for standing balance OT Goal Date: 04/25/24 Goal Status: ongoing OT Goal: Rox Ramirez will demonstrate ability to complete commode transfer with FWW and min assist x1 OT Goal Date: 04/25/24 Goal Status: ongoing Plan Therapy attestation: Patient agrees with the plan of care and goals. OT Amount: 1 visit per day OT Frequency: 5 times per week OT Inpatient Duration : Until goals are met or hospital discharge Inpatient OT Received On Date: 04/23/24 Requires Inpatient OT Follow-Up: Yes OT - Next Inpatient Appointment: 04/24/24 Plan for next session: toileting (at toilet); lower body dressing (pants/brief); functional mobility Plan: Continue with current plan Treatment Interventions: Therapeutic functional activity, Therapeutic exercise, Self-care/home management Time Spent with Patient Therapeutic Interventions Home Management Training (min): 28 min Time Tracking Total Timed Units (min): 28 min Total Treatment Time (min): 28 min HER WARP * Amber Barr, P.T. - 04/22/2024 3:40 PM CST Physical Therapy Inpatient Treatment SUBJECTIVE Patient's Name: Rox Ramirez Referring/Attending Provider: Yanet Paulino M.D. Medical Diagnosis: Pneumonia Bacterial [J15.9] Reason for Referral: PT eval and treat Onset Date: 04/18/24 Payor: MEDICARE / Plan: MEDICARE A AND B / Product Type: Medicare / Patient Comments: Patient is resting in bed at PT approach, wakens to PT entering the room. Willingto do exercise, try to stand and walk and sit in the chair. She is more alert today, answering questions without delay, correct in her responses and knew that her nurse had left for the day. Patient said she felt very tired yesterday but feels somewhat better today. She is on 2 LPM at rest, per NC. Additional Staff Present During Session: Leti and Shruthi Nuñez Activity Orders (From admission, onward) Start Ordered 04/18/24 1559 Aspiration precautions Continuous 04/18/24 1603 04/18/24 1559 Fall precautions Continuous 04/18/24 1603 04/18/24 1558 Activity/Position: Up Ad Delilah, Up to Chair; Other (comment); Ambulate as much as possible considering previous activity level and physical functioning. Resume activity level following recovery from procedure and/or tests unless otherwise directed.... Until discontinued Question Answer Comment Activity Level: Up Ad Delilah Activity Level: Up to Chair Ambulation Goals: Other (comment) Ambulation goals comment: Ambulate as much as possible considering previous activity level and physical functioning. Resume activity level following recovery from procedure and/or tests unless otherwise directed. Up to chair goals: With meals Restrictions/Precautions: None Brace/Device: None 04/18/24 1603 Precautions Other Precautions: Fall risk Fall Risk (65 and older) Fall in the last 12 months: Yes Did you have an injury with the fall?: No Are you fearful of falling?: Yes Fall Risk Comments: Fall risk OBJECTIVE No pain behavior observed Bed Mobility - Supine to Sit # of Assistants: 1 Level of Assistance: Minimal assistance Device: Head of bed elevated, Bed rail Cuing: Verbal, Tactile Comments: patient able to advance LE's over EOB with cueing to do so; vcs for hand placement on bedrail, min assist at draw sheet to scoot hips toward EOB and min assist to come to upright sit Sit to Stand Transfers # of Assistants: 2 (due to multiple lines: O2, PureWick, telemetry, pulse Ox) Transfer Surface: Bed Transfer Equipment: Gait belt, Front wheeled walker Level of Assistance: Minimal assistance Assessment/Delivery: Therapist assisted, Assessed, Instructed, Facilitated Comments: vcs for safe hand placement and 1-2-3 forward weight shift; able to come to standing withminA1; second person assist with lines Stand to Sit Transfers # of Assistants: 1 Transfer Surface: Chair Transfer Equipment: Gait belt, Front wheeled walker Level of Assistance: Contact guard assistance Assessment/Delivery: Assessed, Instructed, Therapist assisted, Facilitated, Educated Comments: VCs to reach for armrests and control descent Gait Assessment/Training Distance (m): 1 m Surface: Even Device: Gait belt, Front-wheeled walker # of Assistants: 1 (second person manages multiple lines) Level of Assistance: Contact guard assistance Quality/Pattern: Shuffling Stability: Safe and stable with static standing at FWW, increase trunk sway with use of FWW Assessment of Gait: Continuous gait with increased frontal plane sway, small steps with turns, but able to manage FWW with occasional assist Training/Intervention: Assessed FWW fit and brought different walker. VCs for posture and keeping fww closer Response: Patient reports fatigue. SpO2 decreased to 86% until nurse incrased O2 to 4 LPM and then recovery to 90%; PT guided in verbal cues and demo to breathe through nose Supine Exercises Supine Exercise: Ankle pumps, Heel slides Seated Exercises Seated Exercise - Side Addressed: Bilateral Sets/Repetitions: x 30 seconds Seated Exercise Comments: Pillow punches for trunk and upper body stability and activity tolerance Team Communication: craft worker/care management was contacted and patient's status was discussed,Patient's nurse was contacted and patient's status was discussed, Discussed patient's care with OT Upon arrival in room patient was found semi-moss's position in bed, needs including call mcdonald/light in reach, alarm on. Following treatment patient was left long sitting in recliner chair, needs including call mcdonald/light in reach, nurse present . 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 Currently, patient presents with limitations including improving, but still requiring 24/7 assist for difficulty with bed mobility, transfers, gait, managing household tasks to conserve energy. Education was provided regarding evaluative findings, diagnosis, prognosis, potential risks and benefits of rehabilitation interventions. The treatment plan and discharge recommendations may be modified based upon pt response to treatment. Functional Goals and Timeframes: PT Goal #1: Patient will be able to ambulate 30 m with modified independence PT Goal #1 to be achieved by: 05/09/24 PT Goal #1 Status: Slowly progressing PT Goal #2: Patient will be able to perform all transfers with modified independence PT Goal #2 to be achieved by: 05/02/24 PT Goal #2 Status: Slowly progressing PT Goal #3: Patient will be able to perform bed mobility with modified independence PT Goal #3 to be achieved by: 05/02/24 PT Goal #3 Status: Slowly progressing Plan Therapy Attestation: Physical Therapy Attestation Statement: Patient agrees with the plan of care and goals. Plan: Continue with current plan Inpatient PT Received On Date: 04/22/24 Requires Inpatient Follow-Up: Yes PT - Next Inpatient Appointment: 04/23/24 Plan for next session: Advance gait distance, with chair following if possible. Repeat sit<>stands. Consider seated ex program. Time Spent with Patient Therapeutic Interventions Therapeutic Activity (min): 15 min Therapeutic Exercise (min): 8 min Time Tracking Total Timed Units (min): 23 min Total Treatment Time (min): 23 min HER WARP * Susan Adan L.S.W. - 04/22/2024 12:00 PM CST Social Work Services (SWS) participated in Bedside Team Rounds along with Lito Caal. Provider, Dr. Morse discussed medical plan of care for the day. Plan is to discharge to home to [facility], although, we discussed short term rehab Discussed Medicare coverage/non-coverage, including a medical need to remain in the hospital as an inpatient for at least three consecutive midnights, a skilled need, patients participation and the ability to document patients progress in order for coverage at a Care Home Facility(SNF). Vendor Choices Provided:1st choice is [facility], as she has been there previously, (may also choose [facility] also) as she wants a swing bed, if possible, 2nd choice of preferred SNF is [facility]. Referrals are pending at all facilities listed. No additional DME or services needed at this time as they will be provided for her at short term rehab. SWS contact information was provided and they were encouraged to reach out if any questions arise. HER WARP * Ijeoma Wu O.T. - 04/22/2024 9:08 AM CST Occupational Therapy Inpatient Treatment SUBJECTIVE Patient's Name: Rox Ramirez Referring/Attending Provider: Yanet Paulino M.D. Medical Diagnosis: Pneumonia Bacterial [J15.9] Reason for Referral: OT eval and treat found on floor at facility Onset Date: 04/18/24 Payor: MEDICARE / Plan: MEDICARE A AND B / Product Type: Medicare / Prior Mobility/Functional Transfers Level of [place]: Modified independent Gait Devices/Wheelchair Used: Four wheeled walker Prior Function/Occupational Profile Lives With: Alone Receives Help From: Family, Facility staff ADL Assistance: Independent ADL Assistance Comments: States that although she has a shower chair, she stands to shower; no issue dressing - able to don compression stockings on her own IADL/Homemaking Assistance: Modified independent IADL/Homemaking Assistance Comments: meal plan at the [facility] - typically will go do dining room but recently having meals delivered to her apartment; mod I with laundry; assist with cleaning and medications from staff Occupational Role: Retired Home Living Type of Home: Assisted living facility ((independent living)) Home Layout: One level Home Access: Level entry Bathroom Shower/Tub: Walk-in shower Walk-in shower location: Main floor Bathroom Toilet: Comfort height Home Equipment Bathroom Equipment: Grab bars in shower, Shower chair with back Patient Comments: Patient is resting in bed at OT arrival, agreeable to getting up to chair for breakfast. Denies pain but upon sitting EOB, does complain of nausea; relieved by pursed lip breathing and additional time to rest. Additional Staff Present During Session: Chelle MONACO Activity Orders (From admission, onward) Start Ordered 04/18/24 1559 Aspiration precautions Continuous 04/18/24 1603 04/18/24 1559 Fall precautions Continuous 04/18/24 1603 04/18/24 1558 Activity/Position: Up Ad Delilah, Up to Chair; Other (comment); Ambulate as much as possible considering previous activity level and physical functioning. Resume activity level following recovery from procedure and/or tests unless otherwise directed.... Until discontinued Question Answer Comment Activity Level: Up Ad Delilah Activity Level: Up to Chair Ambulation Goals: Other (comment) Ambulation goals comment: Ambulate as much as possible considering previous activity level and physical functioning. Resume activity level following recovery from procedure and/or tests unless otherwise directed. Up to chair goals: With meals Restrictions/Precautions: None Brace/Device: None 04/18/24 1603 Precautions Other Precautions: falls, cognition, supplemental O2 Fall Risk (65 and older) Fall in the last 12 months: Yes Did you have an injury with the fall?: No Are you fearful of falling?: Yes Fall Risk Comments: Fall risk OBJECTIVE No pain behavior observed Activity Tolerance Endurance: Tolerates less than 10 min of activity, Requires rest breaks Activity Tolerance Comments: on 3LPM, SpO2 ranges 79-89% with activity - although RN indicates thatsensor is not obtaining a good pleth read; with new pulse ox applied, SpO2 96% at rest Feeding Feeding Location: Chair Feeding Level of Assistance: Modified independent, Supervision/Set-up Feeding Comments: Patient setup in chair with breakfast tray, setup assist to to open containers Toileting Toileting Comments: Currently has purwick in place, although it is removed for functional transfer;denies need for bowel movement / commode use Bed Mobility - Supine to Sit # of Assistants: 1 Level of Assistance: Minimal assistance Device: Head of bed elevated, Bed rail Cuing: Verbal, Tactile Comments: patient able to advance LE's over EOB with cueing to do so; vcs for hand placement on bedrail, min assist at draw sheet to scoot hips toward EOB and min assist to come to upright sititng once bed is flattened Sit to Stand Transfers # of Assistants: 2 Transfer Surface: Bed Transfer Equipment: Gait belt, Front wheeled walker Level of Assistance: Minimal assistance Assessment/Delivery: Therapist assisted, Assessed, Instructed, Facilitated Comments: vcs for safe hand placement and 1-2-3 forward weight shift; able to come to standing withminA1-2 Stand to Sit Transfers # of Assistants: 1 (2nd person present) Transfer Surface: Chair Transfer Equipment: Gait belt, Front wheeled walker Level of Assistance: Minimal assistance Assessment/Delivery: Assessed, Instructed, Therapist assisted, Facilitated, Educated Comments: cueing to center self in middle of chair; assist to reach for armrests and control descent. Other Transfers # of Assistants: 2 Transfer Approach: Ambulating, Stand pivot Transfer Equipment: Front wheeled walker, Gait belt Level of Assistance: Minimal assistance Assessment/Delivery: Assessed, Instructed, Educated, Therapist assisted, Facilitated Comments: Stand pivot bed>chair with 3-4 steps between surfaces; min assist x1-2 with FWW, fair tolerance but assist to move FWW Team Communication: Patient's nurse was contacted and patient's status was discussed Upon arrival in room patient was found semi-moss's position in bed, needs including call mcdonald/light in reach, RN present . Following treatment patient was left seated in the chair, needs including call mcdonald/light in reach, alarm on, RN present . Assessment Discharge Considerations: Barriers to Discharge Home: Current functional status, Fall risk, Safety concerns Discharge Therapy Needs - OT: Ongoing skilled occupational therapy Level of Care Needed - OT: Assistance with toileting, Assistance with toilet/shower transfers, Assistance with showering/bathing, Assistance with dressing, Assistance with transportation, Physical assistance needed, Cognitive assistance needed, Assistance with housekeeping, Assistance with meal prep aration, Assistance with medication set up/administration, Assistance with entry level financial analyst, Assistance with shopping Today's Clinical Impression: Patient was admitted 04/18/2024 with a diagnosis of: Pneumonia Bacterial [J15.9]. Currently, patient presents with limitations including need for supplemental O2 (desaturates with activity), elevated HR, impaired activity tolerance, decreased UE/LE strength bilaterally, nausea. Functional deficits: Decreased functional mobility and transfers - assist x1-2 needed stand pivot with a few steps, assist with navigating FWW; decreased independence and safety in ADLs and IADLs - assist needed Recommend 04/12 assist vs SNF/TCU Education was provided regarding evaluative findings, diagnosis, prognosis, potential risks and benefits of rehabilitation interventions. The treatment plan and discharge recommendations may be modified based upon pt response to treatment. Functional Goals and Timeframes: OT Goal: Rox Ramirez will participate in skilled OT evaluation for safe discharge disposition to least restrictive environment. OT Goal Date: 04/25/24 Goal Status: ongoing OT Goal: Rox Ramirez will participate in cognitive screen to determine cognitive baseline and assist in appropriate and safe discharge planning. OT Goal Date: 04/25/24 Goal Status: ongoing - will complete PRN OT Goal: Rox Ramirez will complete lower body dressing at a min assist level, using FWW asneeded OT Goal Date: 04/25/24 Goal Status: ongoing OT Goal: Rox Ramirez will demonstrate ability to safely complete toilet hygiene at a min assist level with FWW for standing balance OT Goal Date: 04/25/24 Goal Status: ongoing OT Goal: Rox Ramirez will demonstrate ability to complete commode transfer with FWW and min assist x1 OT Goal Date: 04/25/24 Goal Status: ongoing Plan Therapy attestation: Patient agrees with the plan of care and goals. OT Amount: 1 visit per day OT Frequency: 5 times per week OT Inpatient Duration : Until goals are met or hospital discharge Inpatient OT Received On Date: 04/22/24 Requires Inpatient OT Follow-Up: Yes OT - Next Inpatient Appointment: 04/23/24 Plan for next session: lower body dressing, functional transfers, toileting Plan: Continue with current plan Treatment Interventions: Therapeutic functional activity, Therapeutic exercise, Self-care/home management Time Spent with Patient Therapeutic Interventions Therapeutic Activity (min): 17 min Time Tracking Total Timed Units (min): 17 min Total Treatment Time (min): 17 min HER WARP * Yanet Paulino M.D. - 04/22/2024 7:59 AM CST Images from the original note were not included. DATE OF ADMISSION: 04/18/2024 LOS: 4 days SUBJECTIVE The patient was seen and examined during morning rounds today Interval History: No acute events reported overnight, it seems her respiratory effort is improved Yesterday she had workup to rule out PE, CT angiogram was negative for PE, confirmed multifocal pneumonia with enlarged mediastinal and right hilar lymph nodes, likely reactive and also a number of findings suggestive of mild heart failure. NT proBNP was elevated to 5444. Echocardiogram ordered, anticipate it will be done today Started furosemide IV, ceftriaxone and azithromycin discontinued, switched to Zosyn, respiratory culture ordered. Since yesterday her tachycardia resolved, tachypnea resolved, oxygen requirement trended down from 4 liters/minute to 2.5 liters/minute. She remains afebrile Fluid balance since yesterday is around -1L Medications Scheduled Medication Ordered Dose/Rate, Route, Frequency Last Action amLODIPine tablet 10 mg (Norvasc) 10 mg, oral, Daily at bedtime Given, 10 mg at 04/[address] tablet 325 mg 325 mg, oral, Daily Given, 325 mg at 04/21 1022 atorvastatin tablet 20 mg (Lipitor) 20 mg, oral, Daily at bedtime Given, 20 mg at 04/21 2054 buPROPion XL 24 hr tablet 450 mg (Wellbutrin XL) 450 mg, oral, Daily Given, 450 mg at 04/21 1022 donepeziL tablet 10 mg (Aricept) 10 mg, oral, Daily at bedtime Given, 10 mg at 04/21 2055 fluticasone furoate-vilanteroL 100-25 mcg/actuation inhaler 1 puff (Breo Ellipta) 1 puff, inhl, Daily Given, 1 puff at 04/21 755 furosemide injection 40 mg (Lasix) 40 mg, IV, BID Given, 40 mg at 04/21 1705 heparin (porcine) injection 5,000 Units 5,000 Units, SC, Q8H SANAM Given, 5,000 Units at 04/22 602 ipratropium-albuteroL 0.5-2.5 mg/3 mL nebulizer solution 3 mL (DuoNeb) 3 mL, nebu, 4x daily Given, 3 mL at 04/21 1937 levothyroxine tablet 50 mcg 50 mcg, oral, Daily before morning meal Given, 50 mcg at 12/10 0602 losartan tablet 50 mg (Cozaar) 50 mg, oral, Daily Given, 50 mg at 04/21 1023 metoprolol tartrate tablet 50 mg (Lopressor) 50 mg, oral, Q8H Given, 50 mg at 04/22 602 mirtazapine tablet 7.5 mg (Remeron) 7.5 mg, oral, Daily at bedtime Given, 7.5 mg at 04/21 2054 oxyBUTYnin tablet 5 mg (Ditropan) 5 mg, oral, BID Given, 5 mg at 04/[address] tablet 40 mg (Protonix) 40 mg, oral, Daily before morning meal Given, 40 mg at 04/22 602 piperacillin-tazobactam 3.375 g in NaCl 0.9% IVPB (Zosyn) 3.375 g, IV, Q6H New Bag, 3.375 g at 04/22 150 potassium chloride ER tablet 40 mEq (Klor-Con M) 40 mEq, oral, Once Ordered sertraline tablet 200 mg (Zoloft) 200 mg, oral, Daily Given, 200 mg at 04/21 102 PRN Medication Ordered Dose/Rate, Route, Frequency Last Action acetaminophen tablet 1,000 mg (TylenoL) 1,000 mg, oral, Q6H PRN Given, 1,000 mg at 04/18 2115 benzonatate capsule 100 mg (Tessalon Perles) 100 mg, oral, TID PRN Given, 100 mg at 04/20 2053 OBJECTIVE VITAL SIGNS Temperature: [36 ??C-36.7 ??C] 36.1 ??C Heart Rate: [82-124] 102 Resp Rate: [20-36] 20 Blood Pressure: (113-158)/(55-87) 141/82 SpO2: [83 %-99 %] 92 % Flow Rate (L/min): [1.5 L/min-5 L/min] 2.5 L/min Weight: [74.5 kg] 74.5 kg BMI (Calculated): [30 kg/m??] 30 kg/m?? Pulse Rate: [93-115] 96 Intake/Output Last 24 Hours: Intake/Output Summary (Last 24 hours) at 04/22/2024 0759 Last data filed at 04/22/2024 0600 Gross per 24 hour Intake 1650 ml Output 2800 ml Net -1150 ml Admission weight Weight: 76.2 kg Current weight Weight: 74.5 kg PHYSICAL EXAM Vitals and nursing note reviewed. Constitutional General: She is in acute distress (increased work of breathing). Appearance: She is obese. Comments: On oxygen per nasal cannula 4 liters/minute HENT Head: Normocephalic and atraumatic. Right Ear: External ear normal. Left Ear: External ear normal. Nose: Nose normal. Mouth/Throat: Mouth: Mucous membranes are moist. Eyes General: No scleral icterus. Extraocular Movements: Extraocular movements intact. Pupils: Pupils are equal, round, and reactive to light. Cardiovascular Rate and Rhythm: Normal rate and regular rhythm. Pulses: Normal pulses. Heart sounds: Normal heart sounds. Pulmonary Effort: Respiratory distress present. Breath sounds: Rales (both bases) present. No wheezing. Comments: Increased work of breathing Abdominal General: Abdomen is flat. Bowel sounds are normal. Palpations: Abdomen is soft. Tenderness: There is no abdominal tenderness. There is no guarding. Musculoskeletal Cervical back: Normal range of motion. Right lower leg: No edema. Left lower leg: No edema. Skin General: Skin is warm and dry. Capillary Refill: Capillary refill takes less than 2 seconds. Neurological General: No focal deficit present. Mental Status: She is alert and oriented to person, place, and time. Comments: forgetfull Psychiatric Mood and Affect: Mood normal. Behavior: Behavior normal. DIAGNOSTICS Echo Transthoracic (TTE) Result Date: 04/22/2024 Impression: Transthoracic outreach echo interpretation. LEFT VENTRICLE:Normal left ventricular chamber size. Concentric remodeling (increased wall thickness to cavity ratio). Anomalous left ventricular chord. Calculated 2-D linear left ventricular ejection fraction 65%. Elevated [...] assessment performed but not reported based upon payroll professional judgment). Global averaged left atrial biplane longitudinal [...] (PISA) 40 ml. Tricuspid regurgitation ERO (PISA) 0.37cm2. OTHER ECHO FINDINGS:Normal inferior vena cava size with normal inspiratory collapse (>50%).Normal mid ascending aorta diameter of 33 mm. Abdominal aorta incompletely visualized. Normal abdominal aorta Doppler flow pattern. Imaging inadequate for detection of atrial level shunt by color flow imaging. No intracardiac mass or thrombus, but the left atrial appendage cannot be visualized adequately with transthoracic echo to exclude thrombus in this location. No pericardial effusion. For the complete report, see the Order-Level Documents. CT Chest Angiogram and Pulmonary Arteries with IV Contrast Result Date: 04/21/2024 Impression: 1. No acute or chronic pulmonary embolism. 2. Multifocal pneumonia. 3. Enlarged mediastinal and right hilar lymph nodes which are likely reactive. 4. Constellation of findings suggestive of mild heart failure including biatrial enlargement, reflux of contrast into the IVC/intrahepatic veins, and small bilateral pleural effusions. DX Chest Portable 1 View Result Date: 04/19/2024 Impression: Multifocal consolidative and groundglass opacities, remains concerning for infection. Six-week follow-up recommended to resolution. CT Head without IV Contrast Result Date: 04/18/2024 Impression: 1. No acute intracranial findings. No significant interval change from 10/17/2018. DX Chest Portable 1 View Result Date: 04/18/2024 Impression: Comparison 08/14/23. Multiple consolidative and groundglass opacities throughout right lung are likely infectious pneumonia. Suggest six-week followup chest radiographs to assure resolution. Heart size normal. 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 Chronic KidneyDisease Or Unspecified Chronic Kidney Disease (HCC) #7 Gastroesophageal Reflux Disease NOS #8 Hyperlipidemia Mixed #9 Osteoporosis #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 She was found on the floor by staff on 04/18 and brought to the emergency department. She wasdiagnosed with sepsis, CAP and atrial fibrillation with RVR and admitted to the [facility] Acute medical problems: Sepsis Bacterial community-acquired pneumonia Patient was found on the floor in her room at the assisted living facility. She had been feeling ill for the last couple of weeks with cough, shortness of breath and weakness. In the ED she was tachycardic with VR 110-120 and tachypneic. Her blood pressures were soft initially but later hypertensive. WBC 13.5 with 11.5 neutrophils, lactate 1.5 Chest x-ray on 04/18 revealed multiple consolidative and ground-glass opacities throughout the right lung. Repeat chest x-ray on 04/19 did not show significant change She was treated with fluid resuscitation, 1 L of saline and initiated on IV antibiotics (cefTRIAXone and azithromycin) and became hemodynamically more stable. She has been afebrile since admission, but still tachypneic with increased work of breathing. Her WBC however trended up consistently, 16.2 with neutrophils 13.9 on 04/21 Today, 04/21, respiratory culture ordered CT angiogram of chest on 04/21 negative for PE, presence of multifocal opacities, enlarged mediastinal and right hilar lymph nodes which are likely reactive, reflux of contrast into the IVC/intrahepatic veins and small bilateral pleural effusions. Ceftriaxone and azithromycin discontinued and started Zosyn on 04/21. Respiratory status improved, WBC this am down to 12.2. with neutrophils 9.88 Plan to complete 48 hours of Zosyn and then change to cefepime Acute resp failure with hypoxia She has acute hypoxic respiratory failure with tachypnea and oxygen requirement then went up to 4 liters/minute on 04/21. In spite of her multiple recurrent pneumonias and COPD, she is not oxygen dependent according to the medical record and was requiring 2 L per nasal cannula in the ED but after admission her oxygen requirement trended up in spite of nebulizers and antibiotics, on 04/21 she was on 4 liters/minute andhad increased work of breathing, crackles to bases but no wheezing. Respiratory status improved after antibiotic escalated to Zosyn and also diuretic started on 04/21. Oxygen requirement on 04/22 down to 2 liters/minute Continue with respiratory therapy treatments and scheduled nebulizers. Added Mucinex and aerobic, encourage pulmonary hygiene, respiratory therapy following along. It was noticed her oxygen saturation improves when she coughs, suspect mucous plugging She is not wheezy, we may need to start on steroid. Possible heart failure with preserved ejection fraction with a acute exacerbation Echocardiogram from October 2018 showed ejection fraction 64%, no regional wall motion abnormalities, grade 2/4 left ventricular diastolic dysfunction consistent with moderately elevated left ventricular filling pressure, no significant valvular heart disease, normal IVC with normal inspiratory collapse. NT proBNP on 04/21 was elevated at 5444 (1488 in December 2022) and echocardiogram. Report on CT angiogram on 04/21 shows signs of fluid overload, started furosemide 40 mg IV bid Strict intake and output Daily weight Echocardiogram on 04/22 showed normal left ventricular chamber size, concentric remodeling, left ventricular ejection fraction 65%, elevated left ventricular filling pressure, no regional wall motionabnormalities; estimated right ventricular systolic pressure 62 mmHg, mild-moderate mitral valve regurgitation, normal IVC size with normal inspiratory collapse. Continue furosemide 40 mg IV bid, reassess in am Daily BMP Electrolyte replacement orders Atrial Fibrillation Unspecified with RVR Patient has a history of atrial fibrillation, not on full anticoagulation per her own choice according to chart review, rate control at home with metoprolol extended release 50 mg daily She had AFib with rapid ventricular response upon presentation to the emergency department. This was somewhat resolved with her receiving her morning medications. Her daily aspirin and metoprolol were continued. Metoprolol succinate was switched to metoprolol tartrate and on 04/20 it was increased to 50 mg t.i.d. On 04/21 she was in RVR again but VR improved after diuretics and change in antibiotics on 04/21 Continue to monitor closely with telemetry and titrate medications accordingly. Monitor potassium and magnesium, keep potassium 4.0 or higher and magnesium 2.0 or higher within normal range Electrolyte replacement protocol instituted Hypokalemia: Potassium 3.3 in am on 04/22, replaced per protocol Rechecked magnesium as well on 04/22 Chronic medical problems: Gastroesophageal Reflux Disease Patient on omeprazole at home, switched to pantoprazole after admission GERD could be the etiology of her possible recurrent aspiration pneumonitis. Speech therapy consulted, will not have speech therapy available until April 22. Hypothyroidism Continue thyroid replacement therapy. Hyperlipidemia Mixed Continue simvastatin Dementia Continue Aricept and Remeron at night for sleep. Hypertension Essential Primary Continue her hypertensive treatment with losartan, amlodipine, and her metoprolol. Following the IVfluid resuscitation her blood pressure improved. Continue to monitor carefully. 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 If she becomes hypotensive again, then will need to discontinue accordingly. BP has been stable, continue monitor per unit protocol Chronic kidney disease: For the last year patient's creatinine has been around 1.2. This admission it has been within normal range. We will continue to monitor closely, avoid nephrotoxins. Creatinine daily in a.m. Cr at admission 0.99, on 04/22 is 0.91 HOSPITAL CARE ISSUES: Code status: DNR/DNI IV fluids: IV and Feeding Tubes Active Currently Name Placement date Placement time Site Days Peripheral IV 04/18/24 Anterior;Left;Lower Forearm 04/18/24 1000 Forearm 4 Peripheral IV 04/21/24 18 G Right Antecubital 04/21/24 1416 Antecubital 1 Diet:Current Diet Adult Diet Regular starting at 04/18 1604 VTE PPX: AntiCoag AntiPlatelet Meds IP/OP Heparins Refills Start End heparin (porcine) injection 5,000 Units -- 04/18/2024 -- 5,000 Units, subcutaneous, Every 8 hours scheduled Review: GI/VTE prophylaxis and Old records reviewed 20 minutes. Discharge Information: Expected Discharge Date: 04/24/2024. Projected disposition: Home - self care. This was a critical care visit and I spent 40 minutes on a face to face encounter with the patient. HER WARP * Beulah Morales CCC-TEXTILE SCREEN MAKER - 04/22/2024 7:32 AM CST TEXTILE SCREEN MAKER contacted RN regarding swallowing status. RN reports patient denies difficulty with swallowing and is not observed with any s/s of aspiration. TEXTILE SCREEN MAKER to cancel swallow evaluation - RN in Agreement. HER WARP * Elfego Borrero M.D. - 04/22/2024 7:20 AM CST Consult conducted via real-time audio/video technology by Elfego Borrero M.D. in [facility] to the patient in [facility], [place] SUBJECTIVE Brief Patient Summary: Ms. Rox Ramirez is a 88 y.o. female with a PMHx significant for chronic hypertension, atrial fibrillation not on anticoagulation, recurrent pneumonias, COPD with baseline O2 requirement, chronic anemia and dementia who is admitted to the [place] [facility] for acute hypoxemic respiratory failure. The patient was seen and interviewed via video visit. Overnight Events: - slept comfortably and has a decreasing oxygen requirement - CTA negative for PE but notable for multifocal pneumonia and concerns of volume overload --> diuresis successful with achieving net negative fluid balance OBJECTIVE Diagnostics: I have reviewed the recent vital signs, imaging, labs, and other diagnostics. ASSESSMENT / PLAN #1 Acute on Chronic Hypoxemic Respiratory Failure #2 Chronic Obstructive Pulmonary Disease - baseline O2 requirement #3 Multi-focal Pneumonia #4 Atrial Fibrillation - not on anticoagulation #5 Chronic Anemia #6 Dementia #7 Chronic Hypertension PLAN: Clinical improvement since yesterday afternoon. Her antibiotics were broadened to Zosyn, would be reasonable to continue this for another 24 hours and then de- escalate pending culture data and clinical improvement. She is net negative 1 L since yesterday afternoon, would recommend further prn diuresis to achieve another net negative 1 L today. Echo order still pending, will follow up results when available. Attestation: I have seen Rox Ramirez ( ) in room 3109/3109-P. I have reviewedthe imaging studies and laboratory data. Elfego Borrero MD HER WARP * Elfego Borrero M.D. - 04/21/2024 1:49 PM CST Consult conducted via real-time audio/video technology by Elfego Borrero M.D. in [facility] to the patient in [facility] Brief Patient Summary: Ms. Rox Ramirez is a 88 y.o. female with a PMHx significant for chronic hypertension, atrial fibrillation not on anticoagulation, recurrent pneumonias, COPD with baseline O2 requirement, chronic anemia and dementia who is admitted to the [place] [facility] for acute hypoxemic respiratory failure. The patient was seen and interviewed via video visit. The patient has had multiple admissions for recurrent pneumonias, debility and failure to thrive. This most recent admission is for presumed pneumonia. She has had low dose tachycardia since her admission and has a slowly increasing leukocytosis and varying levels of oxygen support. She was upgraded to PCU level status today given her increasing leukocytosis, worsening oxygen requirement and overall clinical decline. OBJECTIVE Diagnostics: I have reviewed the recent vital signs, imaging, labs, and other diagnostics. ASSESSMENT / PLAN #1 Acute on Chronic Hypoxemic Respiratory Failure #2 Chronic Obstructive Pulmonary Disease - baseline O2 requirement #3 Recurrent Pneumonia #4 Atrial Fibrillation - not on anticoagulation #5 Chronic Anemia #6 Dementia #7 Chronic Hypertension PLAN: After discussing with the primary team, we agreed that her clinical decline requires further investigation. Given her lingering hypoxemia and lack of clinical improvement paired with her non-anticoagulated status, we will obtain a CT PE protocol. This will also provide further clarity of her pulmonary status. Additionally, an echocardiogram will be ordered to investigate a cardiogenic component. Lastly, given her slowly increasing leukocytosis, we will broaden her antimicrobials to Zosyn. Her MRSA swab was negative, so we will not add Vancomycin at this time. Further treatment pending these investigations. Attestation: I have seen Rox Ramirez ( ) in room 3109/3109-P. I have reviewedthe imaging studies and laboratory data. Elfego Borrero MD HER WARP * Yanet Paulino M.D. - 04/21/2024 1:16 PM CST Images from the original note were not included. DATE OF ADMISSION: 04/18/2024 LOS: 3 days SUBJECTIVE The patient was seen and examined during morning rounds today Interval History: No acute events reported overnight Patient was admitted on 04/18/2024 with sepsis, CAP and Afib with RVR She is a memory care unit resident in [place]. Patient has a history of dementia, hypertension, hyperlipidemia, CKD, atrial fibrillation not on anticoagulation, history of TIA, recurrent pneumonia, COPD on oxygen 2 L NC, GERD, history of breast cancer. Patient was feeling ill, had cough, shortness of breath, weakness. She was found on the floor on 04/18 and brought to the emergency department. In the ED the patient had dry mucous membranes, heart rhythm was irregular, she was in RVR, tachypneic, soft blood pressures, confused, lethargic. Ventricular rate 118, respiratory rate 30, sats 88%,white count 13.5, influenza a, influenza B, RSV and SARs coronavirus PCR negative. Chest x-ray showed opacities to the right lung sepsis protocol was initiated and she was treated with LR, blood cultures were obtained, urine culture obtained, treated with ceftriaxone and azithromycin and oral metoprolol as prior to admission (she was taking 50 mg daily, extended release. CT head negative for acute findings and she was transferred to [place] with a diagnosis of pneumoniae, sepsis and atrial fibr illation with RVR. After admission antibiotics, nebulizers, prior to admission meds and oxygen supplementation were continued. The next day she was sleepy, on 2 L nasal cannula, barking cough, wheezing lethargic coarse crackles bilaterally. On April 20 sepsis resolved, she needed increased dose of metoprolol as compared to home, 50 mg of metoprolol tartrate every 8 hours. This morning (04/21) when I came to see her she was tachypneic, had abdominal breathing on oxygen 4 liters/minute. Her white count has been trending up since admission and today is 16.2 with neutrophilia 13.9. Blood cultures from admission are in process and negative so far, urine culture negative, nasal PCRnegative for MRSA, urinary antigens for Legionella and Streptococcus are in process. The patient has dementia and was not able to provide much information to me. She denies any chest pain, chest pressure, nausea, vomiting, abdominal pain, dizziness or lightheadedness. She has been afebrile but still tachypneic and tachycardic Medications Scheduled Medication Ordered Dose/Rate, Route, Frequency Last Action amLODIPine tablet 10 mg (Norvasc) 10 mg, oral, Daily at bedtime Given, 10 mg at 04/[address] tablet 325 mg 325 mg, oral, Daily Given, 325 mg at 04/21 1022 atorvastatin tablet 20 mg (Lipitor) 20 mg, oral, Daily at bedtime Given, 20 mg at 04/20 2053 buPROPion XL 24 hr tablet 450 mg (Wellbutrin XL) 450 mg, oral, Daily Given, 450 mg at 04/21 1022 donepeziL tablet 10 mg (Aricept) 10 mg, oral, Daily at bedtime Given, 10 mg at 04/20 2053 fluticasone furoate-vilanteroL 100-25 mcg/actuation inhaler 1 puff (Breo Ellipta) 1 puff, inhl, Daily Given, 1 puff at 04/21 755 heparin (porcine) injection 5,000 Units 5,000 Units, SC, Q8H SANAM Given, 5,000 Units at 04/21 516 ipratropium-albuteroL 0.5-2.5 mg/3 mL nebulizer solution 3 mL (DuoNeb) 3 mL, nebu, 4x daily Given, 3 mL at 04/21 1120 levothyroxine tablet 50 mcg 50 mcg, oral, Daily before morning meal Given, 50 mcg at 04/21 516 losartan tablet 50 mg (Cozaar) 50 mg, oral, Daily Given, 50 mg at 04/21 1023 metoprolol tartrate tablet 50 mg (Lopressor) 50 mg, oral, Q8H Given, 50 mg at 04/21 517 mirtazapine tablet 7.5 mg (Remeron) 7.5 mg, oral, Daily at bedtime Given, 7.5 mg at 04/20 2053 oxyBUTYnin tablet 5 mg (Ditropan) 5 mg, oral, BID Given, 5 mg at 04/[address] tablet 40 mg (Protonix) 40 mg, oral, Daily before morning meal Given, 40 mg at 04/21 05 piperacillin-tazobactam 3.375 g in NaCl 0.9% IVPB (Zosyn) 3.375 g, IV, Q6H Ordered sertraline tablet 200 mg (Zoloft) 200 mg, oral, Daily Given, 200 mg at 04/21 102 PRN Medication Ordered Dose/Rate, Route, Frequency Last Action acetaminophen tablet 1,000 mg (TylenoL) 1,000 mg, oral, Q6H PRN Given, 1,000 mg at 04/18 2115 benzonatate capsule 100 mg (Tessalon Perles) 100 mg, oral, TID PRN Given, 100 mg at 04/20 2053 iopromide 370 mg iodine/mL injection 100 mL (Ultravist) 100 mL, IV, Once in imaging Ordered sodium chloride 0.9 % flush 70 mL 70 mL, IV, Once in imaging Ordered sodium chloride 0.9 % injection 10 mL 10 mL, IV, Once in imaging Ordered OBJECTIVE VITAL SIGNS Temperature: [36 ??C-36.4 ??C] 36.3 ??C Heart Rate: [101-122] 116 Resp Rate: [19-41] 20 Blood Pressure: (127-159)/(80-98) 158/81 SpO2: [86 %-95 %] 94 % Flow Rate (L/min): [1 L/min-4 L/min] 3.5 L/min Weight: [74.6 kg] 74.6 kg BMI (Calculated): [30.1 kg/m??] 30.1 kg/m?? Pulse Rate: [100-125] 115 Intake/Output Last 24 Hours: Intake/Output Summary (Last 24 hours) at 04/21/2024 1351 Last data filed at 04/21/2024 1043 Gross per 24 hour Intake 1580 ml Output 1691 ml Net -111 ml Admission weight Weight: 76.2 kg Current weight Weight: 74.6 kg PHYSICAL EXAM Vitals and nursing note reviewed. Constitutional General: She is in acute distress (increased work of breathing). Appearance: She is obese. Comments: On oxygen per nasal cannula 4 liters/minute HENT Head: Normocephalic and atraumatic. Right Ear: External ear normal. Left Ear: External ear normal. Nose: Nose normal. Mouth/Throat: Mouth: Mucous membranes are moist. Eyes General: No scleral icterus. Extraocular Movements: Extraocular movements intact. Pupils: Pupils are equal, round, and reactive to light. Cardiovascular Rate and Rhythm: Normal rate and regular rhythm. Pulses: Normal pulses. Heart sounds: Normal heart sounds. Pulmonary Effort: Respiratory distress present. Breath sounds: Rales (both bases) present. No wheezing. Comments: Increased work of breathing Abdominal General: Abdomen is flat. Bowel sounds are normal. Palpations: Abdomen is soft. Tenderness: There is no abdominal tenderness. There is no guarding. Musculoskeletal Cervical back: Normal range of motion. Right lower leg: No edema. Left lower leg: No edema. Skin General: Skin is warm and dry. Capillary Refill: Capillary refill takes less than 2 seconds. Neurological General: No focal deficit present. Mental Status: She is alert and oriented to person, place, and time. Comments: forgetfull Psychiatric Mood and Affect: Mood normal. Behavior: Behavior normal. DIAGNOSTICS CT Chest Angiogram and Pulmonary Arteries with IV Contrast Result Date: 04/21/2024 Impression: 1. No acute or chronic pulmonary embolism. 2. Multifocal pneumonia. 3. Enlarged mediastinal and right hilar lymph nodes which are likely reactive. 4. Constellation of findings suggestive of mild heart failure including biatrial enlargement, reflux of contrast into the IVC/intrahepatic veins, and small bilateral pleural effusions. Lab results last 24 hours: Recent Results (from the past 24 hours) CBC with Differential, Blood Collection Time: 04/21/24 5:26 AM Result Value Hemoglobin 10.4 (L) Hematocrit 32.5 (L) Erythrocytes 3.58 (L) MCV 90.8 RBC Distrib Width 15.9 Platelet Count 226 Leukocytes 16.2 (H) Neutrophils 13.95 (H) Lymphocytes 0.85 (L) Monocytes 1.29 (H) Eosinophils 0.07 Basophils 0.07 Basic Metabolic Panel Collection Time: 04/21/24 5:26 AM Result Value Potassium, P 3.6 Sodium, P 133 (L) Chloride, P 98 Bicarbonate, P 26 Anion Gap, P 9 BUN (Blood Urea Nitrogen), P 17 Creatinine 0.69 Estimated GFR (eGFR) 84 Calcium, Total, P 9.0 Glucose, P 117 ASSESSMENT / PLAN #1 Sepsis (HCC) #2 Pneumonia Bacterial #3 Atrial Fibrillation Unspecified (HCC) #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 Chronic KidneyDisease Or Unspecified Chronic Kidney Disease (HCC) #7 Gastroesophageal Reflux Disease NOS #8 Hyperlipidemia Mixed #9 Osteoporosis #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 She was found on the floor by staff on 04/18 and brought to the emergency department. She wasdiagnosed with sepsis, CAP and atrial fibrillation with RVR and admitted to the [facility] Acute medical problems: Sepsis Bacterial community-acquired pneumonia Patient was found on the floor in her room at the assisted living facility. She had been feeling ill for the last couple of weeks with cough, shortness of breath and weakness. In the ED she was tachycardic with VR 110-120 and tachypneic. Her blood pressures were soft initially but later hypertensive. WBC 13.5 with 11.5 neutrophils, lactate 1.5 Chest x-ray on 04/18 revealed multiple consolidative and ground-glass opacities throughout the right lung. Repeat chest x-ray on 04/19 did not show significant change She was treated with fluid resuscitation, 1 L of saline and initiated on IV antibiotics (cefTRIAXone and azithromycin) and became hemodynamically more stable. She has been afebrile since admission, but still tachypneic with increased work of breathing. Today, 04/21, respiratory culture ordered CT angiogram of chest on 04/21 negative for PE, presence of multifocal opacities, enlarged mediastinal and right hilar lymph nodes which are likely reactive, reflux of contrast into the IVC/intrahepatic veins and small bilateral pleural effusions. Ceftriaxone and azithromycin discontinued and started Zosyn. Acute resp failure with hypoxia She has acute hypoxic respiratory failure with tachypnea and oxygen requirement then went up to 4 liters/minute today. In spite of her multiple recurrent pneumonias and COPD, she is not oxygen dependent according to the medical record and was requiring 2 L per nasal cannula in the ED but after admission her oxygen requirement trended up in spite of nebulizers and antibiotics, on 04/21 she was on 4 liters/minute andhad increased work of breathing, crackles to bases but no wheezing. Continue with respiratory therapy treatments and scheduled nebulizers. Steroids not started yet. She is not wheezy, we may need to start on steroid. Possible heart failure with preserved ejection fraction with a acute exacerbation Echocardiogram from October 2018 showed ejection fraction 64%, no regional wall motion abnormalities, grade 2/4 left ventricular diastolic dysfunction consistent with moderately elevated left ventricular filling pressure, no significant valvular heart disease, normal IVC with normal inspiratory collapse. Today I am ordering NT proBNP and echocardiogram. Last NT proBNP in December 31, [address] was [address] angiogram ordered today shows signs of fluid overload, will order furosemide 40 mg IV bid Strict intake and Daily weight Atrial Fibrillation Unspecified with RVR Patient has a history of atrial fibrillation, not on full anticoagulation per her own choice according to chart review, rate control at home with metoprolol extended release 50 mg daily She had AFib with rapid ventricular response upon presentation to the emergency department. This was somewhat resolved with her receiving her morning medications. Her daily aspirin and metoprolol were continued. Metoprolol succinate was switched to metoprolol tartrate and on 04/20 it was increased to 50 mg t.i.d. Continue to monitor closely with telemetry and titrate medications accordingly. Monitor potassium and magnesium, keep potassium 4.0 or higher and magnesium 2.0 or higher within normal range Electrolyte replacement protocol instituted Chronic medical problems: Gastroesophageal Reflux Disease Patient on omeprazole at home, switched to pantoprazole after admission GERD could be the etiology of her possible recurrent aspiration pneumonitis. Speech therapy consulted, will not have speech therapy available until April 22. Hypothyroidism Continue thyroid replacement therapy. Hyperlipidemia Mixed Continue simvastatin Dementia Continue Aricept and Remeron at night for sleep. Hypertension Essential Primary Continue her hypertensive treatment with losartan, amlodipine, and her metoprolol. Following the IVfluid resuscitation her blood pressure improved. Continue to monitor carefully. I am leaving her on her antihypertensives at this point. If she becomes hypotensive again, then will need to discontinue accordingly. Chronic kidney disease: For the last year patient's creatinine has been around 1.2. This admission it has been within normal range. We will continue to monitor closely, avoid nephrotoxins. Creatinine daily in a.m. HOSPITAL CARE ISSUES: Code status: DNR/DNI IV fluids: IV and Feeding Tubes Active Currently Name Placement date Placement time Site Days Peripheral IV 04/18/24 Anterior;Left;Lower Forearm 04/18/24 1000 Forearm 3 Diet:Current Diet Adult Diet Regular starting at 04/18 1604 VTE PPX: AntiCoag AntiPlatelet Meds IP/OP Heparins Refills Start End heparin (porcine) injection 5,000 Units -- 04/18/2024 -- 5,000 Units, subcutaneous, Every 8 hours scheduled Review: GI/VTE prophylaxis and Old records reviewed 20 minutes. Discharge Information: Expected Discharge Date: 04/21/2024. Projected disposition: Home - self care. This was a critical care visit and I spent 40 minutes on a face to face encounter with the patient. HER WARP * Amber Barr PIleneT. - 04/21/2024 1:04 PM CST Physical Therapy Inpatient Treatment SUBJECTIVE Patient's Name: Rox Ramirez Referring/Attending Provider: Yanet Paulino M.D. Medical Diagnosis: Pneumonia Bacterial [J15.9] Reason for Referral: PT eval and treat Onset Date: 04/18/24 Payor: MEDICARE / Plan: MEDICARE A AND B / Product Type: Medicare / Patient Comments: Patient is finishing breakfast at PT approach. She is not aware of all the items on the tray, but resumes eating at end of session with alternate set up and encouragement. Denies pain. Delayed responses to PT requests and slow movement throughout session. Activity Orders (From admission, onward) Start Ordered 04/18/24 1559 Aspiration precautions Continuous 04/18/24 1603 04/18/24 1559 Fall precautions Continuous 04/18/24 1603 04/18/24 1558 Activity/Position: Up Ad Delilah, Up to Chair; Other (comment); Ambulate as much as possible considering previous activity level and physical functioning. Resume activity level following recovery from procedure and/or tests unless otherwise directed.... Until discontinued Question Answer Comment Activity Level: Up Ad Delilah Activity Level: Up to Chair Ambulation Goals: Other (comment) Ambulation goals comment: Ambulate as much as possible considering previous activity level and physical functioning. Resume activity level following recovery from procedure and/or tests unless otherwise directed. Up to chair goals: With meals Restrictions/Precautions: None Brace/Device: None 04/18/24 1603 Precautions Other Precautions: Fall risk Fall Risk (65 and older) Fall in the last 12 months: Yes Did you have an injury with the fall?: No Are you fearful of falling?: Yes Fall Risk Comments: Fall risk OBJECTIVE No pain behavior observed Sit to Stand Transfers # of Assistants: 1 Transfer Surface: Chair Transfer Equipment: Gait belt, Front wheeled walker Level of Assistance: Maximal assistance Assessment/Delivery: Therapist assisted, Assessed, Instructed, Facilitated Comments: Patient needs cues for each step of transfer. Needs [id number] for placement on armrests. Rocks forward to rise on second trial of 1-2-3 stand. Cannot stand a second time. Stand to Sit Transfers Transfer Surface: Chair Transfer Equipment: Gait belt, Front wheeled walker Level of Assistance: Moderate assistance Assessment/Delivery: Assessed, Instructed, Therapist assisted, Facilitated Comments: assist to reach for armrests and control descent. Patient on 3 LPM NC with O2 sats goal 88-92%. After standing was 86-87% x 2 min despite attempts atpursed lip breathing and focus on NC; PT increased to 3.5 LPM to achieve 88% within 2 min, returnedto 3 LPM. HR 106-122 throughout session. Gait Assessment/Training Stability: Able to stand for les than 30 seconds with stability, so could not proceed to gait like yesterday. Seated Exercises Seated Exercise - Side Addressed: Bilateral Seated Exercise: Marching, Long arc quads Sets/Repetitions: x 10 15 pillow punches triggers deeper breathing but also coughing. Team Communication: craft worker/care management was contacted and patient's status was discussed,Discussed patient's care with OT Upon arrival in room patient was found long sitting in recliner chair, needs including call mcdonald/light in reach, alarm on. Following treatment patient was left long sitting in recliner chair, needs including call mcdonald/light in reach, alarm on, pressure relief in place. Assessment Discharge Considerations: Discharge Therapy Needs - PT: Ongoing skilled physical therapy Clinical Impression: Patient was admitted 04/18/2024 with a diagnosis of: Pneumonia Bacterial [J15.9]. Currently, patient presents with limitations including requiring more assist with transfers pivots today: A2. Based on performance today, will need 24/7 assist for mobility, and likely A2 at times. Education was provided regarding evaluative findings, diagnosis, prognosis, potential risks and benefits of rehabilitation interventions. The treatment plan and discharge recommendations may be modified based upon pt response to treatment. Functional Goals and Timeframes: PT Goal #1: Patient will be able to ambulate 30 m with modified independence PT Goal #1 to be achieved by: 04/25/24 PT Goal #1 Status: Ongoing PT Goal #2: Patient will be able to perform all transfers with modified independence PT Goal #2 to be achieved by: 04/25/24 PT Goal #2 Status: Slowly progressing PT Goal #3: Patient will be able to perform bed mobility with modified independence PT Goal #3 to be achieved by: 04/25/24 PT Goal #3 Status: Ongoing Plan Therapy Attestation: Physical Therapy Attestation Statement: Patient agrees with the plan of care and goals. Plan: Continue with current plan Inpatient PT Received On Date: 04/21/24 Requires Inpatient Follow-Up: Yes PT - Next Inpatient Appointment: 04/22/24 Plan for next session: Transfers sit<>stand; gait with chair following if possible to advanceback to gait. Time Spent with Patient Therapeutic Interventions Therapeutic Activity (min): 10 min Therapeutic Exercise (min): 6 min Time Tracking Total Timed Units (min): 16 min Total Treatment Time (min): 16 min HER WARP * Katia Hernandez R.Ph. - 04/21/2024 12:30 PM CST Images from the original note were not included. 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 atorvastatin tablet 20 mg (Lipitor) - Medication details are different. fluticasone furoate-vilanteroL 100-25 mcg/actuation inhaler 1 puff (Breo Ellipta) - Medication details are different. levothyroxine tablet 50 mcg - Frequency changed from Daily to Daily before morning meal. pantoprazole DR tablet 40 mg (Protonix) - Medication details are different. Stopped albuterol 90 mcg/actuation inhaler metoprolol succinate (TOPROL-XL) 50 mg 24 hr tablet Medications stopped during pharmacy medication history interview: Discontinued Medications Reason for Discontinue nystatin (NYSTOP) 100,000 unit/gram powder Therapy completed nystatin-triamcinolone (MYCOLOG II) 100,000 Unit/g-0.1 % cream Therapy completed polyethylene glycol (MIRALAX) 17 gram powder packet Therapy completed Patient own medications: none Prophylaxis: heparin SC, pantoprazole ASSESSMENT / PLAN Sepsis Pneumonia Bacterial COPD GERD IV fluids given in ED, BP improved WBC 13.5 > 16.2 today Changed cefTRIAXone x 5 days, would have completed tomorrow & azithromycin x 4 days, completed to Zosyn 3.375 gm q6h (dosing appropriate for indication and clinical monitoring) CT chest angiogram today - results pending Continue Advair as Breo Ellipta, DuoNebs QID, no steroids at time - is not on home O2 Continue omeprazole as pantoprazole for GERD possibly contributing to aspiration Home Medications Continue Tylenol, amLODIPine, aspirin (325 mg), buPROPion, donepezil, Synthroid, losartan, mirtazapine, oxyBUTYnin, sertraline, Lipitor Metoprolol increased to 50 mg TID for HR control, monitor Changes to medications anticipated at discharge:TBD, possible completion of antibiotics Lj MckeonPh. The information and recommendations contained in this note are based on information available at the time of documentation. HER WARP * Brandie Penny M.D. - 04/20/2024 1:10 PM CST SUBJECTIVE CHIEF COMPLAINT/REASON FOR VISIT Sepsis in the setting of recurrent pneumonia, sepsis has resolved and patient is improving clinically currently. Patient had been overnight mildly tachycardic, her home dose of metoprolol was increased by the night team, most current frequency was 108, she does have AFib and her monitored that show AFib but shehas not been on rapid ventricular response or the last 12 hours. She is not on anticoagulation by her own choice. This tachycardia might be due to underlying pneumonia. She might need to get this increased dose of metoprolol adjusted as she recovers from pneumonia. REVIEW OF SYSTEMS Please see HPI/Subjective for pertinent positives, otherwise ROS negative. CURRENT MEDICATIONS amLODIPine, 10 mg, oral, Daily at bedtime aspirin, 325 mg, oral, Daily atorvastatin, 20 mg, oral, Daily at bedtime azithromycin, 500 mg, oral, Daily buPROPion XL, 450 mg, oral, Daily cefTRIAXone, 2 g, intravenous, Q24H donepeziL, 10 mg, oral, Daily at bedtime fluticasone furoate-vilanteroL, 1 puff, inhalation, Daily heparin (porcine), 5,000 Units, subcutaneous, Q8H SANAM ipratropium-albuteroL, 3 mL, nebulization, 4x daily levothyroxine, 50 mcg, oral, Daily before morning meal losartan, 50 mg, oral, Daily metoprolol tartrate, 50 mg, oral, Q8H mirtazapine, 7.5 mg, oral, Daily at bedtime oxyBUTYnin, 5 mg, oral, BID pantoprazole, 40 mg, oral, Daily before morning meal sertraline, 200 mg, oral, Daily OBJECTIVE Weight: 74.1 kg Temperature: [36 ??C-36.2 ??C] 36.2 ??C Heart Rate: [108-132] 110 Resp Rate: [21-37] 32 Blood Pressure: (122-152)/(69-100) 136/69 SpO2: [85 %-96 %] 91 % Flow Rate (L/min): [1 L/min-2.5 L/min] 2 L/min Pulse Rate: [118-120] 118 Intake/Output Summary (Last 24 hours) at 04/20/2024 1344 Last data filed at 04/20/2024 0900 Gross per 24 hour Intake 860 ml Output 590 ml Net 270 ml PHYSICAL EXAMINATION General: Patient is in no distress. Alert and oriented. On 2 Lt NC supplemental oxygen saturating well. HEENT: Normocephalic. Heart: Irregular rate and rhythm. No murmurs, gallops or rubs noted. Lungs: Respirations easy and unlabored.No expiratory wheeze. No accessory muscles of respiration noted. Abdomen: Soft, no abdominal tenderness with palpation. No peritonitis. No mass. Active bowel soundsin all 4 quadrants. Neuro: Face symmetrical, speech clear. Extremities: No neurovascular compromise. No cyanosis, clubbing or edema. 2+ radial and pedal pulses. Skin: Warm, dry. No rash, bruising, or ulceration. DIAGNOSTICS LAB RESULTS: Lab Results Component Value Date WBC 15.1 (H) 04/20/2024 HGB 10.1 (L) 04/20/2024 HCT 31.8 (L) 04/20/2024 MCV 91.6 04/20/2024 PLT 196 04/20/2024 Lab Results Component Value Date NA 136 04/20/2024 CL 101 04/20/2024 CREATININE 0.75 04/20/2024 EGFR 77 04/20/2024 BUN 18 04/20/2024 ANIONGAP 11 04/20/2024 GLUCOSE 116 04/20/2024 CALCIUM 8.9 04/20/2024 Lab Results Component Value Date CKTOTAL 54 08/29/2016 Lab Results Component Value Date URINESOURCE Urine, Urine, Straight Catheter 04/18/2024 CLARITYU Clear 04/18/2024 COLORU Yellow 04/18/2024 NITRITEU Negative 04/18/2024 LEUKOCYTESU Negative 04/18/2024 PROTEINQUALU >=300 (A) 04/18/2024 GLUCOSEU Negative 04/18/2024 KETONESU 40 (A) 04/18/2024 BILIRUBINU Small (A) 04/18/2024 PHURINE 5.5 04/18/2024 SPECGRAV >=1.030 04/18/2024 UROBILINOGEN 0.2 04/18/2024 Lab Results Component Value Date ALT 10 04/18/2024 AST 19 04/18/2024 ALKPHOS 108 (H) 04/18/2024 BILITOT 1.2 04/18/2024 RADIOLOGY: DX Chest Portable 1 View Result Date: 04/19/2024 Narrative: EXAM: DX CHEST PORTABLE 1 VIEW COMPARISON: Radiograph 04/18/2024 FINDINGS: Trachea is midline. Cardiac and mediastinal borders are clear. Cardiac silhouette is nonenlarged. Multifocal consolidative and groundglass opacities, similar to prior radiograph. No pleural effusion. No pneumothorax. No appreciable osseous abnormality. Impression: Multifocal consolidative and groundglass opacities, remains concerning for infection. Six-week follow-up recommended to resolution. CT Head without IV Contrast Result Date: 04/18/2024 Narrative: EXAM: CT HEAD WITHOUT IV CONTRAST COMPARISON: 10/17/[address] 06/30/2021 brain MR. FINDINGS: No acute intracranial hemorrhage or extra-axial fluid collection. No mass effect, midline shift, or herniation. There is moderate diffuse parenchymal volume loss with ex vacuo dilation of the gabriel tricles. There is probable sequelae of chronic small vessel ischemia. Intracranial atherosclerosis.No suspicious calvarial abnormality. Bilateral lens replacement. 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 The mastoid air cells and visualized paranasal sinuses are essentially clear. Impression: 1. No acute intracranial findings. No significant interval change from 10/17/2018. DX Chest Portable 1 View Result Date: 04/18/2024 Narrative: EXAM: DX CHEST PORTABLE 1 VIEW Impression: Comparison 08/14/23. Multiple consolidative and groundglass opacities throughout right lung are likely infectious pneumonia. Suggest six-week followup chest radiographs to assure resolution. Heart size normal. ASSESSMENT / PLAN This is an 88 years old female who is currently admitted for bacterial pneumonia, initially presented with sepsis that has now resolved. # Pneumonia # History of recurrent pneumonia, possible aspiration # COPD - oxygen-dependent (unclear if on 2 liters at home) Chest S rate upon admission show multiple consolidative and ground-glass opacities in the right lung. Influenza/COVID-19/RSV testing were negative. Legionella and streptococcal antigen in urine are in process. Two blood cultures from 04/18/2024 are in process so far negative. MRSA screening was negative and she is not at increased risk for Pseudomonas infections hence ceftriaxone and azithromycin is a good option for treatment for her, this can change if her blood cultures grow something for which cefTRIAXone azithromycin would not be the best option treatment. Plan: Ceftriaxone 2 g every 24 hours to complete 5 days of treatment Azithromycin 500 every 24 hours to complete days of treatment Tessalon as needed for cough Supplemental oxygen as needed to keep saturation of oxygen above 89% # Atrial fibrillation # Not on anticoagulation, by patient choice Upon admission she was on rapid ventricular response in the ED, this resolved after she got her beta-steven dose. Dose of metoprolol has been adjusted to achieve a heart rate of less than 100, she is close to this goal with current heart rate of 108. 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 # Mood disorder Plan: Sertraline 200 mg daily Mirtazapine 7.5 mg daily at bedtime Bupropion for 50 mg per day # Essential HTN Plan: Losartan 50 mg per day Amlodipine 10 mg per day Metoprolol 50 mg every 8 hours-- we will need to be adjusted as her heart rate normalizes. Unclear reason for current use of aspirin, but after chart review and she has been taking it looks like in 2011 there was a question about ischemic heart disease, I did not find prove of days she wasalso seen by neurology at some point and none of these especially disc discontinue aspirin. I willcontinue aspirin for now and she will need to reassess this with her PCP. # Primary hypothyroidism TSH from February 01, 2024 was 4.9 which is okay for a woman her age Plan: 1. Continue levothyroxine 50 mcg per day #Hyperlipidemia Plan: Continue atorvastatin 20 mg per day #Dementia- unspecified Plan: Continue donepezil 10 mg at bedtime HOSPITAL CARE ISSUES: Code status: DNR IV fluids:None Activity: With supervision Diet:Regular VTE PPX:Heparin Pain: Tylenol GI PPX: Protonix Electronically signed by: Brandie Mae M.D. 04/20/24 1:44 PM BRUSHER WARP HER WARP * Beulah Morales CCC-TEXTILE SCREEN MAKER - 04/20/2024 10:00 AM CST Patient admitted 04-18 with weakness; pneumonia. TEXTILE SCREEN MAKER swallow evaluation ordered. RN reports some coughing, but appears to be related to pneumonia. TEXTILE SCREEN MAKER informed that I will not be available until 04-22for in person visit. Patient is currently ordered a regular diet and thin liquids. Continue to monitor and reach out with questions or concerns prior to in person visit. HER WARP * Abraham Nick Pharm.D., R.Ph. - 04/19/2024 2:02 PM CST Images from the original note were not included. Admission Pharmacist Progress Note Reason for admission: Pneumonia Bacterial [J15.9] PMH: Past Medical History: Diagnosis Date Anxiety Generalized Disorder Cancer Breast Personal History Dementia (HCC) Gastroesophageal Reflux Disease NOS Hyperlipidemia Hypertension Essential Primary Intraocular Lens Implant Status Post bilateral Other Injury Of Unspecified Body Region Pneumonia Transient Ischemic Attack Transient Ischemic Attack Carotid Artery 07/24/2013 OBJECTIVE New Hospital orders - Home medications changed and stopped by provider medication reconciliation: New azithromycin tablet 500 mg (Zithromax) cefTRIAXone injection 2 g (Rocephin) heparin (porcine) injection 5,000 Units ipratropium-albuteroL 0.5-2.5 mg/3 mL nebulizer solution 3 mL (DuoNeb) Rationale: Changed aspirin DR tablet 325 mg - Order can't be discretely compared. atorvastatin tablet 20 mg (Lipitor) - Medication details are different. fluticasone furoate-vilanteroL 100-25 mcg/actuation inhaler 1 puff (Breo Ellipta) - Medication details are different. levothyroxine tablet 50 mcg - Frequency changed from Daily to Daily before morning meal. pantoprazole DR tablet 40 mg (Protonix) - Medication details are different. Rationale: Stopped albuterol 90 mcg/actuation inhaler Rationale: Medications stopped during pharmacy medication history interview: Discontinued Medications Reason for Discontinue nystatin (NYSTOP) 100,000 unit/gram powder Therapy completed nystatin-triamcinolone (MYCOLOG II) 100,000 Unit/g-0.1 % cream Therapy completed polyethylene glycol (MIRALAX) 17 gram powder packet Therapy completed Patient own medications: Prophylaxis: Heparin 5000 units SC q 8 hours ASSESSMENT / PLAN Sepsis/recurrent pneumonia w/possible aspiration: cefTRIAXone 2 g IV q 24 hours, Azithromycin 500 mg PO Q 24 hours (first dose IV given in ED, scheduled neb treatments Continue home medications for reflux, hypothyroidism, dementia, HTN, depression Changes to medications anticipated at discharge:TBD Abraham Nick, PharmIleneDIlene, R.Ph. The information and recommendations contained in this note are based on information available at the time of documentation. HER WARP * Suzy Tavera M.D. - 04/19/2024 11:43 AM CST Hospitalist daily progress note SUBJECTIVE Interval History: Patient is sleepy today on 2L NC. RN notes more barky cough, wheezing today. Alsohas some tachycardia after albuterol nebs. OBJECTIVE VITAL SIGNS Vitals: 04/19/24 0632 04/19/24 0800 04/19/24 0902 04/19/24 1104 BP: (!) 161/93 BP Location: Left arm;Upper Patient Position: Semi-recumbent Pulse: 110 (!) 130 Resp: 24 (!) 29 (!) 27 Temp: 36.6 ??C TempSrc: Temporal SpO2: 93% 94% 94% 94% Weight: Height: Intake/Output Last 24 Hours: Intake/Output Summary (Last 24 hours) at 04/19/2024 1151 Last data filed at 04/19/2024 1046 Gross per 24 hour Intake 870 ml Output 982 ml Net -112 ml PHYSICAL EXAM General: Reclined in bed and lethargic HEENT: Mucous membranes are dry with no oropharyngeal lesions. No enlarged lymph nodes. Heart: Tachycardic S1 and S2 are distinct, tachycardic and irregular Lungs: Tachypneic. Coarse crackles bilateral base. Abdomen: Bowel sounds are present. No distention or peritoneal signs. Cutaneous: No rashes Mental status: Lethargic DIAGNOSTICS I have reviewed labs, xray, and CT. No results found. Lab results last 24 hours: Recent Results (from the past 24 hours) Basic Metabolic Panel Collection Time: 04/19/24 6:01 AM Result Value Potassium, P 4.3 Sodium, P 140 Chloride, P 105 Bicarbonate, P 24 Anion Gap, P 11 BUN (Blood Urea Nitrogen), P 20 Creatinine 0.75 Estimated GFR (eGFR) 77 Calcium, Total, P 9.0 Glucose, P 88 CBC with Differential, Blood Collection Time: 04/19/24 6:01 AM Result Value Hemoglobin 10.6 (L) Hematocrit 34.6 (L) Erythrocytes 3.68 (L) MCV 94.0 RBC Distrib Width 16.1 Platelet Count 190 Leukocytes 14.8 (H) Neutrophils 12.32 (H) Lymphocytes 1.02 Monocytes 1.28 (H) Eosinophils 0.08 Basophils 0.05 Lactate for Sepsis with Reflex Collection Time: 04/19/24 10:05 AM Result Value Lactate, P 1.7 No orders to display Medications Scheduled Medication Ordered Dose/Rate, Route, Frequency Last Action amLODIPine tablet 10 mg (Norvasc) 10 mg, oral, Daily at bedtime Given, 10 mg at 04/[address] tablet 325 mg 325 mg, oral, Daily Given, 325 mg at 04/19 808 atorvastatin tablet 20 mg (Lipitor) 20 mg, oral, Daily at bedtime Given, 20 mg at 04/18 2101 azithromycin tablet 500 mg (Zithromax) 500 mg, oral, Daily Given, 500 mg at 04/19 808 buPROPion XL 24 hr tablet 450 mg (Wellbutrin XL) 450 mg, oral, Daily Given, 450 mg at 04/19 808 cefTRIAXone injection 2 g (Rocephin) 2 g, IV, Q24H Given, 2 g at 04/19 1019 donepeziL tablet 10 mg (Aricept) 10 mg, oral, Daily at bedtime Given, 10 mg at 04/18 2101 fluticasone furoate-vilanteroL 100-25 mcg/actuation inhaler 1 puff (Breo Ellipta) 1 puff, inhl, Daily Given, 1 puff at 04/19 1019 heparin (porcine) injection 5,000 Units 5,000 Units, SC, Q8H SANAM Given, 5,000 Units at 04/19 559 ipratropium-albuteroL 0.5-2.5 mg/3 mL nebulizer solution 3 mL (DuoNeb) 3 mL, nebu, 4x daily Given, 3 mL at 04/19 1102 levothyroxine tablet 50 mcg 50 mcg, oral, Daily before morning meal Given, 50 mcg at 04/19 559 losartan tablet 50 mg (Cozaar) 50 mg, oral, Daily Given, 50 mg at 04/19 808 metoprolol succinate 24 hr tablet 50 mg (Toprol XL) 50 mg, oral, Daily Given, 50 mg at 04/19 808 mirtazapine tablet 7.5 mg (Remeron) 7.5 mg, oral, Daily at bedtime Given, 7.5 mg at 04/18 2101 oxyBUTYnin tablet 5 mg (Ditropan) 5 mg, oral, BID Given, 5 mg at 04/[address] tablet 40 mg (Protonix) 40 mg, oral, Daily before morning meal Given, 40 mg at 04/19 559 sertraline tablet 200 mg (Zoloft) 200 mg, oral, Daily Given, 200 mg at 04/19 806 PRN Medication Ordered Dose/Rate, Route, Frequency Last Action acetaminophen tablet 1,000 mg (TylenoL) 1,000 mg, oral, Q6H PRN Given, 1,000 mg at 04/18 2115 ASSESSMENT / PLAN Rox Ramirez is an 88-year-old female that presents with weakness. She has a history of CKD, COPD, atrial fibrillation and dementia. She lives at a memory care unit. #1 Sepsis ([facility]) #2 Pneumonia Bacterial #3 Chronic Obstructive Pulmonary Disease Without Exacerbation ([facility]) #4 Atrial Fibrillation Unspecified ([facility]) #5 Gastroesophageal Reflux Disease NOS #6 Obstructive Sleep Apnea Adult #7 Hypothyroidism #8 Depression Major Recurrent Moderate ([facility]) #9 Cold Autoimmune Hemolytic Anemia ([facility]) #10 Hyperlipidemia Mixed #11 Osteoporosis #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 Patient has been feeling ill for the last couple of weeks and has had a progressive cough. A during the evaluation in the emergency departmentshe was found to be tachycardic and tachypneic. Her blood pressures were on the soft side initiallybut later hypertensive. Tachycardia present with HR in the 100-120. She was treated with fluid resuscitation and initiated on IV antibiotics and became hemodynamically more stable. Pneumonia Bacterial She has leukocytosis with a left shift. [...] cannula. Continue with respiratory therapy treatments and scheduled nebulizers. To follow previous blood cultures. CXR and additional infectious workup ordered and pending. Steroids not started atthis time. Low threshold to broaden antibiotics and/or start on steroid. Atrial Fibrillation Unspecified (HCC) She had AFib with rapid ventricular response upon presentation to the emergency department. This was somewhat resolved with her receiving her morning medications. Will continue her daily aspirin and metoprolol. Continue to monitor closely with telemetry and titrate medications accordingly. Gastroesophageal Reflux Disease NOS Continue omeprazole. This could be the etiology of her possible recurrent aspiration pneumonitis. Speech therapy consulted. Hypothyroidism Continue thyroid replacement therapy. Hyperlipidemia Mixed Continue simvastatin Dementia (HCC) Continue Aricept and Remeron at night for sleep. Hypertension Essential Primary Continue her hypertensive treatment with losartan, amlodipine, and her metoprolol. Following the IVfluid resuscitation her blood pressure improved. Will need to continue to monitor carefully. I am leaving her on her antihypertensives at this point. If she becomes hypotensive again, then will need to discontinue accordingly. Depression Major Recurrent Moderate (HCC) Continue sertraline and buPROPion. Diet: Adult Diet Regular Tubes/lines: Lines, Drains, and Airways Peripheral IV Duration Peripheral IV 04/18/24 20 G Anterior;Lower;Proximal;Right Arm 12h Peripheral IV 04/18/24 Anterior;Left;Lower Forearm 12h VTE prophylaxis: heparin Code status: DNR/DNI Baseline Mobility: BMAT Level 3 (Able to stand but cannot take steps without help) Disposition: Uncertain Total time spent with the patient around 60 minutes with more than 50% of time spent in counseling,coordination of care, explanation of plan of care, chart review, [id number] interview. Suzy Tavera MD Internal Medicine HER WARP * Dede Whaley O.T. - 04/19/2024 10:00 AM CST OT orders received and chart reviewed. Discussed case with nursing and PT. Nursing recommends OT/PThold today due to tachycardia. OT will evaluate Sunday. HER WARP * Nicole Felix [employer]Bish[employer] - 04/19/2024 5:00 AM CST 04/18/24 2301 Respiratory Assess and Treat Respiratory Assessment Score 11 Reevaluate Patient Frequency 24 Hours Bronchodilator Therapy Clinical Indications for Bronchodilators Home Neb/MDI;History of lung disease;Bronchospasm and/or wheezing Does Patient Have COPD? Yes Bronchodilator Therapy Frequency Other (comment) (QID) I visited this patient with the scheduled nebulizers. BBS are wheezy and coarse. She is on 2L NC with saturations in the low 90's. RT following. HER WARP HER WARP * Abraham Nick, Pharm.D., R.Ph. - 04/18/2024 5:15 PM CST Images from the original note were not included. Admission Medication History Note Prior to Admission Medications Med List Status: Pharmacy/RN Complete Set By: Abraham Nick, Pharm.D., R.Ph. at 04/18/2024 5:15 PM Status Comment 04/18/2024 5:15 PM Per bedside interview with pt. She was unsure of all last doses Taking? Last Dose Informant Start Date End Date LT acetaminophen (TYLENOL) 500 mg tablet Past Week Self -- -- Take 1,000 mg by mouth every 6 (six) hours as needed for pain, headaches or fever. albuterol 90 mcg/actuation inhaler Past Week -- 08/20/23 -- Inhale 2 puffs every 6 (six) hours as needed for wheezing. Notes: May substitute generic Proair, generic Ventolin or generic Proventil as appropriate for patient or insurance preference amLODIPine (NORVASC) 10 mg tablet Past Week -- 09/18/23 -- Take 1 tablet (10 mg total) by mouth at bedtime. aspirin [address] tablet Past Week Self 05/16/19 -- TAKE ONE TABLET BY MOUTH EVERY DAY FOR STROKE PREVENTION-TAKE WITH 6 - 8 OUNCES OF [place] Patient taking differently: Take 325 mg by mouth daily. buPROPion XL (WELLBUTRIN XL) 150 mg 24 hr tablet Past Week -- 09/18/23 -- Take 3 tablets (450 mg total) by mouth daily. donepeziL (ARICEPT) 10 mg tablet Past Week -- 09/18/23 -- Take 1 tablet (10 mg total) by mouth at bedtime. fluticasone propion-salmeteroL (Advair Diskus) 100-50 mcg/actuation diskus inhaler Past Week -- 01/15/24 01/14/25 Inhale 1 puff 2 (two) times a day. Rinse mouth with water after use to reduce aftertaste and incidence of candidiasis. Do not swallow. levothyroxine (SYNTHROID, LEVOTHROID) 50 mcg tablet Past Week Self 04/23/23 -- Take 1 tablet (50 mcg total) by mouth daily. Patient taking differently: Take 50 mcg by mouth daily before morning meal. losartan (COZAAR) 50 mg tablet Past Week -- 09/18/23 09/17/24 Take 1 tablet (50 mg total) by mouth daily. metoprolol succinate (TOPROL-XL) 50 mg 24 hr tablet Past Week Self 04/20/23 04/19/24 Take 1 tablet (50 mg total) by mouth daily. Do not crush or chew. mirtazapine (REMERON) 7.5 mg tablet Past Week -- 09/18/23 -- Take 1 tablet (7.5 mg total) by mouth at bedtime. omeprazole (PriLOSEC) [address] capsule Past Week -- 09/18/23 -- Take 1 capsule (20 mg total) by mouth 2 (two) times a day before breakfast and dinner. oxyBUTYnin (DITROPAN) 5 mg tablet Past Week -- 08/23/23 -- take one tablet by mouth twice a day sertraline (ZOLOFT) 100 mg tablet Past Week -- 09/18/23 -- Take 2 tablets (200 mg total) by mouth daily. simvastatin (ZOCOR) 40 mg tablet Past Week -- 09/18/23 -- Take 1 tablet (40 mg total) by mouth at bedtime. Adherence issues: No concerns Medications Discontinued During This Encounter Medication Reason nystatin (NYSTOP) 100,000 unit/gram powder Therapy completed nystatin-triamcinolone (MYCOLOG II) 100,000 Unit/g-0.1 % cream Therapy completed polyethylene glycol (MIRALAX) 17 gram powder packet Therapy completed Abraham Nick Pharm.D., R.Ph. The information and recommendations contained in this note are based on information available at the time of documentation. HER WARP documented in this encounter H&P Notes * Marlene Marinelli M.D., M.S. - 04/18/2024 9:51 PM CST Admission Note SUBJECTIVE CHIEF COMPLAINT Weakness and cough with shortness of breath HISTORY OF PRESENT ILLNESS Rox Ramirez is [...] of recurrent pneumonia. No other complaints noted. In my discussion with the patient and her son with his friend, she has had recurrent pneumonia and consideration has been frequently given to possible aspiration. She has previously had speech evaluations with no evidence of abnormal swallowing function. At the time of my evaluation patient admitted to shortness of breath. No chest pain or palpitations. She does have a cough. No hemoptysis. No nausea vomiting. No UTI symptoms or change in bowel habits. No acute neurologic symptoms. No headache. No night sweats. I have reviewed and updated the following: Past Medical History, Family History, Social History, and Allergies., Past Medical History: Diagnosis Date Anxiety Generalized Disorder Cancer Breast Personal History Dementia (HCC) Gastroesophageal Reflux Disease NOS Hyperlipidemia Hypertension Essential Primary Intraocular Lens Implant Status Post bilateral Other Injury Of Unspecified Body Region Pneumonia Transient Ischemic Attack Transient Ischemic Attack Carotid Artery 07/24/2013 , Past Surgical History: Procedure Laterality Date BLEPHAROPLASTY OF UPPER EYELID CATARACT EXTRACTION W/ INTRAOCULAR LENS IMPLANT Bilateral COLPOSCOPY OF THE CERVIX INCLUDING UPPER/ADJACENT VAGINA;.. OTHER CONVERTED SHX (SEE COMMENT) N/A 10/12/2011 >Flexible proctosigmoidoscopy to 45 cm, approximately mid to sigmoid colon. OTHER CONVERTED SHX (SEE COMMENT) N/A 02/27/2007 >Incision and drainage, left breast abscess with biopsy of abscess cavity and intraoperative cultures. OTHER CONVERTED SHX (SEE COMMENT) N/A 10/30/2006 >Colonoscopy. OTHER CONVERTED SHX (SEE COMMENT) N/A 01/17/2006 >Intraoperative injection of blue dye for lymphatic mapping. OTHER CONVERTED SHX (SEE COMMENT) N/A 07/25/2013 >1. Right carotid endarterectomy. 2. Intraoperative neuromonitoring with EEG. OTHER CONVERTED SHX (SEE COMMENT) N/A 07/05/2007 >Skin biopsy, right areola. OTHER SURGICAL HISTORY external levator resection 01/18/2010 OTHER SURGICAL HISTORY excision breast lesion , Family History Problem Relation Name Age of Onset Lung cancer Brother [place] Alcohol abuse Brother [place] Smoker Brother Gregor Stroke Mother Heart disease Mother Heart disease Father Heart attack Father Dementia Sister Pancreatic cancer Brother Angel Alcohol abuse Brother Hypertension Brother Pancreatic cancer Brother , Social History Socioeconomic History Marital status: Highest education level: Bachelor's degree (e.g., BA, AB, BS) Tobacco Use Smoking status: Former Current packs/day: 0.00 Average packs/day: 0.5 packs/day for 43.0 years (21.5 ttl pk-yrs) Types: Cigarettes Start date: 1953 Quit date: 1997 Years since quittin.9 Smokeless tobacco: Never Vaping Use Vaping status: never used Substance and Sexual Activity Alcohol use: Not Currently Drug use: Never Sexual activity: Not Currently Partners: Male Social History Narrative Childhood self assessment: Normal History of abuse: Sexual: None; Physical: None; Emotional: None Parents: Remained Marital Status: Single Living situation: She lives with her boyfriend 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 Ethnicity: Education 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 Social Drivers of Health Food Insecurity: No Food Insecurity (04/18/2024) Hunger Vital Sign Worried About Running Out of Food in the Last Year: Never true Ran Out of Food in the Last Year: Never true Transportation Needs: Unmet Transportation Needs (04/18/2024) PRAPARE - Transportation Lack of Transportation (Medical): Yes Lack of Transportation (Non-Medical): Yes Intimate Partner Violence: Not At Risk (04/18/2024) Humiliation, Afraid, Rape, and Kick questionnaire Fear of Current or Ex-Partner: No Emotionally Abused: No Physically Abused: No Sexually Abused: No Housing Stability: Low Risk (04/18/2024) Housing Stability Housing: Living Situation: I have a steady place to live , and Allergies Allergen Reactions Augmentin [Amoxicillin-Pot Clavulanate] GI intolerance Bactrim [Sulfamethoxazole-Trimethoprim] GI intolerance Current Outpatient Medications on File Prior to Encounter: acetaminophen (TYLENOL) 500 mg tablet, Take 1,000 mg by mouth every 6 (six) hours as needed for pain, headaches or fever., Past Week albuterol 90 mcg/actuation inhaler, Inhale 2 puffs every 6 (six) hours as needed for wheezing., Past Week amLODIPine (NORVASC) 10 mg tablet, Take 1 tablet (10 mg total) by mouth at bedtime., Past Week aspirin [address] tablet, TAKE ONE TABLET BY MOUTH EVERY DAY FOR STROKE PREVENTION-TAKE WITH 6 - 8 OUNCES OF PLAIN WATER (Patient taking differently: Take 325 mg by mouth daily.), Past Week buPROPion XL (WELLBUTRIN XL) 150 mg 24 hr tablet, Take 3 tablets (450 mg total) by mouth daily., Past Week donepeziL (ARICEPT) 10 mg tablet, Take 1 tablet (10 mg total) by mouth at bedtime., Past Week fluticasone propion-salmeteroL (Advair Diskus) 100-50 mcg/actuation diskus inhaler, Inhale 1 puff 2(two) times a day. Rinse mouth with water after use to reduce aftertaste and incidence of candidiasis. Do not swallow., Past Week levothyroxine (SYNTHROID, LEVOTHROID) 50 mcg tablet, Take 1 tablet (50 mcg total) by mouth daily. (Patient taking differently: Take 50 mcg by mouth daily before morning meal.), Past Week losartan (COZAAR) 50 mg tablet, Take 1 tablet (50 mg total) by mouth daily., Past Week metoprolol succinate (TOPROL-XL) 50 mg 24 hr tablet, Take 1 tablet (50 mg total) by mouth daily. Donot crush or chew., Past Week mirtazapine (REMERON) 7.5 mg tablet, Take 1 tablet (7.5 mg total) by mouth at bedtime., Past Week omeprazole (PriLOSEC) [address] capsule, Take 1 capsule (20 mg total) by mouth 2 (two) times a day before breakfast and dinner., Past Week oxyBUTYnin (DITROPAN) 5 mg tablet, take one tablet by mouth twice a day, Past Week sertraline (ZOLOFT) 100 mg tablet, Take 2 tablets (200 mg total) by mouth daily., Past Week simvastatin (ZOCOR) 40 mg tablet, Take 1 tablet (40 mg total) by mouth at bedtime., Past Week [DISCONTINUED] nystatin (NYSTOP) 100,000 unit/gram powder, Apply 1 Application topically 3 (three) times a day. Apply to breast rash. (Patient not taking: Reported on 02/14/2024) [DISCONTINUED] nystatin-triamcinolone (MYCOLOG II) 100,000 Unit/g-0.1 % cream, Apply to affect areatwice a day for 7-14 days then as needed for rash. (Patient not taking: Reported on 02/14/2024) [DISCONTINUED] polyethylene glycol (MIRALAX) 17 gram powder packet, Take 1 packet by mouth daily asneeded for constipation. Dissolve each 17 g dose in 240 mLs (8 ounces) of beverage. (Patient not taking: Reported on 02/14/2024) REVIEW OF SYSTEMS Pertinent items are noted in HPI; all other review of systems was negative. OBJECTIVE VITAL SIGNS Temperature: [36.1 ??C-36.7 ??C] 36.1 ??C Heart Rate: [107-130] 107 Resp Rate: [22-36] 30 Blood Pressure: (110-156)/(67-93) 138/68 SpO2: [88 %-96 %] 93 % Flow Rate (L/min): [2 L/min] 2 L/min Height: [157.5 cm] 157.5 cm Weight: [76.2 kg] 76.2 kg BSA (Calculated - sq m): [1.82 sq meters] 1.82 sq meters BMI (Calculated): [30.7 kg/m??] 30.7 kg/m?? Pulse Rate: [103-139] 110 PHYSICAL EXAM General: Reclined in bed and somewhat restless. HEENT: Mucous membranes are dry with no oropharyngeal lesions. No enlarged lymph nodes. Heart: Tachycardic S1 and S2 are distinct, tachycardic and irregular with systolic murmur but no extra heart sounds appreciated. Lungs: Tachypneic with rates in the low 30s. Coarse crackles right base. Abdomen: Bowel sounds are present. No distention or peritoneal signs. Cutaneous: No rashes Neuro: Cranial nerves II-XII are grossly intact. No gross focal weakness in any extremity. Vascular: pulses are equal in upper extremities bilaterally. No bruits appreciated. No increase in CVP. Psych: Mood and affect are appropriate. Mental status: Alert and oriented x3. Speech tangential with some loss of memory evident DIAGNOSTICS I have independently reviewed the labs, ECG, xray, and diagnostics from last 1 year ASSESSMENT / PLAN Rox Ramirez is an 88-year-old female that presents with weakness. She has a history of CKD, COPD, atrial fibrillation and dementia. She lives at a memory care unit. 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 Patient has been feeling ill for the last couple of weeks and has had a progressive cough. A during the evaluation in the emergency department she was found to be tachycardic andtachypneic. Her blood pressures were on the soft side. She had not had her morning medications. Thetachycardia improved after she received her dose of metoprolol; however it has remained greater than 100-110. Her blood pressures on presentation to the hospital were around 110 systolic with a pulsein the same region. Her respiratory rate was in the 30s. She was treated with fluid resuscitation and initiated on IV antibiotics. She became hemodynamically more stable with the fluids. Pneumonia Bacterial She has leukocytosis with a left shift. [...] nebulizers. Steroids not started at this time. Atrial Fibrillation Unspecified (HCC) She had AFib with rapid ventricular response upon presentation to the emergency department. This was somewhat resolved with her receiving her morning medications. Will continue her daily aspirin and metoprolol. Continue to monitor closely with telemetry and titrate medications accordingly. Gastroesophageal Reflux Disease NOS Continue omeprazole. This could be the etiology of her possible recurrent aspiration pneumonitis. Speech therapy consulted. Hypothyroidism Continue thyroid replacement therapy. Hyperlipidemia Mixed Continue simvastatin Dementia (HCC) Continue Aricept and Remeron at night for sleep. Hypertension Essential Primary Continue her hypertensive treatment with losartan, amlodipine, and her metoprolol. Following the IVfluid resuscitation her blood pressure improved. Will need to continue to monitor carefully. I am leaving her on her antihypertensives at this point. If she becomes hypotensive again, then will need to discontinue accordingly. Depression Major Recurrent Moderate (HCC) Continue sertraline and buPROPion. Diet: Adult Diet Regular Tubes/lines: Lines, Drains, and Airways Peripheral IV Duration Peripheral IV 04/18/24 20 G Anterior;Lower;Proximal;Right Arm 12h Peripheral IV 04/18/24 Anterior;Left;Lower Forearm 12h VTE prophylaxis: heparin Code status: DNR/DNI Baseline Mobility: BMAT Level 3 (Able to stand but cannot take steps without help) Disposition: Uncertain Counseling was provided [id number] at bedside regarding the plan of care as stated above. I personally spent over half of a total 105 minutes in counseling and coordination of care as documented above. HER WARP documented in this encounter Consult Notes * Darlene Ribera M.D. - 04/24/2024 4:34 PM CSTAssociated Order(s): Infectious Disease General eConsult ([facility]) Infectious Disease General eConsult ([facility]) Referring Provider: Yanet Paulino M.D. SUBJECTIVE The patient was not personally interviewed or examined. The history and examination findings are based on the clinical documentation provided and/or discussed with a physician or provider who had personally interviewed and examined the patient. CHIEF COMPLAINT / REASON FOR CONSULT Patient is a 88 y.o. female admitted on 04/18/2024 for whom Infectious Diseases is eConsulted for sepsis and pneumonia and advice regarding antibiotic deescalation desired. HISTORY OF PRESENT ILLNESS Mrs. Ramirez is an 88 year old woman with CKD, COPD (exsmoker), recurrent pneumonia, GERD, HTN, TIA,atrial fibrillation and dementia. She lives at a memory care unit. She was admitted on 04/18/24 withweakness and subjective shortness of breath and cough. Her RR on admission was in the low 30s and she required 2 lnc to keep O2 sat at 93%. Imaging revealed consolidative and ground glass opacities through the R lung and she was started on cefTRIAXone and Azithromycin for community acquired pneumonia. She was described as having a barking cough on 04/21/24, her oxygen need had decreased to 1 lnc and her RR improved at 20 in the morning but later that day she became more hypoxic and her WBC had been noticed to increase from 13,500 to 16,200. Her antibiotics were changed to Piperacillin/Tazobactam and Azithromycin and cefTRIAXone were discontinued. She was also diuresed. She reportedly improved over 24 hours with resolution of tachypnea, and tachycardia. With O2 requirement decreasing from 4 lnc to 2.5. 04/23/24 she was back down to 1 lnc with 95% O2 sat. She reportedly has an adverse reaction to Augmentin and TMP/SMX with GI intolerance Current antibiotic Piperacillin/tazobactam today is day 4 of Pip/tazo OBJECTIVE VITAL SIGNS I have reviewed the current vital sign data as applicable. O2 sat 95% on 1 l nc, RR 24, BP 131/90 BMI 29.8 Pulse 101 DIAGNOSTICS I have reviewed diagnostics. Studies of note include: 04/18/24 blood cultures negative Urine culture negative Legionella and Strep urinary antigens negative Sputum culture unable to be obtained MRSA swab negative SARS CoV-2 negative [address] M[address]DER swab CT Chest Angiogram and Pulmonary Arteries with IV Contrast Result Date: 04/21/2024 Impression: 1. No acute or chronic pulmonary embolism. 2. Multifocal pneumonia. 3. Enlarged mediastinal and right hilar lymph nodes which are likely reactive. 4. Constellation of findings suggestive of mild heart failure including biatrial enlargement, reflux of contrast into the IVC/intrahepatic veins, and small bilateral pleural effusions. ASSESSMENT / PLAN #1 Probable recurrent Aspiration Pneumonia - Aspiration pneumonitis likely accounts for her decompensation on 04/21 #2 COPD #3 CKD #4 GERD #5 Dementia RECOMMENDATIONS: Continue Piperacillin/tazobactam while hospitalized Aspiration precautions Arrange for swallow study Reasonable to complete course when ready for dismissal with Levaquin 500 mg daily (adust for kidneyfunction with help of pharmacist. Last day of antibiotics is 04/28. ID econsult will sign off, but I am still on service tomorrow and please reach out if additional questions. LANI Ribera M.D. HER WARP * Ijeoma Wu, O.T. - 04/21/2024 10:26 AM CST Occupational Therapy Inpatient Evaluation/Treatment SUBJECTIVE Patient's Name: Rox Ramirez Referring/Attending Provider: Marlene Marinelli M.D. 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 Chronic Kidney Disease Or Unspecified Chronic Kidney Disease (HCC) Gastroesophageal Reflux Disease NOS Spinal Stenosis Lumbar Region Without Neurogenic Claudication Hyperlipidemia Mixed Osteoporosis Loss Hearing Bilateral Urgency Urinary Obesity Body Mass Index 30-39.9 Adult Chronic Obstructive Pulmonary Disease Without Exacerbation (HCC) Obstructive Sleep Apnea Adult Cancer Breast Personal History Gallstone Pain Neck Dementia (HCC) Anxiety Generalized Disorder Chronic Cough Nodules Pulmonary Multiple Atrial Fibrillation Unspecified (HCC) Influenza Hypertension Essential Primary Hyperlipidemia Pneumonia Bacterial Sepsis (HCC) Hypothyroidism Past Surgical History: Procedure Laterality Date BLEPHAROPLASTY OF UPPER EYELID CATARACT EXTRACTION W/ INTRAOCULAR LENS IMPLANT Bilateral COLPOSCOPY OF THE CERVIX INCLUDING UPPER/ADJACENT VAGINA;.. OTHER CONVERTED SHX (SEE COMMENT) N/A 10/12/2011 >Flexible proctosigmoidoscopy to 45 cm, approximately mid to sigmoid colon. OTHER CONVERTED SHX (SEE COMMENT) N/A 02/27/2007 >Incision and drainage, left breast abscess with biopsy of abscess cavity and intraoperative cultures. OTHER CONVERTED SHX (SEE COMMENT) N/A 10/30/2006 >Colonoscopy. OTHER CONVERTED SHX (SEE COMMENT) N/A 01/17/2006 >Intraoperative injection of blue dye for lymphatic mapping. OTHER CONVERTED SHX (SEE COMMENT) N/A 07/25/2013 >1. Right carotid endarterectomy. 2. Intraoperative neuromonitoring with EEG. OTHER CONVERTED SHX (SEE COMMENT) N/A 07/05/2007 >Skin biopsy, right areola. OTHER SURGICAL HISTORY external levator resection 01/18/2010 OTHER SURGICAL HISTORY excision breast lesion History of Present Illness: Patient is an 88 year old female who presented to the ED on 04/18/2024 after being found on the floor of her [facility] living fac[facility]. Per H&P: She has a historyof CKD, COPD, atrial fibrillation and dementia. She [...] incontinent of urine. She has a history ofrecurrent pneumonia. No other complaints noted. It was clarified with [facility] that patient does not reside at [facility], but rather lives in an independent living apartment at [facility] Prior Function/Occupational Profile: Prior Mobility/Functional Transfers Level of [place]: Modified independent Gait Devices/Wheelchair Used: Four wheeled walker Prior Function/Occupational Profile Lives With: Alone Receives Help From: Family, Facility staff ADL Assistance: Independent ADL Assistance Comments: States that although she has a shower chair, she stands to shower; no issue dressing - able to don compression stockings on her own IADL/Homemaking Assistance: Modified independent IADL/Homemaking Assistance Comments: meal plan at the [facility] - typically will go do dining room but recently having meals delivered to her apartment; mod I with laundry; assist with cleaning and medications from staff Occupational Role: Retired Home Living Type of Home: Assisted living facility ((independent living)) Home Layout: One level Home Access: Level entry Bathroom Shower/Tub: Walk-in shower Walk-in shower location: Main floor Bathroom Toilet: Comfort height Home Equipment Bathroom Equipment: Grab bars in shower, Shower chair with back Family/Caregiver Present: No Patient/Caregiver Goals: not stated Patient Comments: Patient is sleeping at OT approach, does awake to voice. Is very tired, wants to rest. Is pleasant and willing to answer questions for OT. Additional Staff Present During Session: Terri Espinoza RN Activity Orders (From admission, onward) Start Ordered 04/18/24 1559 Aspiration precautions Continuous 04/18/24 1603 04/18/24 1559 Fall precautions Continuous 04/18/24 1603 04/18/24 1558 Activity/Position: Up Ad Delilah, Up to Chair; Other (comment); Ambulate as much as possible considering previous activity level and physical functioning. Resume activity level following recovery from procedure and/or tests unless otherwise directed.... Until discontinued Question Answer Comment Activity Level: Up Ad Delilah Activity Level: Up to Chair Ambulation Goals: Other (comment) Ambulation goals comment: Ambulate as much as possible considering previous activity level and physical functioning. Resume activity level following recovery from procedure and/or tests unless otherwise directed. Up to chair goals: With meals Restrictions/Precautions: None Brace/Device: None 04/18/24 1603 Precautions Other Precautions: falls, cognition, supplemental O2 Fall Risk (65 and older) Fall in the last 12 months: Yes Did you have an injury with the fall?: No Are you fearful of falling?: Yes Fall Risk Comments: Fall risk OBJECTIVE No pain behavior observed [facility] Inpatient Short Form: Putting on and taking off regular lower body clothing?: A lot Putting on and taking off regular upper body clothing?: A Little Taking care of personal grooming such as brushing teeth?: A Little Bathing (including washing, rinsing, drying)?: A lot Toileting, which includes using toilet, bedpan, or urinal?: A lot Eating meals?: A Little Daily Activities Raw Score (max 24): 15 Daily Activities Standardized Score: 34.69 Interpretation: Based on scoring guidelines using the raw score value: Those going to home had an average score at or above 18 Those going to facility had an average score at or below 17 Clinicians answer the [facility] Inpatient Short Form based on observed patient activity and/or clinical judgement (ie. patient can be scored without physically performing each activity) Cognition Cognitive assessment method: Therapist observations Attention: Impairments noted Attention Comments: tired and lethargic Cognition Comments: continue to assess as needed Activity Tolerance Endurance: Tolerates less than 10 min of activity, Requires rest breaks Activity Tolerance Comments: on 2.5LPM, SpO2 dips to 86% and unable to rebound >88% with time and pursed lip breathing; increase to 3LPM and SpO2 does rebound to 88%. Of note, while resting in chair and answering OT eval questions, HR ranges 99-121 Vision/Sensation Basic Assessment Current Hearing Function: (hard of hearing, able to hear lound voice; no hearing aids present - unsure if patient has hearing aids) Team Communication: Patient's nurse was contacted and patient's status was discussed, Discussed patient's care with PT, craft worker/care management was contacted and patient's status was discussed Upon arrival in room patient was found long sitting in recliner chair, needs including call mcdonald/light in reach, alarm on. Following treatment patient was left long sitting in recliner chair, needs including call mcdonald/light in reach, alarm on. Assessment Discharge Considerations: Barriers to Discharge Home: Current functional status, Fall risk, Safety concerns Discharge Therapy Needs - OT: Ongoing skilled occupational therapy Level of Care Needed - OT: Assistance with toileting, Assistance with toilet/shower transfers, Assistance with showering/bathing, Assistance with dressing, Assistance with transportation, Physical assistance needed, Cognitive assistance needed, Assistance with housekeeping, Assistance with meal prep aration, Assistance with medication set up/administration, Assistance with entry level financial analyst, Assistance with shopping Clinical Impression: Patient is a 88 y.o. who was admitted to the hospital with a diagnosis of: Pneumonia Bacterial [J15.9]. Prior to hospitalization patient was completing daily activities mod I with 4WW in independent living apartment; assist with homemaking and meals but mod I with all ADLs. Currently, patient presents with limitations including need for supplemental O2, elevated HR, impaired activity tolerance, decreased UE/LE strength bilaterally. Functional deficits: Decreased functional mobility and transfers - assist x1-2 needed for stand pivot per PT today; decreased independence and safety in ADLs and IADLs - assist needed Rehab potential: Patient has fair potential to achieve established occupational therapy goals within the time frame outlined below. Education was provided regarding evaluative findings, diagnosis, prognosis, potential risks and benefits of rehabilitation interventions. The treatment plan and discharge recommendations may be modified based upon pt response to treatment. Comorbid Conditions: Mental health disorder, Cognitive/memory disorder (TIA) Personal Factors: Age, Balance impairment, History of falls, Needs assistive device, Safety awareness, Sedentary lifestyle, Hearing impairment, Living situation Occupational Profile and History review: Expanded Performance Deficits: 3 - 5 performance deficits Evaluation Complexity: Moderate Functional Goals and Timeframes: OT Goal: Rox Rose Calderonrich will participate in skilled OT evaluation for safe discharge disposition to least restrictive environment. OT Goal Date: 04/25/24 Goal Status: ongoing OT Goal: Rox Ramirez will participate in cognitive screen to determine cognitive baseline and assist in appropriate and safe discharge planning. OT Goal Date: 04/25/24 Goal Status: ongoing - will complete PRN OT Goal: Rox Ramirez will complete lower body dressing at a min assist level, using FWW asneeded OT Goal Date: 04/25/24 Goal Status: ongoing OT Goal: Rox Ramirez will demonstrate ability to safely complete toilet hygiene at a min assist level with FWW for standing balance OT Goal Date: 04/25/24 Goal Status: ongoing OT Goal: Rox Ramirez will demonstrate ability to complete commode transfer with FWW and min assist x1 OT Goal Date: 04/25/24 Goal Status: ongoing Plan Therapy Attestation: Patient agrees with the plan of care and goals. OT Frequency: OT Amount: 1 visit per day OT Frequency: 5 times per week OT Duration: Until goals are met or hospital discharge Inpatient OT Received On Date: 04/21/24 Requires Inpatient Follow-Up: Yes Next Inpatient Appointment: 04/22/24 Plan for next session: lower body dressing, toileting, functional transfers Plan: Plan of care initiated Treatment interventions may include: Treatment Interventions: Therapeutic functional activity, Therapeutic exercise, Self-care/home management Time Spent with Patient Evaluations OT Eval - Mod Complexity: 13 min Time Tracking Total Treatment Time (min): 13 min HER WARP * Shirley Adan, P.T. - 04/20/2024 12:25 PM CST Physical Therapy Inpatient Evaluation/Treatment SUBJECTIVE Patient's Name: Rox Ramirez Referring/Attending Provider: Brandie Penny M.D. 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 Chronic Kidney Disease Or Unspecified Chronic Kidney Disease (HCC) Gastroesophageal Reflux Disease NOS Spinal Stenosis Lumbar Region Without Neurogenic Claudication Hyperlipidemia Mixed Osteoporosis Loss Hearing Bilateral Urgency Urinary Obesity Body Mass Index 30-39.9 Adult Chronic Obstructive Pulmonary Disease Without Exacerbation (HCC) Obstructive Sleep Apnea Adult Cancer Breast Personal History Gallstone Pain Neck Dementia (HCC) Anxiety Generalized Disorder Chronic Cough Nodules Pulmonary Multiple Atrial Fibrillation Unspecified (HCC) Influenza Hypertension Essential Primary Hyperlipidemia Pneumonia Bacterial Sepsis (HCC) Hypothyroidism Past Surgical History: Procedure Laterality Date BLEPHAROPLASTY OF UPPER EYELID CATARACT EXTRACTION W/ INTRAOCULAR LENS IMPLANT Bilateral COLPOSCOPY OF THE CERVIX INCLUDING UPPER/ADJACENT VAGINA;.. OTHER CONVERTED SHX (SEE COMMENT) N/A 10/12/2011 >Flexible proctosigmoidoscopy to 45 cm, approximately mid to sigmoid colon. OTHER CONVERTED SHX (SEE COMMENT) N/A 02/27/2007 >Incision and drainage, left breast abscess with biopsy of abscess cavity and intraoperative cultures. OTHER CONVERTED SHX (SEE COMMENT) N/A 10/30/2006 >Colonoscopy. OTHER CONVERTED SHX (SEE COMMENT) N/A 01/17/2006 >Intraoperative injection of blue dye for lymphatic mapping. OTHER CONVERTED SHX (SEE COMMENT) N/A 07/25/2013 >1. Right carotid endarterectomy. 2. Intraoperative neuromonitoring with EEG. OTHER CONVERTED SHX (SEE COMMENT) N/A 07/05/2007 >Skin biopsy, right areola. OTHER SURGICAL HISTORY external levator resection 01/18/2010 OTHER SURGICAL HISTORY excision breast lesion History of Present Illness: per H&P: Rox Ramirez is an 88-year-old female that [...] She has a history of recurrent pneumonia. Prior Function/Occupational Profile: Prior Mobility/Functional Transfers Level of [place]: Modified independent Previous Transfer/Mobility Assistance Comments: 4-wheeled walker Prior Function/Occupational Profile Lives With: Alone Receives Help From: Family, Facility staff ADL Assistance: Independent ADL Assistance Comments: Patient reports that she was independent with showering, bathing, dressing IADL/Homemaking Assistance: Required assistance IADL/Homemaking Assistance Comments: has assistance with medications, household activities and got meals at the facility Occupational Role: Retired Home Living Type of Home: Assisted living facility Home Layout: One level Home Access: Level entry Home Equipment Gait Devices Owned: Four-wheeled walker Family/Caregiver Present: No Patient/Caregiver Goals: return back to assisted living facility Patient Comments: patient is not sure if she will be able to return to her apartment Additional Staff Present During Session: JACINDA Murray Activity Orders (From admission, onward) Start Ordered 04/18/24 1559 Aspiration precautions Continuous 04/18/24 1603 04/18/24 1559 Fall precautions Continuous 04/18/24 1603 04/18/24 1558 Activity/Position: Up Ad Delilah, Up to Chair; Other (comment); Ambulate as much as possible considering previous activity level and physical functioning. Resume activity level following recovery from procedure and/or tests unless otherwise directed.... Until discontinued Question Answer Comment Activity Level: Up Ad Delilah Activity Level: Up to Chair Ambulation Goals: Other (comment) Ambulation goals comment: Ambulate as much as possible considering previous activity level and physical functioning. Resume activity level following recovery from procedure and/or tests unless otherwise directed. Up to chair goals: With meals Restrictions/Precautions: None Brace/Device: None 04/18/24 1603 Precautions Other Precautions: Fall risk Fall Risk (65 and older) Fall in the last 12 months: Yes Did you have an injury with the fall?: No Are you fearful of falling?: Yes Fall Risk Comments: Fall risk OBJECTIVE No pain behavior observed AM-PAC Inpatient Short Form: AM-PAC Basic Mobility (V.2) How much help from another person do you currently need???If the patient hasn't done an activity recently, how much help from another person do you think he/she would needif he/she tried? 1. Turning from your back to your side while in a flat bed without using bedrails?: A Little 2. Moving from lying on your back to sitting on the side of a flat bed without using bedrails?: A Little 3. Moving to and from a bed to a chair (including a wheelchair)?: A Little 4. Standing up from a chair using your arms (e.g., wheelchair, or bedside chair)?: A Little 5. To walk in hospital room?: A Little 6. Climbing 3-5 steps with a railing?: Total AM-PAC Basic Mobility (V.2) Raw Score: 16 [facility] Basic Mobility (V.2) Standardized Score: 38.32 Interpretation: Based on scoring guidelines using the raw score value: Those going to home had an average score at or above 18 Those going to facility had an average score at or below 17 Clinicians answer the [facility] Inpatient Short Form based on observed patient activity and/or clinical judgment (ie. patient can be scored without physically performing each activity) Cognition Arousal/Alertness: Appropriate responses to stimuli Attention: Addressed, no concerns noted Initiation: No difficulty with initiation Orientation: Oriented X4 Following Commands: Follows all commands/directions without difficulty Safety/Judgment: Addressed, no concerns noted Activity Tolerance Endurance: Tolerates less than 10 min of activity Bed Mobility - Sit to Supine # of Assistants: 2 Level of Assistance: Minimal assistance Device: None Comments: needed assist with getting into bed and scooting up in bed due to weakness Sit to Stand Transfers # of Assistants: 1 Transfer Surface: Chair Transfer Equipment: Gait belt, Front wheeled walker Level of Assistance: Contact guard assistance Assessment/Delivery: Assessed Stand to Sit Transfers # of Assistants: 1 Transfer Surface: Bed Transfer Equipment: Gait belt, Front wheeled walker Level of Assistance: Contact guard assistance Assessment/Delivery: Assessed, Instructed Comments: verbal cues for proper hand placement Strength - Upper Extremity Screen: Impaired right & left Strength - Upper Extremity Screen Comments: general weakness Strength - Lower Extremity Screen: Impaired right & left Strength - Lower Extremity Screen Comments: Generalized weakness ROM - Upper Extremity Screen: Addressed, no concerns noted ROM - Lower Extremity Screen: Addressed, no concerns noted Gait Assessment/Training Distance (m): 1 m Surface: Even Device: Gait belt, Front-wheeled walker # of Assistants: 1 Level of Assistance: Contact guard assistance Quality/Pattern: Other (Comment) (pivot transfer from bed to chair) Response: Patient reports fatigue. SpO2 decreased to 77%; increased to 88% after 1' and verbal cuesto breathe through nose Team Communication: Patient's nurse was contacted and patient's status was discussed Upon arrival in room patient was found long sitting in recliner chair, needs including call mcdonald/light in reach. Following treatment patient was left semi- moss's position in bed, needs including call mcdonald/light in reach. Assessment Discharge Considerations: Barriers to Discharge Home: Current functional status, Fall risk Barriers to Discharge Comments: Weakness Discharge Therapy Needs - PT: Ongoing skilled physical therapy Level of Care Needed - PT: Assistance with transfers (Comment), Assistance with walking and moving around the home, Assistance with bed mobility Equipment Recommended - PT: 4-wheeled walker Equipment Vendor - PT: Pt owns Clinical Impression: Patient is a 88 y.o. who has been hospitalized 2 day(s) with an admitting diagnosis of: Pneumonia Bacterial [J15.9]. Prior to hospitalization patient was completing daily activities with assistance in assisted livingfacility. Currently, patient presents with impairments including decreased knowledge of condition, decreased ROM and strength, decreased coordination resulting in the following functional deficits: di fficulty with bed mobility, transfers, gait, and stair negotiation. Rehab potential: Patient has Fair potential to achieve established physical therapy goals within the time frame outlined below. Education was provided regarding evaluative findings, diagnosis, prognosis, potential risks and benefits of rehabilitation interventions. Therapy findings and recommendations were discussed with nurse, Terri. The treatment plan and discharge recommendations may be modified based upon pt response to treatment. Comorbid Conditions: Cognitive/memory disorder Personal Factors: Age, Balance impairment, History of falls, Needs assistive device, Safety awareness, Sedentary lifestyle Clinical Presentation: Evolving Examination elements: 3 Clinical Decision Making: Moderate complexity clinical decision making Functional Goals and Timeframes: PT Goal #1: Patient will be able to ambulate 30 m with modified independence PT Goal #1 to be achieved by: 04/25/24 PT Goal #1 Status: Ongoing PT Goal #2: Patient will be able to perform all transfers with modified independence PT Goal #2 to be achieved by: 04/25/24 PT Goal #2 Status: Ongoing PT Goal #3: Patient will be able to perform bed mobility with modified independence PT Goal #3 to be achieved by: 04/25/24 Plan Therapy Attestation: Physical Therapy Attestation Statement: Patient agrees with the plan of care and goals. Plan: Plan of care initiated PT Frequency: PT Frequency: 5 times per week PT Duration: Until goals are met or hospital discharge Inpatient PT Received On Date: 04/20/24 Requires Inpatient Follow-Up: Yes Next Inpatient Appointment: 04/21/24 Plan for next session: bed mobility, transfers, ambulation to be based on patient's activity tolerance Treatment interventions may include: Treatment/Interventions: Therapeutic functional activity, Neuromuscular re- education, Gait training, Therapeutic exercise Time Spent with Patient Evaluations PT Eval - Mod Complexity: 20 min Therapeutic Interventions Therapeutic Activity (min): 15 min Time Tracking Total Timed Units (min): 15 min Total Treatment Time (min): 35 min HER WARP * Susan Adan L.S.W. - 04/18/2024 3:45 PM CSTAssociated Order(s): IP CONSULT TO CARE MANAGEMENT; IP CONSULT TO CARE MANAGEMENT Psychosocial Assessment SUBJECTIVE DEMOGRAPHIC INFORMATION Referral Source: Service/Provider and Nursing Referral Reason: Psychosocial Assessment and Coping/Adjustment/Support and Discharge planning. Person(s) present during interview: Rox was just admitted and soundly sleeping in her PCU room.SWS called and spoke to [facility] in [place], [place]. Previous Psychosocial Assessment: yes, Oh Jesus on 08/09/2023 Primary care clinic and provider: Bridgett Mi APRN, C.N.P., D.N.P. [id number] [id number] They were advised of the various topics that will be assessed during this evaluation. They consented to proceed. The information provided in the assessment is based on review of the medical record aswell as the interview. They were advised that the content of this interview will be shared with the health care team. It was discussed that staff are mandated reporters and they reported understanding. SOCIAL HISTORY Family / Household: Rox is and has two sons-Dmitri and Elvin. She reportedly also has six grandchildren and four great grandchildren. 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 Psychosocial Risk Factors impacting the patient: Age related debility. Abuse, Neglect, Maltreatment, Trauma: Current: None reported. Social Drivers of Health Transportation Needs: Unmet Transportation Needs (04/18/2024) PRAPARE - Transportation Lack of Transportation (Medical): Yes Lack of Transportation (Non-Medical): Yes Housing Stability: Low Risk (04/18/2024) Housing Stability Housing: Living Situation: I have a steady place to live Food Insecurity: No Food Insecurity (04/18/2024) Hunger Vital Sign Worried About Running Out of Food in the Last Year: Never true Ran Out of Food in the Last Year: Never true Utilities: Not At Risk (04/18/2024) [facility] Utilities Threatened with loss of utilities: No Intimate Partner Violence: Not At Risk (04/18/2024) Humiliation, Afraid, Rape, and Kick questionnaire Fear of Current or Ex-Partner: No Emotionally Abused: No Physically Abused: No Sexually Abused: No ENVIRONMENTAL SUPPORTS Current Living Situation: Rox lives at [facility] in [place], [place]. She does all her own medications and showers. She does get house cleaning assistance with her rent. Anticipated modifications to the patient's home environment: None FUNCTIONAL STATUS (ADL's and IADL's) Dressing: independent Feeding: independent Bathing: independent Grooming: independent Toileting: independent Transfer to/from Bed, Chair, Etc.: independent Mobility: Rox uses a four wheeled walker for ambulation. Meal Prep: independent Medication Setup/Administration: independent Telephone Use: independent Housekeeping: needs assistance; comes with the rent there. Shopping: needs assistance Managing Finances: independent It is anticipated that the patient will need assistance with to be determined closer to discharge as she was just admitted this afternoon. ASSISTIVE DEVICES Patient has the following equipment: emergency call system, grab bars - toilet, grab bars - wall, hand held shower, toilet riser, tub/shower chair/bench, and walker - four wheeled Patient anticipates potentially needing the following additional equipment: none Transportation needs: support from family/friends FINANCES/INSURANCE Primary insurance: MEDICARE A AND B Secondary insurance: MEDICA Financial concerns: No ADVANCE DIRECTIVES Advance Directive: Patient has advance directive, copy in chart OBJECTIVE Suicide Risk and Safety Risk Assessment Suicidal: Unable to assess Homicidal: Unable to assess ASSESSMENT / PLAN IMPRESSION Met very briefly with Rox as she slept in her PCU bed, to complete early screen for discharge planning, and discuss plans for discharge. Upon review of the electronic medical record, as well as speaking with [facility] staff there does not appear to be any barriers to discharge. Patient is a88 year old female from [facility] in [place], [place]. Patient was soundly asleep in her hospital at the time of this worker's visit. Patient was clean in appearance and looked her stated age. Family or a mobility van(private pay $110) will likely provide transport when the patient's is ready to discharge from the hospital. The patient reports agreement with the plan, with no further questions at this time. Encouraged patient/family to seek out social work if any questions/concerns arise. Discussed other community resources for discharge. Patient/family declined any additional resources at this time. INTERVENTIONS 1.) Completed Psychosocial Assessment. 2.) Provided education on role of Social Work in the hospital setting, offered assistance if any needs arise. 3.) Provided supportive Counseling: Empathetic, Active and Reflective Listening. PLAN [facility] 1.)Social Work Services will continue to provide supportive listening regarding current hospitalization and discharge needs as they arise. No additional DME or service needs indicated at this time. 2.) Involve family in Rox's medical plan of care to assure that all her needs are met upon discharge. 3.) One of her son's or a mobility van will transport Rox home over the weekend or Sunday, whenever determined to be medically stable. No barriers to discharge indicated at this time. Social Work Services (SWS) contact information, including a phone number, was provided to patient, if any need or questions arise. Social Work Servicewill continue to follow to assist in facilitating a safe, timely & appropriate discharge when patient has been determined to be medically stable. Oh Bal 04/18/24 HER WARP documented in this encounter Nursing Notes * Josephine Adan R.N. - 04/25/2024 10:54 AM CST Problem: PAIN - ADULT Goal: PT VERBALIZES/DEMONSTRATES ADEQUATE COMFORT LEVEL OR BASELINE Outcome: Adequate for Discharge Problem: KNOWLEDGE DEFICIT Goal: Patient/family/caregiver demonstrates understanding of disease process, treatment plan, medications, and discharge instructions Outcome: Adequate for Discharge Problem: INFECTION - ADULT Goal: Absence of infection during hospitalization Outcome: Adequate for Discharge Problem: SKIN/TISSUE INTEGRITY Goal: Skin/Tissue integrity maintained or improved Outcome: Adequate for Discharge Goal: Oral and Nasal mucous membranes remain intact Outcome: Adequate for Discharge Problem: SAFETY ADULT Goal: Maintain a safe environment Outcome: Adequate for Discharge Problem: DISCHARGE PLANNING Goal: Patient discharge needs identified Outcome: Adequate for Discharge Problem: SAFETY ADULT - RISK FOR FALL AND OR FALL INJURY Goal: Patient remains free from fall/fall injury Outcome: Adequate for Discharge Problem: RESPIRATORY - ADULT Goal: Achieves optimal ventilation and oxygenation Outcome: Adequate for Discharge Problem: POTENTIAL OR ACTUAL PRESSURE INJURY-ADULT Goal: Manage sensory Perception deficits to maintain and/or improve skin integrity Outcome: Adequate for Discharge Goal: Maintain optimal skin moisture to ensure or improve skin integrity Outcome: Adequate for Discharge Goal: Achieve optimal activity and/or mobility to maintain or improve skin integrity Outcome: Adequate for Discharge Goal: Nutrient intake appropriate for improving, restoring or maintaining skin integrity Outcome: Adequate for Discharge Goal: Minimize friction and/or shear to maintain or improve skin integrity Outcome: Adequate for Discharge Problem: Compromised Skin Integrity Goal: Skin/Tissue integrity maintained or improved Outcome: Adequate for Discharge Goal: Oral and Nasal mucous membranes remain intact Outcome: Adequate for Discharge Goal: Incisions, wounds, or drain sites healing without S/S of infection Outcome: Adequate for Discharge Problem: Incontinence and/or Moisture Goal: Skin integrity is maintained or improved Outcome: Adequate for Discharge Shift Goals: Clinical Goals for the Shift: Patient will remain free from falls this shift. Identify possible barriers to meeting goals/advancing plan of care: DX End of Shift Summary: Patient remained free from falls this shift. Ambulated in room with A1, gait belt and walker. Tolerated well. Patient will discharge back to [facility] this morning via private family vehicle. Patient verbalized she has her own walker that she will use at facility. Nurse tonurse update/report given to nurse at [facility]. Facility AVS printed and sent with patient. Customer Experience Consultant y of AVS given to patient as well. HER WARP HER WARP * Joaquin Avendaño R.N. - 04/25/2024 5:09 AM CST Shift Goals: Monitor respiratory distress and intervene as indicated; Continue IV antibiotic; Await acceptance at swing bed Identify possible barriers to meeting goals/advancing plan of care: None identified at this time End of Shift Summary: Patient continues to saturate well on room air while awake and 1L nocs; IV Zosyn continues; Await placement at swing bed for continued therapies as soon as today HER WARP * Terri Matute R.N. - 04/24/2024 4:16 PM CST Shift Goals: Clinical Goals for the Shift: Patient will be able to be weaned off of oxygen Identify possible barriers to meeting goals/advancing plan of care: admit dx End of Shift Summary: Patient has remained on RA while awake today, but she still needed 1 L NC while she was napping. She continues to be very weak, she is working with PT/OT and is looking at ongoing rehab post hospitalization. Problem: DISCHARGE PLANNING Goal: Patient discharge needs identified Outcome: Progressing Problem: RESPIRATORY - ADULT Goal: Achieves optimal ventilation and oxygenation Outcome: Progressing Problem: Incontinence and/or Moisture Goal: Skin integrity is maintained or improved Outcome: Progressing HER WARP * Lisa Austin RDillan. - 04/24/2024 4:13 AM CST Problem: PAIN - ADULT Goal: PT VERBALIZES/DEMONSTRATES ADEQUATE COMFORT LEVEL OR BASELINE Outcome: Progressing Problem: KNOWLEDGE DEFICIT Goal: Patient/family/caregiver demonstrates understanding of disease process, treatment plan, medications, and discharge instructions Outcome: Progressing Problem: INFECTION - ADULT Goal: Absence of infection during hospitalization Outcome: Progressing Problem: SKIN/TISSUE INTEGRITY Goal: Skin/Tissue integrity maintained or improved Outcome: Progressing Goal: Oral and Nasal mucous membranes remain intact Outcome: Progressing Problem: SAFETY ADULT Goal: Maintain a safe environment Outcome: Progressing Problem: DISCHARGE PLANNING Goal: Patient discharge needs identified Outcome: Progressing Problem: SAFETY ADULT - RISK FOR FALL AND OR FALL INJURY Goal: Patient remains free from fall/fall injury Outcome: Progressing Problem: RESPIRATORY - ADULT Goal: Achieves optimal ventilation and oxygenation Outcome: Progressing Problem: POTENTIAL OR ACTUAL PRESSURE INJURY-ADULT Goal: Manage sensory Perception deficits to maintain and/or improve skin integrity Outcome: Progressing Goal: Maintain optimal skin moisture to ensure or improve skin integrity Outcome: Progressing Goal: Achieve optimal activity and/or mobility to maintain or improve skin integrity Outcome: Progressing Goal: Nutrient intake appropriate for improving, restoring or maintaining skin integrity Outcome: Progressing Goal: Minimize friction and/or shear to maintain or improve skin integrity Outcome: Progressing Problem: Compromised Skin Integrity Goal: Skin/Tissue integrity maintained or improved Outcome: Progressing Goal: Oral and Nasal mucous membranes remain intact Outcome: Progressing Goal: Incisions, wounds, or drain sites healing without S/S of infection Outcome: Progressing Problem: Incontinence and/or Moisture Goal: Skin integrity is maintained or improved Outcome: Progressing Shift Goals: Clinical Goals for the Shift: patient will mainatain adequate oxygenation Identify possible barriers to meeting goals/advancing plan of care: none End of Shift Summary: Patients oxygen saturations remained between 88-92% this shift. Still requiring 1 liter NC when she is sleeping, unable to lay flat, HOB elevated to 30 degrees. Otherwise remained vitally stable throughout the shift. HER WARP * Terri Matute R.N. - 04/23/2024 4:57 PM CST Shift Goals: Clinical Goals for the Shift: able to maintain O2 sats 88-92% at rest and with activity Identify possible barriers to meeting goals/advancing plan of care: admit dx End of Shift Summary: Patient has maintained O2 SATs above 88% with supplemental oxygen, 1 L NC. Patient continues to be weak and does get SOB with activity. Patient will likely need short term rehabto help her regain her strength. Problem: RESPIRATORY - ADULT Goal: Achieves optimal ventilation and oxygenation Outcome: Progressing Problem: Incontinence and/or Moisture Goal: Skin integrity is maintained or improved Outcome: Progressing HER WARP * Lisa Moon R.N. - 04/23/2024 3:46 PM CST [place]sted PT with ambulating to toilet. Pt needed to rest approximately 5 minutes before attemping to return to bed. SATS drop to mid 80s but return to low 90s Suggest using commode until can maintain O2 SATS HER WARP * Lisa Austin R.N. - 04/23/2024 3:07 AM CST Problem: PAIN - ADULT Goal: PT VERBALIZES/DEMONSTRATES ADEQUATE COMFORT LEVEL OR BASELINE Outcome: Progressing Problem: KNOWLEDGE DEFICIT Goal: Patient/family/caregiver demonstrates understanding of disease process, treatment plan, medications, and discharge instructions Outcome: Progressing Problem: INFECTION - ADULT Goal: Absence of infection during hospitalization Outcome: Progressing Problem: SKIN/TISSUE INTEGRITY Goal: Skin/Tissue integrity maintained or improved Outcome: Progressing Goal: Oral and Nasal mucous membranes remain intact Outcome: Progressing Problem: SAFETY ADULT Goal: Maintain a safe environment Outcome: Progressing Problem: DISCHARGE PLANNING Goal: Patient discharge needs identified Outcome: Progressing Problem: SAFETY ADULT - RISK FOR FALL AND OR FALL INJURY Goal: Patient remains free from fall/fall injury Outcome: Progressing Problem: RESPIRATORY - ADULT Goal: Achieves optimal ventilation and oxygenation Outcome: Progressing Problem: POTENTIAL OR ACTUAL PRESSURE INJURY-ADULT Goal: Manage sensory Perception deficits to maintain and/or improve skin integrity Outcome: Progressing Goal: Maintain optimal skin moisture to ensure or improve skin integrity Outcome: Progressing Goal: Achieve optimal activity and/or mobility to maintain or improve skin integrity Outcome: Progressing Goal: Nutrient intake appropriate for improving, restoring or maintaining skin integrity Outcome: Progressing Goal: Minimize friction and/or shear to maintain or improve skin integrity Outcome: Progressing Problem: Compromised Skin Integrity Goal: Skin/Tissue integrity maintained or improved Outcome: Progressing Goal: Oral and Nasal mucous membranes remain intact Outcome: Progressing Goal: Incisions, wounds, or drain sites healing without S/S of infection Outcome: Progressing Problem: Incontinence and/or Moisture Goal: Skin integrity is maintained or improved Outcome: Progressing Shift Goals: Clinical Goals for the Shift: patient will maintain adequate oxygenation Identify possible barriers to meeting goals/advancing plan of care: none End of Shift Summary: Patient continued to need 2 L NC to maintain oxygen saturation of at least 90%. Congested cough that is non productive. Mucinex added to medications. Continued with new antibiotic. Patient was able to rest comfortably throughout the shift. HER WARP * Alexandra Posada L.R.T. - 04/22/2024 9:10 AM CST Patient is a 88 y.o. female Admitted on 04/18/2024 Principal Problem: Sepsis (HCC) Alert Information: RT Alert Info: svn Shift Summary: Patient seen on 3L NC. Scheduled nebs given. Continue to assess while being seen for respiratory therapies. Please contact RT with any questionsor concerns. 1200-Patient had episode of desaturation into the 70's today during ECHO. Placed on OxyMask until recovered. Continues on nasal cannula. 1530-Scheduled neb given in line with aerobika with fair effort. Strong, non- productive cough. Ezpap also done with 5L. Both therapies tolerated well. Oxygen Therapy: $Delivery Method: Nasal cannula Flow Rate (L/min): 3 L/min Recent ABG: No results for input(s): PO2 ART, PCO2 ART, PH ART, HCO3 ART, BASE EXC ART in the last 24hours. Smoking History: Social History Tobacco Use Smoking Status Former Current packs/day: 0.00 Average packs/day: 0.5 packs/day for 43.0 years (21.5 ttl pk-yrs) Types: Cigarettes Start date: 1954 Quit date: 1997 Years since quittin.9 Smokeless Tobacco Never Jeferson Wells 04/22/24 9:10 AM [facility] HER WARP HER WARP HER WARP * Chiquita Gallagher R.N. - 04/22/2024 4:59 AM CST Problem: RESPIRATORY - ADULT Goal: Achieves optimal ventilation and oxygenation Outcome: Progressing Shift Goals: Clinical Goals for the Shift: Patient will maintain adequate oxygenation sats 88-92% this shift. Identify possible barriers to meeting goals/advancing plan of care: dx End of Shift Summary: Goal met. Patient remained on 2-3L of oxygen via NC. Nursing staff attempted to wean oxygen down to 1.5L, but oxygen saturations dropped to 85%. Vitally stable otherwise. No complaints of pain. Patient had a bit of confusion in the morning, but was easily reoriented. HER WARP * Dominique Black R.N. - 04/21/2024 3:31 PM CST Problem: PAIN - ADULT Goal: PT VERBALIZES/DEMONSTRATES ADEQUATE COMFORT LEVEL OR BASELINE Outcome: Progressing Problem: SAFETY ADULT Goal: Maintain a safe environment Outcome: Progressing Problem: RESPIRATORY - ADULT Goal: Achieves optimal ventilation and oxygenation Outcome: Progressing Shift Goals: Clinical Goals for the Shift: Patient will maintain adequate O2 SATs above 88% this shift. Identify possible barriers to meeting goals/advancing plan of care: Dx. End of Shift Summary: Pt required 3-4L NC to maintain O2 SATS between 88-92%. Denied pain. Antibiotics were switched from rocephin to zosyn this afternoon and pt was switched to PCU status due to increased SOB and increased O2 need. Electronically signed by: Terri Black R.N. 04/21/24 3:32 PM [facility] HER WARP * Taylor Salmeron, R.R.Zoe, C.R.T. - 04/21/2024 7:50 AM CST Patient is a 88 y.o. female admitted on 04/18/2024 Alert Information: RT Alert Info: svn Plan of Care: Continue scheduled nebulizers and inhaler. Principal Problem Sepsis (HCC) Oxygen Therapy $Delivery Method: Oxymask Social History Tobacco Use Smoking Status Former Current packs/day: 0.00 Average packs/day: 0.5 packs/day for 43.0 years (21.5 ttl pk-yrs) Types: Cigarettes Start date: 1954 Quit date: 1997 Years since quittin.9 Smokeless Tobacco Never Respiratory Assessment Score: 11 HER WARP * Julieta Jasso R.N. - 04/21/2024 5:48 AM CST Problem: RESPIRATORY - ADULT Goal: Achieves optimal ventilation and oxygenation Outcome: Progressing Shift Goals: Clinical Goals for the Shift: Patient will maintain adequate O2 SATs above 88% this shift. Identify possible barriers to meeting goals/advancing plan of care: None. End of Shift Summary: Patient has maintained adequate O2 saturations this shift. On an OxyMask at 3L. HER WARP * Terri Matute R.N. - 04/20/2024 5:22 PM CST Shift Goals: Clinical Goals for the Shift: Patient will maintain O2 SATs above 88% Identify possible barriers to meeting goals/advancing plan of care: admit dx End of Shift Summary: Patient has maintained O2 SATs above 88% with 1-2 L NC. Patient was able to work with PT today, she is still quite weak and gets tired very easily, she has only walked from her bed to the chair today. Encouraging po intake of fluids, patient has not eaten much today. Problem: SKIN/TISSUE INTEGRITY Goal: Skin/Tissue integrity maintained or improved Outcome: Progressing Goal: Oral and Nasal mucous membranes remain intact Outcome: Progressing Problem: Compromised Skin Integrity Goal: Skin/Tissue integrity maintained or improved Outcome: Progressing Goal: Oral and Nasal mucous membranes remain intact Outcome: Progressing Goal: Incisions, wounds, or drain sites healing without S/S of infection Outcome: Progressing Problem: Incontinence and/or Moisture Goal: Skin integrity is maintained or improved Outcome: Progressing HER WARP * Julieta Jasso R.N. - 04/20/2024 5:03 AM CST Problem: RESPIRATORY - ADULT Goal: Achieves optimal ventilation and oxygenation Outcome: Progressing Shift Goals: Clinical Goals for the Shift: Patient will maintain adequate oxygenation this shift. Identify possible barriers to meeting goals/advancing plan of care: none. End of Shift Summary: Patient maintained adequate oxygenation this shift. On 1- 2L via OxyMask. HER WARP * Terri Matute R.N. - 04/19/2024 5:48 PM CST Shift Goals: Clinical Goals for the Shift: Patient will maintain O2 SATs above 88% Identify possible barriers to meeting goals/advancing plan of care: pneumonia End of Shift Summary: Patient has maintained O2 SATs above 88% with supplemental oxygen, 1-2 L NC. She has remained tachycardic all day, provider updated, she received an extra dose of metoprolol. Problem: SKIN/TISSUE INTEGRITY Goal: Skin/Tissue integrity maintained or improved Outcome: Progressing Problem: RESPIRATORY - ADULT Goal: Achieves optimal ventilation and oxygenation Outcome: Progressing Problem: Compromised Skin Integrity Goal: Skin/Tissue integrity maintained or improved Outcome: Progressing Problem: Incontinence and/or Moisture Goal: Skin integrity is maintained or improved Outcome: Progressing HER WARP * Julieta Jasso R.N. - 04/19/2024 5:42 AM CST Problem: RESPIRATORY - ADULT Goal: Achieves optimal ventilation and oxygenation Outcome: Progressing Shift Goals: Clinical Goals for the Shift: Patient will maintain adequate oxygenation this shift. Identify possible barriers to meeting goals/advancing plan of care: None. End of Shift Summary: Patient has maintained adequate oxygenation this shift on 2L via nasal cannula. Attempted to wean down to 1L, however, oxygen saturations dipped to 85%. HER WARP * Chiquita Gallagher R.N. - 04/18/2024 5:22 PM CST Problem: RESPIRATORY - ADULT Goal: Achieves optimal ventilation and oxygenation Outcome: Progressing Shift Goals: Clinical Goals for the Shift: Patient will maintain adequate oxygenation sats 88-92% this shift. Identify possible barriers to meeting goals/advancing plan of care: dx End of Shift Summary: Goal met. Patient was able to be weaned down from 3 L of oxygen to 1 L via NC. HR has ranged from 100-120s. Vitally stable otherwise. Patient remained afebrile. No complaints ofpain at this time. Patient has not been up out of bed yet. Per patient, she uses a walker when ambulating. HER WARP documented in this encounter Miscellaneous Notes * ACP (Advance Care Planning) - Yanet Paulino M.D. - 04/23/2024 11:05 AM CST Advance Care Planning Reason for Conversation This patient is a 88 y.o. year old female that presents for pneumonia. 1. Patient has understanding of conditions: yes 2. Patient understands treatment options: yes 3. Patient has potential benefits and risks of proposed treatments/interventions: yes. Alternative Decision Maker: The patient, Rox Ramirez, expresses the following preference: Her sons Dmitri Ramirez and Araseli Optional Expression of Values/Preferences for Specific Life-Prolonging Treatments: The patient, Rox Ramirez, indicates the following preference: Allow Natural *, No CPRor Mechanical Ventilation will be performed Others Present: The following person/people were also present during the discussion: Other: Her nurse Razia Moon and Social Work Susan Adan Other Comments: none HER WARP * Assessment & Plan Note - Marlene Marinelli M.D., M.S. - 04/18/2024 10:17 PM CSTAssociated Problem(s): Depression Major Recurrent Moderate (HCC) Continue sertraline and buPROPion. HER WARP * Assessment & Plan Note - Marlene Marinelli M.D., M.S. - 04/18/2024 10:16 PM CSTAssociated Problem(s): Hypertension Essential Primary Continue her hypertensive treatment with losartan, amlodipine, and her metoprolol. Following the IVfluid resuscitation her blood pressure improved. Will need to continue to monitor carefully. I am leaving her on her antihypertensives at this point. If she becomes hypotensive again, then will need to discontinue accordingly. HER WARP HER WARP * Assessment & Plan Note - Marlene Marinelli M.D., M.S. - 04/18/2024 10:15 PM CSTAssociated Problem(s): Dementia (HCC) Continue Aricept and Remeron at night for sleep. HER WARP * Assessment & Plan Note - Marlene Marinelli M.D., M.S. - 04/18/2024 10:14 PM CSTAssociated Problem(s): Hyperlipidemia Mixed Continue simvastatin HER WARP * Assessment & Plan Note - Marlene Marinelli M.D., M.S. - 04/18/2024 10:14 PM CSTAssociated Problem(s): Hypothyroidism Continue thyroid replacement therapy. HER WARP * Assessment & Plan Note - Marlene Marinelli M.D., M.S. - 04/18/2024 10:14 PM CSTAssociated Problem(s): Gastroesophageal Reflux Disease NOS Continue omeprazole. This could be the etiology of her possible recurrent aspiration pneumonitis. Speech therapy consulted. HER WARP * Assessment & Plan Note - Marelne Marinelli M.D., M.S. - 04/18/2024 10:13 PM CSTAssociated Problem(s): Atrial Fibrillation Unspecified (HCC) She had AFib with rapid ventricular response upon presentation to the emergency department. This was somewhat resolved with her receiving her morning medications. Will continue her daily aspirin and metoprolol. Continue to monitor closely with telemetry and titrate medications accordingly. HER WARP * Assessment & Plan Note - Marlene Marinelli M.D., M.S. - 04/18/2024 10:11 PM CSTAssociated Problem(s): Pneumonia Bacterial She has leukocytosis with a left shift. [...] nebulizers. Steroids not started at this time. HER WARP * Assessment & Plan Note - Marlene Marinelli M.D., M.S. - 04/18/2024 10:07 PM CSTAssociated Problem(s): Sepsis (HCC) (Resolved 04/25/2024) For a pleasant 88-year-old female with history of atrial fibrillation, COPD, oxygen-dependent, recurrent pneumonia, possible aspiration, esophageal reflux disease, dementia, hypertension presented [facility] Emergency Department after being found seated on the floor in her room at the assisted living facility. Patient has been feeling ill for the last couple of weeks and has had a progressive cough. A during the evaluation in the emergency department she was found to be tachycardic andtachypneic. Her blood pressures were on the soft side. She had not had her morning medications. Thetachycardia improved after she received her dose of metoprolol; however it has remained greater than 100-110. Her blood pressures on presentation to the hospital were around 110 systolic with a pulsein the same region. Her respiratory rate was in the 30s. She was treated with fluid resuscitation and initiated on IV antibiotics. She became hemodynamically more stable with the fluids. HER WARP documented in this encounter Plan of Treatment Upcoming Encounters Date Type Department Care Team (Latest Contact Info) Description 06/30/2024 2:45 PM [facility] Comprehensive Visit Department of Ophthalmology in [address] [phone] Matty Kumari Jr., M.D. [address] [phone] Discharge Disposition: Home or Self Care Pending Results Name Type Priority Associated Diagnoses Date /Time Manual Differential, Blood Lab Routine 04/22/2024 5:23 AM [facility] Scheduled Orders Name Type Priority Associated Diagnoses Orde r Schedule Bacterial Culture, Aerobic + Susceptibility, Respiratory Microbiology Routine Routine lab collection (next collection) for 1 Occurrences starting 04/21/2024 until 04/21/2024 Gram Stain Microbiology Routine Routine lab collection (next collection) for 1 Occurrences starting 04/21/2024 until 04/21/2024 Manual Differential, Blood Lab Routine Routine lab collection (next collection) for 1 Occurrences starting 04/22/2024 until 04/22/2024 Basic Metabolic Panel Lab Routine Hypokalemia Hypertension Essential Primary Expected: 05/02/2024, Expires: 04/25/2027 CBC with Differential, Blood Lab Routine Sepsis (HCC) [A41.9] Expected: 05/02/2024, Expires: 04/25/2027 Scheduled Referrals Name Type Priority Associated Diagnoses Orde r Schedule Post Hospital Visit Primary Care Outpatient Referral Routine Expected: 05/02/2024, Expires: 07/24/2025 [facility] Referral Outpatient Referral Routine Hypertension Essential Primary Pneumonia Bacterial Deconditioned Chronic Obstructive Pulmonary Disease Without Exacerbation (HCC) Spinal Stenosis Lumbar Region Without Neurogenic Claudication Ordered: 04/25/2024 documented as of this encounter Goals Goal Patient Goal Type Associated Problems Recent Progress Patient-Stated? Author Increase physical activity Exercise No Bharati Mena RIleneN. Note: Patient plans to sign up for the wellness center so that she can increase her physical activity level. Patient/caregiver will direct end of life planning General Bharati Velasquez R.N. Note: Patient to bring in copy of advance directives to scan into chart. Patient/caregiver will be independent in managing appointments General No Bharati Mena RIleneN. Note: Patient is to schedule appointment to follow up with Dr. Quintana. documented as of this encounter Procedures Procedure Name Priority Date/Time Associated Diagnosis Comments MORPHOLOGY EVALUATION Routine 04/25/2024 5:28 AM [facility] MANUAL DIFFERENTIAL, B Routine 04/25/2024 5:28 AM [facility] CBC WITH DIFFERENTIAL, B Routine 04/25/2024 5:28 AM [facility] BASIC METABOLIC PANEL, S/P Routine 04/25/2024 5:28 AM [facility] ADULT OXYGEN THERAPY Routine 04/24/2024 8:01 AM [facility] MORPHOLOGY EVALUATION Routine 04/24/2024 5:24 AM [facility] CBC WITH DIFFERENTIAL, B Routine 04/24/2024 5:24 AM [facility] BASIC METABOLIC PANEL, S/P Routine 04/24/2024 5:24 AM [facility] ADULT OXYGEN THERAPY Routine 04/23/2024 8:01 PM [facility] PEP THERAPY Routine 04/23/2024 3:00 PM [facility] RESPIRATORY ASSESS AND TREAT Routine 04/23/2024 2:00 PM [facility] PEP THERAPY Routine 04/23/2024 11:00 AM [facility] POTASSIUM, S/P Timed 04/23/2024 10:38 AM [facility] ADULT OXYGEN THERAPY Routine 04/23/2024 8:01 AM [facility] PEP THERAPY Routine 04/23/2024 7:01 AM [facility] MORPHOLOGY EVALUATION Routine 04/23/2024 5:07 AM [facility] MANUAL DIFFERENTIAL, B Routine 04/23/2024 5:07 AM [facility] CBC WITH DIFFERENTIAL, B Routine 04/23/2024 5:07 AM [facility] BASIC METABOLIC PANEL, S/P Timed 04/23/2024 5:07 AM [facility] ADULT OXYGEN THERAPY Routine 04/22/2024 8:01 PM [facility] PEP THERAPY Routine 04/22/2024 7:00 PM [facility] PEP THERAPY Routine 04/22/2024 3:00 PM [facility] RESPIRATORY ASSESS AND TREAT Routine 04/22/2024 2:00 PM [facility] (TTE) 2D ECHO DOPPLER COLOR Routine 04/22/2024 12:16 PM [facility] PEP THERAPY Routine 04/22/2024 11:50 AM [facility] PEP THERAPY Routine 04/22/2024 11:50 AM [facility] PEP THERAPY Routine 04/22/2024 11:50 AM [facility] ADULT OXYGEN THERAPY Routine 04/22/2024 8:01 AM [facility] MORPHOLOGY EVALUATION Routine 04/22/2024 5:23 AM [facility] CBC WITH DIFFERENTIAL, B Routine 04/22/2024 5:23 AM [facility] MAGNESIUM, S Routine 04/22/2024 5:23 AM [facility] BASIC METABOLIC PANEL, S/P Routine 04/22/2024 5:23 AM [facility] ADULT OXYGEN THERAPY Routine 04/21/2024 8:[address] CHEST ANGIOGRAM AND PULMONARY ARTERIES WITH IV CONTRAST RAD - Routine (most inpatients and all outpatients) 04/21/2024 3:15 PM [facility] RESPIRATORY ASSESS AND TREAT Routine 04/21/2024 2:00 PM [facility] ADULT OXYGEN THERAPY Routine 04/21/2024 8:01 AM [facility] NT-PRO B-TYPE NATRIURETIC PEPTIDE (BNP), S Routine 04/21/2024 5:26 AM [facility] CBC WITH DIFFERENTIAL, B Routine 04/21/2024 5:26 AM [facility] BASIC METABOLIC PANEL, S/P Routine 04/21/2024 5:26 AM [facility] ADULT OXYGEN THERAPY Routine 04/20/2024 8:00 PM [facility] RESPIRATORY ASSESS AND TREAT Routine 04/20/2024 2:00 PM [facility] ADULT OXYGEN THERAPY Routine 04/20/2024 8:00 AM [facility] CBC WITH DIFFERENTIAL, B Routine 04/20/2024 5:56 AM [facility] BASIC METABOLIC PANEL, S/P Routine 04/20/2024 5:56 AM [facility] ADULT OXYGEN THERAPY Routine 04/19/2024 8:00 PM [facility] STREPTOCOCCUS PNEUMONIAE AG, U Routine 04/19/2024 5:12 PM [facility] LEGIONELLA AG, U Routine 04/19/2024 5:12 PM [facility] RESPIRATORY ASSESS AND TREAT Routine 04/19/2024 2:00 PM [facility] DX CHEST PORTABLE 1 VIEW RAD - Semiurgent (Fast; most ED patients; some inpatients) 04/19/2024 12:57 PM [facility] VENOUS BLOOD GAS W/COOX, B STAT 04/19/2024 12:53 PM [facility] MRSA/STAPHYLOCOCCUS AUREUS, NASAL, BY PCR Routine 04/19/2024 12:32 PM [facility] LACTATE FOR SEPSIS WITH REFLEX STAT 04/19/2024 10:05 AM [facility] ADULT OXYGEN THERAPY Routine 04/19/2024 8:01 AM [facility] CBC WITH DIFFERENTIAL, B Routine 04/19/2024 6:01 AM [facility] BASIC METABOLIC PANEL, S/P Routine 04/19/2024 6:01 AM [facility] ADULT OXYGEN THERAPY Routine 04/18/2024 8:01 PM [facility] RESPIRATORY ASSESS AND TREAT Routine 04/18/2024 4:03 PM [facility] ADULT OXYGEN THERAPY Routine 04/18/2024 4:03 PM [facility] ADULT OXYGEN THERAPY Routine 04/18/2024 4:03 PM [facility] ADULT OXYGEN THERAPY Routine 04/18/2024 4:03 PM [facility]ARP documented in this encounter Results * (ABNORMAL) Manual Differential, Blood (04/25/2024 5:28 AM [facility] WARP) Segmented Neutrophils 79(H) 50 - 75 % 04/25/2024 6:35 AM BR[facility] RDWG Lymphocytes % 10(L) 18 - 42 % 04/25/2024 6:35 AM BRUS[facility] W[facility] RDWG Monocytes 4 2 - 11 % 04/25/2024 6:35 AM BR[facility] WARP RDWG Eosinophils 3 1 - 3 % 04/25/2024 6:35 AM BR[facility] W[facility] RDWG Metamyelocytes 2(H) <1 % 04/25/2024 6:35 AM BR[facility] RDWG Myelocytes 2(H) <0.5 % 04/25/2024 6:35 AM [facility] RDWG Nucleated RBC 2 /100 WBC 04/25/2024 6:35 AM BR[facility]ARP RDWG Manual Absolute Neutrophil Count 9.24(H) 1.56 - 6.45 x10(9)/L 04/25/2024 6:35 AM [facility] RDWG Comment: ----ADDITIONAL INFORMATION---- The manual absolute neutrophil count is derived from a manual differential count and therefore is not exactly comparable to the automated absolute neutrophil count. Blood 04/25/2024 5:28 AM [facility] 04/25/2024 5:50 AM [facility] Yanet Morse M.D. LAB BLOOD ADD-ON Fin al Result Performing Organization Address [facility]/ZIP Co de Phone Number [facility] [address] [place] [address], [facility] R[facility] in [place] [address] * (ABNORMAL) Morphology Evaluation (04/25/2024 5:28 AM [facility]) RBC Morphology See Specific Findings 04/25/2024 6:35 AM [facility] R[facility]G PLT Morphology Normal 04/25/2024 6:35 AM [facility] PLT Estimate Adequate Adequate 04/25/2024 6:35 AM [facility] Anisocytosis Slight(A) 04/25/2024 6:35 AM [facility]G Elliptocytes Slight(A) Not Seen 04/25/2024 6:35 AM [facility] Blood 04/25/2024 5:28 AM [facility] 04/25/2024 5:50 AM [facility] Yanet Morse M.D. LAB BLOOD ADD-ON Fin al Result Performing Organization Address City/[facility]/ZIP Co de Phone Number [facility] [address] [place] [address], [facility] in [place] [address] [place] [address] * (ABNORMAL) Basic Metabolic Panel (04/25/2024 5:28 AM [facility]) Potassium, P 3.2(L) 3.6 - 5.2 mmol/L 04/25/2024 6:22 AM [facility] Sodium, P 140 135 - 145 mmol/L 04/25/2024 6:22 AM [facility] Chloride, P 99 98 - 107 mmol/L 04/25/2024 6:22 AM [facility] Bicarbonate, P 31(H) 22 - 29 mmol/L 04/25/2024 6:22 AM [facility] Anion Gap, P 10 7 - 15 04/25/2024 6:22 AM [facility] BUN (Blood Urea Nitrogen), P 26(H) 6 - 21 mg/dL 04/25/2024 6:22 AM [facility] Creatinine 1.10(H) 0.59 - 1.04 mg/dL 04/25/2024 6:22 AM [facility] Estimated GFR (eGFR) 49(L) >=60 mL/min/BSA 04/25/2024 6:22 AM [facility] Comment: Estimated GFR calculated using the 2020 CKD_EPI creatinine equation. Calcium, Total, P 9.2 8.8 - 10.2 mg/dL 04/25/2024 6:22 AM [facility] Glucose, P 98 70 - 140 mg/dL 04/25/2024 6:22 AM [facility] Blood (Blood, Venous) 04/25/2024 5:28 AM [facility] 04/25/2024 5:50 AM [facility] us Yanet Morse M.D. LAB BLOOD ADD-ON Fin al Result [facility] [address] [place] [address], [facility] in [place] [address] [place] [address] * (ABNORMAL) CBC with Differential, Blood (04/25/2024 5:28 AM [facility]) Hemoglobin 10.5(L) 11.6 - 15.0 g/dL 04/25/2024 6:34 AM [facility] Hematocrit 28.4(L) 35.5 - 44.9 % 04/25/2024 6:34 AM [facility] Erythrocytes 2.94(L) 3.92 - 5.13 x10(12)/ L 04/25/2024 6:34 AM [facility] MCV 96.6 78.2 - 97.9 fL 04/25/2024 6:34 AM [facility] RBC Distrib Width 19.7(H) 12.2 - 16.1 % 04/25/2024 6:34 AM [facility] Platelet Count 352 157 - 371 x10(9)/L 04/25/2024 6:34 AM [facility] Leukocytes 11.7(H) 3.4 - 9.6 x10(9)/L 04/25/2024 6:34 AM [facility] Neutrophils See manual differential 1.56 - 6.45 x10(9)/L 04/25/2024 6:34 AM [facility] Blood (Blood, Venous) 04/25/2024 5:28 AM [facility] 04/25/2024 5:50 AM [facility] Yanet Morse M.D. LAB BLOOD ADD-ON Fin al Result [facility] [address] [place] [address], [facility] in [place] [address] [place] [address] * (ABNORMAL) Morphology Evaluation (04/24/2024 5:24 AM [facility]) RBC Morphology See Specific Findings 04/24/2024 8:39 AM [facility] RDWG PLT Morphology Normal 04/24/2024 8:39 AM [facility] R[facility] PLT Estimate Adequate Adequate 04/24/2024 8:39 AM [facility] Anisocytosis Slight(A) 04/24/2024 8:39 AM [facility] R[facility]G Elliptocytes Slight(A) Not Seen 04/24/2024 8:39 AM [facility] Blood 04/24/2024 5:24 AM [facility] 04/24/2024 6:30 AM [facility] Yanet Morse M.D. LAB BLOOD ADD-ON Fin al Result [facility] [address] [facility] [place] [address], [facility] in [place] 70 [place] [address] * (ABNORMAL) Basic Metabolic Panel (04/24/2024 5:24 AM [facility]) Potassium, P 3.0(L) 3.6 - 5.2 mmol/L 04/24/2024 7:34 AM [facility] R[facility] Sodium, P 141 135 - 145 mmol/L 04/24/2024 7:34 AM [facility] Chloride, P 97(L) 98 - 107 mmol/L 04/24/2024 7:34 AM [facility] Bicarbonate, P 31(H) 22 - 29 mmol/L 04/24/2024 7:34 AM [facility] Anion Gap, P 13 7 - 15 04/24/2024 7:34 AM [facility] BUN (Blood Urea Nitrogen), P 24(H) 6 - 21 mg/dL 04/24/2024 7:34 AM [facility] Creatinine 1.09(H) 0.59 - 1.04 mg/dL 04/24/2024 7:34 AM [facility] Estimated GFR (eGFR) 49(L) >=60 mL/min/BSA 04/24/2024 7:34 AM [facility] Comment: Estimated GFR calculated using the 2020 CKD_EPI creatinine equation. Calcium, Total, P 9.1 8.8 - 10.2 mg/dL 04/24/2024 7:34 AM [facility] Glucose, P 105 70 - 140 mg/dL 04/24/2024 7:34 AM [facility] Blood (Blood, Venous) 04/24/2024 5:24 AM [facility] 04/24/2024 6:30 AM [facility] us Yanet Morse M.D. LAB BLOOD ADD-ON Fin al Result [facility] [address] [address], [facility] in [place] [address] [address] * (ABNORMAL) CBC with Differential, Blood (04/24/2024 5:24 AM [facility]) Hemoglobin 10.6(L) 11.6 - 15.0 g/dL 04/24/2024 8:38 AM [facility] Hematocrit 33.4(L) 35.5 - 44.9 % 04/24/2024 8:38 AM [facility] Erythrocytes 3.67(L) 3.92 - 5.13 x10(12)/L 04/24/2024 8:38 AM [facility] MCV 91.0 78.2 - 97.9 fL 04/24/2024 8:38 AM [facility] R[facility] RBC Distrib Width 16.0 12.2 - 16.1 % 04/24/2024 8:38 AM [facility] R[facility] Platelet Count 345 157 - 371 x10(9)/L 04/24/2024 8:38 AM [facility] Leukocytes 12.9(H) 3.4 - 9.6 x10(9)/L 04/24/2024 8:38 AM [facility] Neutrophils 10.36(H) 1.56 - 6.45 x10(9)/L 04/24/2024 8:38 AM [facility] Lymphocytes 1.39 0.95 - 3.07 x10(9)/L 04/24/2024 8:38 AM [facility] Monocytes 0.74 0.26 - 0.81 x10(9)/L 04/24/2024 8:38 AM [facility] Eosinophils 0.35 0.03 - 0.48 x10(9)/L 04/24/2024 8:38 AM [facility] Basophils 0.03 0.01 - 0.08 x10(9)/L 04/24/2024 8:38 AM [facility] Blood (Blood, Venous) 04/24/2024 5:24 AM [facility] 04/24/2024 6:30 AM [facility] us Yanet Morse M.D. LAB BLOOD ADD-ON Fin al Result [facility] [address] [address], [facility] in [place] [address] [address] * (ABNORMAL) Potassium (04/23/2024 10:38 AM [facility]) Potassium, P 3.3(L) 3.6 - 5.2 mmol/L 04/23/2024 10:57 AM [facility] R[facility] Blood (Blood, Venous) 04/23/2024 10:38 AM [facility] 04/23/2024 10:42 AM [facility] Yanet Morse M.D. LAB BLOOD ADD-ON Fin al Result [facility] [address] [place] [address], [place] [facility] in [place] [address] [facility] Center[facility] [address] * (ABNORMAL) Morphology Evaluation (04/23/2024 5:07 AM [facility]) RBC Morphology See Specific Findings 04/23/2024 5:48 AM [facility] R[facility] PLT Morphology Normal 04/23/2024 5:48 AM [facility] PLT Estimate Adequate Adequate 04/23/2024 5:48 AM [facility] Anisocytosis Slight(A) 04/23/2024 5:48 AM [facility] Reactive/Atypica l Lymphocytes Present(A) Not Seen 04/23/2024 5:48 AM [facility] R[facility]G Elliptocytes Slight(A) Not Seen 04/23/2024 5:48 AM [facility] Blood 04/23/2024 5:07 AM [facility] 04/23/2024 5:11 AM [facility] Yanet Morse M.D. LAB BLOOD ADD-ON Fin al Result [facility] [address] [place] [address], [place] [facility] [facility] in [place] [address] [place] [place] [address] * (ABNORMAL) Manual Differential, Blood (04/23/2024 5:07 AM [facility]) Segmented Neutrophils 71 50 - 75 % 04/23/2024 5:48 AM [facility] R[facility] Lymphocytes % 20 18 - 42 % 04/23/2024 5:48 AM [facility] Monocytes 5 2 - 11 % 04/23/2024 5:48 AM [facility] Eosinophils 4(H) 1 - 3 % 04/23/2024 5:48 AM [facility] R[facility] Nucleated RBC 1 /100 WBC 04/23/2024 5:48 AM [facility] Manual Absolute Neutrophil Count 8.38(H) 1.56 - 6.45 x10(9)/L 04/23/2024 5:48 AM [facility] Comment: ----ADDITIONAL INFORMATION---- The manual absolute neutrophil count is derived from a manual differential count and therefore is not exactly comparable to the automated absolute neutrophil count. Blood 04/23/2024 5:07 AM [facility] 04/23/2024 5:11 AM [facility] us Yanet Morse M.D. LAB BLOOD ADD-ON Fin al Result [facility] [address] [place] [address], [facility] in [place] [address] [place] [address] * (ABNORMAL) Basic Metabolic Panel (04/23/2024 5:07 AM [facility]HER [facility]) Pathologist [facility] Potassium, P 3.2(L) 3.6 - 5.2 mmol/L 04/23/2024 5:34 AM [facility] Sodium, P 141 135 - 145 mmol/L 04/23/2024 5:34 AM [facility] Chloride, P 100 98 - 107 mmol/L 04/23/2024 5:34 AM [facility] Bicarbonate, P 29 22 - 29 mmol/L 04/23/2024 5:34 AM [facility] Anion Gap, P 12 7 - 15 04/23/2024 5:34 AM [facility] BUN (Blood Urea Nitrogen), P 24(H) 6 - 21 mg/dL 04/23/2024 5:34 AM [facility] Creatinine 0.96 0.59 - 1.04 mg/dL 04/23/2024 5:34 AM [facility] Estimated GFR (eGFR) 57(L) >=60 mL/min/BSA 04/23/2024 5:34 AM [facility] R[facility] Comment: Estimated GFR calculated using the 2020 CKD_EPI creatinine equation. Calcium, Total, P 8.9 8.8 - 10.2 mg/dL 04/23/2024 5:34 AM [facility] R[facility] Glucose, P 102 70 - 140 mg/dL 04/23/2024 5:34 AM [facility] R[facility] Blood (Blood, Venous) 04/23/2024 5:07 AM [facility] 04/23/2024 5:11 AM [facility] us Yanet Morse M.D. LAB BLOOD ADD-ON Fin al Result [facility] [address] [place] [address], [facility] in [place] [address] [place] [phone] * (ABNORMAL) CBC with Differential, Blood (04/23/2024 5:07 AM [facility]) Hemoglobin 10.2(L) 11.6 - 15.0 g/dL 04/23/2024 5:47 AM [facility] Hematocrit 29.5(L) 35.5 - 44.9 % 04/23/2024 5:47 AM [facility] Erythrocytes 3.15(L) 3.92 - 5.13 x10(12)/ L 04/23/2024 5:47 AM [facility] MCV 93.7 78.2 - 97.9 fL 04/23/2024 5:47 AM [facility] R[facility] RBC Distrib Width 17.3(H) 12.2 - 16.1 % 04/23/2024 5:47 AM [facility] R[facility] Platelet Count 289 157 - 371 x10(9)/L 04/23/2024 5:47 AM [facility] Leukocytes 11.8(H) 3.4 - 9.6 x10(9)/L 04/23/2024 5:47 AM [facility] Neutrophils See manual differential 1.56 - 6.45 x10(9)/L 04/23/2024 5:47 AM [facility] R[facility] Blood (Blood, Venous) 04/23/2024 5:07 AM [facility] 04/23/2024 5:11 AM [facility] us Yanet Morse M.D. LAB BLOOD ADD-ON Fin al Result [facility] [address] [place] [address], [facility] [place] [address] [place] [address] * (TTE) 2D ECHO DOPPLER COLOR (04/22/2024 12:16 PM [facility]) Ejection Fraction 65 MC CV EIMS Mid-Ascending [...] EIMS Aortic Valve Systolic Peak Velocity 1.1 [facility] EITX Anatomical Region Laterality Modality Echocardiography 04/22/2024 9:55 AM [facility] Impressions 04/22/2024 1:30 PM [facility] Transthoracic outreach echo interpretation. LEFT VENTRICLE:Normal left [...] assessment performed but not reported based upon payroll professional judgment). Global averaged left atrial biplane longitudinal [...] the Order-Level Documents. Narrative 04/22/2024 1:30 PM [facility] For the complete report, see the Order-Level [...] (volumetric assessmentperformed but not reported based upon payroll professional judgment). Globalaveraged left atrial biplane longitudinal peak [...] CV ECHO PROCEDURES F inal Result * (ABNORMAL) Morphology Evaluation (04/22/2024 5:23 AM [facility]) RBC Morphology See Specific Findings 04/23/2024 8:54 PM [facility] R[facility] PLT Morphology Normal 04/23/2024 8:54 PM [facility] R[facility] PLT Estimate Adequate Adequate 04/23/2024 8:54 PM [facility] RDWG Anisocytosis Slight(A) 04/23/2024 8:54 PM [facility] R[facility]G Reactive/Atypical Lymphocytes Present(A) Not Seen 04/23/2024 8:54 PM [facility] RDWG Polychromasia Slight(A) Not Seen 04/23/2024 8:54 PM [facility] R[facility] Blood 04/22/2024 5:23 AM [facility] 04/22/2024 6:20 AM [facility] Yanet Morse M.D. LAB BLOOD ADD-ON Fin al Result Performing Organization Address [facility] Co de Phone Number [facility] [address] [place] [address], [place] [address], [facility] R[facility] in [address] [address] * Magnesium (04/22/2024 5:23 AM [facility]) Magnesium, P 2.1 1.7 - 2.3 mg/dL 04/22/2024 8:32 AM [facility] R[facility] Blood (Blood, Venous) 04/22/2024 5:23 AM [facility] 04/22/2024 8:19 AM [facility] Yanet Morse M.D. LAB BLOOD ADD-ON Fin al Result Performing Organization Address [facility] Co de Phone Number [facility] [address] [place] [address], [place] [address], [facility] in [address] [address] * (ABNORMAL) Basic Metabolic Panel (04/22/2024 5:23 AM [facility]) Potassium, P 3.3(L) 3.6 - 5.2 mmol/L 04/22/2024 7:05 AM [facility] Sodium, P 140 135 - 145 mmol/L 04/22/2024 7:05 AM [facility] Chloride, P 99 98 - 107 mmol/L 04/22/2024 7:05 AM [facility] Bicarbonate, P 29 22 - 29 mmol/L 04/22/2024 7:05 AM [facility] Anion Gap, P 12 7 - 15 04/22/2024 7:05 AM [facility] BUN (Blood Urea Nitrogen), P 20 6 - 21 mg/dL 04/22/2024 7:05 AM [facility] Creatinine 0.91 0.59 - 1.04 mg/dL 04/22/2024 7:05 AM [facility] Estimated GFR (eGFR) 61 >=60 mL/min/BSA 04/22/2024 7:05 AM [facility] Comment: Estimated GFR calculated using the 2020 CKD_EPI creatinine equation. Calcium, Total, P 8.7(L) 8.8 - 10.2 mg/dL 04/22/2024 7:05 AM [facility] Glucose, P 98 70 - 140 mg/dL 04/22/2024 7:05 AM [facility] Blood (Blood, Venous) 04/22/2024 5:23 AM [facility] 04/22/2024 6:20 AM [facility] us Yanet Morse M.D. LAB BLOOD ADD-ON Fin al Result [facility] [address] [place] [address], [facility] in [place] [address] [place] [address], [place] [address] * (ABNORMAL) CBC with Differential, Blood (04/22/2024 5:23 AM [facility]) Hemoglobin 10.2(L) 11.6 - 15.0 g/dL 04/22/2024 8:19 AM [facility] Hematocrit 32.0(L) 35.5 - 44.9 % 04/22/2024 8:19 AM [facility] Erythrocytes 3.53(L) 3.92 - 5.13 x10(12)/L 04/22/2024 8:19 AM [facility] MCV 90.7 78.2 - 97.9 fL 04/22/2024 8:19 AM [facility] RBC Distrib Width 16.0 12.2 - 16.1 % 04/22/2024 8:19 AM [facility] Platelet Count 251 157 - 371 x10(9)/L 04/22/2024 8:19 AM [facility] Leukocytes 12.2(H) 3.4 - 9.6 x10(9)/L 04/22/2024 8:19 AM [facility] Neutrophils 9.88(H) 1.56 - 6.45 x10(9)/L 04/22/2024 8:19 AM [facility] Lymphocytes 1.11 0.95 - 3.07 x10(9)/L 04/22/2024 8:19 AM [facility] Monocytes 1.02(H) 0.26 - 0.81 x10(9)/L 04/22/2024 8:19 AM [facility] Eosinophils 0.16 0.03 - 0.48 x10(9)/L 04/22/2024 8:19 AM [facility] Basophils 0.06 0.01 - 0.08 x10(9)/L 04/22/2024 8:19 AM [facility] Blood (Blood, Venous) 04/22/2024 5:23 AM [facility] 04/22/2024 6:20 AM [facility] Yanet Morse M.D. LAB BLOOD ADD-ON Fin al Result [facility] [address] [place] [address], [facility] in [place] [address] [place] [address] * CT Chest Angiogram and Pulmonary Arteries with IV Contrast (04/21/2024 3:15 PM [facility]) Anatomical Region Laterality Modality Chest, Cardiovascular RST LO S, Thoracic ARZ LOS, Thoracic FLA LOS N/A Computed Tomography 04/21/2024 3:13 PM [facility] Impressions 04/21/2024 3:35 PM [facility] 1. No acute or chronic pulmonary embolism. 2. Multifocal pneumonia. 3. Enlarged mediastinal and right hilar lymph nodes which are likely reactive. 4. Constellation of findings suggestive of mild heart failure including biatrial enlargement, reflux of contrast into the IVC/intrahepatic veins, and small bilateral pleural effusions. Narrative 04/21/2024 3:35 PM [facility] EXAM: CT CHEST ANGIOGRAM AND PULMONARY ARTERIES [...] B-Type Natriuretic Peptide (BNP) (04/21/2024 5:26 AM [facility]) [facility] NT-Pro BNP 5444(H) <=540 pg/mL 04/21/2024 4:19 PM [facility] RDWG Comment: NT-proBNP values less than 300 [...] failure. Blood (Blood, Venous) 04/21/2024 5:26 AM [facility] 04/21/2024 3:47 PM [facility] Yanet Morse M.D. LAB BLOOD ADD-ON Fin al Result [facility] [address] [place] [address], [facility] in [place] [address] [place] [phone] * (ABNORMAL) Basic Metabolic Panel (04/21/2024 5:26 AM [facility]) [facility] Potassium, P 3.6 3.6 - 5.2 mmol/L 04/21/2024 6:24 AM [facility] R[facility] Sodium, P 133(L) 135 - 145 mmol/L 04/21/2024 6:24 AM [facility] Chloride, P 98 98 - 107 mmol/L 04/21/2024 6:24 AM [facility] Bicarbonate, P 26 22 - 29 mmol/L 04/21/2024 6:24 AM [facility] Anion Gap, P 9 7 - 15 04/21/2024 6:24 AM [facility] BUN (Blood Urea Nitrogen), P 17 6 - 21 mg/dL 04/21/2024 6:24 AM [facility] Creatinine 0.69 0.59 - 1.04 mg/dL 04/21/2024 6:24 AM [facility] Estimated GFR (eGFR) 84 >=60 mL/min/BSA 04/21/2024 6:24 AM [facility] Comment: Estimated GFR calculated using the 2020 CKD_EPI creatinine equation. Calcium, Total, P 9.0 8.8 - 10.2 mg/dL 04/21/2024 6:24 AM [facility] Glucose, P 117 70 - 140 mg/dL 04/21/2024 6:24 AM [facility] Blood (Blood, Venous) 04/21/2024 5:26 AM [facility] 04/21/2024 5:54 AM [facility] us Brandie Mae M.D. LAB BLOOD ADD-ON Fin al Result [facility] [address] [place] [address], [facility] R[facility] in [place] [address] [place] [address] * (ABNORMAL) CBC with Differential, Blood (04/21/2024 5:26 AM [facility]) Hemoglobin 10.4(L) 11.6 - 15.0 g/dL 04/21/2024 7:33 AM [facility]G Hematocrit 32.5(L) 35.5 - 44.9 % 04/21/2024 7:33 AM [facility] Erythrocytes 3.58(L) 3.92 - 5.13 x10(12)/L 04/21/2024 7:33 AM [facility] MCV 90.8 78.2 - 97.9 fL 04/21/2024 7:33 AM [facility] RBC Distrib Width 15.9 12.2 - 16.1 % 04/21/2024 7:33 AM [facility] Platelet Count 226 157 - 371 x10(9)/L 04/21/2024 7:33 AM [facility] Leukocytes 16.2(H) 3.4 - 9.6 x10(9)/L 04/21/2024 7:33 AM [facility] Neutrophils 13.95(H) 1.56 - 6.45 x10(9)/L 04/21/2024 7:33 AM [facility] Lymphocytes 0.85(L) 0.95 - 3.07 x10(9)/L 04/21/2024 7:33 AM [facility] Monocytes 1.29(H) 0.26 - 0.81 x10(9)/L 04/21/2024 7:33 AM [facility] Eosinophils 0.07 0.03 - 0.48 x10(9)/L 04/21/2024 7:33 AM [facility] Basophils 0.07 0.01 - 0.08 x10(9)/L 04/21/2024 7:33 AM [facility] Blood (Blood, Venous) 04/21/2024 5:26 AM [facility] 04/21/2024 5:54 AM [facility] us Brandie Mae M.D. LAB BLOOD ADD-ON Fin al Result [facility] [address] [place] [address], [facility] R[facility]G [facility] in [place] [address] [place] [address] * Basic Metabolic Panel (04/20/2024 5:56 AM [facility]) Potassium, P 3.9 3.6 - 5.2 mmol/L 04/20/2024 7:11 AM [facility] Sodium, P 136 135 - 145 mmol/L 04/20/2024 7:11 AM [facility] Chloride, P 101 98 - 107 mmol/L 04/20/2024 7:11 AM [facility] Bicarbonate, P 24 22 - 29 mmol/L 04/20/2024 7:11 AM [facility] Anion Gap, P 11 7 - 15 04/20/2024 7:11 AM [facility] BUN (Blood Urea Nitrogen), P 18 6 - 21 mg/dL 04/20/2024 7:11 AM [facility] Creatinine 0.75 0.59 - 1.04 mg/dL 04/20/2024 7:11 AM [facility] Estimated GFR (eGFR) 77 >=60 mL/min/BSA 04/20/2024 7:11 AM [facility] Comment: Estimated GFR calculated using the 2020 CKD_EPI creatinine equation. Calcium, Total, P 8.9 8.8 - 10.2 mg/dL 04/20/2024 7:11 AM [facility] Glucose, P 116 70 - 140 mg/dL 04/20/2024 7:11 AM [facility] Blood (Blood, Venous) 04/20/2024 5:56 AM [facility] 04/20/2024 6:31 AM [facility] us Suzy Tavera M.D. LAB BLOOD ADD-ON Fin al Result [facility] [address] [place] [address], [facility] [place] [address] [place] [address] * (ABNORMAL) CBC with Differential, Blood (04/20/2024 5:56 AM [facility]ARP) Hemoglobin 10.1(L) 11.6 - 15.0 g/dL 04/20/2024 8:39 AM [facility] Hematocrit 31.8(L) 35.5 - 44.9 % 04/20/2024 8:39 AM [facility] Erythrocytes 3.47(L) 3.92 - 5.13 x10(12)/L 04/20/2024 8:39 AM [facility] MCV 91.6 78.2 - 97.9 fL 04/20/2024 8:39 AM [facility] RBC Distrib Width 15.9 12.2 - 16.1 % 04/20/2024 8:39 AM [facility] Platelet Count 196 157 - 371 x10(9)/L 04/20/2024 8:39 AM [facility] Leukocytes 15.1(H) 3.4 - 9.6 x10(9)/L 04/20/2024 8:39 AM [facility] Neutrophils 12.67(H) 1.56 - 6.45 x10(9)/L 04/20/2024 8:39 AM [facility] Lymphocytes 1.05 0.95 - 3.07 x10(9)/L 04/20/2024 8:39 AM [facility] Monocytes 1.18(H) 0.26 - 0.81 x10(9)/L 04/20/2024 8:39 AM [facility] Eosinophils 0.10 0.03 - 0.48 x10(9)/L 04/20/2024 8:39 AM [facility] Basophils 0.05 0.01 - 0.08 x10(9)/L 04/20/2024 8:39 AM [facility] Blood (Blood, Venous) 04/20/2024 5:56 AM [facility] 04/20/2024 6:31 AM [facility] us Suzy Tavera M.D. LAB BLOOD ADD-ON Fin al Result [facility] [address] [place] [id number], [facility] [place] [address] [place] [phone] * Legionella Antigen, Urine (04/19/2024 5:12 PM [facility]) [facility] Legionella Ag, U Negative Negative 04/22/20 24 3:06 PM [facility] W[facility] Comment: Negative for L. pneumophila serogroup [...] assay. Urine (Urine, Midstream) 04/19/2024 5:12 PM [facility] 04/22/2024 6:13 AM [facility] Suzy Tavera M.D. LAB MICROBIOLOGY - G ENERAL ORDERABLES Final Result Performing Organization Address City/[facility] Co de Phone Number [facility] [address] [place] [address] [facility] [address] [place] [address] [place] [address] * Streptococcus pneumoniae Antigen, Urine (04/19/2024 5:12 PM [facility]) [facility] Streptococcus pneumoniae Ag, U Negative Negative 04/22/2024 1:50 PM [facility] WARP [facility] Comment: Negative for pneumococcal pneumonia, suggesting no current or recent infection. Infection due to S. pneumoniae cannot be ruled out since the antigen present in the sample may be below detection limit of the test. ----ADDITIONAL INFORMATION---- This assay was performed using the FDA-cleared BinaxNOW Streptococcus pneumoniae Antigen test, a rapid immunochromatographic assay. Urine (Urine, Midstream) 04/19/2024 5:12 PM [facility] 04/22/2024 6:13 AM [facility] us Suzy Tavera M.D. LAB MICROBIOLOGY - G ENERAL ORDERABLES Final Result Performing Organization Address City/[facility] Co de Phone Number [facility] [address] [place] [address] [facility] [address] [place] [address] [place] [address] * DX Chest Portable 1 View (04/19/2024 12:57 PM [facility]) Anatomical Region Laterality Modality Chest, Thoracic RST LOS, Tho racic ARZ LOS, Thoracic FLA LOS N/A Digital Radiography Impressions 04/19/2024 1:59 PM [facility] Multifocal consolidative and groundglass opacities, remains concerning for infection. Six-week follow-up recommended to resolution. Narrative 04/19/2024 1:59 PM [facility] EXAM: DX CHEST PORTABLE 1 VIEW COMPARISON: Radiograph 04/18/2024 FINDINGS: Trachea is midline. Cardiac and mediastinal borders are clear. Cardiac silhouette is nonenlarged. Multifocal consolidative and groundglass opacities, similar to prior radiograph. No pleural effusion. No pneumothorax. No appreciable osseous abnormality. Procedure Note Buzz Parham M.D. - 04/19/2024 EXAM: DX CHEST PORTABLE 1 VIEW COMPARISON: Radiograph 04/18/2024 FINDINGS: Trachea is midline. Cardiac and mediastinal borders are clear. Cardiacsilhouette is nonenlarged. Multifocal consolidative and groundglassopacities, similar to prior radiograph. No pleural effusion. Nopneumothorax. No appreciable osseous abnormality. IMPRESSION: Multifocal consolidative and groundglass opacities, remains concerning forinfection. Six-week follow-up recommended to resolution. us Suzy Tavera M.D. IMG DIAGNOSTIC IMAGI NG PROCEDURES Final Result * (ABNORMAL) Blood Gas with Coox, Venous (04/19/2024 12:53 PM [facility]) Sample Site, Venous Venipunct 04/19/2024 1:00 PM [facility] RDWG pO2, Venous 32 Not applicable mm Hg 04/19/2024 1:00 PM [facility] R[facility] pCO2, Venous 41 41 - 51 mm Hg 4 1:00 PM [facility] RDW[facility] pH, Venous 7.42 7.32 - 7.43 pH 04/19/2024 1:00 PM [facility] R[facility] Base Excess, Venous 2 Not applicable mmol/L 04/19/2024 1:00 PM [facility] R[facility] HCO3, Venous 27 Not applicable mmol/L 04/19/2024 1:00 PM [facility] RDWG Hemoglobin, Venous 10.8(L) 11.6 - 15.0 g/dL 04/19/2024 1:00 PM [facility] R[facility] O2Hb, Venous 61.7 Not applicable % 04/19/2024 1:00 PM [facility] R[facility] COHb, Venous 1.7 <3.0 % 04/19/2024 1:00 PM [facility] R[facility] MetHb, Venous 0.0 <1.5 % 04/19/2024 1:00 PM [facility] R[facility] CtO2, Venous 9.4 Not Applicable vol % 04/19/2024 1:00 PM [facility] RDW[facility] Blood (Blood, Venous) 04/19/2024 12:53 PM [facility] 04/19/2024 12:57 PM [facility] us Suzy Tavera M.D. LAB BLOOD NON ADD-ON Final Result [facility] [address] [place] [address], [facility] RDWG [facility] in [place] [address] [place] [address] * (ABNORMAL) Staph aureus / MRSA, Nasal, PCR (04/19/2024 12:32 PM [facility]) Staphylococcus aureus, PCR Positive(A) Negative 04/19/2024 10:03 PM [facility] ECLR MRSA, PCR Negative Negative 04/19/2024 10:03 PM [facility] ECLR Comment: Methicillin (oxacillin)-susceptible Staphylococcus aureus complex detected. Swab (Nares) 04/19/2024 12:3 2 PM [facility] 04/19/2024 8:31 PM [facility] Result Leesa Tavera M.D. LAB MICROBIOLOGY - G ENERAL ORDERABLES Final Result Performing Organization Address City/[facility] Co de Phone Number [facility] [address] [place] [id number], [facility] ECLR [facility] in [address] [address] * Lactate for Sepsis with Reflex (04/19/2024 10:05 AM [facility]) Lactate, P 1.7 0.5 - 2.2 mmol/L 04/19/2024 10:37 AM [facility] RDWG Blood (Blood, Venous) 04/19/2024 10:05 AM [facility] 04/19/2024 10:15 AM [facility] Suzy Tavera M.D. LAB BLOOD NON ADD-ON Final Result [facility] [address] [place] [address], [facility] RDWG [facility] [place] [address] [place] [address] * (ABNORMAL) CBC with Differential, Blood (04/19/2024 6:01 AM [facility]) Pathologist [facility] Hemoglobin 10.6(L) 11.6 - 15.0 g/dL 04/19/2024 7:49 AM [facility] RDWG Hematocrit 34.6(L) 35.5 - 44.9 % 04/19/2024 7:49 AM [facility] RDWG Erythrocytes 3.68(L) 3.92 - 5.13 x10(12)/L 04/19/2024 7:49 AM [facility] RDWG MCV 94.0 78.2 - 97.9 fL 04/19/2024 7:49 AM [facility] RDWG RBC Distrib Width 16.1 12.2 - 16.1 % 04/19/2024 7:49 AM [facility] RDWG Platelet Count 190 157 - 371 x10(9)/L 04/19/2024 7:49 AM [facility] RDWG Leukocytes 14.8(H) 3.4 - 9.6 x10(9)/L 04/19/2024 7:49 AM [facility] RDWG Neutrophils 12.32(H) 1.56 - 6.45 x10(9)/L 04/19/2024 7:49 AM [facility] RDWG Lymphocytes 1.02 0.95 - 3.07 x10(9)/L 04/19/2024 7:49 AM [facility] R[facility]G Monocytes 1.28(H) 0.26 - 0.81 x10(9)/L 04/19/2024 7:49 AM [facility] RDWG Eosinophils 0.08 0.03 - 0.48 x10(9)/L 04/19/2024 7:49 AM [facility] RDWG Basophils 0.05 0.01 - 0.08 x10(9)/L 04/19/2024 7:49 AM [facility] RDWG Blood (Blood, Venous) 04/19/2024 6:01 AM [facility] 04/19/2024 7:07 AM [facility] Marlene Marinelli M.D., M.S. LAB BLOOD ADD-ON Final Result [facility] [address] [place] [address], [facility] R[facility] [place] [address] [place] [address] * Basic Metabolic Panel (04/19/2024 6:01 AM [facility]) Potassium, P 4.3 3.6 - 5.2 mmol/L 04/19/2024 7:36 AM [facility] RDWG Sodium, P 140 135 - 145 mmol/L 04/19/2024 7:36 AM [facility] RDWG Chloride, P 105 98 - 107 mmol/L 04/19/2024 7:36 AM [facility] RDW[facility] Bicarbonate, P 24 22 - 29 mmol/L 04/19/2024 7:36 AM [facility] RDWG Anion Gap, P 11 7 - 15 04/19/2024 7:36 AM [facility] RDWG BUN (Blood Urea Nitrogen), P 20 6 - 21 mg/dL 04/19/2024 7:36 AM [facility] RDWG Creatinine 0.75 0.59 - 1.04 mg/dL 04/19/2024 7:36 AM [facility] RDWG Estimated GFR (eGFR) 77 >=60 mL/min/BSA 04/19/2024 7:36 AM [facility] RDWG Comment: Estimated GFR calculated using the 2020 CKD_EPI creatinine equation. Calcium, Total, P 9.0 8.8 - 10.2 mg/dL 04/19/2024 7:36 AM [facility] RDWG Glucose, P 88 70 - 140 mg/dL 04/19/2024 7:36 AM [facility] RDWG Blood (Blood, Venous) 04/19/2024 6:01 AM [facility] 04/19/2024 7:08 AM [facility] Marlene Marinelli M.D., M.S. LAB BLOOD ADD-ON Final Result [facility] [address] [place] [address], [facility] R[facility] [place] [address] [place] [address] documented in this encounter Visit Diagnoses Diagnosis Sepsis (HCC)- Primary Sepsis (HCC) [A41.9] Hypokalemia Hypertension Essential Primary Pneumonia Bacterial Deconditioned Chronic Obstructive Pulmonary Disease Without Exacerbation (HCC) Spinal Stenosis Lumbar Region Without Neurogenic Claudication Pneumonia Bacterial Cold Autoimmune Hemolytic Anemia (HCC) Gastroesophageal Reflux Disease NOS Hyperlipidemia Mixed Osteoporosis Loss Hearing Bilateral Obstructive Sleep Apnea Adult Dementia (HCC) Anxiety Generalized Disorder Atrial Fibrillation Unspecified (HCC) Hypertension Essential Primary Depression Major Recurrent Moderate (HCC) Hypothyroidism Chronic Obstructive Pulmonary Disease Without Exacerbation (HCC) 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 Chronic Kidney Disease Or Unspecified Chronic Kidney Disease (HCC) Hypokalemia documented in this encounter Admitting Diagnoses Diagnosis Pneumonia Bacterial documented in this encounter Administered Medications Inactive Administered Medications - up to 3 most recent administrations Medication Order MAR Action Action Date Dose Rate Site acetaminophen tablet 1,000 mg (TylenoL) 1,000 mg, oral, Every 6 hours PRN, mild pain or score 1-3 of 10, moderate pain or score 4-6 of 10, headaches, fever, severe pain or score 7-10 of 10, Starting on Sun04/18/24 at 1802 Given 04/24/2024 8:04 PM [facility] 1,000 mg Given 04/24/2024 5:34 AM [facility] 1,000 mg Given 04/23/2024 2:21 PM [facility] 1,000 mg albuterol nebulizer solution 2.5 mg 2.5 mg, nebulization, Every 6 hours, First dose (after last modification) on Sun04/18/24 at 2230, Albuterol nebs were interchanged for albuterol/levalbuterol MDI (same frequency) Given 04/18/2024 10:38 PM [facility] 2.5 mg albuterol nebulizer solution 2.5 mg 2.5 mg, nebulization, 4 times daily (RT), First dose (after last modification) on Sun04/19/24 at 0700, Albuterol nebs were interchanged for albuterol/levalbuterol MDI (same frequency) Given 04/19/2024 6:35 AM [facility] 2.5 mg amLODIPine tablet 10 mg (Norvasc) 10 mg, oral, Daily at bedtime, First dose on Sun04/18/24 at 2100 Given 04/24/2024 8:05 PM [facility] 10 mg Given 04/23/2024 9:27 PM [facility] 10 mg Given 04/22/2024 9:03 PM [facility] [address] tablet 325 mg 325 mg, oral, Daily, First dose on 04/19/24 at 0900, Swallow whole. Do NOT crush, chew, or split tablet. Given 04/25/2024 8:21 AM [facility] 325 mg Given 04/24/2024 10:17 AM [facility] 325 mg Given 04/23/2024 11:13 AM [facility] 325 mg atorvastatin tablet 20 mg (Lipitor) 20 mg, oral, Daily at bedtime, First dose on Sun04/18/24 at 2100, atorvaSTATin 20 mg oral daily was interchanged for simvastatin 5-40 mg oral daily Given 04/24/2024 8:04 PM [facility] 20 mg Given 04/23/2024 9:27 PM [facility] 20 mg Given 04/22/2024 9:03 PM [facility] 20 mg azithromycin tablet 500 mg (Zithromax) 500 mg, oral, Daily, First dose on 04/19/24 at 0900, For 3 doses, Drug Monitoring Program: Pharmacist to adjust medication dosing based on indication and drug clearance factors., Indications: Respiratory tract infection, community acquiredIndications:Respiratory tract infection, community acquired Given 04/21/2024 10:22 AM [facility] 500 mg Given 04/20/2024 8:06 AM [facility] 500 mg Given 04/19/2024 8:08 AM [facility] 500 mg benzonatate capsule 100 mg (Tessalon Perles) 100 mg, oral, 3 times daily PRN, cough, Starting on Sun04/20/24 at 1118, Swallow whole. Do NOT crush, chew or open capsule. Given 04/20/2024 8:53 PM [facility] 1 00 mg Given 04/20/2024 12:07 PM [facility] [address] tablet 10 mg (Dulcolax) 10 mg, oral, 2 times daily PRN, constipation, Starting on Sun04/22/24 at 2003, Swallow whole. Do NOT crush, chew, or split tablet. bisacodyL suppository 10 mg (Dulcolax) 10 mg, rectal, Daily PRN, constipation, Starting on Sun04/22/24 at 2003 buPROPion XL 24 hr tablet 450 mg (Wellbutrin XL) 450 mg, oral, Daily, First dose on Sun04/19/24 at 0900, Swallow whole. Do NOT crush, chew, or split tablet. Given 04/25/2024 8:21 AM [facility] 450 mg Given 04/24/2024 10:17 AM [facility] 450 mg Given 04/23/2024 11:13 AM [facility] 450 mg cefTRIAXone injection 2 g (Rocephin) 2 g, intravenous, Every 24 hours, First dose on Sun04/19/24 at 1000, For 5 doses, If needed, reconstitute vial per package insert instructions. See IVAG for administration guidelines., Drug Monitoring Program: Pharmacist to adjust medication dosing based on indication and drug clearance factors., Indications: Respiratory tract infection, community acquiredIndications:Respiratory tract infection, community acquired Given 04/21/2024 10:32 AM [facility] 2 g Given 04/20/2024 10:39 AM [facility] 2 g Given 04/19/2024 10:19 AM [facility] 2 g donepeziL tablet 10 mg (Aricept) 10 mg, oral, Daily at bedtime, First dose on Sun04/18/24 at 2100 Given 04/24/2024 8:04 PM [facility] 10 mg Given 04/23/2024 9:27 PM [facility] 10 mg Given 04/22/2024 9:03 PM [facility] 10 mg fluticasone furoate-vilanteroL 100-25 mcg/actuation inhaler 1 puff (Breo Ellipta) 1 puff, inhalation, Daily (RT), First dose on Sun04/19/24 at 0800, fluticasone/vilanterol diskus 100/25 mcg was interchanged for fluticasone/salmeterol MDI 45/21 mcg 1. Hold device upright in right hand with rough edge. 2. Using left hand open lid (toward left) until click is heard. 3. Tilt inhaler flat so air entrainment vents & counter face up. 4. Inhale to full breath somewhat fast. 5. Hold breath up to 10 seconds. 6. Remove inhaler from mouth. 7. Close lid. Given 04/25/2024 7:24 AM [facility] 1 puff Given 04/24/2024 7:30 AM [facility] 1 puff Given 04/23/2024 7:16 AM [facility] 1 puff furosemide injection 40 mg (Lasix) 40 mg, intravenous, 2 times daily, First dose (after last modification) on 04/21/24 at 1630, Adults: Doses less than 120 mg: IV push over 20 mg/minute. Doses 120 mg or greater: IVPB at 4 mg/minute. Peds/Neonates: Doses less than 120 mg over 0.5 mg/kg/minute. Doses 120 mg or greater: IVPB at 4 mg/minute. Given 04/23/2024 4:24 PM [facility] 40 mg Given 04/23/2024 11:14 AM [facility] 40 mg Given 04/22/2024 5:38 PM [facility] 40 mg furosemide injection 40 mg (Lasix) 40 mg, intravenous, Daily, First dose (after last modification) on Susie 04/24/24 at 0900, Adults: Doses less than 120 mg: IV push over 20 mg/minute. Doses 120 mg or greater: IVPB at 4 mg/minute. Peds/Neonates: Doses less than 120 mg over 0.5 mg/kg/minute. Doses 120 mg or greater: IVPB at 4 mg/minute. Given 04/24/2024 10:18 AM [facility] 40 mg guaiFENesin 12 hr tablet 600 mg (Mucinex) 600 mg, oral, 2 times daily, First dose on Sun04/22/24 at 1215, Swallow whole. Do NOT crush, chew, or split tablet. Given 04/25/2024 8:21 AM [facility] 600 mg Given 04/24/2024 8:04 PM [facility] 600 mg Given 04/24/2024 10:17 AM [facility] 600 mg heparin (porcine) injection 5,000 Units 5,000 Units, subcutaneous, Every 8 hours scheduled, First dose on Sun04/18/24 at 2200 Given 04/25/2024 6:29 AM [facility] 5,000 Units Left Lower Abdomen Given 04/24/2024 10:34 PM [facility] 5,000 Units Right Lower Abdomen Given 04/24/2024 1:30 PM [facility] 5,000 Units L eft Lower Abdomen iopromide 370 mg iodine/mL injection 100 mL (Ultravist) 100 mL, intravenous, Once in imaging, contrast, Starting on Sun04/21/24 at 1314, For 1 dose Given 04/21/2024 3:08 PM [facility] 100 mL ipratropium-albuteroL (DuoNeb) 0.5-2.5 mg/3 mL nebulizer solution - ADS Override Pull Starting on 04/21/24 at 1424, For 1 dose, Created by cabinet override ipratropium-albuteroL 0.5-2.5 mg/3 mL nebulizer solution 3 mL (DuoNeb) 3 mL, nebulization, 4 times daily (RT), First dose on 04/19/24 at 1100 Given 04/25/2024 7:22 AM [facility] 3 mL Given 04/24/2024 8:37 PM [facility] 3 mL Given 04/24/2024 3:43 PM [facility] 3 mL levothyroxine tablet 50 mcg 50 mcg, oral, Daily before morning meal, First dose on 04/19/24 at 0700 Given 04/25/2024 6:29 AM [facility] 50 mcg Given 04/24/2024 5:35 AM [facility] 50 mcg Given 04/23/2024 5:57 AM [facility] 50 mcg losartan tablet 50 mg (Cozaar) 50 mg, oral, Daily, First dose on 04/19/24 at 0900, On hold since [facility] 04/24/2024 at 0911 until 04/26/2024 at 2100 Given 04/23/2024 11:14 AM [facility] 50 mg Given 04/22/2024 8:24 AM [facility] 50 mg Given 04/21/2024 10:23 AM [facility] 50 mg metoprolol succinate 24 hr tablet 50 mg (Toprol XL) 50 mg, oral, Daily, First dose on 04/19/24 at 0900, Do NOT crush or chew. Tablet may be split on score if needed. Given 04/19/2024 8:08 AM [facility] 50 mg metoprolol tartrate tablet 25 mg (Lopressor) 25 mg, oral, Once, On 04/19/24 at 1500, For 1 dose Given 04/19/2024 2:50 PM [facility] 25 mg metoprolol tartrate tablet 25 mg (Lopressor) 25 mg, oral, Once, On 12/8/24 at 0000, For 1 dose Given 04/19/2024 11:58 PM [facility] 25 mg metoprolol tartrate tablet 50 mg (Lopressor) 50 mg, oral, Every 8 hours, First dose on Sun04/20/24 at 0645, Hold an notify provider for HR <80 Given 04/25/2024 6:29 AM [facility] 50 mg Given 04/24/2024 10:34 PM [facility] 50 mg Given 04/24/2024 1:57 PM [facility] 50 mg mirtazapine tablet 7.5 mg (Remeron) 7.5 mg, oral, Daily at bedtime, First dose on Sun04/18/24 at 2100 Given 04/24/2024 8:05 PM [facility] 7.5 mg Given 04/23/2024 9:27 PM [facility] 7.5 mg Given 04/22/2024 9:03 PM [facility] 7.5 mg NaCl 0.9 % bolus 1,000 mL 1,000 mL, intravenous, at 250 mL/hr, Administer over 4 Hours, Once, On Sun04/18/24 at 1930, For 1 dose New Bag 04/18/2024 9:03 PM [facility] 1,000 mL 250 mL/hr NaCl 0.9 % bolus 500 mL 500 mL, intravenous, at 500 mL/hr, Administer over 1 Hours, Once, On Sun04/19/24 at 2145, For 1 dose New Bag 04/19/2024 9:57 PM [facility] 500 mL 500 mL/hr oxyBUTYnin tablet 5 mg (Ditropan) 5 mg, oral, 2 times daily, First dose on Sun04/18/24 at 2100 Given 04/25/2024 8:21 AM [facility] 5 mg Given 04/24/2024 8:04 PM [facility] 5 mg Given 04/24/2024 10:17 AM [facility] [address] tablet 40 mg (Protonix) 40 mg, oral, Daily before morning meal, First dose on Sun04/19/24 at 0700, pantoprazole 40 mg oral daily was interchanged for omeprazole 20 or 40 mg oral daily Swallow whole. Do NOT crush, chew, or split tablet. Given 04/25/2024 6:29 AM [facility] 40 mg Given 04/24/2024 5:36 AM [facility] 40 mg Given 04/23/2024 5:57 AM [facility] 40 mg piperacillin-tazobactam 3.375 g in NaCl 0.9% IVPB (Zosyn) 3.375 g, intravenous, at 100 mL/hr, Administer over 30 Minutes, Every 6 hours, First dose on Sun04/21/24 at 1400, Mini-Bag Plus bag, Drug Monitoring Program: Pharmacist to adjust medication dosing based on indication and drug clearance factors., Indications: Respiratory tract infection, community acquiredIndications:Respiratory tract infection, community acquired New Bag 04/25/2024 8:27 AM [facility] 3.375 g 100 mL/hr New Bag 04/25/2024 3:14 AM [facility] 3.375 g 100 mL/hr New Bag 04/24/2024 8:05 PM [facility] 3.375 g 100 mL/hr polyethylene glycol powder packet 17 g (Miralax) 17 g, oral, Daily PRN, constipation, Starting on Sun04/22/24 at 2004, Dissolve in 240 mLs (8 ounces) of water prior to giving. Avoid mixing with starch-based thickened liquids. potassium chloride ER tablet 40 mEq (Klor-Con M) 40 mEq, oral, Once, On Sun04/22/24 at 0745, For 1 dose, For K<3.3-3.5 mEq/L - give total of 40 mEq Depending on the rn teacher this tablet may be split on score and give as partial tablets, or added to an ounce of water and dispersed into a slurry for drinking. It is not recommended that the microburst tablet be crushed as it may cause stomach upset., Monitor the following for replacement: Potassium, Replace Potassium per: Standard Schedule Given 04/22/2024 8:24 AM [facility] 40 mEq potassium chloride ER tablet 40 mEq (Klor-Con M) 40 mEq, oral, Once, On Sun04/24/24 at 0830, For 1 dose, For K 3-3.4 mEq/L - give total of 40 mEq Depending on the rn teacher this tablet may be split on score and give as partial tablets, or added to an ounce of water and dispersed into a slurry for drinking. It is not recommended that the microburst tablet be crushed as it may cause stomach upset., Monitor the following for replacement: Potassium, Replace Potassium per: Standard Schedule Given 04/24/2024 10:13 AM [facility] 40 mEq potassium chloride ER tablet 40 mEq (Klor-Con M) 40 mEq, oral, Once, On Sun04/25/24 at 0815, For 1 dose, For K 3-3.4 mEq/L - give total of 40 mEq Depending on the rn teacher this tablet may be split on score and give as partial tablets, or added to an ounce of water and dispersed into a slurry for drinking. It is not recommended that the microburst tablet be crushed as it may cause stomach upset., Monitor the following for replacement: Potassium, Replace Potassium per: Standard Schedule Given 04/25/2024 8:21 AM [facility] 40 mEq potassium chloride ER tablet 60 mEq (Klor-Con M) 60 mEq, oral, Once, On Sun04/23/24 at 0600, For 1 dose, For K<3.0-3.2 mEq/L - give total of 60 mEq Depending on the rn teacher this tablet may be split on score and give as partial tablets, or added to an ounce of water and dispersed into a slurry for drinking. It is not recommended that the microburst tablet be crushed as it may cause stomach upset., Monitor the following for replacement: Potassium, Replace Potassium per: Standard Schedule Given 04/23/2024 5:54 AM [facility] 60 mEq sennosides-docusate sodium 8.6-50 mg per tablet 2 tablet (Senokot-S) 2 tablet, oral, 2 times daily, First dose on Sun04/22/24 at 2100 Given 04/23/2024 9:27 PM [facility] 2 tablets Given 04/23/2024 11:13 AM [facility] 2 tablets Given 04/22/2024 9:03 PM [facility] 2 tablets sertraline tablet 200 mg (Zoloft) 200 mg, oral, Daily, First dose on Sun04/19/24 at 0900 Given 04/25/2024 8:21 AM [facility] 200 mg Given 04/24/2024 10:17 AM [facility] 200 mg Given 04/23/2024 11:14 AM [facility] 200 mg sodium chloride 0.9 % flush 70 mL 70 mL, intravenous, Once in imaging, line care, Starting on Sun04/21/24 at 1314, For 1 dose Given 04/21/2024 3:08 PM [facility] 70 mL sodium chloride 0.9 % injection 10 mL 10 mL, intravenous, Once in imaging, line care, Starting on 04/21/24 at 1314, For 1 dose Given 04/21/2024 3:08 PM [facility] 10 mL documented in this encounter Active and Recently Administered Medications Times are shown in [facility]. Scheduled Medication Order 04/23/2024 04/24/2024 04/25/2024 amLODIPine tablet 10 mg (Norvasc) 10 mg, oral, Daily at bedtime, First dose on Sun04/18/24 at 2100 2126 (Given - Provider: Lisa Austin R.N.) 2004 (Given - Provider: Joaquin Avendaño R.N.) aspirin DR tablet 325 mg 325 mg, oral, Daily, First dose on 04/19/24 at 0900, Swallow whole. Do NOT crush, chew, or split tablet. 1113 (Given - Provider: Lisa Moon R.N.) 1017 (Given - Provider: Terri Matute R.N.) 0821 (Given - Provider: Josephine Adan R.N.) atorvastatin tablet 20 mg (Lipitor) 20 mg, oral, Daily at bedtime, First dose on Sun04/18/24 at 2100, atorvaSTATin 20 mg oral daily was interchanged for simvastatin 5-40 mg oral daily 2126 (Given - Provider: Lisa Austin R.N.) 2003 (Given - Provider: Joaquin Avendaño RDillan.) buPROPion XL 24 hr tablet 450 mg (Wellbutrin XL) 450 mg, oral, Daily, First dose on 04/19/24 at 0900, Swallow whole. Do NOT crush, chew, or split tablet. 1113 (Given - Provider: Lisa Moon R.N.) 1017 (Given - Provider: Terri Matute R.N.) 0821 (Given - Provider: Josephine Adan R.N.) donepeziL tablet 10 mg (Aricept) 10 mg, oral, Daily at bedtime, First dose on Sun04/18/24 at 2100 2126 (Given - Provider: Lisa Austin R.N.) 2003 (Given - Provider: Joaquin Avendaño RLuanne) fluticasone furoate-vilanteroL 100-25 mcg/actuation inhaler 1 puff (Breo Ellipta) 1 puff, inhalation, Daily (RT), First dose on 04/19/24 at 0800, fluticasone/vilanterol diskus 100/25 mcg was interchanged for fluticasone/salmeterol MDI 45/21 mcg 1. Hold device upright in right hand with rough edge. 2. Using left hand open lid (toward left) until click is heard. 3. Tilt inhaler flat so air entrainment vents & counter face up. 4. Inhale to full breath somewhat fast. 5. Hold breath up to 10 seconds. 6. Remove inhaler from mouth. 7. Close lid. 0716 (Given - Provider: Tanesha PérezRDaisy., L.R.T.) 0730 (Given - Provider: Shania Garcia C.R.T., L.R.T.) 0724 (Given - Provider: Shania Garcia C.R.T., L.R.T.) furosemide injection 40 mg (Lasix) (CANCELED) 40 mg, intravenous, 2 times daily, First dose (after last modification) on 04/21/24 at 1630, Adults: Doses less than 120 mg: IV push over 20 mg/minute. Doses 120 mg or greater: IVPB at 4 mg/minute. Peds/Neonates: Doses less than 120 mg over 0.5 mg/kg/minute. Doses 120 mg or greater: IVPB at 4 mg/minute. 1114 (Given - Provider: Lisa Moon R.N.)1624 (Given - Provider: Terri Matute R.N.) furosemide injection 40 mg (Lasix) (CANCELED) 40 mg, intravenous, Daily, First dose (after last modification) on Susie 04/24/24 at 0900, Adults: Doses less than 120 mg: IV push over 20 mg/minute. Doses 120 mg or greater: IVPB at 4 mg/minute. Peds/Neonates: Doses less than 120 mg over 0.5 mg/kg/minute. Doses 120 mg or greater: IVPB at 4 mg/minute. 1018 (Given - Provider: Terri Matute R.N.) guaiFENesin 12 hr tablet 600 mg (Mucinex) 600 mg, oral, 2 times daily, First dose on Sun04/22/24 at 1215, Swallow whole. Do NOT crush, chew, or split tablet. 1114 (Given - Provider: Lisa Moon R.N.)2127 (Given - Provider: Lisa Austin R.N.) 1017 (Given - Provider: Terri Matute R.N.)2004 (Given - Provider: Joaquin Avendaño R.N.) 0821 (Given - Provider: Josephine Adan R.N.) heparin (porcine) injection 5,000 Units 5,000 Units, subcutaneous, Every 8 hours scheduled, First dose on Sun04/18/24 at 2200 0554 (Given - Provider: Lisa Austin R.N.)1435 (Given - Provider: Lisa Moon R.N.)2128 (Given - Provider: Lisa Austin R.N.) 0533 (Given - Provider: Lisa Austin R.N.)1330 (Given - Provider: Terri Matute R.N.)2234 (Given - Provider: Joaquin Avendaño R.N.) 0629 (Given - Provider: Joaquin Avendaño R.N.) ipratropium-albuteroL 0.5-2.5 mg/3 mL nebulizer solution 3 mL (DuoNeb) 3 mL, nebulization, 4 times daily (RT), First dose on Sun04/19/24 at 1100 0716 (Given - Provider: Richard Martines C.R.T., L.R.T.)1028 (Given - Provider: Boris Pérez.R.T., L.R.T.)1445 (Given - Provider: Boris Pérez.R.T., L.R.T.)1952 (Given - Provider: Carl Pierre) 0728 (Given - Provider: Boris Osborn.R.T., L.R.T.)1145 (Given - Provider: Boris Osborn.R.T., L.R.T.)1543 (Given - Provider: Boris Osborn.R.Bishnu., L.R.T.)2037 (Given - Provider: Carl Pierre) 0722 (Given - Provider: Tanesha OsbornRDaisy., L.R.T.)1100 (Due) levothyroxine tablet 50 mcg 50 mcg, oral, Daily before morning meal, First dose on 04/19/24 at 0700 0557 (Given - Provider: Lisa Austin R.N.) 0535 (Given - Provider: Lisa Austin R.N.) 0629 (Given - Provider: Joaquin Avendaño R.N.) losartan tablet 50 mg (Cozaar) 50 mg, oral, Daily, First dose on 04/19/24 at 0900, On hold since Susie 04/24/2024 at 0911 until 04/26/2024 at 2100 1114 (Given - Provider: Lisa Moon R.N.) 0911 (Held by provider - Provider: Yanet Morse M.D. - Comment: Low blood pressure)0915 (Not Given - Provider: Terri Matute R.N. - Reason: Other) 0900 (Not Given - Provider: Josephine Adan R.N. - Reason: See Provider Order - Comment: held per provider order)1408 (Unheld by provider - Provider: Discharge Provider, Automatic) metoprolol tartrate tablet 50 mg (Lopressor) 50 mg, oral, Every 8 hours, First dose on 04/20/24 at 0645, Hold an notify provider for HR <80 0554 (Given - Provider: Lisa Austin R.N.)1431 (Given - Provider: Lisa Moon R.N.)2151 (Given - Provider: Lisa Austin R.N.) 0540 (Given - Provider: Lisa Austin R.N.)1357 (Given - Provider: Terri Matute R.N.)2234 (Given - Provider: Joaquin Avendaño R.N.) 0629 (Given - Provider: Joaquin Avendaño R.N.) mirtazapine tablet 7.5 mg (Remeron) 7.5 mg, oral, Daily at bedtime, First dose on Sun04/18/24 at 2100 2127 (Given - Provider: Lisa Austin R.N.) 2004 (Given - Provider: Joaquin Avendaño R.N.) oxyBUTYnin tablet 5 mg (Ditropan) 5 mg, oral, 2 times daily, First dose on Sun04/18/24 at 2100 1113 (Given - Provider: Lisa Moon R.N.)2128 (Given - Provider: Lisa Austin R.N.) 1017 (Given - Provider: Terri Matute R.N.)2003 (Given - Provider: Joaquin Avendaño R.N.) 0821 (Given - Provider: Josephine Adan R.N.) pantoprazole DR tablet 40 mg (Protonix) 40 mg, oral, Daily before morning meal, First dose on Sun04/19/24 at 0700, pantoprazole 40 mg oral daily was interchanged for omeprazole 20 or 40 mg oral daily Swallow whole. Do NOT crush, chew, or split tablet. 0557 (Given - Provider: Lisa Austin R.N.) 0536 (Given - Provider: Lisa Austin R.N.) 0629 (Given - Provider: Joaquin Avendaño R.N.) piperacillin-tazobacta m 3.375 g in NaCl 0.9% IVPB (Zosyn) 3.375 g, intravenous, at 100 mL/hr, Administer over 30 Minutes, Every 6 hours, First dose on Sun04/21/24 at 1400, Mini-Bag Plus bag, Drug Monitoring Program: Pharmacist to adjust medication dosing based on indication and drug clearance factors., Indications: Respiratory tract infection, community acquired 0155 (New Bag - Provider: Lisa Austin R.N.)1113 (New Bag - Provider: Lisa Moon R.N.)1435 (New Bag - Provider: Lisa Moon R.N.)2027 (New Bag - Provider: Lisa Austin R.N.) 0241 (New Bag - Provider: Lisa Austin R.N.)0817 (New Bag - Provider: Terri M Matute, R.N.)1330 (New Bag - Provider: Olga Field.Mami.)2004 (New Bag - Provider: Joaquin Avendaño R.N.) 0314 (New Bag - Provider: Joaquin Avendaño R.N.)0827 (New Bag - Provider: Olga Cervantes.Mami.) potassium chloride ER tablet 40 mEq (Klor-Con M) (COMPLETED) 40 mEq, oral, Once, On Sun04/24/24 at 0830, For 1 dose, For K 3-3.4 mEq/L - give total of 40 mEq Depending on the rn teacher this tablet may be split on score and give as partial tablets, or added to an ounce of water and dispersed into a slurry for drinking. It is not recommended that the microburst tablet be crushed as it may cause stomach upset., Monitor the following for replacement: Potassium, Replace Potassium per: Standard Schedule 1013 (Given - Provider: Terri Matute R.Mami.) potassium chloride ER tablet 40 mEq (Klor-Con M) (COMPLETED) 40 mEq, oral, Once, On Sun04/25/24 at 0815, For 1 dose, For K 3-3.4 mEq/L - give total of 40 mEq Depending on the rn teacher this tablet may be split on score and give as partial tablets, or added to an ounce of water and dispersed into a slurry for drinking. It is not recommended that the microburst tablet be crushed as it may cause stomach upset., Monitor the following for replacement: Potassium, Replace Potassium per: Standard Schedule 0821 (Given - Provid er: Josephine Adan RDillan.) potassium chloride ER tablet 60 mEq (Klor-Con M) (COMPLETED) 60 mEq, oral, Once, On Sun04/23/24 at 0600, For 1 dose, For K<3.0-3.2 mEq/L - give total of 60 mEq Depending on the rn teacher this tablet may be split on score and give as partial tablets, or added to an ounce of water and dispersed into a slurry for drinking. It is not recommended that the microburst tablet be crushed as it may cause stomach upset., Monitor the following for replacement: Potassium, Replace Potassium per: Standard Schedule 0554 (Given - Provider: Lisa Austin R.N.) sennosides-docusate sodium 8.6-50 mg per tablet 2 tablet (Senokot-S) 2 tablet, oral, 2 times daily, First dose on Sun04/22/24 at 2100 1113 (Given - Provider: Lisa Moon R.N.)2127 (Given - Provider: Lisa Austin R.N.) 0801 (Not Given - Provider: Terri Matute R.N. - Reason: Order parameters not met - Comment: diarrhea)2009 (Not Given - Provider: Joaquin Avendaño R.N. - Reason: Contraindicated) 08 (Not Given - Provider: Josephine Adan R.N. - Reason: Contraindicated - Comment: loose stools per charting;) sertraline tablet 200 mg (Zoloft) 200 mg, oral, Daily, First dose on Sun04/19/24 at 0900 1114 (Given - Provider: Lisa Moon R.N.) 1017 (Given - Provider: Terri Matute R.N.) 0821 (Given - Provider: Josephine Adan R.N.) PRN Medication Order 04/23/2024 04/24/2024 04/25/2024 acetaminophen tablet 1,000 mg (TylenoL) 1,000 mg, oral, Every 6 hours PRN, mild pain or score 1-3 of 10, moderate pain or score 4-6 of 10, headaches, fever, severe pain or score 7-10 of 10, Starting on Sun04/18/24 at 1802 1421 (Given - Provider: Terri Matute R.N.) 0534 (Given - Provider: Lisa Austin R.N.)2003 (Given - Provider: Joaquin Avendaño RLuanne) benzonatate capsule 100 mg (Tessalon Perles) 100 mg, oral, 3 times daily PRN, cough, Starting on Sun04/20/24 at 1118, Swallow whole. Do NOT crush, chew or open capsule. bisacodyL DR tablet 10 mg (Dulcolax) 10 mg, oral, 2 times daily PRN, constipation, Starting on Sun04/22/24 at 2004, Swallow whole. Do NOT crush, chew, or split tablet. bisacodyL suppository 10 mg (Dulcolax) 10 mg, rectal, Daily PRN, constipation, Starting on Sun04/22/24 at 2003 polyethylene glycol powder packet 17 g (Miralax) 17 g, oral, Daily PRN, constipation, Starting on Sun04/22/24 at 2003, Dissolve in 240 mLs (8 ounces) of water prior to giving. Avoid mixing with starch-based thickened liquids. documented in this encounter Additional Health Concerns Assessment Noted Time PHQ-9 Depression Total Score: 4 10/16/19 24 4:28 PM CDT documented as of this encounter Care Teams Dynamometer Tuner Relationship Specialty Start Date End Date Bridgett Mi APRN, C.N.P., D.N.P. PCP - General Family Medicine 07/16/23 documented as of this encounter
--- OUTSIDE RECORDS SUMMARY | 2024-05-15 16:51 | XMS_ITS | Encounter Summary ---
Author Organization [facility] Address [address] [place] [address] Care Team Providers Care Cooker Chip Name Role Phone Bridgett Mi APRN, C.N.P., D.N.P. Primary Ca re Provider Unavailable Encounter Details Date Type Department Care Team (Latest Contact Info) Description 04/18/2024 Intake [facility] Social History Tobacco Use Types Packs/Day Years Used Date Smoking Tobacco: Former Cigarettes 0.5 43 1 955 - 1998 Smokeless Tobacco: Never Alcohol Use Standard Drinks/Week Comments Not Currently 0 (1 standard drink = 0.6 oz pur e alcohol) [facility] Utilities Answer Date Recorded In the past 12 months has e [employer] gas, oil, or water [employer] threatened to shut off services in your [...] week 11/17/2021 How often do you attend [facility] or jewish services? More than 4 times per year 11/17/2021 Do you belong to any clubs o r organizations such as anabaptism groups, unions, fraternal or athletic groups, or [...] Answer Date Recorded PHQ-2 Score 2 [facility] Answer Date [...] your living situation today? I have a [facility] place to live 04/18/2024 Education Answer Date Recorded What is the highest level of school you have completed or the highest degree you have received? 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 [address] [place] [phone] Discharge Disposition: Home or Self Care documented as of this encounter Goals Goal Patient Goal Type Associated Problems Recent Progress Patient-Stated? Author Increase physical activity Exercise No Bharati Mena R.N. Note: Patient plans to sign up for the wellness center so that she can increase her physical activity level. Patient/caregiver will direct end of life planning General No Bharati Mena R.N. Note: Patient to bring in copy of advance directives to scan into chart. Patient/caregiver will be independent in managing appointments General No Bharati Mena R.N. Note: Patient is to schedule appointment to follow up with Dr. Quintana. documented as of this encounter Visit Diagnoses Not on filedocumented in this encounter Additional Health Concerns Infection Onset Date Last Indicated Resolved Time COVID19 Pending 04/18/2024 04/18/2024 04/18/2024 1 0:13 AM EQUIPMENT MAINTENANCE SUPERVISOR Assessment Noted Time PHQ-9 Depression Total Score: 4 10/16/19 24 4:28 PM CDT documented as of this encounter Care Teams Cooker Chip Relationship Specialty Start Date End Date Bridgett Mi APRN, C.N.P., D.N.P. PCP - General Family Medicine 07/16/23 documented as of this encounter
[2024-05-15 16:52] LABS: NT Pro B Type NatriureticPept* 17200 pg/mL
[2024-05-15] MEDS: PIPERACILLIN/TAZOBACTAM 3.375 GM in 0.9 % SODIUM CHLORIDE Mini-bag 100 ML IVPB (16:54)
[2024-05-15 17:03] LABS: PCR FLU A Negative PCR FLU A (Negative); PCR FLU B Negative PCR FLU B (Negative); PCR RSV Negative PCR RSV (Negative); SARS PCR* Negative SARS-CoV-2 (Negative)
--- NOTE | 2024-05-15 17:10 | PM.IMHP1 ---
Hospitalist- H&P: HPI History of Present Illness Date Seen: 05/15/24 Chief complaint: possible sepsis Narrative: ADMISSION HISTORY AND PHYSICAL - HOSPITALIST Chief Complaint: weakness, hypoxia - acute change at [facility] HPI: Rox is an 88-year-old white female who has had 2 admissions in the last 4 weeks for pneumonia, respiratory compromise. She previously lived at [facility] living in [facility]. She was admitted initially on 04/18 to 04/25 at [facility]. She was discharged and transferred back to [facility]. Just 3 days later she presented to the [facility], 04/28/2024. She again had respiratory distress and evidence of pneumonia. She was transfer to [facility] in [place] and was hospitalized in [place] from 04/28 to 05/01. She was discharged to [facility]. Today she was found to be weaker than baseline, struggling to breathe and hypoxic. She was sent by EMS to our emergency room. According to sonDmitri, this is the sickest she has been. Her past medical history is relevant for recurrent pneumonia, dementia (mild), COPD, stroke, AFib not anticoagulated, breast cancer, hearing loss and degenerative lumbar disc disease. Her history is difficult to obtain as she gives one-word answers likely due to her dementia and septic state. 04/18 - 04/25 [place] Patient was recently admitted at [facility] for sepsis, CAP and atrial fibrillation with RVR. Patient had been found on the floor in her room at the assisted living facility ([facility], [facility]). In the ED she was tachycardic with VR 110-120 and tachypneic. Her blood pressures were soft initially but later hypertensive. She had been feeling ill for couple of weeks with cough, shortness of breath and weakness. CT angiogram of chest on 04/21 negative for PE, presence of multifocal opacities, enlarged mediastinal and right hilar lymph nodes which are likely reactive, reflux of contrast into the IVC/intrahepatic veins and small bilateral pleural effusions. Blood and urine cultures from admission negative. Legionella and Streptococcus pneumoniae urinary antigens negative. Nasal PCR negative for MRSA. She was initially treated with Ceftriaxone and azithromycin, this was discontinued and started on Zosyn on 04/21 because her white blood cell count continued increase. She completed 4 days of Zosyn and at discharge will be on levofloxacin 750 mg every other day for a total of 4 days. Back to [facility] for three days 04/28 presented to [facility] - Transferred to [facility]. 04/28-05/01 WBC 14.7 - She was titrated off oxygen and was kept on the levaquin she had previously been taking. CDIFF negative in this hospitalization. discharged on two more days of Levaquin. Imaging Results - DX Chest Portable 1 View (04/28/2024 11:18 AM LIQUEFACTION AND REGASIFICATION HELPER) Slightly improved multifocal airspace opacities throughout both lungs compatible with pneumonia. Recommend continued follow-up to radiographic resolution. Unchanged trace right pleural effusions. No pneumothorax. Heart size normal. ER COURSE: Noted to be tachycardic, normotensive, tachypneic and febrile upon arrival. OxyMask has been able to be titrated down to 2 L to keep her sats between 90 95% chest CT was done which shows multifocal pneumonia and some reactive lymph nodes. CODE STATUS: DNR/DNI EMERGENCY CONTACT PLAN: Rickey Oconnor [phone] [place] [phone] I've updated the PFSH, medications and allergies in the Expanse tabs. INVESTIGATIONS: LABS/MICRO/ECG/IMAGING 100.3 upon arrival Blood pressures have been stable 130s to 120s over 60s to 80s Pulse rate is consistently been elevated 130s to 110 Respiratory rate elevated in the 30s Pulse ox 93% on 2-3 L OxyMask WBC is 26,000. Hemoglobin 11. Platelet count 240 89% neutrophils PH 7.3, pCO2 40 Sodium 134. Normal electrolytes otherwise. BUN creatinine 26/1.1 with an estimated creatinine clearance of 28.51 GFR 49. Glucose 129 LFTs including bilirubin are normal Initial lactate 2.3 after 500 mL bolus down to 2.1 CRP 36.5 BNP 63334 LAST KNOWN VALUE WAS 5,444 ON 04/21 IN [place] Urine shows 2+ protein, negative for ketones, negative for evidence of infection Legionella and strep pneumo antigens are negative Respiratory Quad screen negative Pertussis pending Troponin negative Blood culture x1 pending EKG shows atrial fib with RVR. CT chest 1. CT findings consistent with multifocal pneumonia. Recommend follow-up chest CT approximately 10-12 weeks after completion of any treatment to assess for resolution and exclude any underlying pulmonary nodules/masses. 2. There are few mediastinal and likely bilateral hilar lymph nodes without appreciable pathologic enlargement, likely reactive. ECHO - 04/22/24 Final Impressions 1. Transthoracic outreach echo interpretation. 2. Normal left ventricular chamber size, no regional wall motion abnormalities, calculated 2-D linear ejection fraction 65%. 3. Elevated left ventricular filling pressure at rest 4. Normal right ventricular chamber size, mildly reduced systolic function, estimated right ventricular systolic pressure 62 mmHg (systolic blood pressure 130 mmHg). 5. Moderate tricuspid valve regurgitation (with beat to beat variability in the setting of atrial fibrillation.), ERO (PISA) 0.37 cm2, regurgitant volume (PISA) 40 ml. 6. Mild-moderate mitral valve regurgitation. 7. No ?pericardial effusion. 8. In the absence of a change in clinical status, consensus guidelines recommend a repeat transthoracic echocardiogram in 1-2 years to reevaluate the tricuspid regurgitation. 9. Compared to the report of 10/14/2018 the following changes have occurred: Most notably, the rhythm has changed, the degree of mitral and tricuspid regurgitation has increased, and the estimated right ventricular systolic pressure is higher today despite a lower systemic arterial blood pressure (and similar estimated central venous pressure). ?Side by side comparison of images performed. REVIEW OF SYSTEMS: 12-point ROS completed with patient and negative unless otherwise stated in HPI or below. PHYSICAL EXAM: CONSTITUTIONAL: anxious, in resp distress. can nod intermittently to questions; no speech. is squeezing my hand responsively. GENERAL: elderly; pale. small frame. VITAL SIGNS: see record. HEENT: Sclerae are anicteric. No petechiae. CARDIAC: rhythm is irregular. There is no S3 or rub. No harsh murmurs. Extremities show trace edema with symmetrical pulses. PULM: crackles throughout; accessory muscles; tachypnea NEURO: intermittently communicating SKIN: No rashes, petechiae, concerning changes PSYCHIATRIC: anxious ADMIT TO MEDSURG: CCU DVT: Heparin drip GI: PPI Time spent: Today I spent 75 minutes seeing the patient, discussing the patient with ER staff, reviewing Expanse and EPIC notes/diagnostics, discussing the care plan with our care time that includes social work, PT/OT, pharmacy, RT, group home and documenting my impressions and plan in the medical record. MEDICAL NECESSITY FOR HOSPITALIZATION Anticipated midnights in the hospital: Admitting diagnosis: Acute respiratory distress, multifocal pneumonia, acute CHF, AFib with RVR Risk of morbidity and mortality: high Acuity is characterized as high and reflected in: This patient is admitted as inpatient and in to our ICU because she requires attendant monitoring given her advanced age, tachycardia, tachypnea, respiratory compromise. She is not able to communicate. She requires intravenous heparin, Lasix, antibiotics, steroids. Her status is tenuous. Family is bedside. Her previous history of stroke, mild dementia, hypertension, diastolic heart failure all increase her risk. This patient will require hospital services as outlined in the assessment and plan in order to stabilize and be safely discharged to a lower level of care. Because of the risk and acuity as described above, this patient cannot be managed at a lower level of care. LENGTH OF STAY: 2 IP ? Anticipated LOS>2 midnights due to acuity of clinical presentation requiring inpatient level of care Rox Ramirez is a(n) 88 y.o. with a history of dementia, hypertension, hyperlipidemia, CKD, atrial fibrillation not on anticoagulation, history of TIA, recurrent pneumonias, COPD on oxygen 2 L NC, GERD, history of breast cancer [facility] Medical History (Updated 05/15/24 @ 20:18 by Cyndi Frank MD) Chronic a-fib ?I48.20 - Chronic atrial fibrillation, unspecified (ICD-10) COPD (chronic obstructive pulmonary disease) ?J44.9 - Chronic obstructive pulmonary disease, unspecified (ICD-10) Hyperlipidemia ?E78.5 - Hyperlipidemia, unspecified (ICD-10) History of CVA (cerebrovascular accident) ?Z86.73 - Personal history of transient ischemic attack (TIA), and cerebral infarction without residual deficits (ICD-10) Essential hypertension ?I10 - Essential (primary) hypertension (ICD-10) Osteoporosis ?M81.0 - Age-related osteoporosis without current pathological fracture (ICD-10) Hearing loss ?H91.90 - Unspecified hearing loss, unspecified ear (ICD-10) History of breast cancer ?Z85.3 - Personal history of malignant neoplasm of breast (ICD-10) Dementia ?F03.90 - Unspecified dementia, unspecified severity, without behavioral disturbance, psychotic disturbance, mood disturbance, and anxiety (ICD-10) Surgical History (Updated 05/15/24 @ 18:05 by Cyndi Frank MD) S/P breast lumpectomy ?Z98.890 - Other specified postprocedural states (ICD-10) S/P tonsillectomy and adenoidectomy ?Z90.89 - Acquired absence of other organs (ICD-10) History of hysterectomy ?Z90.710 - Acquired absence of both cervix and uterus (ICD-10) History of lumbar fusion ?Z98.1 - Arthrodesis status (ICD-10) Status post laser cataract surgery of both eyes ?Z98.41 - Cataract extraction status, right eye (ICD-10) ?Z98.42 - Cataract extraction status, left eye (ICD-10) Status post appendectomy ?Z90.49 - Acquired absence of other specified parts of digestive tract (ICD-10) Social History Smoking Status: Unknown if ever smoked Meds Home Medications and Allergies Allergies Allergy/AdvReac Type Severity Reaction Status Date / Time No Known Drug Allergies Allergy Verified 05/15/24 18:30 Exam Const: Vital Signs, click to edit/add: Vital Signs - 24 hr 05/15/24 15:54 05/15/24 15:55 05/15/24 16:00 Temperature 100.3 F H Pulse Rate [Pulse Oximeter] 138 H Respiratory Rate 42 H Blood Pressure [Ri ght Upper Arm] 130/97 H Pulse Oximetry 93 92 92 Oxygen Delivery Me thod OxyMask Nasal Cannula Oxygen Flow Rate 6 6 Hospitalist - H&P: Result Labs Labs: Short CBC 05/15/24 Range/Units 15:52 WBC 26.05 H* (4.50-11.00) K/uL Hgb 11.0 L (12.0-16.0) gm/dL Hct 34.9 (33.0-51.0) % Plt Count 240 (140-440) K/uL BMP 05/15/24 15:52 Sodium 134 L Potassium 4.4 Chloride 103 Carbon Dioxide 23 BUN 26 Creatinine 1.1 Glucose 129 H Calcium 8.7 Liver Function 05/15/24 05/15/24 05/15/24 Range/Units 15:52 15:52 15:52 Total Bilirubin 0.8 Cancelled (0.1-1.5) mg/dL Direct Bilirubin 0.4 Cancelled (0.0-0.5) mg/dL AST 30 (12-35) U/L ALT (4-35) U/L Alkaline Phosphatase (40-150) U/L Albumin (3.3-5.0) g/dL 05/15/24 05/15/24 05/15/24 Range/Units 15:52 15:52 15:52 Total Bilirubin (0.1-1.5) mg/dL Direct Bilirubin (0.0-0.5) mg/dL AST Cancelled (12-35) U/L ALT 16 Cancelled (4-35) U/L Alkaline Phosphatase 104 Cancelled (40-150) U/L Albumin 3.5 (3.3-5.0) g/dL 05/15/24 Range/Units 15:52 Total Bilirubin (0.1-1.5) mg/dL Direct Bilirubin (0.0-0.5) mg/dL AST (12-35) U/L ALT (4-35) U/L Alkaline Phosphatase (40-150) U/L Albumin Cancelled (3.3-5.0) g/dL Assessment and Plan Assessment and plan (1) Sepsis due to pneumonia: Problem comment: -SIRS criteria: acute onset of tachycardia, tachypnea and febrile. Elevated white blood cell count. Organ dysfunction: Elevated lactate, delirium -source hospital acquired PNA -escalate abx coverage for MDR pathogens; steroids, nebs, lasix Status: Acute (2) Hospital-acquired pneumonia: Problem comment: -Bilateral airspace opacities with dense consolidative airspace opacities involving the right lower lobe and to a lesser extent the left lower lobe, -hx of being on ceftriaxone, azithromycin, zosyn and then levaquin. Starting Vanc/Primaxin to cover for HAP - or is this aspiration? son states swallow study at [place] was normal. -lasix, solumederol, nebs. -heparin gtt as she is in afib without OAC and CTA wasn't done; only CT chest. ddimer + -delirious without obvious neuro deficit. Status: Acute (3) Acute diastolic heart failure with preserved ejection fraction: Problem comment: -acute pulmonary edema - 40 of Lasix clinically made an immediate difference. -will follow; may need repeat IV doses vs drip -reviewed echo from Apr Status: Acute (4) Acute hypoxemic respiratory failure: Problem comment: -1-2 L per NC -follow gas; clinical response Status: Acute (5) Atrial fibrillation with rapid ventricular response: Problem comment: -Dilt push of 10 mg; start dilt drip -follow pulse and bp Status: Acute (6) Dementia: Problem comment: described as mild; enjoys her [facility]; still has hobbies. Status: Acute (7) Essential hypertension: Status: Acute (8) History of CVA (cerebrovascular accident): Status: Acute (9) COPD (chronic obstructive pulmonary disease): Status: Acute (10) Hearing loss: Status: Acute
[2024-05-15 17:26] LABS: S pneumo Ag Urine S. pneumo Negative (Negative)
[2024-05-15 17:27] LABS: Legionella pneumo Ag Urine L. pneumo Negative (Negative)
[2024-05-15 17:32] LABS: Appearance Urine Clear (Clear); Bilirubin Urine 1+ (Negative); Blood Urine Trace-intact (Negative); Color Urine Yellow (Yellow); Glucose Urine Negative (Negative); Ketones Urine Negative (Negative); Leukocyte Esterase Urine Negative (Negative); Nitrite Urine Negative (Negative); Protein Urine 2+ (Negative); Specific Gravity Urine >= 1.030 (1.000-1.030); Urobilinogen Urine 0.2 (0.2-1.0); pH Urine 5.5 (5.0-8.5)
[2024-05-15 17:35] LABS: Amorphous Sediment Urine Moderate; RBC Urine 0-2 (0-2); Squamous Epithelial Cell Urine Few (None-Few); WBC Urine 0-2 (0-5)
[2024-05-15 17:59] LABS: Lactate Sepsis 2 Hour 2.1 mmol/L (0.5-1.9)
[2024-05-15 18:16] LABS: C Reactive Protein* 36.5 mg/dL (0.5-1.0)
[2024-05-15] MEDS: dilTIAZem 5 MG/ML inj 10 MG IVP (18:38)
[2024-05-15] MEDS: 5 % DEX/0.45 SOD CHL+KCL20 mEq 1,000 ML 125 ML IV (18:43)
[2024-05-15] MEDS: FUROSEMIDE 10 MG/ML inj 40 MG IVP ×2 (18:52→22:27)
[2024-05-15] MEDS: HEPARIN 5,000 UNIT/0.5 ML INJ 4500 UNIT IVP (19:02)
[2024-05-15 19:32] LABS: INR 1.34 (0.91-1.10); Prothrombin Time 17.4 Seconds
[2024-05-15 19:33] LABS: Partial Thromboplastin Time* 36 Seconds (23-33)
[2024-05-15 19:35] LABS: D Dimer Quantitative* 3.28 ug/ml (0.00-0.50)
[2024-05-15] MEDS: IPRAT-ALBUT 0.5-2.5 MG/3 ML NEB 1 NEB IH (19:39)
[2024-05-15] MEDS: METHYLPREDNISOLONE SOD SUCC 40 MG/ML IVP (19:39)
[2024-05-15] MEDS: VANCOMYCIN 1.5 GM/300 ML 1.5 GM/300 ML PIGGYBACK IVPB (19:55)
[2024-05-15 19:57] LABS: Slide Review Acceptable Review (Acceptable)
--- NOTE | 2024-05-15 20:09 | PC.NURSE ---
Nursing Care Hours: [id number] Pt this shift arrived from ED on stretcher with 2L oxymask on. Pt acknowledged junior underwriter with a smile but has been unable to verbalize needs or wants and unable to answer questions verbally. Will nod or shake head. Son says pt usually wears hearing aids but they are not with pt. Labored breathing noted with some restlessness, O2 stable on 2L. Purewick put in place and pt having dark betsy output. Yeasty red rash noted on roberta area and bilat inner glutes. Scattered bruises on abdomen and bilat LE. Bilat LS bases diminished. Pusle palpated strong. Denies pain. Stat meds given per hospitalist order.
[2024-05-15] MEDS: dilTIAZem HCL 125 MG in 0.9 % SODIUM CHLORIDE 100 ml 100 ML IVPB (21:02)
[2024-05-15] MEDS: SODIUM CHLORIDE 0.9 % (FLUSH) 10 ML SYRINGE 5 ML IVF (21:59)
[2024-05-15] MEDS: HEPARIN 25,000 UNIT/500 ML BAG 20 UNIT IV (22:00)
[2024-05-15 22:27] LABS: HCO3 VBG 23 mmol/L (21-28); Lactate* 2.7 mmol/L (0.5-1.9); PCO2 VBG 39 mmHG (40-50); PO2 VBG < 30.1 mmHG (25-47); pH VBG 7.378 (7.32-7.43)
[2024-05-15 22:42] LABS: Albumin* 3.3 g/dL (3.3-5.0); Chloride* 103 mmol/L (96-114); Sodium* 135 mmol/L (135-149)
[2024-05-15 22:44] LABS: Creatinine* 1.1 mg/dL (0.5-1.5); Estimated Glomerular Filt Rate 49 ml/min
[2024-05-15 22:45] LABS: Alanine Aminotransferase* 17 U/L (4-35); Alkaline Phosphatase* 96 U/L (40-150); Anion Gap 10 mEq/L (7-15); Aspartate Amino Transferase* 30 U/L (12-35); Bilirubin Total* 0.9 mg/dL (0.1-1.5); Blood Urea Nitrogen* 26 mg/dL (7-30); Calcium* 8.3 mg/dL (8.4-10.6); Carbon Dioxide* 22 mmol/L (20-32); Glucose* 162 mg/dL (60-115); Total Protein* 5.8 g/dL (6.0-8.3)
[2024-05-15 22:57] LABS: Troponin I* 0.03 ng/mL (0.01-0.04)
--- NOTE | 2024-05-15 22:58 | P.CCEN_ITS ---
Critical Care Event Note Summary Date Seen: 05/15/24 Code activated: No Narrative: UPDATE ON ISSUES IN THIS TENUOUS PATIENT -patient is resting quietly as my shift ends Sepsis with multifocal pneumonia - oxygen demand has not increased. Still on 2 L OxyMask. Appears more calm. Still tachypneic. Breathing rapidly. I am happy with her blood gas. Continue current course with broad-spectrum hospital- acquired pneumonia level antibiotics. She received 40 mg of IV Solu-Medrol at 7:39 p.m. I will re-dose this for 6 hours. Morning team can decide if more are needed. AFib with RVR-got a 10 mg push of diltiazem which she arrived on the floor. Dilt drip ongoing. I am loading her with digoxin, 250 mics IV push and then 125 mics at 6 and 2 on 05/16. No oral following dosing has been ordered. Pulse rate had originally been in the 120s to 140s and she is down to the 110's. Blood blood pressures have been stable Acute diastolic heart failure - Dennis catheter placed. 40 mg IV Lasix push twice once at 6:52 p.m. and 1 at 10:27 p.m.. I am sure I am putting the squeeze on her kidneys. Her lactate is up trending a bit. However she was so much more comfortable getting some of this pulmonary congestion off. I think it is worth the hit. Note BNP had had jumped quite a bit in the last 2 weeks. Possible clot or stroke- just the fact that she has AFib without any oral anticoagulation, she had passed on this previously, may be nervous. She has bee n in and out of hospitals and Care Centers for the last 3 weeks. I did not ultrasound her legs but her D-dimer was elevated and I could have given her treatment dose Lovenox subQ but I have a heparin drip running because things were so tenuous in the family had not yet arrived and I was not sure where this was all going. She got a CT scan but not a CTA. If she looks more stable on 05/16 you could ultrasound her legs are center back to the scanner or just switch her to a treatment dose Lovenox. This case had a high probability of a clinically significant, sudden, or life threatening deterioration of this patient's condition which required my full and direct attention, intervention and personal management. I was bedside 4 different times - examining patient; talking with family. Critical care time: 30 - 74 mins
[2024-05-15] MEDS: DIGOXIN 250 MCG/ML inj IV (23:29)
[2024-05-16] VITALS (11 sets, daily range): BP systolic 100–118; BP diastolic 54–73; PULSE 97–126; RESP 30–40; TEMP 35.9–36.8; O2SAT 90–92
[2024-05-16] MEDS: IPRAT-ALBUT 0.5-2.5 MG/3 ML NEB 1 NEB IH ×3 (00:27→06:29)
[2024-05-16] MEDS: METHYLPREDNISOLONE SOD SUCC 40 MG/ML IVP ×2 (00:27→06:29)
[2024-05-16 04:12] LABS: HCO3 VBG 22 mmol/L (21-28); Ionized Calcium* 1.03 mmol/L (1.11-1.30); Lactate* 3.5 mmol/L (0.5-1.9); PCO2 VBG 34 mmHG (40-50); PO2 VBG 54.2 mmHG (25-47); pH VBG 7.407 (7.32-7.43)
[2024-05-16 04:15] LABS: Basophils Percent Auto 0.1 % (0.0-3.0); Hematocrit 31.7 % (33.0-51.0); Immature Granulocytes Pct Auto 0.6 %; Lymphocytes Percent Auto 3.4 % (20-44); Mean Corpuscular HGB Conc 32 gm/dL (32-36); Mean Corpuscular Hemoglobin 30 pg (26-34); Mean Corpuscular Volume 95 fL (80-100); Monocytes Percent Auto 4.6 % (0.0-11.0); Neutrophils Percent Auto 91.3 % (42.0-72.0); Platelet Count* 204 K/uL (140-440); RDW Coefficient of Variation % 17.1 % (11.5-15.5); Red Blood Count 3.33 m/uL (4.00-5.20)
[2024-05-16 04:20] LABS: Slide Review Reflex No; White Blood Count* 29.31 K/uL (4.50-11.00)
[2024-05-16] MEDS: 5 % DEX/0.45 SOD CHL+KCL20 mEq 1,000 ML 125 ML IV (04:23)
[2024-05-16 04:29] LABS: Chloride* 102 mmol/L (96-114); Sodium* 133 mmol/L (135-149)
[2024-05-16 04:30] LABS: Potassium* 3.5 mmol/L (3.6-5.1)
[2024-05-16 04:31] LABS: Creatinine* 1.1 mg/dL (0.5-1.5); Estimated Glomerular Filt Rate 49 ml/min
[2024-05-16 04:32] LABS: Alkaline Phosphatase* 98 U/L (40-150); Anion Gap 11 mEq/L (7-15); Aspartate Amino Transferase* 31 U/L (12-35); Bilirubin Direct* 0.4 mg/dL (0.0-0.5); Bilirubin Total* 0.6 mg/dL (0.1-1.5); Blood Urea Nitrogen* 27 mg/dL (7-30); Carbon Dioxide* 20 mmol/L (20-32); Total Protein* 5.5 g/dL (6.0-8.3)
[2024-05-16 04:33] LABS: Alanine Aminotransferase* 19 U/L (4-35); Calcium* 7.8 mg/dL (8.4-10.6); Glucose* 204 mg/dL (60-115); Phosphorus* 1.8 mg/dL (2.5-4.5)
[2024-05-16 04:46] LABS: Partial Thromboplastin Time* > 180 Seconds (23-33)
[2024-05-16 04:49] LABS: Procalcitonin* 8.33 ng/mL (<0.50)
[2024-05-16 04:53] LABS: NT Pro B Type NatriureticPept* 21600 pg/mL
[2024-05-16 05:04] LABS: Thyroid Stimulating Hormone* 0.346 uIU/mL (0.270-4.20)
[2024-05-16 05:15] LABS: C Reactive Protein* 35.9 mg/dL (0.5-1.0)
[2024-05-16] MEDS: DIGOXIN 250 MCG/ML inj 125 MCG IV (05:36)
--- NOTE | 2024-05-16 07:10 | PC.NURSE ---
: pt pleasant and cooperative. Pt unable to speak & very hard of hearing, speaking directly into patients ear allows her to hear better, pt nodding yes or no to questions asked by global technical writer. With nebs & breathing techniques, pt receptive to demonstration & is able to perform such tasks. Nonproductive moist cough, occasionally dry bark like cough, pt aware that a sputum sample is needed, global technical writer at bedside while pt coughs & encourages further coughing. Pt continues on 2L Oxy Mask, O2 sats 88-94%. RR 30s-40s, prn duoneb given x 1, scheduled duonebs continued. Dilt drip running at 10mg/hr - HR 90s-110s, SBP 100s-110s. Heparin drip running per protocol, most recent PTT >180 seconds, next draw will be at 1000. Dennis patent and draining pale yellow urine. Repoing pt side to side in hopes to oxygenate all lung jackson, pt tolerates lying on her side well - pt was able to get some rest. Oral cares provided with green mouth swabs. Pt attempted oral fluids at start of shift with a family member, global technical writer noted coughing after PO intake, global technical writer thickened fluids & pt was able to take a sip (no straw), pt did not cough.? Critical Lab Value WBC - 29 (up from 26). Lactate is trending up as well. Bong doc paged and updated on pt status. No new orders received.
[2024-05-16] MEDS: SODIUM CHLORIDE 0.9 % (FLUSH) 10 ML SYRINGE 5 ML IVF (08:03)
--- NOTE | 2024-05-16 08:40 | REH.OT ---
OT: Order received, chart review, spoke with MD and will hold OT this am. Will eval when medically appropriate.
--- NOTE | 2024-05-16 08:56 | NUTR.NU ---
RDN with nutrition screen for positive skin risk. Patient admitted with severe sepsis and pneumonia. Per MD in IDT meeting, patient's medical status is tenuous and plans to have goals of care talk with family today. No weight history to assess. Diet is Regular. No intakes since admit. No nutrition interventions at this time given patient's status. RDN will continue to monitor and follow-up if appropriate.
[2024-05-16] MEDS: dilTIAZem HCL 125 MG in 0.9 % SODIUM CHLORIDE 100 ml 100 ML 12.5 MG IVPB (09:51)
[2024-05-16 10:44] LABS: Partial Thromboplastin Time* 97 Seconds (23-33)
[2024-05-16] MEDS: fentaNYL 12 mcg/hr PATCH 1 PATCH TRANSDERMA (10:46)
[2024-05-16] MEDS: MORPHINE 10 MG/0.5 ML ORAL SOLN PO ×3 (10:48→19:35)
[2024-05-16] MEDS: LORazepam 2 MG/ML inj IVP (11:17)
--- NOTE | 2024-05-16 12:35 | P.IMPN_ITS ---
Progress Note: A&P Assessment and plan (1) Sepsis due to pneumonia: Problem details: 05/15/24 -SIRS criteria: acute onset of tachycardia, tachypnea and febrile. Elevated white blood cell count. Organ dysfunction: Elevated lactate, delirium -source hospital acquired PNA -escalate abx coverage for MDR pathogens; steroids, nebs, lasix Status: Acute (2) Hospital-acquired pneumonia: Problem details: 05/15/24 -Bilateral airspace opacities with dense consolidative airspace opacities involving the right lower lobe and to a lesser extent the left lower lobe, -hx of being on ceftriaxone, azithromycin, zosyn and then levaquin. Starting Vanc/Primaxin to cover for HAP - or is this aspiration? son states swallow study at [place] was normal. -lasix, solumederol, nebs. -heparin gtt as she is in afib without OAC and CTA wasn't done; only CT chest. ddimer + -delirious without obvious neuro deficit. Status: Acute (3) Acute diastolic heart failure with preserved ejection fraction: Problem details: 05/15/24 -acute pulmonary edema - 40 of Lasix clinically made an immediate difference. -will follow; may need repeat IV doses vs drip -reviewed echo from Apr Status: Acute (4) Acute hypoxemic respiratory failure: Problem details: 05/15/24 -1-2 L per NC -follow gas; clinical response Status: Acute (5) Atrial fibrillation with rapid ventricular response: Problem details: 05/15/24 -Dilt push of 10 mg; start dilt drip -follow pulse and bp Status: Acute (6) Dementia: Problem details: described as mild; enjoys her ANTHONY; still has hobbies. Status: Chronic (7) Essential hypertension: Status: Chronic (8) History of CVA (cerebrovascular accident): Status: Inactive (9) COPD (chronic obstructive pulmonary disease): Status: Chronic (10) Lactic acidosis: Problem details: - worsening despite treatment of sepsis Status: Acute (11) Hypocalcemia: Status: Acute (12) Hypokalemia: Status: Acute (13) Multisystem organ failure: Problem details: - pneumonia, hypoxia - bacteremia with sepsis - afib with RVR - acute diastolic heart failure - AMS - electrolyte abnormalities - lactic acidosis - possible PE/DVT - possible stroke Status: Acute (14) Positive blood culture: Problem details: - Positive anaerobic bottle and Gram+ cocci in clusters Status: Acute Plan This is an 88-year-old female with recurrent pneumonia who is now hospitalized with pneumonia for the 3rd time within a month. This time she has been much more ill and septic, which she was not on previous hospitalizations. Patient's condition has worsened despite treatments as above. Discussions with family today have led to their decision for comfort cares. Time Spent With Patient Total time spent: Critical care time spent: Today I spent 65 minutes seeing the patient, discussing the patient with nursing staff, reviewing [facility] notes/diagnostics, discussing the care plan with social work, PT/OT, pharmacy, RT, assisted and documenting my impressions and plan in the medical record. Subjective Time Seen by Provider: 09:35 Date Seen: 05/16/24 Interval history: - Nurse reports that overnight doc was called regarding tachypnea and discussion was had about whether not to give morphine for air hunger. Morphine was not started, presumably because patient was not comfort cares and there was concern for potential for respiratory depression. - Patient is not alert enough nor able to interact verbally well enough to voice concerns. - I went back a 2nd time in spoke with the patient's son, Urbano, and his , Mary. - I went back a 3rd time and spoke with Urbano and Lizzy, and the patient's other son, Elvin, and his , Nadia. Extended discussions with family on two separate occasions today. Both sons noted that patient is DNR/DNI. Family noted that she has declined physically in the last month and this is the third hospitalization for pneumonia. We discussed healthcare acquired pneumonia, sepsis, positive blood culture, atrial fibrillation with rapid ventricular rate, acute diastolic heart failure, the possibility of PE, DVT or stroke, hypocalcemia and hypokalemia, leukocytosis, lactic acidosis, and worsening condition despite treatment, high mortality, comfort cares. Questions were answered. We also discussed possibility of comfort cares verses continuing treatment. Patient's family noted that she desired to be DNR/DNI, but also briefly awoke and scrawled on a paper that she wanted new antibiotics. They were not sure how much she understood of the conversation they were having. Ultimately family has decided for comfort cares given her overall poor prognosis and discomfort. Exam 2 Narrative: Exam Narrative: General: Appears ill. Pallor noted. No diaphoresis or jaundice. Sleeping, briefly opened eyes then shot them again in response to her name, nodded regarding questions, but difficult to tell if she has understanding. Moaning with no speech. Oropharynx: Clear. Mucous membranes dry. Cardiovascular: Tachycardic, irregular. No murmurs, gallops, or rubs. Respiratory: Tachypneic, then apneic at times. Crackles throughout. Abdomen: Bowel sounds present. Soft, nondistended, nontender. Extremities: 2+ lower extremity edema to knees. Const: Vital Signs, click to edit/add: Vital Signs - 24 hr 05/15/24 15:54 05/15/24 15:54 05/15/24 15:55 Temperature 100.3 F H Pulse Rate 139 H Pulse Rate [Pulse Oximeter] 138 H Pulse Rate [Right Pulse Oximeter] Respiratory Rate 42 H Blood Pressure 125/87 Blood Pressure [Ri ght Arm] Blood Pressure [Ri ght Upper Arm] 130/97 H Pulse Oximetry 93 91 92 Oxygen Delivery Me thod OxyMask Nasal Cannula Oxygen Flow Rate 6 6 05/15/24 16:00 05/15/24 16:02 05/15/24 16:16 Temperature Pulse Rate 137 H 123 H Pulse Rate [Pulse Oximeter] Pulse Rate [Right Pulse Oximeter] Respiratory Rate 40 H Blood Pressure 128/86 124/82 Blood Pressure [Ri ght Arm] Blood Pressure [Ri ght Upper Arm] Pulse Oximetry 92 92 95 Oxygen Delivery Me thod Oxygen Flow Rate 05/15/24 16:46 05/15/24 17:02 05/15/24 17:17 Temperature Pulse Rate 124 H 122 H 134 H Pulse Rate [Pulse Oximeter] Pulse Rate [Right Pulse Oximeter] Respiratory Rate 36 H 32 H Blood Pressure 93/67 137/81 99/84 Blood Pressure [Ri ght Arm] Blood Pressure [Ri ght Upper Arm] Pulse Oximetry 97 98 97 Oxygen Delivery Me thod OxyMask OxyMask Oxygen Flow Rate 6 5 05/15/24 17:30 05/15/24 17:32 05/15/24 17:47 Temperature Pulse Rate 115 H 119 H 112 H Pulse Rate [Pulse Oximeter] Pulse Rate [Right Pulse Oximeter] Respiratory Rate 36 H 36 H Blood Pressure 125/75 126/66 Blood Pressure [Ri ght Arm] Blood Pressure [Ri ght Upper Arm] Pulse Oximetry 93 94 93 Oxygen Delivery Me thod Oxygen Flow Rate 2 05/15/24 18:00 05/15/24 18:07 05/15/24 18:07 Temperature Pulse Rate Pulse Rate [Pulse Oximeter] Pulse Rate [Right Pulse Oximeter] Respiratory Rate 36 H Blood Pressure Blood Pressure [Ri ght Arm] Blood Pressure [Ri ght Upper Arm] Pulse Oximetry 91 91 Oxygen Delivery Me thod OxyMask OxyMask Oxygen Flow Rate 2 05/15/24 18:07 05/15/24 19:20 05/15/24 19:20 Temperature 100.2 F H Pulse Rate Pulse Rate [Pulse Oximeter] Pulse Rate [Right Pulse Oximeter] 118 H 107 H 107 H Respiratory Rate 36 H 38 H Blood Pressure Blood Pressure [Ri ght Arm] 141/72 H 131/88 131/88 Blood Pressure [Ri ght Upper Arm] Pulse Oximetry 91 92 Oxygen Delivery Me thod OxyMask OxyMask Oxygen Flow Rate 2 2 05/15/24 19:25 05/15/24 19:25 05/15/24 19:30 Temperature Pulse Rate Pulse Rate [Pulse Oximeter] Pulse Rate [Right Pulse Oximeter] 108 H 108 H 116 H Respiratory Rate Blood Pressure Blood Pressure [Ri ght Arm] 141/74 H 141/74 H 137/79 Blood Pressure [Ri ght Upper Arm] Pulse Oximetry Oxygen Delivery Me thod Oxygen Flow Rate 05/15/24 19:30 05/15/24 19:30 05/15/24 19:34 Temperature Pulse Rate 100 Pulse Rate [Pulse Oximeter] Pulse Rate [Right Pulse Oximeter] 116 H Respiratory Rate 40 H Blood Pressure Blood Pressure [Ri ght Arm] 137/79 Blood Pressure [Ri ght Upper Arm] Pulse Oximetry Oxygen Delivery Me thod Oxygen Flow Rate 05/15/24 19:42 05/15/24 19:42 05/15/24 20:00 Temperature Pulse Rate Pulse Rate [Pulse Oximeter] Pulse Rate [Right Pulse Oximeter] 107 H 107 H Respiratory Rate 36 H Blood Pressure Blood Pressure [Ri ght Arm] 124/61 124/61 Blood Pressure [Ri ght Upper Arm] Pulse Oximetry 93 Oxygen Delivery Me thod OxyMask Oxygen Flow Rate 2 05/15/24 20:00 05/15/24 20:00 05/15/24 20:30 Temperature Pulse Rate Pulse Rate [Pulse Oximeter] Pulse Rate [Right Pulse Oximeter] 110 H 110 H 113 H Respiratory Rate Blood Pressure Blood Pressure [Ri ght Arm] 138/62 138/62 106/88 Blood Pressure [Ri ght Upper Arm] Pulse Oximetry Oxygen Delivery Me thod Oxygen Flow Rate 05/15/24 20:30 05/15/24 21:00 05/15/24 21:00 Temperature Pulse Rate Pulse Rate [Pulse Oximeter] Pulse Rate [Right Pulse Oximeter] 113 H 119 H 119 H Respiratory Rate Blood Pressure Blood Pressure [Ri ght Arm] 106/88 129/74 129/74 Blood Pressure [Ri ght Upper Arm] Pulse Oximetry Oxygen Delivery Me thod Oxygen Flow Rate 05/15/24 21:10 05/15/24 21:15 05/15/24 21:20 Temperature Pulse Rate Pulse Rate [Pulse Oximeter] Pulse Rate [Right Pulse Oximeter] 115 H 116 H 112 H Respiratory Rate Blood Pressure Blood Pressure [Ri ght Arm] 121/76 126/63 113/83 Blood Pressure [Ri ght Upper Arm] Pulse Oximetry Oxygen Delivery Me thod Oxygen Flow Rate 05/15/24 21:30 05/15/24 22:00 05/15/24 22:10 Temperature Pulse Rate Pulse Rate [Pulse Oximeter] Pulse Rate [Right Pulse Oximeter] 111 H 106 H 115 H Respiratory Rate Blood Pressure Blood Pressure [Ri ght Arm] 117/72 119/62 111/68 Blood Pressure [Ri ght Upper Arm] Pulse Oximetry Oxygen Delivery Me thod Oxygen Flow Rate 05/15/24 22:30 05/15/24 22:56 05/15/24 22:56 Temperature 97.7 F Pulse Rate Pulse Rate [Pulse Oximeter] Pulse Rate [Right Pulse Oximeter] Respiratory Rate 40 H 40 H Blood Pressure Blood Pressure [Ri ght Arm] Blood Pressure [Ri ght Upper Arm] Pulse Oximetry Oxygen Delivery Me thod Oxygen Flow Rate 05/15/24 23:07 05/15/24 23:29 05/16/24 00:16 Temperature 97.7 F Pulse Rate 96 108 H Pulse Rate [Pulse Oximeter] Pulse Rate [Right Pulse Oximeter] 107 H Respiratory Rate 38 H Blood Pressure Blood Pressure [Ri ght Arm] 117/64 Blood Pressure [Ri ght Upper Arm] Pulse Oximetry 92 Oxygen Delivery Me thod OxyMask Oxygen Flow Rate 2 05/16/24 02:03 05/16/24 03:00 05/16/24 03:04 Temperature 97.8 F 98.3 F Pulse Rate 103 H Pulse Rate [Pulse Oximeter] Pulse Rate [Right Pulse Oximeter] 111 H 101 H Respiratory Rate 40 H 40 H Blood Pressure Blood Pressure [Ri ght Arm] 118/61 114/73 Blood Pressure [Ri ght Upper Arm] Pulse Oximetry 92 90 Oxygen Delivery Me thod OxyMask OxyMask Oxygen Flow Rate 1.5 2 05/16/24 05:00 05/16/24 07:00 05/16/24 07:30 Temperature 97.8 F 96.6 F L Pulse Rate Pulse Rate [Pulse Oximeter] Pulse Rate [Right Pulse Oximeter] 97 119 H 114 H Respiratory Rate 30 H 30 H Blood Pressure Blood Pressure [Ri ght Arm] 101/62 108/63 Blood Pressure [Ri ght Upper Arm] Pulse Oximetry 90 92 Oxygen Delivery Me thod OxyMask OxyMask Oxygen Flow Rate 2 2 05/16/24 07:50 05/16/24 08:05 05/16/24 09:04 Temperature 97.1 F L Pulse Rate 114 H Pulse Rate [Pulse Oximeter] Pulse Rate [Right Pulse Oximeter] 110 H 126 H Respiratory Rate 30 H 32 H Blood Pressure Blood Pressure [Ri ght Arm] 111/55 L 104/56 L Blood Pressure [Ri ght Upper Arm] Pulse Oximetry 91 91 Oxygen Delivery Me thod OxyMask OxyMask Oxygen Flow Rate 2 2 05/16/24 10:31 Temperature 97.1 F L Pulse Rate Pulse Rate [Pulse Oximeter] Pulse Rate [Right Pulse Oximeter] 105 H Respiratory Rate 32 H Blood Pressure Blood Pressure [Ri ght Arm] 100/54 L Blood Pressure [Ri ght Upper Arm] Pulse Oximetry 91 Oxygen Delivery Me thod OxyMask Oxygen Flow Rate 2 Labs Labs: Laboratory Results - last 24 hr 05/15/24 05/15/24 05/15/24 15:47 15:52 15:52 WBC 26.05 H* RBC 3.64 L Hgb 11.0 L Hct 34.9 MCV 96 MCH 30 MCHC 32 RDW Coeff of Noah 17.2 H Plt Count 240 Neut % (Auto) 89.9 H Lymph % (Auto) 3.4 L [place] % (Auto) 5.8 Eos % (Auto) 0.0 Baso % (Auto) 0.1 Neut # (Auto) 23.40 H Lymph # (Auto) 0.90 [place] # (Auto) 1.50 H Eos # (Auto) 0.00 Baso # (Auto) 0.00 Abs Immat Gran (auto) 0.20 Imm/Tot Granulo (auto) 0.8 Diff Slide Review Acceptable Review INR 1.34 H APTT 36 H D-Dimer Quant (PE/DVT) 3.28 H VBG pH 7.371 VBG pCO2 40 VBG pO2 31.8 VBG HCO3 23 Sodium 134 L Potassium 4.4 Chloride 103 Carbon Dioxide 23 Anion Gap 8 BUN 26 Creatinine 1.1 Estimated Creat Clear 28.50 Estimated GFR 49 Glucose 129 H Lactate 2.3 H Calcium 8.7 Ionized Calcium Rose Phosphorus Total Bilirubin 0.8 Cancelled Direct Bilirubin 0.4 AST ALT Alkaline Phosphatase Troponin I C-Reactive Protein NT-Pro-B Natriuret Pep Total Protein Albumin Procalcitonin TSH Urine Color Urine Appearance Urine pH Ur Specific [place] Urine Protein Urine Glucose (UA) Urine Ketones Urine Blood Urine Nitrite Urine Bilirubin Urine Urobilinogen Ur Leukocyte Esterase Urine RBC Urine WBC Ur Squamous Epith Cells Amorphous Sediment Urine Bacteria Urine L. pneumophilia Ag L. pneumo Negative Urine Strep pneumoniae Ag S. pneumo Negative SARS-CoV-2 (PCR) Influenza Type A (PCR) Influenza Type B (PCR) RSV (PCR) Lab Acknowledgement POC Troponin I 05/15/24 05/15/24 05/15/24 15:52 15:52 15:52 WBC RBC Hgb Hct MCV MCH MCHC RDW Coeff of Noah Plt Count Neut % (Auto) Lymph % (Auto) [place] % (Auto) Eos % (Auto) Baso % (Auto) Neut # (Auto) Lymph # (Auto) [place] # (Auto) Eos # (Auto) Baso # (Auto) Abs Immat Gran (auto) Imm/Tot Granulo (auto) Diff Slide Review INR APTT D-Dimer Quant (PE/DVT) VBG pH VBG pCO2 VBG pO2 VBG HCO3 Sodium Potassium Chloride Carbon Dioxide Anion Gap BUN Creatinine Estimated Creat Clear Estimated GFR Glucose Lactate Calcium Ionized Calcium Rose Phosphorus Total Bilirubin Direct Bilirubin Cancelled AST 30 Cancelled ALT 16 Cancelled Alkaline Phosphatase 104 Troponin I C-Reactive Protein NT-Pro-B Natriuret Pep Total Protein Albumin Procalcitonin TSH Urine Color Urine Appearance Urine pH Ur Specific [place] Urine Protein Urine Glucose (UA) Urine Ketones Urine Blood Urine Nitrite Urine Bilirubin Urine Urobilinogen Ur Leukocyte Esterase Urine RBC Urine WBC Ur Squamous Epith Cells Amorphous Sediment Urine Bacteria Urine L. pneumophilia Ag Urine Strep pneumoniae Ag SARS-CoV-2 (PCR) Influenza Type A (PCR) Influenza Type B (PCR) RSV (PCR) Lab Acknowledgement POC Troponin I 05/15/24 05/15/24 05/15/24 15:52 15:52 15:52 WBC RBC Hgb Hct MCV MCH MCHC RDW Coeff of Noah Plt Count Neut % (Auto) Lymph % (Auto) [place] % (Auto) Eos % (Auto) Baso % (Auto) Neut # (Auto) Lymph # (Auto) [place] # (Auto) Eos # (Auto) Baso # (Auto) Abs Immat Gran (auto) Imm/Tot Granulo (auto) Diff Slide Review INR APTT D-Dimer Quant (PE/DVT) VBG pH VBG pCO2 VBG pO2 VBG HCO3 Sodium Potassium Chloride Carbon Dioxide Anion Gap BUN Creatinine Estimated Creat Clear Estimated GFR Glucose Lactate Calcium Ionized Calcium Rose Phosphorus Total Bilirubin Direct Bilirubin AST ALT Alkaline Phosphatase Cancelled Troponin I C-Reactive Protein 36.5 H NT-Pro-B Natriuret Pep 13949 Cancelled Total Protein 6.1 Cancelled Albumin 3.5 Procalcitonin TSH Urine Color Urine Appearance Urine pH Ur Specific [place] Urine Protein Urine Glucose (UA) Urine Ketones Urine Blood Urine Nitrite Urine Bilirubin Urine Urobilinogen Ur Leukocyte Esterase Urine RBC Urine WBC Ur Squamous Epith Cells Amorphous Sediment Urine Bacteria Urine L. pneumophilia Ag Urine Strep pneumoniae Ag SARS-CoV-2 (PCR) Influenza Type A (PCR) Influenza Type B (PCR) RSV (PCR) Lab Acknowledgement POC Troponin I 05/15/24 05/15/24 05/15/24 15:52 15:55 16:50 WBC RBC Hgb Hct MCV MCH MCHC RDW Coeff of Noah Plt Count Neut % (Auto) Lymph % (Auto) [place] % (Auto) Eos % (Auto) Baso % (Auto) Neut # (Auto) Lymph # (Auto) [place] # (Auto) Eos # (Auto) Baso # (Auto) Abs Immat Gran (auto) Imm/Tot Granulo (auto) Diff Slide Review INR APTT D-Dimer Quant (PE/DVT) VBG pH VBG pCO2 VBG pO2 VBG HCO3 Sodium Potassium Chloride Carbon Dioxide Anion Gap BUN Creatinine Estimated Creat Clear Estimated GFR Glucose Lactate Calcium Ionized Calcium Rose Phosphorus Total Bilirubin Direct Bilirubin AST ALT Alkaline Phosphatase Troponin I C-Reactive Protein NT-Pro-B Natriuret Pep Total Protein Albumin Cancelled Procalcitonin TSH Urine Color Yellow Urine Appearance Clear Urine pH 5.5 Ur Specific [place] >= 1.030 Urine Protein 2+ A Urine Glucose (UA) Negative Urine Ketones Negative Urine Blood Trace-intact A Urine Nitrite Negative Urine Bilirubin 1+ A Urine Urobilinogen 0.2 Ur Leukocyte Esterase Negative Urine RBC 0-2 Urine WBC 0-2 Ur Squamous Epith Cells Few Amorphous Sediment Moderate A Urine Bacteria None Urine L. pneumophilia Ag Urine Strep pneumoniae Ag SARS-CoV-2 (PCR) Negative SARS-CoV-2 Influenza Type A (PCR) Negative PCR FLU A Influenza Type B (PCR) Negative PCR FLU B RSV (PCR) Negative PCR RSV Lab Acknowledgement POC Troponin I 0.02 05/15/24 05/15/24 05/15/24 17:55 18:49 19:12 WBC RBC Hgb Hct MCV MCH MCHC RDW Coeff of Noah Plt Count Neut % (Auto) Lymph % (Auto) [place] % (Auto) Eos % (Auto) Baso % (Auto) Neut # (Auto) Lymph # (Auto) [place] # (Auto) Eos # (Auto) Baso # (Auto) Abs Immat Gran (auto) Imm/Tot Granulo (auto) Diff Slide Review INR APTT D-Dimer Quant (PE/DVT) VBG pH VBG pCO2 VBG pO2 VBG HCO3 Sodium Potassium Chloride Carbon Dioxide Anion Gap BUN Creatinine Estimated Creat Clear Estimated GFR Glucose Lactate 2.1 H Calcium Ionized Calcium Rose Phosphorus Total Bilirubin Direct Bilirubin AST ALT Alkaline Phosphatase Troponin I C-Reactive Protein NT-Pro-B Natriuret Pep Total Protein Albumin Procalcitonin TSH Urine Color Urine Appearance Urine pH Ur Specific [place] Urine Protein Urine Glucose (UA) Urine Ketones Urine Blood Urine Nitrite Urine Bilirubin Urine Urobilinogen Ur Leukocyte Esterase Urine RBC Urine WBC Ur Squamous Epith Cells Amorphous Sediment Urine Bacteria Urine L. pneumophilia Ag Urine Strep pneumoniae Ag SARS-CoV-2 (PCR) Influenza Type A (PCR) Influenza Type B (PCR) RSV (PCR) Lab Acknowledgement Test Added Test Added POC Troponin I 05/15/24 05/16/24 05/16/24 22:22 04:05 10:15 WBC 29.31 H* RBC 3.33 L Hgb 10.0 L Hct 31.7 L MCV 95 MCH 30 MCHC 32 RDW Coeff of Noah 17.1 H Plt Count 204 Neut % (Auto) 91.3 H Lymph % (Auto) 3.4 L [place] % (Auto) 4.6 Eos % (Auto) 0.0 Baso % (Auto) 0.1 Neut # (Auto) 26.80 H Lymph # (Auto) 1.00 [place] # (Auto) 1.30 H Eos # (Auto) 0.00 Baso # (Auto) 0.00 Abs Immat Gran (auto) 0.20 Imm/Tot Granulo (auto) 0.6 Diff Slide Review INR APTT > 180 H* 97 H D-Dimer Quant (PE/DVT) VBG pH 7.378 7.407 VBG pCO2 39 L 34 L VBG pO2 < 30.1 54.2 H VBG HCO3 23 22 Sodium 135 133 L Potassium 4.0 3.5 L Chloride 103 102 Carbon Dioxide 22 20 Anion Gap 10 11 BUN 26 27 Creatinine 1.1 1.1 Estimated Creat Clear 28.50 28.50 Estimated GFR 49 49 Glucose 162 H 204 H Lactate 2.7 H 3.5 H Calcium 8.3 L 7.8 L Ionized Calcium Rose 1.03 L Phosphorus 1.8 L Total Bilirubin 0.9 0.6 Direct Bilirubin 0.4 AST 30 31 ALT 17 19 Alkaline Phosphatase 96 98 Troponin I 0.03 C-Reactive Protein 35.9 H NT-Pro-B Natriuret Pep 53168 Total Protein 5.8 L 5.5 L Albumin 3.3 3.0 L Procalcitonin 8.33 H TSH 0.346 Urine Color Urine Appearance Urine pH Ur Specific [place] Urine Protein Urine Glucose (UA) Urine Ketones Urine Blood Urine Nitrite Urine Bilirubin Urine Urobilinogen Ur Leukocyte Esterase Urine RBC Urine WBC Ur Squamous Epith Cells Amorphous Sediment Urine Bacteria Urine L. pneumophilia Ag Urine Strep pneumoniae Ag SARS-CoV-2 (PCR) Influenza Type A (PCR) Influenza Type B (PCR) RSV (PCR) Lab Acknowledgement POC Troponin I
--- NOTE | 2024-05-16 19:05 | PC.NURSE ---
Pt alert to self. Pt had some signs of discomfort; see EMAR for intervention. At the beginning of shift Pt was a unit Pt with multiple drips (see EMAR). Per family Pt transitioned to comfort cares. Comfort medications given, see EMAR. Pt?s heart rate consistently above 100, and oxygen saturations 88-92% on 2 Liters oxygen. Pt?s family at bedside most of the day. Pt has a delgado catheter in place.
--- NOTE | 2024-05-16 23:27 | PC.NURSE ---
End of shift: Pt alert to self. Comfort medications given per family request, see EMAR. Family refused repo during shift. Pt?s family at bedside entirety of shift. Pt has a delgado catheter in place.
[2024-05-17] MEDS: MORPHINE 10 MG/0.5 ML ORAL SOLN PO ×3 (00:06→04:29)
[2024-05-17] MEDS: SODIUM CHLORIDE 0.9 % (FLUSH) 10 ML SYRINGE 5 ML IVF (00:07)
[2024-05-17] MEDS: LORazepam 2 MG/ML inj IVP (05:02)
--- NOTE | 2024-05-17 06:10 | PC.NURSE ---
Sharepoint Analyst was called into patient's room by primary nurse, Danyell Richter to inform of patient . Sharepoint Analyst auscultated and palpated for heart sounds and pulse for 1 full minute with absence of both. Time of called at 0601. Bong FLAHERTY notified.
--- NOTE | 2024-05-17 06:13 | W.PM.CROSSCO ---
Subjective Subjective Interval history: I was called by nursing staff and informed the patient past at 6:01 AM while on comfort care.
--- NOTE | 2024-05-17 07:18 | P.DN_ITS ---
Pronouncement Note Date and Time of Date of : 05/17/24 Time of : 06:01 PCOD Preliminary cause of : Pneumonia Contributing Factors (1) Sepsis due to pneumonia: (2) Hospital-acquired pneumonia: (3) Acute diastolic heart failure with preserved ejection fraction: (4) Acute hypoxemic respiratory failure: (5) Atrial fibrillation with rapid ventricular response: (6) Dementia: (7) Essential hypertension: (8) History of CVA (cerebrovascular accident): (9) COPD (chronic obstructive pulmonary disease): (10) Lactic acidosis: (11) Hypocalcemia: (12) Hypokalemia: (13) Multisystem organ failure: (14) Positive blood culture: Summary Additional details: 8-year-old female who had been hospitalized with pneumonia on and off for the past 4 weeks. At the time of admission she met criteria for sepsis due to pneumonia. She was also found to have heart failure with preserved ejection fraction. She was critically ill. Goals of care were discussed with family and decision was made to moved to comfort care treatment only. At 6:01 a.m. on 05/17/2024 she of her illnesses. Additional Data Confirmation of : no pulse, no respirations and no heart sounds Family: at bedside Attending physician: yCndi Frank MD Time Seen by Provider: 07:15 Date Seen: 05/17/24 Was code activated?: No Autopsy requested?: No operations examiner notified?: No Organ bank notified?: No Advance directives: Yes (DNR DNI)
--- NOTE | 2024-05-17 07:31 | PC.NURSE ---
End of shift note [id number]: Pt at 0601 today. Pt on comfort cares prior to passing with family present at bedside throughout the shift. PRN Morphine and Ativan given throughout the shift to promote comfort. Dennis catheter in place with tea-colored urinary output. Pt?s family refused to have staff assist pt with repositioning at times when approached, which was also reported by evening RN. nurse sitter was updated. Pt has had five IVs in [address]. Staff provided oral cares using mouth swabs and mouth moisturizer. Assist of 2 required for repositioning in bed. [employer] called [employer] this morning at 0647 and spoke with Daija with [employer]. Referral number: [id number]. Day RN called home. ?
--- NOTE | 2024-05-17 09:41 | PC.NURSE ---
IV's removed x5. Fentanyl patch removed from right chest. Dispose of in narc jug and wasted in the [facility]. Family present upon home arrival. All belongings sent with the family.
== END 2024-05-17 09:15 | disposition expired | DRG 871 ==
LOC: ED 17:09 → MEDSURG 17:44
PROVIDERS: Admitting Provider Family Medicine; Emergency Provider Emergency Medicine; PCP Family Medicine; Visit Provider Family Medicine
DX: A41.01 Sepsis due to Methicillin susceptible Staphylococcus aureus (principal); I50.31 Acute diastolic (congestive) heart failure; J18.9 Pneumonia, unspecified organism; J96.01 Acute respiratory failure with hypoxia; Z16.24 Resistance to multiple antibiotics; I48.20 Chronic atrial fibrillation, unspecified; J44.0 Chronic obstructive pulmonary disease with (acute) lower respiratory infection; J44.1 Chronic obstructive pulmonary disease with (acute) exacerbation; E87.21 Acute metabolic acidosis; Y95 Nosocomial condition; F03.A0 Unspecified dementia, mild, without behavioral disturbance, psychotic disturbance, mood disturbance, and anxiety; I11.0 Hypertensive heart disease with heart failure; Z87.01 Personal history of pneumonia (recurrent); H91.90 Unspecified hearing loss, unspecified ear; E83.51 Hypocalcemia; E87.6 Hypokalemia; B95.62 Methicillin resistant Staphylococcus aureus infection as the cause of diseases classified elsewhere; M81.0 Age-related osteoporosis without current pathological fracture; E78.5 Hyperlipidemia, unspecified; Z86.73 Personal history of transient ischemic attack (TIA), and cerebral infarction without residual deficits; Z85.3 Personal history of malignant neoplasm of breast
CPT/HCPCS: 36415; 51701; 71250; 80048; 80053; 80069; 80076; 81001; 82330; 82803; 83605; 83880; 84145; 84443; 84484; 85025; 85379; 85610; 85730; 86140; 87040; 87070; 87081; 87186; 87449; 87486; 87581; 87631; 87633; 87899; 93005; 93306; 94761; 99284; 99285; A9270; J0743; J1160; J1644; J1940; J2060; J2543; J2919; J3372; J3480; J3490